=== PATIENT | female | born 1940 | race Caucasian/White ===

== ENCOUNTER 2020-04-24 10:22 | Emergency (ER) | payer MEDICARE, OTHER ==
[~2020-04-24] VITALS: Ht 152.4 cm; Wt 55.8 kg
[2020-04-24 10:32] VITALS: BP 196/80
--- NOTE | 2020-04-24 10:40 | ED Back Pain ---
General Chief Complaint: Back Problems Stated Complaint: RT HIP PAIN Source of Information: Patient Exam Limitations: No Limitations History of Present Illness Date Seen by Provider: Apr 24, 2020 Time Seen by Provider: 10:12 Initial Comments The patient presents ER by EMS from home with chief complaint 2 to 3 days of right hip pain. She says she remembers lifting something heavy and having some pain in her back at the time that it started. She has been using ibuprofen 400 mg every 4-6 hours dozits-fvo-hjmih with minimal relief. She has not been using heat or topical creams. She has no history of back surgeries or trauma. She denies any falls recently. She points to her right buttock and low back and says that is where her pain is and she has some tightness and muscle spasms on both her leg as well as her right lower back. She was seeing Dr. Vargas for this pain in the past and he had referred her to physical therapy but because of COVID-19 she had decided not to go. She is having no saddle anesthesia, weakness, falls, loss of control of bowel or bladder. 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 She did try some oxycodone she had left over from a dental surgery she says that helped for a few hours. Allergies and Home Medications Allergies Coded Allergies: shellfish derived (Verified Allergy, Unknown, 04/24/20) Home Medications Cyclobenzaprine HCl 10 Mg Tablet, 10 MG PO Q8H PRN for SPASMS Prescribed by: CAT BORGES on 04/24/20 1041 Patient Home Medication List Home Medication List Reviewed: Yes Review of Systems Constitutional: No chills, No diaphoresis EENTM: No ear discharge, No ear pain Respiratory: No cough, No short of breath Cardiovascular: No Hx of Intervention, No palpitations Gastrointestinal: No abdominal pain, No nausea, No vomiting Genitourinary: No discharge, No dysuria, No frequency Musculoskeletal: see HPI, back pain, joint pain Past Jsczikj-Mjljrr-Pyttha Hx Patient Social History Alcohol Use: Denies Use Recreational Drug Use: No Smoking Status: Never a Smoker Physical Exam Vital Signs Vital Signs - First Documented 04/24/20 10:32 Temp 36.7 Pulse 70 Resp 18 B/P (MAP) 196/80 (118) Pulse Ox 95 O2 Delivery Room Air Capillary Refill : Height, Weight, BMI Height: '" Weight: lbs. oz. kg; BMI Method: General Appearance: WD/WN, Mild Distress HEENT: PERRL/EOMI, Pharynx Normal, Moist Mucous Membranes Neck: Normal Inspection, Non Tender, Supple Cardiovascular: Regular Rate, Rhythm, No Gallop, Normal Peripheral Pulses Respiratory: Lungs Clear, Normal Breath Sounds, No Accessory Muscle Use, No Respiratory Distress Gastrointestinal: Non Tender, Soft Back: Normal Inspection, No CVA Tenderness, Muscle Spasm (Right paralumbar vertebral spasms. Point of maximal tenderness over the right L5-S1 facet joint.) Neurologic/Psychiatric: Alert, Oriented x3, No Motor/Sensory Deficits, Normal Mood/Affect, Abnormal Gait (Antalgic gait) Skin: Normal Color, Warm/Dry; No Rash Procedures/Interventions Progress L5-S1 facet joint injection. An admixture of 1.5 cc of half percent bupivacaine and 1.5 cc of 2% lidocaine with epinephrine was added to 1 mL of 40 mg/mL Depo- Medrol. Risks, benefits and alternatives were explained to the patient and she consented verbally. We cleaned the site with chlorhexidine and allowed it to dry and then after ascertaining the site of maximal pain injected some of the mixture into her L5-S1 facet joint and the rest into her point tenderness which is adjacent to the L5-S1 facet joint. A Band-Aid was placed over the injection site and the patient tolerated the procedure very well. Progress/Results/Core Measures Results/Orders My Orders Orders - CAT BORGES Lidocaine/Epi 2% 1:100,000 (Xylocaine/Ep (04/24/20 10:45) Bupivacaine 0.5% Injection (Sensorcaine (04/24/20 10:45) Methylprednisolone Acetate Inj (Depo-Med (04/24/20 10:45) Vital Signs/I&O 04/24/20 10:32 Temp 36.7 Pulse 70 Resp 18 B/P (MAP) 196/80 (118) Pulse Ox 95 O2 Delivery Room Air Progress Progress Note : Time: 10:37 Progress Note Her right hip pain does not seem to be associated with the hip joint but rather with lumbago and sciatica. We have suggested cyclobenzaprine as well as we will give her a shot of steroids and point tenderness injections at the L5-S1 facet joint with Marcaine and lidocaine. The patient is okay with this plan. She was also encouraged to set up physical therapy through her primary care office. We did offer to do a urinalysis which the patient declined. She does not have any red flags necessitating immediate imaging. Departure Impression Primary Impression: Lumbago with sciatica, right side Qualified Codes: M54.41 - Lumbago with sciatica, right side Disposition: 01 HOME, SELF-CARE Condition: Stable Departure-Patient Inst. Decision time for Depature: 10:38 Referrals: MARCELLO VARGAS MD Patient Instructions: Sciatica, Back Stretches on Floor, Back Muscle Strain (DC), Sciatica Exercises Add. Discharge Instructions: You have injured the joints and muscles of your back causing spasm of the muscles on the right side of your lumbar spine. This is causing inflammation to impact the sciatic nerve bundle which is causing the symptoms going down into your hip and leg. Continue taking the ibuprofen 400 mg every 4 hours as necessary. You may also add Tylenol 1000 mg every 8 hours. Topical creams such as icy hot, Biofreeze or capsaicin oil can be helpful. If you are having spasms of the muscles of your back and your legs then 1/2 to 1 tablet of cyclobenzaprine every 8 hours as necessary. Cyclobenzaprine will cause drowsiness. We have injected you with a medication that should cause some immediate relief of pain for about 6 to 8 hours and then the steroid should kick in over the next day. The steroid will hang out for about 5 to 7 days and decrease the swelling and inflammation associated with your back and sciatic nerve. All steroids may cause increased feeling of energy, feeling wired or difficulty getting to sleep. You may use melatonin or 25 mg of Benadryl 30 minutes prior to sleep if you are having insomnia. Please make an appointment to follow-up with Dr. VARGAS next week to discuss physical therapy and continued management of your chronic low back pain. All discharge instructions reviewed with patient and/or family. Voiced understanding. Scripts Cyclobenzaprine HCl (Cyclobenzaprine HCl) 10 Mg Tablet 10 MG PO Q8H PRN for SPASMS, #15 TAB 0 Refills Prov: CAT BORGES 04/24/20 Copy Copies To 1: MARCELLO VARGAS MD, TITUS J Apr 24, 2020 10:40
[2020-04-24] MEDS ORDERED: CYCL10TA9 PO (10:41)
[2020-04-24] MEDS ORDERED: BUPIVACAINE 0.5% 30 ML (SENSORCAINE) VIAL INJ ONE (10:45)
[2020-04-24] MEDS ORDERED: LIDOCAINE/EPI 2% 1:100,00 (XYLOCAINE) 20 ML VIAL INJ ONE (10:45)
[2020-04-24] MEDS ORDERED: methylPREDNISolone 40 MG/ML (DEPO MEDROL) VIAL IA ONE (10:45)
== END 2020-04-24 10:57 | disposition home or self-care (01) ==
LOC: ER FS 10:24
DX: M54.41 Lumbago with sciatica, right side (principal)
CPT/HCPCS: 99283

== ENCOUNTER 2020-05-08 11:09 | Inpatient (IN) | payer MEDICARE, OTHER ==
[~2020-05-08] VITALS: Ht 160 cm; Wt 54.4 kg
[~2020-05-08 11:09] MED LIST: CYCL10TA9 PO
[2020-05-08] MEDS ORDERED: NS IV 1000 ML 1,000 ML IV STA (11:23)
--- NOTE | 2020-05-08 11:23 | ED Neurological Problem ---
General Chief Complaint: Neuro-Stroke Like Symptoms Stated Complaint: Altered Mental Status Source: patient Exam Limitations: no limitations History of Present Illness Date Seen by Provider: May 08, 2020 Time Seen by Provider: 11:23 Initial Comments 79-year-old female brought in by EMS. History of present illness is very limited. Patient is brought in with what appears to be some altered mental status and confusion. She has some right-sided facial droop, unsure if this is new or old. Patient stares at you and a starter with any activity towards her. She acts as if she does not comprehend what is happening around her and is quite confused. Last known well time was when she went to bed last night. No other history of present illness available Allergies and Home Medications Allergies Coded Allergies: shellfish derived (Verified Allergy, Unknown, 04/24/20) Home Medications Cyclobenzaprine HCl 10 Mg Tablet, 10 MG PO Q8H PRN for SPASMS Prescribed by: CAT BORGES on 04/24/20 1041 Patient Home Medication List Home Medication List Reviewed: Yes Review of Systems Review of Systems Constitutional: see HPI Cardiovascular: no symptoms reported Gastrointestinal: no symptoms reported Genitourinary: no symptoms reported Psychiatric/Neurological: See HPI Review of systems limited based on patient's presentation and Inability to communicate Past Ucesbmr-Aypixd-Xkvrol Hx Past Med/Social Hx: Reviewed Nursing Past Med/Soc Hx Patient Social History Type Used: Cigarettes 2nd Hand Smoke Exposure: No Recent Hopitalizations: No Seasonal Allergies Seasonal Allergies: No Past Medical History Surgeries: Yes Oophorectomy Respiratory: No Atrial Fibrillation Neurological: No Genitourinary: No Gastrointestinal: No Musculoskeletal: No Endocrine: No HEENT: No Cancer: No Psychosocial: No Integumentary: No Blood Disorders: No Physical Exam Vital Signs Vital Signs - First Documented 05/08/20 12:13 Temp 35.0 Pulse 62 Resp 18 B/P (MAP) 168/71 (103) Pulse Ox 100 O2 Delivery Room Air Capillary Refill : Height, Weight, BMI Height: '" Weight: lbs. oz. kg; 24.00 BMI Method: General Appearance: other (is awake but obviously confused, does not follow commands, axis that she does not understand this where she is at her anything going on around her) HEENT: PERRL/EOMI Neck: full range of motion Respiratory: normal breath sounds, no respiratory distress Cardiovascular: normal peripheral pulses, regular rate, rhythm Gastrointestinal: non tender, soft Back: normal inspection Extremities: normal capillary refill Neurologic/Psychiatric: facial droop, disoriented x 3 Crainal Nerves: other (patient has slight right-sided facial weakness and droop, unsure if this is new or old. She seems to be moving all her extremities appropriately, limited testing based on patient does not follow commands.) Skin: normal color, warm/dry Focused Exam Lactate Level 05/08/20 11:35: Lactic Acid Level 1.54 Lactic Acid Level Laboratory Tests Test 05/08/20 11:35 Lactic Acid Level 1.54 MMOL/L (0.50-2.00) Progress/Results/Core Measures Results/Orders Lab Results Laboratory Tests Test 05/08/20 11:15 05/08/20 11:35 05/08/20 12:05 Range/Units White Blood Count 12.1 H 4.3-11.0 10^3/uL Red Blood Count 4.64 4.35-5.85 10^6/uL Hemoglobin 13.6 11.5-16.0 G/DL Hematocrit 40 35-52 % Mean Corpuscular Volume 87 80-99 FL Mean Corpuscular Hemoglobin 29 25-34 PG Mean Corpuscular Hemoglobin Concent 34 32-36 G/DL Red Cell Distribution Width 14.7 H 10.0-14.5 % Platelet Count 287 130-400 10^3/uL Mean Platelet Volume 9.9 7.4-10.4 FL Immature Granulocyte % (Auto) 0 % Neutrophils (%) (Auto) 55 42-75 % Lymphocytes (%) (Auto) 35 12-44 % Monocytes (%) (Auto) 7 0-12 % Eosinophils (%) (Auto) 1 0-10 % Basophils (%) (Auto) 1 0-10 % Neutrophils # (Auto) 6.7 1.8-7.8 X 10^3 Lymphocytes # (Auto) 4.3 H 1.0-4.0 X 10^3 Monocytes # (Auto) 0.9 0.0-1.0 X 10^3 Eosinophils # (Auto) 0.1 0.0-0.3 10^3/uL Basophils # (Auto) 0.1 0.0-0.1 10^3/uL Immature Granulocyte # (Auto) 0.0 0.0-0.1 10^3/uL Prothrombin Time 13.0 12.2-14.7 SEC INR Comment 1.0 0.8-1.4 Activated Partial Thromboplast Time 21 L 24-35 SEC D-Dimer 3.87 H 0.00-0.49 UG/ML Sodium Level 125 *L 135-145 MMOL/L Potassium Level 4.6 3.6-5.0 MMOL/L Chloride Level 89 L 98-107 MMOL/L Carbon Dioxide Level 27 21-32 MMOL/L Anion Gap 9 5-14 MMOL/L Blood Urea Nitrogen 12 7-18 MG/DL Creatinine 0.63 0.60-1.30 MG/DL Estimat Glomerular Filtration Rate > 60 BUN/Creatinine Ratio 19 Glucose Level 180 H 70-105 MG/DL Calcium Level 9.2 8.5-10.1 MG/DL Corrected Calcium 9.3 8.5-10.1 MG/DL Magnesium Level 1.8 1.6-2.4 MG/DL Total Bilirubin 0.5 0.1-1.0 MG/DL Aspartate Amino Transf (AST/SGOT) 16 5-34 U/L Alanine Aminotransferase (ALT/SGPT) 21 0-55 U/L Alkaline Phosphatase 59 40-136 U/L Troponin I < 0.30 <0.30 NG/ML C-Reactive Protein 0.05 <0.50 MG/DL Total Protein 6.1 L 6.4-8.2 GM/DL Albumin 3.9 3.2-4.5 GM/DL Serum Alcohol < 10 <10 MG/DL Lactic Acid Level 1.54 0.50-2.00 MMOL/L Urine Color YELLOW Urine Clarity CLEAR Urine pH 7.5 5-9 Urine Specific [place] 1.015 L 1.016-1.022 Urine Protein NEGATIVE NEGATIVE Urine Glucose (UA) NEGATIVE NEGATIVE Urine Ketones NEGATIVE NEGATIVE Urine Nitrite NEGATIVE NEGATIVE Urine Bilirubin NEGATIVE NEGATIVE Urine Urobilinogen 0.2 < = 1.0 MG/DL Urine Leukocyte Esterase NEGATIVE NEGATIVE Urine RBC (Auto) NEGATIVE NEGATIVE Urine RBC NONE /HPF Urine WBC NONE /HPF Urine Crystals PRESENT H /LPF Urine Amorphous Sediment MOD NAVEEN PHOSPHATE H /LPF Urine Bacteria NONE /HPF Urine Casts NONE /LPF Urine Mucus SMALL H /LPF Urine Culture Indicated NO Urine Opiates Screen NEGATIVE NEGATIVE Urine Oxycodone Screen NEGATIVE NEGATIVE Urine Methadone Screen NEGATIVE NEGATIVE Urine Propoxyphene Screen NEGATIVE NEGATIVE Urine Barbiturates Screen NEGATIVE NEGATIVE Ur Tricyclic Antidepressants Screen NEGATIVE NEGATIVE Urine Phencyclidine Screen NEGATIVE NEGATIVE Urine Amphetamines Screen NEGATIVE NEGATIVE Urine Methamphetamines Screen NEGATIVE NEGATIVE Urine Benzodiazepines Screen NEGATIVE NEGATIVE Urine Cocaine Screen NEGATIVE NEGATIVE Urine Cannabinoids Screen NEGATIVE NEGATIVE My Orders Orders - WHITTAKER,ROJAS L DO Cbc With Automated Diff (05/08/20 11:23) Protime With Inr (05/08/20 11:23) Partial Thromboplastin Time (05/08/20 11:23) Comprehensive Metabolic Panel (05/08/20 11:23) Fibrin Degradation Products (05/08/20 11:23) Troponin I Fs (05/08/20 11:23) Ua Culture If Indicated (05/08/20 11:23) Chest 1 View Ap/Pa Only (05/08/20 11:23) Catheter(Urinary) Insert & Ass 03,15 (05/08/20 11:23) Ekg Tracing (05/08/20 11:23) Accucheck Stat ONCE (05/08/20 11:23) Ed Iv/Invasive Line Start (05/08/20 11:23) Ed Iv/Invasive Line Start (05/08/20 11:23) Vital Signs Stroke Patient Q15M (05/08/20 11:23) Ct Head Wo-R/O Stroke (05/08/20 11:23) Intake & Output 06,14,22 (05/08/20 11:23) Monitor-Rhythm Ecg Trace Only (05/08/20 11:23) Dysphagia Screening Tool (05/08/20 11:23) Alcohol (05/08/20 11:23) Drug Screen Stat (Urine) (05/08/20 11:23) Magnesium (05/08/20 11:23) Procalcitonin (Pct) (05/08/20 11:23) Blood Culture (05/08/20 11:23) Crp Fs (05/08/20 11:23) Lactic Acid Analyzer (05/08/20 11:23) Ns Iv 1000 Ml (Sodium Chloride 0.9%) (05/08/20 11:23) Ed Iv/Invasive Line Start (05/08/20 11:52) Ns Iv 500 Ml (Sodium Chloride 0.9%) (05/08/20 12:00) Lipid Panel (05/08/20 12:41) Vital Signs/I&O 05/08/20 05/08/20 12:13 12:52 Temp 35.0 36.0 Pulse 62 81 Resp 18 18 B/P (MAP) 168/71 (103) 103/83 Pulse Ox 100 98 O2 Delivery Room Air Room Air Initial ECG Impression Date: May 08, 2020 Initial ECG Impression Time: 12:02 Initial ECG Rhythm: Normal Sinus Initial ECG Impression: Nonspecific Changes Comment HR 68, sinus Rhythm, no acute finding Departure Communication (Admissions) Time/Spoke to Admitting Phy: 12:40 aspirin daily, pt/ot to eval, lipid panel Impression Primary Impression: Hyponatremia Additional Impression: Altered mental status Qualified Codes: R41.0 - Disorientation, unspecified Disposition: 30 STILL A PATIENT Condition: Stable/Unchanged Admissions Decision to Admit Reason: Admit from ER (General) Decision to Admit/Date: May 08, 2020 Time/Decision to Admit Time: 12:40 Departure-Patient Inst. Referrals: SELF,MARCELLO LUNA (PCP/Family) Primary Care Physician ROJAS WHITTAKER DO May 08, 2020 11:23
[2020-05-08 11:35] LABS: BASOPHILS % (AUTO) 1 % (0-10); EOSINOPHILS % (AUTO) 1 % (0-10); HEMATOCRIT 40 % (35-52); HEMOGLOBIN 13.6 G/DL (11.5-16.0); LYMPHOCYTES % (AUTO) 35 % (12-44); MEAN CORPUSCULAR HEMOGLOBIN 29 PG (25-34); MEAN CORPUSCULAR HGB CONC 34 G/DL (32-36); MEAN CORPUSCULAR VOLUME 87 FL (80-99); MEAN PLATELET VOLUME 9.9 FL (7.4-10.4); MONOCYTES % (AUTO) 7 % (0-12); NEUTROPHILS # (AUTO) 6.7 X 10^3 (1.8-7.8); NEUTROPHILS % (AUTO) 55 % (42-75); PLATELET COUNT 287 10^3/uL (130-400); WHITE BLOOD COUNT 12.1 10^3/uL (4.3-11.0)
[2020-05-08 11:36] LABS: BASOPHILS # (AUTO) 0.1 10^3/uL (0.0-0.1); EOSINOPHILS # (AUTO) 0.1 10^3/uL (0.0-0.3); LYMPHOCYTES # (AUTO) 4.3 X 10^3 (1.0-4.0); MONOCYTES # (AUTO) 0.9 X 10^3 (0.0-1.0)
[2020-05-08 11:47] LABS: FIBRIN DEGRADATION PRODUCTS 3.87 UG/ML (0.00-0.49)
[2020-05-08 11:50] LABS: ALKALINE PHOSPHATASE 59 U/L (40-136); BILIRUBIN,TOTAL 0.5 MG/DL (0.1-1.0); BUN/CREATININE RATIO 19; CALCIUM 9.2 MG/DL (8.5-10.1); CARBON DIOXIDE 27 MMOL/L (21-32); CHLORIDE 89 MMOL/L (98-107); CREATININE SERUM 0.63 MG/DL (0.60-1.30); GFR ESTIMATED > 60; GLUCOSE 180 MG/DL (70-105); MAGNESIUM 1.8 MG/DL (1.6-2.4); POTASSIUM 4.6 MMOL/L (3.6-5.0); SODIUM 125 MMOL/L (135-145)
[2020-05-08 11:51] LABS: ALANINE AMINOTRANSFERASE 21 U/L (0-55); ALBUMIN 3.9 GM/DL (3.2-4.5); TOTAL PROTEIN 6.1 GM/DL (6.4-8.2)
[2020-05-08] MEDS ORDERED: NS IV 500 ML 500 ML IV ONE (12:00)
--- NOTE | 2020-05-08 12:15 | Diagnostic Imaging Report ---
Clinical indication: Patient altered mental status and right-sided facial droop. Exam: Axial CT scan of the brain without IV contrast with coronal and sagittal reformatted images. Auto Exposure Controls were utilized during the CT exam to meet ALARA standards for radiation dose reduction. Comparison: None. Findings: There is significant motion artifact with skull streak artifact which obscures portions of the brain parenchyma. There is no gross evidence of acute cerebral infarct, intracranial hemorrhage, or gross mass effect. There is diffuse brain parenchymal volume loss. 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 There is normal campos-white matter distinction. There is no significant midline shift or herniation. There is no evidence of hydrocephalus. The basal cisterns are unremarkable. There is no gross skull fracture. The skull, extracranial soft tissue, and orbits are unremarkable. There is minimal mucosal thickening involving ethmoid sinus. Temporal bones show no significant abnormality. Impression: 1: Motion artifact and skull streak artifact greatly limits evaluation of the brain parenchyma. 2: There is no gross CT evidence of interval acute cerebral infarction, intracranial hemorrhage, or mass seen. Given the diffuse low attenuation changes throughout the brain parenchyma which can obscure more subtle findings, if there is clinical concern for acute cerebral infarction, MRI of the brain would better evaluate. 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 Results of this report was discussed with Dr. Jc Siddiqui via the telephone on 05/08/2020 at 1210 hours Dictated by: Dictated on workstation # [id number]
[2020-05-08 12:25] LABS: AMPHETAMINE SCREEN, URINE NEGATIVE (NEGATIVE); BARBITURATE SCREEN URINE NEGATIVE (NEGATIVE); BENZODIAZEPINES SCREEN URINE NEGATIVE (NEGATIVE); BILIRUBIN,URINE NEGATIVE (NEGATIVE); CANNABINOID SCREEN, URINE NEGATIVE (NEGATIVE); CLARITY,URINE CLEAR; COCAINE SCREEN URINE NEGATIVE (NEGATIVE); COLOR,URINE YELLOW; GLUCOSE, URINE (UA) NEGATIVE (NEGATIVE); KETONES,URINE NEGATIVE (NEGATIVE); LEUKOCYTE ESTERASE ,URINE NEGATIVE (NEGATIVE); METHADONE STAT NEGATIVE (NEGATIVE); METHAMPHETAMINE SCREEN URINE S NEGATIVE (NEGATIVE); NITRITE,URINE NEGATIVE (NEGATIVE); OPIATE SCREEN URINE NEGATIVE (NEGATIVE); OXYCODONE STAT NEGATIVE (NEGATIVE); PH,URINE 7.5 (5-9); PROPOXYPHENE STAT NEGATIVE (NEGATIVE); PROTEIN,URINE NEGATIVE (NEGATIVE); TRICYCLIC ANTIDEPRESSANTS SCRE NEGATIVE (NEGATIVE)
[2020-05-08 12:26] LABS: AMORPHOUS SEDIMENT,UR MOD AMOR PHOSPHATE /LPF
--- NOTE | 2020-05-08 12:29 | Diagnostic Imaging Report ---
Chest 1 view at 1149h. INDICATION: CVA There are no prior studies available for comparison. This exam is less than optimal as the patient is rotated and the right lung apex is obscured by the patient's chin. The heart size is at the upper limits of normal. The lungs are generally clear. There is no evidence for failure, pneumonia or for a pleural effusion to suggest an acute abnormality. The mediastinum is not widened. The osseous structures are intact. IMPRESSION: There is no evidence for an acute cardiopulmonary abnormality on this suboptimal exam. Dictated by: Dictated on workstation # [id number]
[2020-05-08 14:43] LABS: CHOLESTEROL 193 MG/DL (< 200); HDL CHOLESTEROL 61 MG/DL (40-60); TRIGLYCERIDES 65 MG/DL (<150); VLDL CHOLESTEROL 13 MG/DL (5-40)
[2020-05-08] MEDS ORDERED: LISI10TA2 PO (14:54)
[2020-05-08] MEDS: NS IV 1000 ML 1,000 ML IV SCH (15:06)
[2020-05-08] MEDS ORDERED: hydrALAZINE (APESOLINE) 20 MG/ML VIAL IV PRN (15:30)
[2020-05-08] MEDS ORDERED: hydrALAZINE (APESOLINE) 20 MG/ML VIAL ONE (15:32)
[2020-05-08] MEDS: hydrALAZINE (APESOLINE) 20 MG/ML VIAL IV PRN (15:37)
[2020-05-08] MEDS: lisINopril 10 MG (PRINIVIL) TABLET PO SCH (15:37)
[2020-05-08 15:47] LABS: CHLORIDE 92 MMOL/L (98-107); POTASSIUM 4.1 MMOL/L (3.6-5.0); SODIUM 127 MMOL/L (135-145)
[2020-05-08 15:48] LABS: CALCIUM 8.7 MG/DL (8.5-10.1)
[2020-05-08 15:49] LABS: GLUCOSE 95 MG/DL (70-105)
[2020-05-08 15:50] LABS: CARBON DIOXIDE 22 MMOL/L (21-32)
[2020-05-08 15:53] LABS: CREATININE SERUM 0.59 MG/DL (0.60-1.30); GFR ESTIMATED > 60
[2020-05-08 15:54] LABS: BUN/CREATININE RATIO 17
--- NOTE | 2020-05-08 18:24 | NUR ---
[address] SPOKE WITH E-ICU DR REGARDING PT'S ELEVATED BLOOD PRESSURE, NEW ORDERS RECEIVED.
--- NOTE | 2020-05-08 18:25 | NUR ---
LEFT MESSAGE FOR E-ICU DR REGARDING PT'S ELEVATED BLOOD PRESSURE, PT C/O OF BACK PAIN, RATES PAIN AT 6 ON 0-10 SCALE, STATES " I TAKE TYLENOL AND IBUPROFEN AT HOME."
[2020-05-08] MEDS ORDERED: IBUPROFEN TABLET 200 MG TAB PO PRN (18:45)
[2020-05-08] MEDS ORDERED: ACETAMINOPHEN 500 MG TAB (TYLENOL) PO PRN (18:45)
[2020-05-08] MEDS ORDERED: diphenhydrAMINE 25 MG TAB (BENADRYL) PO PRN (19:15)
[2020-05-08] MEDS ORDERED: ONDANSETRON 4 MG/2 ML (SDV) Z0FRAN IVP PRN (19:15)
[2020-05-08] MEDS ORDERED: DOCUSATE SODIUM 100 MG (COLACE) CAP PO PRN (19:15)
[2020-05-08] MEDS ORDERED: LOPERAMIDE 2 MG (IMODIUM) TABLET PO PRN (19:15)
[2020-05-08] MEDS ORDERED: CALCIUM CARBONATE 500 MG (TUMS) TAB.CHEW PO PRN (19:15)
[2020-05-08] MEDS ORDERED: SALINE NASAL SPRAY (OCEAN) 45 ML BTL PRN (19:45)
[2020-05-08] MEDS: HYDROcodone/APAP 5 MG/325 MG (LORTAB) TAB PO PRN (20:00)
[2020-05-08 20:05] LABS: BUN/CREATININE RATIO 16; CALCIUM 8.3 MG/DL (8.5-10.1); CARBON DIOXIDE 23 MMOL/L (21-32); CHLORIDE 92 MMOL/L (98-107); CREATININE SERUM 0.51 MG/DL (0.60-1.30); GFR ESTIMATED > 60; GLUCOSE 93 MG/DL (70-105); POTASSIUM 3.9 MMOL/L (3.6-5.0)
[2020-05-08 20:07] LABS: SODIUM 125 MMOL/L (135-145)
[2020-05-08] MEDS ORDERED: ENOXAPARIN 40 MG/0.4 ML (LOVENOX) SYR SC SCH (21:00)
[2020-05-08] MEDS ORDERED: RALO60TA12 PO (22:52)
[2020-05-08] MEDS ORDERED: TIMO5DRO5 OU (22:52)
[2020-05-08] MEDS ORDERED: RIVA20TA PO ×2 (22:52)
[2020-05-08] MEDS ORDERED: C,E,1CAP PO (22:55)
[2020-05-08] MEDS ORDERED: OMEP40CA27 PO (22:56)
[2020-05-08] MEDS ORDERED: CALC-308 PO (22:59)
[2020-05-08] MEDS ORDERED: TRM50T PO (23:01)
--- NOTE | 2020-05-09 00:02 | NUR ---
E-ICU called regarding patient's wish to start home medication of Timolol eye drops tonight. ([id number] had been called about 2 hour ago and medications reviewed).
[2020-05-09] MEDS: NS IV 1000 ML 1,000 ML IV SCH (00:25)
[2020-05-09] MEDS: MELATONIN 3 MG TABLET PO PRN (00:28)
[2020-05-09] MEDS: HYDROcodone/APAP 5 MG/325 MG (LORTAB) TAB PO PRN (00:28)
[2020-05-09] MEDS: hydrALAZINE (APESOLINE) 20 MG/ML VIAL IV PRN ×2 (00:36→21:52)
[2020-05-09 00:42] LABS: CHLORIDE 93 MMOL/L (98-107); POTASSIUM 3.7 MMOL/L (3.6-5.0)
[2020-05-09 00:44] LABS: CALCIUM 8.1 MG/DL (8.5-10.1); GLUCOSE 78 MG/DL (70-105)
[2020-05-09 00:46] LABS: CARBON DIOXIDE 20 MMOL/L (21-32)
[2020-05-09 00:48] LABS: CREATININE SERUM 0.51 MG/DL (0.60-1.30); GFR ESTIMATED > 60
[2020-05-09 00:49] LABS: BUN/CREATININE RATIO 16
[2020-05-09 00:52] LABS: SODIUM 124 MMOL/L (135-145)
--- NOTE | 2020-05-09 00:58 | NUR ---
E-ICU notified about critical lab (Sodium 124). Orders to restrict free water and stop IV fluids.
[2020-05-09 03:57] LABS: BASOPHILS # (AUTO) 0.1 10^3/uL (0.0-0.1); BASOPHILS % (AUTO) 0 % (0-10); EOSINOPHILS # (AUTO) 0.1 10^3/uL (0.0-0.3); EOSINOPHILS % (AUTO) 1 % (0-10); HEMATOCRIT 39 % (35-52); HEMOGLOBIN 13.2 g/dL (11.5-16.0); LYMPHOCYTES # (AUTO) 4.1 10^3/uL (1.0-4.0); LYMPHOCYTES % (AUTO) 27 % (12-44); MEAN CORPUSCULAR HEMOGLOBIN 29 pg (25-34); MEAN CORPUSCULAR HGB CONC 34 g/dL (32-36); MEAN CORPUSCULAR VOLUME 85 fL (80-99); MEAN PLATELET VOLUME 9.4 fL (9.0-12.2); MONOCYTES # (AUTO) 1.4 10^3/uL (0.0-1.0); MONOCYTES % (AUTO) 9 % (0-12); NEUTROPHILS # (AUTO) 9.6 10^3/uL (1.8-7.8); NEUTROPHILS % (AUTO) 62 % (42-75); PLATELET COUNT 262 10^3/uL (130-400); WHITE BLOOD COUNT 15.4 10^3/uL (4.3-11.0)
[2020-05-09 04:12] LABS: CHLORIDE 93 MMOL/L (98-107); POTASSIUM 3.6 MMOL/L (3.6-5.0)
[2020-05-09 04:13] LABS: CALCIUM 8.4 MG/DL (8.5-10.1)
[2020-05-09 04:14] LABS: GLUCOSE 94 MG/DL (70-105)
[2020-05-09 04:15] LABS: CARBON DIOXIDE 21 MMOL/L (21-32)
[2020-05-09 04:16] LABS: SODIUM 123 MMOL/L (135-145)
[2020-05-09 04:17] LABS: CREATININE SERUM 0.54 MG/DL (0.60-1.30); GFR ESTIMATED > 60; PHOSPHORUS 3.2 MG/DL (2.3-4.7)
[2020-05-09 04:18] LABS: BUN/CREATININE RATIO 15
[2020-05-09 04:20] LABS: MAGNESIUM 1.8 MG/DL (1.6-2.4)
[2020-05-09 04:28] LABS: EOSINOPHILS % (MANUAL) 2 %; LYMPHOCYTES % (MANUAL) 26 %; MONOCYTES % (MANUAL) 10 %; NEUTROPHILS % (MANUAL) 62 %; RBC MORPH NORMAL
--- NOTE | 2020-05-09 04:30 | NUR ---
E-ICU called regarding critical result (Sodium 123). No orders received at this time; awaiting urine osmolality and urine sodium results. Called lab, no urine available, specimen obtained from jorgensen and sent to lab.
[2020-05-09] MEDS: SENNA W/DOCUSATE (SENOKOT S) TABLET PO SCH ×3 (06:04→21:45)
--- NOTE | 2020-05-09 07:25 | History & Physical-Hospitalist ---
History of Present Illness HPI/Chief Complaint CC: AMS HPI: This is a 79yoWF who presented to the [facility] ER with AMS. Patient was found at home lethargic and brought to the ER. Labs revealed hyponatremia at 123. Questionable CVA started the CVA work-up but considering she presented a full day after symptoms and last seen well time she was not a candidate for tPA. Patient currently feels ok and answers my questions mostly correctly. Fluid restriction maintained. Patient experienced AF w/RVR requiring Cardizem drip. Source: patient Exam Limitations: no limitations Date Seen 05/09/20 Time Seen by a Provider: 11:00 Attending Physician Caitlyn Subramanian DO PCP Self,Ponce LUNA Referring Physician Date of Admission May 08, 2020 at 12:42 Home Medications & Allergies Home Medications Reviewed patient Home Medication Reconciliation performed by pharmacy medication reconciliations computer hardware technician and/or nursing. Patients Allergies have been reviewed. Allergies Allergies Coded Allergies shellfish derived (Verified Allergy, Unknown, 04/24/20) Past Pixwlcm-Fmvtzc-Pcaapj Hx Past Med/Social Hx: Reviewed Nursing Past Med/Soc Hx, Reviewed and Corrections made Patient Social History Marrital Status: single Alcohol Use: Denies Use Recreational Drug Use: No Smoking Status: Current Everyday Smoker Type Used: Cigarettes 2nd Hand Smoke Exposure: No Recent Foreign Travel: No Contact w/other who traveled: No Recent Hopitalizations: No Recent Infectious Disease Expo: No Seasonal Allergies Seasonal Allergies: No Past Medical History Surgeries: Oophorectomy Cardiac: Atrial Fibrillation History of Blood Disorders: No Review of Systems Constitutional: see HPI Psychiatric/Neurological: Other (confusion) Physical Exam Physical Exam Vital Signs Vital Signs - First Documented 05/08/20 12:13 Temp 35.0 Pulse 62 Resp 18 B/P (MAP) 168/71 (103) Pulse Ox 100 O2 Delivery Room Air Capillary Refill : Less Than 3 Seconds Height, Weight, BMI Height: '" Weight: lbs. oz. kg; 29.00 BMI Method: General Appearance: No Apparent Distress, Chronically ill, Thin, Other (frail) Eyes: Right Eye Normal Inspection, Right Eye PERRL HEENT: PERRL/EOMI, Normal ENT Inspection, Pharynx Normal, Moist Mucous Membranes Neck: Full Range of Motion, Normal Inspection, Non Tender Respiratory: Chest Non Tender, Lungs Clear, Normal Breath Sounds, No Accessory Muscle Use, No Respiratory Distress Cardiovascular: No Edema, No Gallop, No JVD, No Murmur, Normal Peripheral Pulses, Irregularly Irregular, Tachycardia Gastrointestinal: Normal Bowel Sounds, No Organomegaly, No Pulsatile Mass, Non Tender, Soft Back: Normal Inspection, No CVA Tenderness, No Vertebral Tenderness Extremity: Normal Capillary Refill, Normal Inspection, Normal Range of Motion, Non Tender, No Calf Tenderness, No Pedal Edema Neurologic/Psychiatric: Alert, Oriented x3, No Motor/Sensory Deficits, Normal Mood/Affect, Disoriented Skin: Normal Color, Warm/Dry Lymphatic: No Adenopathy Results Results/Procedures Labs Laboratory Tests 05/08/20 11:15 05/08/20 15:33 05/08/20 19:45 05/09/20 00:26 05/09/20 03:51 05/09/20 08:04 05/09/20 12:30 05/09/20 17:30 Patient resulted labs reviewed. Assessment/Plan Admission Diagnosis Assessment: AMS Hyponatremia AF w/RVR Dementia with sundowning? OAC HTN Plan: Fluid restriction Cardizem drip Monitor closely Admission Status: Inpatient Order (span 2 midnights) Reason for Inpatient Admission: af w/RVR with hyponatremia Diagnosis/Problems Diagnosis/Problems (1) Altered mental status Status: Acute Qualifiers: Altered mental status type: delirium Qualified Codes: R41.0 - Disorientation, unspecified (2) Hyponatremia Status: Acute Clinical Quality Measures DVT/VTE Risk/Contraindication: Risk Factor Score Per Nursin RFS Level Per Nursing on Admit: 3=High CAITLYN SUBRAMANIAN DO May 09, 2020 07:25
--- NOTE | 2020-05-09 08:13 | Diagnostic Imaging Report ---
EXAM: CHEST 1 VIEW, AP/PA ONLY INDICATION: Dyspnea. COMPARISON: Chest radiograph 05/08/2020. FINDINGS: Calcified aorta. Normal heart size. Mild prominence of the interstitial. No focal pulmonary opacity. No pleural effusion or pneumothorax. No acute osseous findings. IMPRESSION: Mild increasing prominence of interstitium may represent a degree of vascular congestion. No focal pulmonary opacity. Dictated by: Dictated on workstation # [id number]
[2020-05-09 08:29] LABS: CHLORIDE 93 MMOL/L (98-107); POTASSIUM 4.1 MMOL/L (3.6-5.0)
[2020-05-09 08:30] LABS: CALCIUM 8.7 MG/DL (8.5-10.1); GLUCOSE 89 MG/DL (70-105)
[2020-05-09 08:32] LABS: CARBON DIOXIDE 20 MMOL/L (21-32)
[2020-05-09 08:34] LABS: CREATININE SERUM 0.54 MG/DL (0.60-1.30); GFR ESTIMATED > 60
[2020-05-09 08:35] LABS: BUN/CREATININE RATIO 13
--- NOTE | 2020-05-09 08:55 | Physical Therapy Evaluation ---
PT Evaluation-General Medical Diagnosis Admission Date May 08, 2020 at 12:42 Medical Diagnosis: Confusion/stroke like symptoms Onset Date: May 08, 2020 Therapy Diagnosis Therapy Diagnosis: unsteady gait Precautions Precautions/Isolations: Fall Prevention, Standard Precautions Weight Bear Status Full Weight Bearing Full Weight Bearing Referral Physician: Caitlyn Subramanian Reason for Referral: Evaluation/Treatment Medical History Pertinent Medical History: HTN, Smoking Current History Multiple falls within the last month Reviewed History: Yes Social History Home: [facility] Current Living Status: Other Family Currently has a daughter in law living with her and helping with ADLs and taking care of the home. Prior Prior Level of Function SCALE: Activities may be completed with or without assistive devices. 8-Yksicrajnx-fqgccmh completes the activity by him/herself with no assistance from a helper. 5-Set-up or Clean-up Assistance-helper sets up or cleans up; patient completes activity. [place] assists only prior to or following the activity. 4-Supervision or Touching Assistance-helper provides verbal cues and/or touching/steadying and/or contact guard assistance as patient completes activity. Assistance may be provided throughout the activity or intermittently. 3-Partial/Moderate Assistance-helper does LESS THAN HALF the effort. [place] lifts, holds or supports trunk or limbs, but provides less than half the effort. 2-Substantial/Maximal Assistance-helper does MORE THAN HALF the effort. [place] lifts or holds trunk or limbs and provides more than half the effort. 2-Zucexfgjn-bknfus does ALL the effort. Patient does none of the effort to complete the activity. Or, the assistance of 2 or more helpers is required for the patient to complete the activity. If activity was not attempted, code reason: 7-Patient Refused. 9-Not Applicable-not attempted and the patient did not perform the activity before the current illness, exacerbation or injury. 10-Not Attempted due to Environmental Limitations-(lack of equipment, weather restraints, etc.). 88-Not Attempted due to Medical Conditions or Safety Concerns. Bed Mobility: 6 Transfers (B,C,W/C): 6 Gait: 5 Indoor Mobility (Ambulation): Independent Stairs: Needed Some Help Prior Devices Use: Walker PT Evaluation-Current Subjective Patient reports that she has been becoming progressively more unsteady and is currently using a walker with wheels. She does not use her stairs. Pt was admitted on 05/08/20 with severe confusion. Pain Numeric Pain Scale: 2 Comment: c/o neck and low back pain from lying in bed for so long. Objective Patient Orientation: Person, Place, Situation ROM/Strength ROM Upper Extremities WFL ROM Lower Extremities WFL Strength Upper Extremities 4/5 Strength Lower Extremities 4/5 Sensory Vision: Functional Hearing: Functional Sensation Right Upper Extremit: Intact Sensation Right Lower Extremit: Intact Transfers Roll Left to Right (QC): 5 Sit to Lying (QC): 5 Lying to Sitting/Side of Bed(Q: 5 Sit to Stand (QC): 4 Chair/Zff-cc-Hwjdw Xfer(QC): 4 Toilet Transfer (QC): 4 Car Transfer (QC): 88 Pt requires minimal contact assist for steadying during sit to stand and transfers to commode. Gait Does the Patient Walk?: Yes Mode of Locomotion: Walk Walk 10 feet (QC): 4 Walk 50 ft with 2 Turns(QC): 4 Walk 150 ft (QC): 88 Distance: 25feet Gait Assistive Device: FWW Balance Sitting Static: Good Sitting Dynamic: Good Standing Static: Fair Standing Dynamic: Fair Assessment/Needs Rehab Potential: Good PT Short Term Goals Short Term Goals Time Frame: May 12, 2020 Roll Left & Right: 6 Sit to lyin Lying to sitting on side of be: 6 Sit to stand: 5 Chair/mtv-nz-fdjwp transfer: 5 Toilet transfer: 5 Walk 10 feet: 5 Walk 50 feet with two turns: 5 Walk 150 feet: 5 PT Computer Applications Instructor Goals Computer Applications Instructor Goals PT Shelter Goals Time Frame: May 15, 2020 Roll Left & Right (QC): 6 Sit to Lying (QC): 6 Lying-Sitting on Side/Bed(QC): 6 Sit to Stand (QC): 6 Chair/Idp-zu-Aveqi Xfer(QC): 5 Toilet Transfer (QC): 5 Car Transfer (QC): 5 Walk 10 feet (QC): 5 Walk 50ft with 2 Turns (QC): 5 Walk 150 ft (QC): 5 1 Step (curb) (QC): 5 PT Plan Problem List Problem List: Activity Tolerance, Functional Strength, Safety, Balance, Gait Treatment/Plan Treatment Plan: Continue Plan of Care Treatment Plan: Bed Mobility, Education, Gait, Safety Treatment Duration: May 15, 2020 Frequency: 6 times per week Estimated Hrs Per Day: .25 hour per day Safety Risks/Education Patient Education: Gait Training, Safety Issues Discharge Recommendations Barriers to Progress mental confusion Target Placement home with family Time/GCodes Time In: 0800 Time Out: 829 Total Billed Treatment Time: 30 Total Billed Treatment visit, Evaluation Moderate complexity 30 min MEREDITH CHICAS PT May 09, 2020 08:55
[2020-05-09] MEDS ORDERED: lisINopril 10 MG (PRINIVIL) TABLET PO SCH (09:00)
[2020-05-09 09:01] LABS: SODIUM 124 MMOL/L (135-145)
[2020-05-09] MEDS: TIMOLOL MALEATE 0.5% 5 ML (TIMOPTIC) BTL OU SCH ×2 (09:16→22:07)
[2020-05-09] MEDS: ASPIRIN E.C. 325 MG (ECOTRIN) TABLET PO SCH (09:22)
[2020-05-09] MEDS: lisINopril 10 MG (PRINIVIL) TABLET PO SCH (09:26)
[2020-05-09] MEDS ORDERED: dilTIAZem DRIP PRE-MIX 125 ML IV SCH (09:30)
--- NOTE | 2020-05-09 09:59 | Occupational Therapy Eval ---
OT Evaluation-General/PLF Medical Diagnosis Admission Date May 08, 2020 at 12:42 Medical Diagnosis: Confusion/stroke like symptoms Onset Date: May 08, 2020 Therapy Diagnosis Therapy Diagnosis: decreased ADL staus, Precautions Precautions/Isolations: Fall Prevention, Standard Precautions Referral Physician: Kandy Referral Reason: Evaluation/Treatment Medical History Pertinent Medical History: HTN, Smoking Additional Medical History afib Current History ER due to AMS/confusion Social History Home: [facility] Current Living Status: Other Family ADL-Prior Level of Function SCALE: Activities may be completed with or without assistive devices. 4-Nvdrtpooda-pevmzmj completes the activity by him/herself with no assistance from a helper. 5-Set-up or Clean-up Assistance-helper sets up or cleans up; patient completes activity. [place] assists only prior to or following the activity. 4-Supervision or Touching Assistance-helper provides verbal cues and/or touching/steadying and/or contact guard assistance as patient completes activity. Assistance may be provided throughout the activity or intermittently. 3-Partial/Moderate Assistance-helper does LESS THAN HALF the effort. [place] lifts, holds or supports trunk or limbs, but provides less than half the effort. 2-Substantial/Maximal Assistance-helper does MORE THAN HALF the effort. [place] lifts or holds trunk or limbs and provides more than half the effort. 0-Nwamrgxzl-kxakjt does ALL the effort. Patient does none of the effort to complete the activity. Or, the assistance of 2 or more helpers is required for the patient to complete the activity. If activity was not attempted, code reason: 7-Patient Refused. 9-Not Applicable-not attempted and the patient did not perform the activity before the current illness, exacerbation or injury. 10-Not Attempted due to Environmental Limitations-(lack of equipment, weather restraints, etc.). 88-Not Attempted due to Medical Conditions or Safety Concerns. ADL PLOF Comments Pt lives with her daughter who assists with cooking and cleaning. Pt indicates she is able to perform bathing and dressing independently and is independent with functional mobility using FWW. Self Care: Needed Some Help Functional Cognition: Independent DME/Equipment: Bath Chair, Tub/Shower OT Current Status Subjective Pt up with PT, agreeable to OT eval/tx. Mental Status/Objective Attachments: Rock Catheter Current Glasses/Contacts: Yes Upper Extremity ROM WFL Upper Extremity Coordination WFL ADL-Treatment Eating (QC): 6 (Pt reports independent with breakfast) On/Off Footwear (QC): 6 (Per PT report, pt able to don socks independently.) Toileting Hygiene (QC): 4 (SBA) Other Treatments Pt standing at walker with PT, ambulated from EOB to window then back to bed, FWW. Pt requests to use commode, transferring to commode with min contact assist. Pt able to perform hygiene in sitting, pt was not wearing a brief so did not manage clothing. Pt then transferred back to bed, then supine SBA. Post OT t x, pt laying in bed, call light in reach and all needs met. Education OT Patient Education: Correct positioning, Modified ADL techniques, Progress toward Goal/Update tx plan, Purpose of tx/functional activities, Rehab process Teaching Recipient: Patient Teaching Methods: Discussion Response to Teaching: Verbalize Understanding OT Shelter Goals Shelter Goals Time Frame: May 15, 2020 Eating (QC): 6 Oral Hygiene (QC): 6 Toileting Hygiene (QC): 6 Shower/Bathe Self (QC): 6 Upper Body Dressing (QC): 6 Lower Body Dressing (QC): 6 On/Off Footwear (QC): 6 1=Demonstrate adherence to instructed precautions during ADL tasks. 2=Patient will verbalize/demonstrate understanding of assistive devices/modifications for ADL. 3=Patient will improve strength/tolerance for activity to enable patient to perform ADL's. OT Education/Plan Problem List/Assessment Assessment: Decreased Activ Tolerance, Decreased UE Strength, Impaired Funct Balance, Impaired I ADL's Pt would benefit from short term skilled OT in order to increase BUE strength and functional endurance, and to increase independence and safety with ADLs and functional mobility in order to maximize LOF for safe return home. Discharge Recommendations Plan/Recommendations: Continue POC Therapy Discharge Recommendati: Home & Family Treatment Plan/Plan of Care Patient would benefit from OT for education, treatment and training to promote independence in ADL's, mobility, safety and/or upper extremity function for ADL's. Plan of Care: ADL Retraining, Functional Mobility, UE Funct Exercise/Act Treatment Duration: May 15, 2020 Frequency: 5 times per week Estimated Hrs Per Day: .25 hour per day Rehab Potential: Good Time/GCodes Start Time: 08:35 Stop Time: 08:58 Total Time Billed (hr/min): 23 Billed Treatment Time 1, EVM (10'), ADL (13') PAUL PRINGLE OT May 09, 2020 09:59
--- NOTE | 2020-05-09 12:46 | Consultation-Cardiology ---
HPI-Cardiology Cardiology Consultation: Date of Consultation 05/09/20 Time Seen by a Provider: 12:20 Date of Admission Attending Physician Caitlyn Subramanian DO Admitting Physician Ponce Vargas MD Consulting Physician GONZALES ARMENTA MD, MA, FACP, FACC, FSCAI, CCDS Physician requesting consult: Dr Subramanian HPI: Chief Complaint: Reason for card consult: PAF with RVR HPI 79 yo woman admitted through ER to Dr Subramanian's service for confusion and mental status changes. She says she was very weak and tired at admission. Denies cp or palp or syncope or shortness of breath. Weakness present better, but improved. Generally feels better compared to time of admission, she says. Denies fever or chills Review of Systems-Cardiology Review of Systems Constitutional: As described under HPI Eyes: No vision change Ears/Nose/Throat: No ear discharge, No nasal drainage, No recent hearing loss Respiratory: As described under HPI Cardiovascular: As described under HPI Gastrointestinal: No diarrhea, No nausea, No vomiting Genitourinary: No dysuria, No hematuria, No urine frequency changes Musculoskeletal: back pain (mild, chronic) Skin: No rash, No ulcerations Psychiatric/Neurological: As described under HPI; No focal weakness, No syncope Hematologic: No bleeding abnormalities AOO-Ztleyj-Xtwtwy Hx Patient Social History Alcohol Use: Denies Use Recreational Drug Use: No Smoking Status: Current Everyday Smoker Type Used: Cigarettes 2nd Hand Smoke Exposure: No Recent Foreign Travel: No Recent Infectious Disease Expo: No Hospitalization with Isolation: Denies Past Medical History PMH As described under Assessment. Family Medical History Family Medical History: She does not report fam h/o early CAD. Notes A fib in an uncle when he was in his 80s Allergies and Home Medications Allergies Coded Allergies: shellfish derived (Verified Allergy, Unknown, 04/24/20) Home Medications C,E,Zinc,Copper 11/Wjurv8d/Lut 1 Each Capsule, 1 EACH PO DAILY Prescribed by: LESLIE GARCIA on 05/08/202254 Calcium Carbonate 500 Mg Tab.chew, 500 MG PO DAILY Prescribed by: LESLIE GARCIA on 05/08/202258 Cyclobenzaprine HCl 10 Mg Tablet, 10 MG PO Q8H PRN for SPASMS Prescribed by: CAT BORGES on 04/24/20 1041 Lisinopril 10 Mg Tablet, 10 MG PO DAILY, (Reported) Omeprazole 40 Mg Capsule.dr, 40 MG PO DAILY Prescribed by: LESLIE GARCIA on 05/08/202255 Raloxifene HCl 60 Mg Tablet, 60 MG PO DAILY, (Reported) Rivaroxaban 20 Mg Tablet, 20 MG PO DAILY, (Reported) Timolol Maleate 5 Ml Drops, 1 DROP IO BID, (Reported) Tramadol HCl 50 Mg Tablet, 50 MG PO Q4H PRN for PAIN-MILD (1-4) Prescribed by: LESLIE GARCIA on 05/08/201 Patient Home Medication List Home Medication List Reviewed: Yes Physical Exam-Cardiology Physical Exam Vital Signs/I&O 05/09/20 05/09/20 05/09/20 05/09/20 01:00 01:11 02:00 03:00 Pulse 105 102 106 90 Resp 16 18 15 B/P (MAP) 151/82 (105) 142/106 (118) 110/58 (75) Pulse Ox 93 95 94 O2 Delivery Room Air Room Air Room Air 05/09/20 05/09/20 05/09/20 05/09/20 04:00 05:00 06:00 06:05 Temp 36.6 Pulse 89 89 91 Resp 15 15 B/P (MAP) 141/71 (94) 141/71 (94) 127/70 (89) Pulse Ox 94 94 94 O2 Delivery Room Air Room Air Room Air Room Air 05/09/20 05/09/20 05/09/20 05/09/20 07:00 07:00 07:19 08:00 Temp 36.1 Pulse 87 92 B/P (MAP) 163/82 (109) Pulse Ox 95 O2 Delivery Room Air Room Air 05/09/20 05/09/20 05/09/20 05/09/20 08:00 08:15 08:30 08:45 Pulse 95 103 99 80 Resp 22 15 17 26 B/P (MAP) 159/93 (115) 110/59 (76) 159/93 (140) 107/58 (74) Pulse Ox 97 97 98 94 O2 Delivery Room Air 05/09/20 05/09/20 05/09/20 05/09/20 09:00 09:30 09:46 10:00 Pulse 80 129 80 130 Resp 28 18 12 B/P (MAP) 128/83 (95) 123/70 (85) 128/83 101/79 (90) Pulse Ox 95 100 100 O2 Delivery Room Air Room Air 05/09/20 11:15 Temp 36.3 05/08/20 23:59 Intake Total 500 ml Output Total 1125 ml Balance -625 ml Capillary Refill : Less Than 3 Seconds Constitutional: AAO x 3, well-developed, well-nourished HEENT: hearing is well preserved; No xanthelasmas are seen Neck: carotid pulses are 2 + bilaterally, with good upstrokes Respiratory: No accessory muscle use; other (fair to good bilat air enty, diminished at the bases) Cardiovascular: regular rate-rhythm, S1 and S2, systolic murmur (soft JOSIE at card bsase) Gastrointestinal: No tender; soft; No guarding, No rebound; audible bowel sounds Extremities: No clubbing, No cyanosis, No significant edema Neurologic/Psychiatric: other (moves all limbs equally) Data Review Labs Laboratory Tests 05/08/20 15:33: Sodium Level 127L, Potassium Level 4.1, Chloride Level 92L, Carbon Dioxide Level 22, Anion Gap 13, Blood Urea Nitrogen 10, Creatinine 0.59L, Estimat Glomerular Filtration Rate > 60, BUN/Creatinine Ratio 17, Glucose Level 95, Calcium Level 8.7, Thyroid Stimulating Hormone (TSH) 0.93 05/08/20 18:10: 05/08/20 19:45: Sodium Level 125*L, Potassium Level 3.9, Chloride Level 92L, Carbon Dioxide Level 23, Anion Gap 10, Blood Urea Nitrogen 8, Creatinine 0.51L, Estimat Glomerular Filtration Rate > 60, BUN/Creatinine Ratio 16, Glucose Level 93, Calcium Level 8.3L 05/09/20 00:26: Sodium Level 124*L, Potassium Level 3.7, Chloride Level 93L, Carbon Dioxide Level 20L, Anion Gap 11, Blood Urea Nitrogen 8, Creatinine 0.51L, Estimat Glomerular Filtration Rate > 60, BUN/Creatinine Ratio 16, Glucose Level 78, Calcium Level 8.1L 05/09/20 03:51: White Blood Count 15.4H, Red Blood Count 4.59, Hemoglobin 13.2, Hematocrit 39, Mean Corpuscular Volume 85, Mean Corpuscular Hemoglobin 29, Mean Corpuscular Hemoglobin Concent 34, Red Cell Distribution Width 14.4, Platelet Count 262, Mean Platelet Volume 9.4, Immature Granulocyte % (Auto) 1, Neutrophils (%) (Auto) 62, Lymphocytes (%) (Auto) 27, Monocytes (%) (Auto) 9, Eosinophils (%) (Auto) 1, Basophils (%) (Auto) 0, Neutrophils # (Auto) 9.6H, Lymphocytes # (Auto) 4.1H, Monocytes # (Auto) 1.4H, Eosinophils # (Auto) 0.1, Basophils # (Auto) 0.1, Immature Granulocyte # (Auto) 0.1, Neutrophils % (Manual) 62, Lymphocytes % (Manual) 26, Monocytes % (Manual) 10, Eosinophils % (Manual) 2, Blood Morphology Comment NORMAL, Sodium Level 123*L, Potassium Level 3.6, Chloride Level 93L, Carbon Dioxide Level 21, Anion Gap 9, Blood Urea Nitrogen 8, Creatinine 0.54L, Estimat Glomerular Filtration Rate > 60, BUN/Creatinine Ratio 15, Glucose Level 94, Calcium Level 8.4L, Phosphorus Level 3.2, Magnesium Level 1.8 05/09/20 04:35: 05/09/20 08:04: Sodium Level 124*L, Potassium Level 4.1, Chloride Level 93L, Carbon Dioxide Level 20L, Anion Gap 11, Blood Urea Nitrogen 7, Creatinine 0.54L, Estimat Glomerular Filtration Rate > 60, BUN/Creatinine Ratio 13, Glucose Level 89, Calcium Level 8.7 05/09/20 12:30: Laboratory Tests 05/08/20 11:15 05/08/20 15:33 05/08/20 19:45 05/09/20 00:26 05/09/20 03:51 05/09/20 08:04 A/P-Cardiology Assessment/Admission Diagnosis PAF with RVR, currently NSR Acute mental status change, etiology undetermined, managed by Dr Subramanian Hyponatremia and leucocytosis of undetermined etiology, managed by Dr Subramanian Discussion and Recomendations * Continue oral anticoag with Xarelto if OK with Dr Subramanian. Pt states she has been on it a long time * Diltiazem for vent rate control * Monitor lab closely Clinical Quality Measures DVT/VTE Risk/Contraindication: Risk Factor Score Per Nursin RFS Level Per Nursing on Admit: 3=High [facility]ALES [facility]MENTA [facility] May 09, 2020 12:46
[2020-05-09 12:58] LABS: CHLORIDE 92 MMOL/L (98-107); POTASSIUM 3.6 MMOL/L (3.6-5.0)
[2020-05-09 12:59] LABS: CALCIUM 8.6 MG/DL (8.5-10.1); GLUCOSE 142 MG/DL (70-105)
[2020-05-09 13:01] LABS: CARBON DIOXIDE 21 MMOL/L (21-32)
[2020-05-09 13:03] LABS: CREATININE SERUM 0.55 MG/DL (0.60-1.30); GFR ESTIMATED > 60
[2020-05-09 13:04] LABS: BUN/CREATININE RATIO 16
[2020-05-09 13:39] LABS: SODIUM 125 MMOL/L (135-145)
--- NOTE | 2020-05-09 14:45 | NUR ---
RECEIVED REPORT FROM SAMEERA MEDINA.
[2020-05-09] MEDS ORDERED: HALOPERIDOL 5 MG/ML (HALDOL) VIAL ONE (15:51)
[2020-05-09] MEDS ORDERED: HALOPERIDOL 5 MG/ML (HALDOL) VIAL IM ONE (16:00)
[2020-05-09] MEDS ORDERED: ZIPRASIDONE INJECTION 20 MG in WATER (STERILE) FOR INJECTION 1.2 ML IM PRN (16:00)
[2020-05-09] MEDS ORDERED: WATER (STERILE) FOR INJECTION 10 ML ONE (16:03)
[2020-05-09] MEDS ORDERED: ZIPRASIDONE 20 MG INJ (GEODON) VIAL IM ONE (16:03)
[2020-05-09] MEDS: LORazepam INJ 2 MG/ML (ATIVAN) VIAL IVP PRN (16:31)
[2020-05-09] MEDS: RIVAROXABAN 20 MG TABLET (XARELTO) PO SCH (17:03)
[2020-05-09 18:10] LABS: CHLORIDE 91 MMOL/L (98-107); POTASSIUM 4.4 MMOL/L (3.6-5.0)
[2020-05-09 18:11] LABS: CALCIUM 8.7 MG/DL (8.5-10.1); GLUCOSE 80 MG/DL (70-105)
[2020-05-09 18:13] LABS: CARBON DIOXIDE 19 MMOL/L (21-32)
[2020-05-09 18:15] LABS: CREATININE SERUM 0.58 MG/DL (0.60-1.30); GFR ESTIMATED > 60
[2020-05-09 18:16] LABS: BUN/CREATININE RATIO 24
[2020-05-09 18:23] LABS: SODIUM 124 MMOL/L (135-145)
[2020-05-10] MEDS ORDERED: WATER (STERILE) FOR INJECTION 10 ML ONE (00:06)
[2020-05-10] MEDS ORDERED: ZIPRASIDONE 20 MG INJ (GEODON) VIAL IM ONE (00:06)
[2020-05-10] MEDS ORDERED: ZIPRASIDONE 20 MG INJ (GEODON) VIAL IM PRN (00:15)
[2020-05-10] MEDS: LORazepam INJ 2 MG/ML (ATIVAN) VIAL IVP PRN ×2 (00:21→09:27)
[2020-05-10] MEDS: hydrALAZINE (APESOLINE) 20 MG/ML VIAL IV PRN (03:17)
[2020-05-10 03:42] LABS: BASOPHILS % (AUTO) 0 % (0-10); EOSINOPHILS % (AUTO) 0 % (0-10); HEMATOCRIT 42 % (35-52); HEMOGLOBIN 14.2 g/dL (11.5-16.0); LYMPHOCYTES % (AUTO) 20 % (12-44); MEAN CORPUSCULAR HEMOGLOBIN 29 pg (25-34); MEAN CORPUSCULAR HGB CONC 34 g/dL (32-36); MEAN CORPUSCULAR VOLUME 86 fL (80-99); MEAN PLATELET VOLUME 9.4 fL (9.0-12.2); MONOCYTES # (AUTO) 1.4 10^3/uL (0.0-1.0); MONOCYTES % (AUTO) 9 % (0-12); NEUTROPHILS # (AUTO) 10.5 10^3/uL (1.8-7.8); NEUTROPHILS % (AUTO) 70 % (42-75); PLATELET COUNT 207 10^3/uL (130-400)
[2020-05-10 03:47] LABS: CHLORIDE 91 MMOL/L (98-107); POTASSIUM 4.1 MMOL/L (3.6-5.0)
[2020-05-10 03:48] LABS: CALCIUM 8.4 MG/DL (8.5-10.1)
[2020-05-10 03:51] LABS: BILIRUBIN,TOTAL 0.8 MG/DL (0.1-1.0)
[2020-05-10 03:56] LABS: ALBUMIN 3.6 GM/DL (3.2-4.5)
[2020-05-10 03:59] LABS: GLUCOSE 102 MG/DL (70-105); TOTAL PROTEIN 6.3 GM/DL (6.4-8.2)
[2020-05-10 04:00] LABS: CARBON DIOXIDE 16 MMOL/L (21-32)
[2020-05-10 04:02] LABS: ALKALINE PHOSPHATASE 51 U/L (40-136); CREATININE SERUM 0.56 MG/DL (0.60-1.30); GFR ESTIMATED > 60
[2020-05-10 04:03] LABS: BUN/CREATININE RATIO 20
[2020-05-10 04:05] LABS: ALANINE AMINOTRANSFERASE 21 U/L (0-55)
[2020-05-10 04:48] LABS: SODIUM 121 MMOL/L (135-145)
--- NOTE | 2020-05-10 06:27 | Progress Note - Hospitalist ---
Subjective HPI/CC On Admission Date Seen by Provider: May 10, 2020 Time Seen by Provider: 11:00 CC: AMS HPI: This is a 79yoWF who presented to the [facility] ER with AMS. Patient was found at home lethargic and brought to the ER. Labs revealed hyponatremia at 123. Questionable CVA started the CVA work-up but considering she presented a full day after symptoms and last seen well time she was not a candidate for tPA. Patient currently feels ok and answers my questions mostly correctly. Fluid restriction maintained. Patient experienced AF w/RVR requiring Cardizem drip. Subjective/Events-last exam Patient became agitated and required Ativan Sodium level 121 now so started hypertonic saline BMP recheck 1500 Family was contacted and sister in law revealed she went to [facility] in [place] 2 weeks ago for AF and then stopped taking her OAC Daughter in law reported she has had significant memory issues since Thanksgiving OCD type of behavior also ER 2 weeks ago for weak legs Patient is very labile in lucidness and agitation Dr Thomson reviewed sodium level the past 2 months and 129 and 130 recently Focused Exam Lactate Level 05/08/20 11:35: Lactic Acid Level 1.54 Objective Exam Vital Signs Vital Signs Date Time Temp Pulse Resp B/P (MAP) Pulse Ox O2 Delivery O2 Flow Rate FiO2 05/10/20 19:01 35.8 74 20 133/79 (97) 100 Room Air Capillary Refill : Less Than 3 Seconds General Appearance: No Apparent Distress, WD/WN, Chronically ill, Other (sleeping) Respiratory: Lungs Clear Cardiovascular: Regular Rate, Rhythm Results/Procedures Lab Laboratory Tests 05/10/20 03:15 05/10/20 15:15 Patient resulted labs reviewed. Assessment/Plan Assessment and Plan Assess & Plan/Chief Complaint Assessment: AMS Hyponatremia AF w/RVR Dementia with sundowning? OAC HTN Plan: Fluid restriction Hypertonic saline BMP 1500 Cardizem pill Monitor closely Diagnosis/Problems Diagnosis/Problems (1) Altered mental status Status: Acute Qualifiers: Altered mental status type: delirium Qualified Codes: R41.0 - Disorientation, unspecified (2) Hyponatremia Status: Acute Clinical Quality Measures DVT/VTE Risk/Contraindication: Risk Factor Score Per Nursin RFS Level Per Nursing on Admit: 3=High ALLIE PEREA DO May 10, 2020 06:27
[2020-05-10] MEDS: ASPIRIN E.C. 325 MG (ECOTRIN) TABLET PO SCH (09:27)
[2020-05-10] MEDS: SENNA W/DOCUSATE (SENOKOT S) TABLET PO SCH ×2 (09:27→20:47)
[2020-05-10] MEDS: TIMOLOL MALEATE 0.5% 5 ML (TIMOPTIC) BTL OU SCH ×2 (09:28→20:48)
[2020-05-10] MEDS: SODIUM CHLORIDE 3% 500 ML IV SCH (09:28)
[2020-05-10] MEDS: lisINopril 10 MG (PRINIVIL) TABLET PO SCH (09:28)
--- NOTE | 2020-05-10 14:18 | Progress Note - Cardiology ---
Cardiology SOAP Progress Note Subjective: Was agitated overnight Currently sedated and not able provide any meaningful history Objective: I&O/Vital Signs 05/10/20 05/10/20 05/10/20 05/10/20 03:19 07:00 08:00 08:00 Temp 35.4 36.1 Pulse 96 94 95 Resp 15 22 B/P (MAP) 184/94 (124) 166/83 (110) Pulse Ox 96 96 97 O2 Delivery Room Air Room Air Room Air 05/10/20 05/10/20 12:00 12:45 Temp 36.3 Pulse 87 93 Resp 20 B/P (MAP) 136/74 (94) Pulse Ox 95 O2 Delivery Room Air 05/10/20 00:00 Intake Total 315 ml Output Total 575 ml Balance -260 ml Constitutional: well-developed, well-nourished Respiratory: No accessory muscle use; other (fair to good bilat air enty, diminished at the bases) Cardiovascular: regular rate-rhythm, S1 and S2, systolic murmur (soft JOSIE at card bsase) Gastrointestional: No tender; soft; No guarding, No rebound; audible bowel sounds Extremities: No clubbing, No cyanosis, No significant edema Neurologic/Psychiatric: other (moves all limbs equally) Results/Procedures: Labs Laboratory Tests 05/09/20 17:30: Sodium Level 124*L, Potassium Level 4.4, Chloride Level 91L, Carbon Dioxide Level 19L, Anion Gap 14, Blood Urea Nitrogen 14, Creatinine 0.58L, Estimat Glomerular Filtration Rate > 60, BUN/Creatinine Ratio 24, Glucose Level 80, Calcium Level 8.7 05/10/20 03:15: Sodium Level 121*L, Potassium Level 4.1, Chloride Level 91L, Carbon Dioxide Level 16L, Anion Gap 14, Blood Urea Nitrogen 11, Creatinine 0.56L, Estimat Glomerular Filtration Rate > 60, BUN/Creatinine Ratio 20, Glucose Level 102, Calcium Level 8.4L, White Blood Count 15.0H, Red Blood Count 4.87, Hemoglobin 14.2, Hematocrit 42, Mean Corpuscular Volume 86, Mean Corpuscular Hemoglobin 29, Mean Corpuscular Hemoglobin Concent 34, Red Cell Distribution Width 14.8H, Platelet Count 207, Mean Platelet Volume 9.4, Immature Granulocyte % (Auto) 1, Neutrophils (%) (Auto) 70, Lymphocytes (%) (Auto) 20, Monocytes (%) (Auto) 9, Eosinophils (%) (Auto) 0, Basophils (%) (Auto) 0, Neutrophils # (Auto) 10.5H, Lymphocytes # (Auto) 3.0, Monocytes # (Auto) 1.4H, Eosinophils # (Auto) 0.0, Basophils # (Auto) 0.0, Immature Granulocyte # (Auto) 0.1, Corrected Calcium 8.7, Total Bilirubin 0.8, Aspartate Amino Transf (AST/SGOT) 27, Alanine Aminotransferase (ALT/SGPT) 21, Alkaline Phosphatase 51, Total Protein 6.3L, Albumin 3.6 Microbiology 05/08/20 MRSA Screen - Final, Complete MRSA not isolated 05/08/20 Blood Culture - Preliminary, Resulted No growth A/P: Assessment: PAF with RVR, currently NSR Acute mental status change, etiology undetermined, managed by Dr Subramanian Hyponatremia and leucocytosis of undetermined etiology, managed by Dr Subramanian Plan: * Continue oral anticoag with Xarelto if OK with Dr Subramanian * Diltiazem for vent rate control * Monitor lab closely GONZALES ARMENTA MD FACP [facility] CCDS May 10, 2020 14:18
[2020-05-10 15:44] LABS: CHLORIDE 95 MMOL/L (98-107); POTASSIUM 3.3 MMOL/L (3.6-5.0); SODIUM 127 MMOL/L (135-145)
[2020-05-10 15:45] LABS: CALCIUM 8.3 MG/DL (8.5-10.1)
[2020-05-10 15:46] LABS: GLUCOSE 98 MG/DL (70-105)
[2020-05-10 15:47] LABS: CARBON DIOXIDE 21 MMOL/L (21-32)
[2020-05-10 15:50] LABS: CREATININE SERUM 0.52 MG/DL (0.60-1.30); GFR ESTIMATED > 60
[2020-05-10 15:51] LABS: BUN/CREATININE RATIO 25
[2020-05-10] MEDS ORDERED: KCL 20 MEQ TAB (K-DUR) PO ONE (16:00)
[2020-05-10] MEDS ORDERED: KCL 20 MEQ TAB (K-DUR) PO NR (16:15)
[2020-05-10] MEDS: RIVAROXABAN 20 MG TABLET (XARELTO) PO SCH (16:17)
[2020-05-10] MEDS: MELATONIN 3 MG TABLET PO PRN (20:48)
[2020-05-11 04:17] LABS: BASOPHILS % (AUTO) 0 % (0-10); EOSINOPHILS # (AUTO) 0.1 10^3/uL (0.0-0.3); EOSINOPHILS % (AUTO) 1 % (0-10); HEMATOCRIT 42 % (35-52); HEMOGLOBIN 13.9 g/dL (11.5-16.0); LYMPHOCYTES # (AUTO) 2.1 10^3/uL (1.0-4.0); LYMPHOCYTES % (AUTO) 17 % (12-44); MEAN CORPUSCULAR HEMOGLOBIN 29 pg (25-34); MEAN CORPUSCULAR HGB CONC 33 g/dL (32-36); MEAN CORPUSCULAR VOLUME 89 fL (80-99); MEAN PLATELET VOLUME 9.9 fL (9.0-12.2); MONOCYTES # (AUTO) 1.5 10^3/uL (0.0-1.0); MONOCYTES % (AUTO) 12 % (0-12); NEUTROPHILS # (AUTO) 8.8 10^3/uL (1.8-7.8); NEUTROPHILS % (AUTO) 70 % (42-75); PLATELET COUNT 224 10^3/uL (130-400); WHITE BLOOD COUNT 12.6 10^3/uL (4.3-11.0)
[2020-05-11 04:37] LABS: ALANINE AMINOTRANSFERASE 18 U/L (0-55); ALBUMIN 3.6 GM/DL (3.2-4.5); ALKALINE PHOSPHATASE 53 U/L (40-136); BILIRUBIN,TOTAL 0.9 MG/DL (0.1-1.0); BUN/CREATININE RATIO 37; CALCIUM 8.8 MG/DL (8.5-10.1); CARBON DIOXIDE 22 MMOL/L (21-32); CHLORIDE 98 MMOL/L (98-107); CREATININE SERUM 0.51 MG/DL (0.60-1.30); GFR ESTIMATED > 60; GLUCOSE 102 MG/DL (70-105); POTASSIUM 3.5 MMOL/L (3.6-5.0); SODIUM 128 MMOL/L (135-145)
--- NOTE | 2020-05-11 06:11 | Progress Note - Hospitalist ---
Subjective HPI/CC On Admission Date Seen by Provider: May 11, 2020 Time Seen by Provider: 09:30 CC: AMS HPI: This is a 79yoWF who presented to the [facility] ER with AMS. Patient was found at home lethargic and brought to the ER. Labs revealed hyponatremia at 123. Questionable CVA started the CVA work-up but considering she presented a full day after symptoms and last seen well time she was not a candidate for tPA. Patient currently feels ok and answers my questions mostly correctly. Fluid restriction maintained. Patient experienced AF w/RVR requiring Cardizem drip. Subjective/Events-last exam Pt doing a little better today More lucid Sodium level 128 on hypertonic saline at 10cc an hour Heart rate elevated at 110 PT and OT will be ordered MRI of the brain was ordered Will DC Rock catheter Review of Systems General: Fatigue Neurological: Confusion Focused Exam Lactate Level Objective Exam Vital Signs Vital Signs Date Time Temp Pulse Resp B/P (MAP) Pulse Ox O2 Delivery O2 Flow Rate FiO2 05/11/20 20:00 36.0 57 21 119/54 (75) 95 Room Air Capillary Refill : Less Than 3 Seconds General Appearance: No Apparent Distress, WD/WN, Chronically ill Respiratory: Lungs Clear Cardiovascular: Regular Rate, Rhythm Neurologic/Psychiatric: Alert, Depressed Affect, Disoriented Results/Procedures Lab Laboratory Tests 05/11/20 03:50 Patient resulted labs reviewed. Assessment/Plan Assessment and Plan Assess & Plan/Chief Complaint Assessment: AMS Hyponatremia AF w/RVR Dementia with sundowning? OAC HTN Plan: Fluid restriction Hypertonic saline BMP 1500 Cardizem pill Monitor closely 05/11/20: Monitor sodium level Monitor tachycardia Monitor AF OAC Antipsychotics Diagnosis/Problems Diagnosis/Problems (1) Altered mental status Status: Acute Qualifiers: Altered mental status type: delirium Qualified Codes: R41.0 - Disorientation, unspecified (2) Hyponatremia Status: Acute Clinical Quality Measures DVT/VTE Risk/Contraindication: Risk Factor Score Per Nursin RFS Level Per Nursing on Admit: 3=High ALLIE PEREA DO May 11, 2020 06:11
[2020-05-11] MEDS: SODIUM CHLORIDE 3% 500 ML IV SCH (06:30)
--- NOTE | 2020-05-11 08:47 | Progress Note - Cardiology ---
Cardiology SOAP Progress Note Subjective: Lying in bed C/O back pain No c/o dyspnea, CP, palpitations Objective: I&O/Vital Signs 05/11/20 05/11/20 05/11/20 05/12/20 20:00 20:00 23:39 01:00 Temp 36.0 36.4 Pulse 57 48 52 Resp 21 24 B/P (MAP) 119/54 (75) 123/62 (82) Pulse Ox 96 95 95 O2 Delivery Room Air Room Air Room Air 05/12/20 03:54 Temp 36.5 Pulse 48 Resp 22 B/P (MAP) 134/65 (88) Pulse Ox 92 O2 Delivery Room Air 05/12/20 00:00 Intake Total 1710 ml Output Total 325 ml Balance 1385 ml Constitutional: well-developed, well-nourished Respiratory: No accessory muscle use; other (fair to good bilat air enty, diminished at the bases) Cardiovascular: regular rate-rhythm, S1 and S2, systolic murmur (soft JOSIE at card bsase) Gastrointestional: No tender; soft; No guarding, No rebound; audible bowel sounds Extremities: No clubbing, No cyanosis, No significant edema Neurologic/Psychiatric: other (moves all limbs equally) Skin: No rash on exposed areas, No ulcerations on exposed areas Results/Procedures: Labs Laboratory Tests 05/12/20 04:32: White Blood Count 13.6H, Red Blood Count 3.89, Hemoglobin 11.5, Hematocrit 34L, Mean Corpuscular Volume 88, Mean Corpuscular Hemoglobin 30, Mean Corpuscular Hemoglobin Concent 34, Red Cell Distribution Width 15.2H, Platelet Count 203, Mean Platelet Volume 10.0, Immature Granulocyte % (Auto) 0, Neutrophils (%) (Auto) 64, Lymphocytes (%) (Auto) 23, Monocytes (%) (Auto) 12, Eosinophils (%) (Auto) 1, Basophils (%) (Auto) 0, Neutrophils # (Auto) 8.6H, Lymphocytes # (Au to) 3.1, Monocytes # (Auto) 1.7H, Eosinophils # (Auto) 0.1, Basophils # (Auto) 0.0, Immature Granulocyte # (Auto) 0.1, Sodium Level 131L, Potassium Level 3.7, Chloride Level 104, Carbon Dioxide Level 22, Anion Gap 5, Blood Urea Nitrogen 19H, Creatinine 0.53L, Estimat Glomerular Filtration Rate > 60, BUN/Creatinine Ratio 36, Glucose Level 116H, Calcium Level 8.0L, Corrected Calcium 8.8, Total Bilirubin 0.5, Aspartate Amino Transf (AST/SGOT) 16, Alanine Aminotransferase (ALT/SGPT) 18, Alkaline Phosphatase 46, Total Protein 5.1L, Albumin 3.0L Microbiology 05/08/20 MRSA Screen - Final, Complete MRSA not isolated 05/08/20 Blood Culture - Preliminary, Resulted No growth A/P: Assessment: PAF with RVR, currently NSR Acute mental status change, etiology undetermined, managed by Dr Subramanian Hyponatremia and leucocytosis of undetermined etiology, managed by Dr Subramanian OAC with Xarelto S/P fall - she reports non-syncopal Plan: * Continue oral anticoag with Xarelto if OK with Dr Subramanian * Continue Diltiazem for vent rate control * Monitor lab closely * Replace electrolytes * Hyponatremia of undetermined etiology - management per medical services * Advise cessation of full dose ASA d/t risk of bleed while taking Xarelto and ASA APOLONIA OLIVARES [facility] May 11, 2020 08:47
[2020-05-11] MEDS ORDERED: KCL 20 MEQ TAB (K-DUR) PO NR (08:51)
[2020-05-11] MEDS: lisINopril 10 MG (PRINIVIL) TABLET PO SCH (09:08)
[2020-05-11] MEDS: SENNA W/DOCUSATE (SENOKOT S) TABLET PO SCH ×3 (09:08→20:37)
[2020-05-11] MEDS: TIMOLOL MALEATE 0.5% 5 ML (TIMOPTIC) BTL OU SCH ×2 (09:10→20:25)
[2020-05-11] MEDS ORDERED: ASCO-262 PO (10:08)
[2020-05-11] MEDS ORDERED: VIT1TABL26 PO (10:08)
[2020-05-11] MEDS ORDERED: CALC-823 PO (10:08)
[2020-05-11] MEDS ORDERED: CHOL100045 PO (10:08)
[2020-05-11] MEDS ORDERED: MAGN400T39 PO (10:08)
[2020-05-11] MEDS ORDERED: SODI30SP2 (10:08)
--- NOTE | 2020-05-11 10:36 | NUR ---
SPOKE WITH THE PT AND WENT THRU THE EXT MED HISTORY TO COMPLETE THE MED REC PT WAS ABLE TO NAME ALL HER MEDICATIONS WELL WHEN/HOW SHE TAKES EACH OTC MEDS: MAGNESIUM VIT D VIT C OCUVITE CALCIUM SALINE NASAL SPRAY
[2020-05-11] MEDS ORDERED: dilTIAZem120 MG (CARDIZEM CD) CAP PO ONE ×2 (10:54→11:00)
--- NOTE | 2020-05-11 10:55 | NUR ---
PT HEART RATE INCREASED AND IRREGULAR, EKG DONE AND DR ARMENTA NOTIFIED. NEW ORDERS RECEIVED.
--- NOTE | 2020-05-11 11:57 | Physical Therapy Progress Note ---
Therapy Progress Note Patient on hold this a.m. per RN due to elevated HR sitting EOB eating. PT will attempt later today or a.m. NISHANT PEDROZA PT May 11, 2020 11:57
--- NOTE | 2020-05-11 13:12 | Diagnostic Imaging Report ---
PROCEDURE: MR imaging of the brain without contrast. TECHNIQUE: Multiplanar, multisequence MR imaging of the brain was performed without contrast. INDICATION: Hyponatremia and altered mental status and CVA. No prior MRI brain studies are available for comparison. Ventricles and sulci are prominent consistent with cerebral atrophy. There is fairly significant periventricular and subcortical white matter signal abnormality consistent with senescent change and chronic microvascular ischemia. The normal expected flow-voids within the carotid siphons are noted. No acute intra-axial or extra-axial hemorrhage is detected. No diffusion restriction is identified to suggest acute ischemia. Corpus callosum is unremarkable. The sella and parasellar structures are unremarkable. IMPRESSION: Chronic and senescent changes. No acute intracranial process is detected. Dictated by: Dictated on workstation # [id number]
--- NOTE | 2020-05-11 13:51 | Occ Therapy Progress Note ---
Therapy Progress Note Hold pt. at this time due to increased heart rate and ongoing tests per notes. Will attempt back in a.m. [id number] BANG NERI OT May 11, 2020 13:51
--- NOTE | 2020-05-11 13:54 | Physical Therapy Daily Note ---
PT Daily Note-Current Subjective Patient agrees to PT. Mental Status Patient Orientation: Confused Attachments: Rock Catheter Transfers SCALE: Activities may be completed with or without assistive devices. 7-Mpyosoaqwf-xomowpr completes the activity by him/herself with no assistance from a helper. 5-Set-up or Clean-up Assistance-helper sets up or cleans up; patient completes activity. [place] assists only prior to or following the activity. 4-Supervision or Touching Assistance-helper provides verbal cues and/or touching/steadying and/or contact guard assistance as patient completes activity. Assistance may be provided throughout the activity or intermittently. 3-Partial/Moderate Assistance-helper does LESS THAN HALF the effort. [place] lifts, holds or supports trunk or limbs, but provides less than half the effort. 2-Substantial/Maximal Assistance-helper does MORE THAN HALF the effort. [place] lifts or holds trunk or limbs and provides more than half the effort. 5-Vpfknifqk-yxzmjq does ALL the effort. Patient does none of the effort to complete the activity. Or, the assistance of 2 or more helpers is required for the patient to complete the activity. If activity was not attempted, code reason: 7-Patient Refused. 9-Not Applicable-not attempted and the patient did not perform the activity before the current illness, exacerbation or injury. 10-Not Attempted due to Environmental Limitations-(lack of equipment, weather restraints, etc.). 88-Not Attempted due to Medical Conditions or Safety Concerns. Lying to Sitting/Side of Bed(Q: 5 Sit to Stand (QC): 4 Weight Bearing Full Weight Bearing Full Weight Bearing Gait Training Does the Patient Walk?: Yes Distance: 80' Walk 10 feet (QC): 4 Walk 50 ft with 2 Turns(QC): 4 Gait Assistive Device: FWW right LE ER secondary to pelvic pain per patient report Exercises Seated Therapy Exercises: Ankle pumps, Long arc quads Seated Reps: 15 Assessment Patient tolerated treatment well and states she wants to go home. PT Short Term Goals Short Term Goals Time Frame: May 12, 2020 Roll Left & Right: 6 Sit to lyin Lying to sitting on side of be: 6 Sit to stand: 5 Chair/gkb-iw-zbtlj transfer: 5 Toilet transfer: 5 Walk 10 feet: 5 Walk 50 feet with two turns: 5 Walk 150 feet: 5 PT Knitted Cloth Examiner Goals Skilled Nursing Goals PT Knitted Cloth Examiner Goals Time Frame: May 15, 2020 Roll Left & Right (QC): 6 Sit to Lying (QC): 6 Lying-Sitting on Side/Bed(QC): 6 Sit to Stand (QC): 6 Chair/Rax-uv-Ehnig Xfer(QC): 5 Toilet Transfer (QC): 5 Car Transfer (QC): 5 Walk 10 feet (QC): 5 Walk 50ft with 2 Turns (QC): 5 Walk 150 ft (QC): 5 1 Step (curb) (QC): 5 PT Plan Treatment/Plan Treatment Plan: Continue Plan of Care Treatment Plan: Bed Mobility, Education, Gait, Safety Treatment Duration: May 15, 2020 Frequency: 6 times per week Estimated Hrs Per Day: .25 hour per day Time/GCodes Time In: 1320 Time Out: 1334 Total Billed Treatment Time: 14 Total Billed Treatment 1 visit FA 14 min NISHANT PEDROZA PT May 11, 2020 13:54
--- NOTE | 2020-05-11 14:43 | Progress Note - Cardiology ---
Cardiology SOAP Progress Note Subjective: No cp or palp or syncope Diminished stamina, gen weakness, and exertional shortness of breath No palp or syncope or swelling No n/v Objective: I&O/Vital Signs 05/11/20 05/11/20 05/11/20 05/11/20 04:00 08:00 08:55 12:00 Temp 36.2 36.4 36.8 Pulse 60 66 114 Resp 15 16 15 B/P (MAP) 135/74 (94) 146/68 (94) 103/62 (76) Pulse Ox 99 94 97 O2 Delivery Room Air Room Air Room Air Room Air 05/10/20 23:59 Intake Total 200 ml Output Total 650 ml Balance -450 ml Constitutional: well-developed, well-nourished Respiratory: No accessory muscle use; other (fair to good bilat air enty, diminished at the bases) Cardiovascular: regular rate-rhythm, S1 and S2, systolic murmur (soft JOSIE at card bsase) Gastrointestional: No tender; soft; No guarding, No rebound; audible bowel soun ds Extremities: No clubbing, No cyanosis, No significant edema Neurologic/Psychiatric: other (moves all limbs equally) Skin: No rash on exposed areas, No ulcerations on exposed areas Results/Procedures: Labs Laboratory Tests 05/10/20 15:15: Sodium Level 127L, Potassium Level 3.3L, Chloride Level 95L, Carbon Dioxide Level 21, Anion Gap 11, Blood Urea Nitrogen 13, Creatinine 0.52L, Estimat Glomerular Filtration Rate > 60, BUN/Creatinine Ratio 25, Glucose Level 98, Calcium Level 8.3L 05/11/20 03:50: Sodium Level 128L, Potassium Level 3.5L, Chloride Level 98, Carbon Dioxide Level 22, Anion Gap 8, Blood Urea Nitrogen 19H, Creatinine 0.51L, Estimat Glomerular Filtration Rate > 60, BUN/Creatinine Ratio 37, Glucose Level 102, Calcium Level 8.8, White Blood Count 12.6H, Red Blood Count 4.76, Hemoglobin 13.9, Hematocrit 42, Mean Corpuscular Volume 89, Mean Corpuscular Hemoglobin 29, Mean Corpuscular Hemoglobin Concent 33, Red Cell Distribution Width 15.1H, Platelet Count 224, Mean Platelet Volume 9.9, Immature Granulocyte % (Auto) 1, Neutrophils (%) (Auto) 70, Lymphocytes (%) (Auto) 17, Monocytes (%) (Auto) 12, Eosinophils (%) (Auto) 1, Basophils (%) (Auto) 0, Neutrophils # (Auto) 8.8H, Lymphocytes # (Auto) 2.1, Monocytes # (Auto) 1.5H, Eosinophils # (Auto) 0.1, Basophils # (Auto) 0.0, Immature Granulocyte # (Auto) 0.1, Corrected Calcium 9.1, Total Bilirubin 0.9, Aspartate Amino Transf (AST/SGOT) 18, Alanine Aminotransferase (ALT/SGPT) 18, Alkaline Phosphatase 53, Total Protein 6.0L, Albumin 3.6 Microbiology 05/08/20 MRSA Screen - Final, Complete MRSA not isolated 05/08/20 Blood Culture - Preliminary, Resulted No growth Laboratory Tests 05/09/20 17:30 05/10/20 03:15 05/10/20 15:15 05/11/20 03:50 A/P: Assessment: PAF with RVR, currently NSR Acute mental status change, etiology undetermined, managed by Dr Subramanian Hyponatremia and leucocytosis of undetermined etiology, managed by Dr Subramanian OAC with Xarelto S/P fall - she reports non-syncopal Plan: * Continue oral anticoag with Xarelto if OK with Dr Subramanian * Inrease diltiazem for vent rate control because she again went into A Fib with RVR this am * Monitor lab closely * Replace electrolytes * Hyponatremia of undetermined etiology - management per medical services GONZALES ARMENTA [facility] May 11, 2020 14:43
--- NOTE | 2020-05-11 16:52 | NUR ---
"RD ASSESSMENT PMHx: afib; PT INTERACTION: Pt was awake and pleasant during nutrition assessment. Note pt has AMS, per chart review. Pt states current appetite is so-so, and has been this way for about a week. Note avg PO intake 33% x2d, per chart review. Pt states following a regular diet at home, and has no issues with chewing/swallowing food. Pt states no recent issues with nausea, vomiting, constipation, or diarrhea, and that her last BM was 05/07. Note pt currently on bowel regimen of senna BID, per chart review. Pt states recent 10# wt loss, but was unsure of timeframe. Note unable to determine recent wt hx, per chart review. ABNORMAL NUTRITION-RELATED LAB VALUES LOW: Na 128; K 3.5; cr 0.51; Pro 6.1; HIGH: BUN 19; Est. kcal needs: 3170-1260 kcal | 25-30 kcal/kg Est. Pro needs: 53-64 g Pro | 1.0-1.2 g Pro/kg PES STATEMENT: Inadequate oral intake (NI-2.1) related to loss of appetite as evidenced by pt interview and avg PO intake 33% x2d. INTERVENTION: Continue with current diet order of Regular diet. Add Ensure Enlive (vary) to meals TID, for increased kcal intake. Provides 350 kcal and 20 g Pro per serving. Will continue to follow and reassess as pt needs, intake, and status change. Dyana CARBAJAL, MS RD LD [phone] cell"
[2020-05-11] MEDS: RIVAROXABAN 20 MG TABLET (XARELTO) PO SCH (17:46)
[2020-05-11] MEDS: NS IV 1000 ML 1,000 ML IV SCH (20:42)
[2020-05-12 04:43] LABS: BASOPHILS % (AUTO) 0 % (0-10); EOSINOPHILS # (AUTO) 0.1 10^3/uL (0.0-0.3); EOSINOPHILS % (AUTO) 1 % (0-10); HEMATOCRIT 34 % (35-52); HEMOGLOBIN 11.5 g/dL (11.5-16.0); LYMPHOCYTES # (AUTO) 3.1 10^3/uL (1.0-4.0); LYMPHOCYTES % (AUTO) 23 % (12-44); MEAN CORPUSCULAR HEMOGLOBIN 30 pg (25-34); MEAN CORPUSCULAR HGB CONC 34 g/dL (32-36); MEAN CORPUSCULAR VOLUME 88 fL (80-99); MONOCYTES # (AUTO) 1.7 10^3/uL (0.0-1.0); MONOCYTES % (AUTO) 12 % (0-12); NEUTROPHILS # (AUTO) 8.6 10^3/uL (1.8-7.8); NEUTROPHILS % (AUTO) 64 % (42-75); PLATELET COUNT 203 10^3/uL (130-400); WHITE BLOOD COUNT 13.6 10^3/uL (4.3-11.0)
[2020-05-12 05:11] LABS: ALANINE AMINOTRANSFERASE 18 U/L (0-55); ALKALINE PHOSPHATASE 46 U/L (40-136); BILIRUBIN,TOTAL 0.5 MG/DL (0.1-1.0); BUN/CREATININE RATIO 36; CARBON DIOXIDE 22 MMOL/L (21-32); CHLORIDE 104 MMOL/L (98-107); CREATININE SERUM 0.53 MG/DL (0.60-1.30); GFR ESTIMATED > 60; GLUCOSE 116 MG/DL (70-105); POTASSIUM 3.7 MMOL/L (3.6-5.0); SODIUM 131 MMOL/L (135-145); TOTAL PROTEIN 5.1 GM/DL (6.4-8.2)
--- NOTE | 2020-05-12 05:47 | Progress Note - Hospitalist ---
Subjective HPI/CC On Admission Date Seen by Provider: May 12, 2020 Time Seen by Provider: 09:00 CC: AMS HPI: This is a 79yoWF who presented to the [facility] ER with AMS. Patient was found at home lethargic and brought to the ER. Labs revealed hyponatremia at 123. Questionable CVA started the CVA work-up but considering she presented a full day after symptoms and last seen well time she was not a candidate for tPA. Patient currently feels ok and answers my questions mostly correctly. Fluid restriction maintained. Patient experienced AF w/RVR requiring Cardizem drip. Subjective/Events-last exam Heart rate is 58 Will DC catheter at her request Sodium level 131 WBC 13.6 Transferring to 4th floor PT and OT Inpatient rehab evaluation since she lives alone Review of Systems General: Fatigue, Malaise Neurological: Confusion Objective Exam Vital Signs Vital Signs Date Time Temp Pulse Resp B/P (MAP) Pulse Ox O2 Delivery O2 Flow Rate FiO2 05/12/20 20:20 Room Air 05/12/20 19:49 36.2 79 18 136/64 (88) 94 Capillary Refill : Less Than 3 Seconds General Appearance: No Apparent Distress, WD/WN, Chronically ill Respiratory: Chest Non Tender, Lungs Clear, Normal Breath Sounds, No Accessory Muscle Use, No Respiratory Distress Cardiovascular: Regular Rate, Rhythm, No Edema, No Gallop, No JVD, No Murmur, Normal Peripheral Pulses Neurologic/Psychiatric: Alert, Oriented x3, No Motor/Sensory Deficits, Normal Mood/Affect, Disoriented Results/Procedures Lab Laboratory Tests 05/12/20 04:32 Patient resulted labs reviewed. Assessment/Plan Assessment and Plan Assess & Plan/Chief Complaint Assessment: AMS Hyponatremia AF w/RVR Dementia with sundowning? OAC HTN Plan: Fluid restriction Hypertonic saline BMP 1500 Cardizem pill Monitor closely 05/11/20: Monitor sodium level Monitor tachycardia Monitor AF OAC Antipsychotics 05/12/20: Move to 4th floor DC tomorrow? Diagnosis/Problems Diagnosis/Problems (1) Altered mental status Status: Acute Qualifiers: Altered mental status type: delirium Qualified Codes: R41.0 - Disorientation, unspecified (2) Hyponatremia Status: Acute Clinical Quality Measures DVT/VTE Risk/Contraindication: Risk Factor Score Per Nursin RFS Level Per Nursing on Admit: 3=High ALLIE PEREA DO May 12, 2020 05:46
[2020-05-12] MEDS: SENNA W/DOCUSATE (SENOKOT S) TABLET PO SCH ×3 (08:14→20:07)
[2020-05-12] MEDS: TIMOLOL MALEATE 0.5% 5 ML (TIMOPTIC) BTL OU SCH ×2 (08:14→20:09)
[2020-05-12] MEDS: NS IV 1000 ML 1,000 ML IV SCH (08:14)
[2020-05-12] MEDS: lisINopril 10 MG (PRINIVIL) TABLET PO SCH (08:14)
--- NOTE | 2020-05-12 10:03 | Progress Note - Cardiology ---
Cardiology SOAP Progress Note Subjective: Sitting up on the side of the bed eating breakfast States "I feel great" No c/o CP, palpitations, syncope or near syncope Objective: I&O/Vital Signs 05/12/20 05/13/20 23:43 04:31 Temp 36.3 36.1 Pulse 78 70 Resp 18 19 B/P (MAP) 170/73 (105) 139/68 (91) Pulse Ox 94 96 O2 Delivery Room Air Room Air 05/12/20 23:59 Intake Total 440 ml Balance 440 ml Constitutional: well-developed, well-nourished Respiratory: No accessory muscle use; other (fair to good bilat air enty, diminished at the bases) Cardiovascular: regular rate-rhythm, S1 and S2, systolic murmur (soft JOSIE at card bsase) Gastrointestional: No tender; soft; No guarding, No rebound; audible bowel sounds Extremities: No clubbing, No cyanosis, No significant edema Neurologic/Psychiatric: other (moves all limbs equally) Skin: No rash on exposed areas, No ulcerations on exposed areas Results/Procedures: Labs Laboratory Tests 05/13/20 05:04: White Blood Count 13.2H, Red Blood Count 4.07, Hemoglobin 11.8, Hematocrit 35, Mean Corpuscular Volume 87, Mean Corpuscular Hemoglobin 29, Mean Corpuscular Hemoglobin Concent 33, Red Cell Distribution Width 15.2H, Platelet Count 218, Mean Platelet Volume 10.3, Immature Granulocyte % (Auto) 0, Neutrophils (%) (Auto) 65, Lymphocytes (%) (Auto) 24, Monocytes (%) (Auto) 10, Eosinophils (%) (Auto) 1, Basophils (%) (Auto) 0, Neutrophils # (Auto) 8.6H, Lymphocytes # (Auto) 3.1, Monocytes # (Auto) 1.4H, Eosinophils # (Auto) 0.1, Basophils # (Auto) 0.0, Immature Granulocyte # (Auto) 0.0, Sodium Level 130L, Potassium Level 3.7, Chloride Level 101, Carbon Dioxide Level 21, Anion Gap 8, Blood Urea Nitrogen 14, Creatinine 0.49L, Estimat Glomerular Filtration Rate > 60, BUN/Creatinine Ratio 29, Glucose Level 105, Calcium Level 8.2L, Corrected Calcium 8.9, Total Bilirubin 0.6, Aspartate Amino Transf (AST/SGOT) 30, Alanine Aminotransferase (ALT/SGPT) 52, Alkaline Phosphatase 53, Total Protein 5.3L, Albumin 3.1L Microbiology 05/08/20 MRSA Screen - Final, Complete MRSA not isolated 05/08/20 Blood Culture - Preliminary, Resulted No growth A/P: Assessment: PAF with RVR, currently NSR Acute mental status change, etiology undetermined, managed by Dr Subramanian Hyponatremia and leucocytosis of undetermined etiology, managed by Dr Subramanian OAC with Xarelto S/P fall - she reports non-syncopal Plan: * Continue oral anticoag with Xarelto * Currently SR with controlled rate - improved with increased Cardizem dose * Monitor lab closely * Replace electrolytes * Hyponatremia of undetermined etiology - management per medical services APOLONIA OLIVARESP May 12, 2020 10:03
--- NOTE | 2020-05-12 10:16 | Physical Therapy Daily Note ---
PT Daily Note-Current Subjective Patient is very agreeable to participate with therapy. No c/o. Mental Status Patient Orientation: Normal For Age Attachments: Rock Catheter, IV Transfers SCALE: Activities may be completed with or without assistive devices. 3-Xefjtlscnn-qbsfmrc completes the activity by him/herself with no assistance from a helper. 5-Set-up or Clean-up Assistance-helper sets up or cleans up; patient completes activity. [place] assists only prior to or following the activity. 4-Supervision or Touching Assistance-helper provides verbal cues and/or touching/steadying and/or contact guard assistance as patient completes activity. Assistance may be provided throughout the activity or intermittently. 3-Partial/Moderate Assistance-helper does LESS THAN HALF the effort. [place] lifts, holds or supports trunk or limbs, but provides less than half the effort. 2-Substantial/Maximal Assistance-helper does MORE THAN HALF the effort. [place] lifts or holds trunk or limbs and provides more than half the effort. 7-Nweuqhadj-frrfqj does ALL the effort. Patient does none of the effort to complete the activity. Or, the assistance of 2 or more helpers is required for the patient to complete the activity. If activity was not attempted, code reason: 7-Patient Refused. 9-Not Applicable-not attempted and the patient did not perform the activity before the current illness, exacerbation or injury. 10-Not Attempted due to Environmental Limitations-(lack of equipment, weather restraints, etc.). 88-Not Attempted due to Medical Conditions or Safety Concerns. Lying to Sitting/Side of Bed(Q: 5 Sit to Stand (QC): 4 Chair/Zqd-wr-Fsbsm Xfer(QC): 4 Weight Bearing Full Weight Bearing Full Weight Bearing Gait Training Does the Patient Walk?: Yes Distance: 475' Walk 10 feet (QC): 4 Walk 50 ft with 2 Turns(QC): 4 Walk 150 ft (QC): 4 Gait Assistive Device: FWW continued ER right LE/SBA ambulation with FWW Exercises Seated Therapy Exercises: Ankle pumps, Long arc quads Seated Reps: 15 Assessment Patient tolerated treatment well and is up in recliner with needs met. Increase activity as tolerated by patient. PT Short Term Goals Short Term Goals Time Frame: May 12, 2020 Roll Left & Right: 6 Sit to lyin Lying to sitting on side of be: 6 Sit to stand: 5 Chair/vpj-hq-cvpgm transfer: 5 Toilet transfer: 5 Walk 10 feet: 5 Walk 50 feet with two turns: 5 Walk 150 feet: 5 PT Snf Goals [place] Warden Goals PT Snf Goals Time Frame: May 15, 2020 Roll Left & Right (QC): 6 Sit to Lying (QC): 6 Lying-Sitting on Side/Bed(QC): 6 Sit to Stand (QC): 6 Chair/Mad-yi-Duqwd Xfer(QC): 5 Toilet Transfer (QC): 5 Car Transfer (QC): 5 Walk 10 feet (QC): 5 Walk 50ft with 2 Turns (QC): 5 Walk 150 ft (QC): 5 1 Step (curb) (QC): 5 PT Plan Treatment/Plan Treatment Plan: Continue Plan of Care Treatment Plan: Bed Mobility, Education, Gait, Safety Treatment Duration: May 15, 2020 Frequency: 6 times per week Estimated Hrs Per Day: .25 hour per day Time/GCodes Time In: 837 Time Out: 856 Total Billed Treatment Time: 19 Total Billed Treatment 1 visit FA 19 min NISHANT PEDROZA PT May 12, 2020 10:16
--- NOTE | 2020-05-12 11:54 | NUR ---
Report given to Richie BRASHER, patient to room 414 with all belongings. Family updated at this time.
--- NOTE | 2020-05-12 11:58 | NUR ---
PT ARRIVED TO FLOOR VIA CHAIR. CALL LIGHT IN REACH, CHAIR ALARM IN PLACE. PT DENIES NEEDS AT THIS TIME, WILL CONTINUE TO MONITOR
--- NOTE | 2020-05-12 14:15 | NUR ---
IRF Evaluation Determination: Denied Chart review complete and it appears patient is ambulating (475ft, FWW), transferring, and completing whf-yw-qegxj with supervision, as well as lying to sitting EOB with setup. With these functional findings it has been determined the patient does not meet criteria, as she does not require active and ongoing intervention of multiple therapy disciplines, at least one of which being PT or OT. Thank you for this referral.
--- NOTE | 2020-05-12 15:09 | Occupational Ther Daily Note ---
OT Current Status-Daily Note Subjective Pt alert, lying in bed. Pt requires encouragement to participate in OT. Pt educated on OT services. Pt states that she just got back into bed and that she is going home tomorrow. When she gets home she will be able to do everything. Mental Status/Objective Patient Orientation: Person, Place, Time, Situation ADL-Treatment Therapy Code Descriptions/Definitions Functional [place] Measure: 0=Not Assessed/NA 4=Minimal Assistance 1=Total Assistance 5=Supervision or Setup 2=Maximal Assistance 6=Modified [place] 3=Moderate Assistance 7=Complete IndependenceSCALE: Activities may be completed with or without assistive devices. 5-Nqwhdlviai-jhzucqm completes the activity by him/herself with no assistance from a helper. 5-Set-up or Clean-up Assistance-helper sets up or cleans up; patient completes activity. [place] assists only prior to or following the activity. 4-Supervision or Touching Assistance-helper provides verbal cues and/or touching/steadying and/or contact guard assistance as patient completes activity. Assistance may be provided throughout the activity or intermittently. 3-Partial/Moderate Assistance-helper does LESS THAN HALF the effort. [place] lifts, holds or supports trunk or limbs, but provides less than half the effort. 2-Substantial/Maximal Assistance-helper does MORE THAN HALF the effort. [place] lifts or holds trunk or limbs and provides more than half the effort. 1-Ksaemaveo-mwjagy does ALL the effort. Patient does none of the effort to complete the activity. Or, the assistance of 2 or more helpers is required for the patient to complete the activity. If activity was not attempted, code reason: 7-Patient Refused. 9-Not Applicable-not attempted and the patient did not perform the activity before the current illness, exacerbation or injury. 10-Not Attempted due to Environmental Limitations-(lack of equipment, weather restraints, etc.). 88-Not Attempted due to Medical Conditions or Safety Concerns. Other Treatment Pt stated that she wanted to go to the bathroom later and would not go right now. FWW and gait belt placed in room for transfers and ambulation. Attempted to have pt don/doff socks, pt pulled foot out of bed and lifted up for FINNEY to see she already had socks on and stated that she didn't need to change socks. Pt educated again on the benefits to complete ADL tasks with OT for safety and if any modifications necessary before going home. Pt continued to refuse therapy. Pt left in bed with call light/phone in reach. All needs met in room. OT Carpet Tile Layer Goals Carpet Tile Layer Goals Time Frame: May 15, 2020 Eating (QC): 6 Oral Hygiene (QC): 6 Toileting Hygiene (QC): 6 Shower/Bathe Self (QC): 6 Upper Body Dressing (QC): 6 Lower Body Dressing (QC): 6 On/Off Footwear (QC): 6 1=Demonstrate adherence to instructed precautions during ADL tasks. 2=Patient will verbalize/demonstrate understanding of assistive devices/modifications for ADL. 3=Patient will improve strength/tolerance for activity to enable patient to perform ADL's. OT Education/Plan Problem List/Assessment Assessment: Decreased Activ Tolerance, Decreased Safety Aware Pt would benefit from short term skilled OT in order to increase BUE strength and functional endurance, and to increase independence and safety with ADLs and functional mobility in order to maximize LOF for safe return home. Discharge Recommendations Plan/Recommendations: Continue POC Treatment Plan/Plan of Care Patient would benefit from OT for education, treatment and training to promote independence in ADL's, mobility, safety and/or upper extremity function for ADL's. Plan of Care: ADL Retraining, Functional Mobility, UE Funct Exercise/Act Treatment Duration: May 15, 2020 Frequency: 5 times per week Estimated Hrs Per Day: .25 hour per day Rehab Potential: Good Time/GCodes Start Time: 14:20 Stop Time: 14:30 Total Time Billed (hr/min): 10 Billed Treatment Time 1 visit-FA 1 (10 min) MANJINDER MARRERO May 12, 2020 15:09
--- NOTE | 2020-05-12 16:59 | Physician Query Clarification ---
"Physician Query-General Query to Physician: The medical record reflects the following clinical scenario: History/Risk factors: Recent memory issues, patients recent amount of oral intake is unknown Clinical Findings: Lethargy, NA 123 ->121 with GCS 8 on day of admission; then NA 131 and GCS 14 - 4 days later, Agitation Treatment: Fluid restriction, Hypertonic saline, NS IV, Ativan Question: What condition best reflects the above clinical scenario? Please document response in the Progress notes or Discharge Summary. 1. Metabolic encephalopathy 2. Altered Mental Status (as currently documented) 3. Other , with explanation of the clinical findings 4. Clinically undetermined, no explanation for the clinical findings Please remember a lack of response to the above will prompt a phone page by CDI/coding staff In responding to this query, please exercise your independent professional judgment. The purpose of this communication is to more accurately reflect the complexity of your patients condition. The fact that a question is asked does not imply that any particular answer is desired or expected. Thank you for timely response to this clarification. Lynne Stubbs, MSN, RN RN Specialist-Clinical Doc Improvement CD -Health Info Mgmt Operations [address] [facility] (Former[facility]3] t: [phone] | f: [phone] If you are unable to reach me at my extension, I may be working from home. Please contact me at [phone] PHYSICIAN RESPONSE: Based on the clinical findings in the record, please respond to the query above on this document as an addendum. Physician Response: Physician Response 1 If you have questions please contact: Overhauler: Ext: Thank you for your time and cooperation. Clinical Organ Assembler/Overhauler This is a permanent part of the medical record LYNNE STUBBS May 12, 2020 16:59 ALLIE PEREA DO May 12, 2020 19:29"
[2020-05-12] MEDS: RIVAROXABAN 20 MG TABLET (XARELTO) PO SCH (17:21)
--- NOTE | 2020-05-12 17:34 | Progress Note - Cardiology ---
Cardiology SOAP Progress Note Subjective: Gen malaise and weakness Poor stamina, improving No cp or palp or syncope No shortness of breath at rest No n/v Objective: I&O/Vital Signs 05/12/20 05/12/20 05/12/20 05/12/20 06:48 08:04 08:20 12:00 Temp 36.5 35.6 Pulse 45 61 50 Resp 20 18 B/P (MAP) 137/67 (90) 132/55 (80) Pulse Ox 92 92 94 O2 Delivery Room Air Room Air Room Air 05/12/20 05/12/20 14:18 16:00 Temp 36.5 Pulse 70 Resp 18 B/P (MAP) 179/78 (111) Pulse Ox 94 O2 Delivery Room Air Room Air 05/12/20 00:00 Intake Total 1710 ml Output Total 325 ml Balance 1385 ml Constitutional: well-developed, well-nourished Respiratory: No accessory muscle use; other (fair to good bilat air enty, diminished at the bases) Cardiovascular: regular rate-rhythm, S1 and S2, systolic murmur (soft JOSIE at card bsase) Gastrointestional: No tender; soft; No guarding, No rebound; audible bowel sounds Extremities: No clubbing, No cyanosis, No significant edema Neurologic/Psychiatric: other (moves all limbs equally) Skin: No rash on exposed areas, No ulcerations on exposed areas Results/Procedures: Labs Laboratory Tests 05/12/20 04:32: White Blood Count 13.6H, Red Blood Count 3.89, Hemoglobin 11.5, Hematocrit 34L, Mean Corpuscular Volume 88, Mean Corpuscular Hemoglobin 30, Mean Corpuscular Hemoglobin Concent 34, Red Cell Distribution Width 15.2H, Platelet Count 203, Mean Platelet Volume 10.0, Immature Granulocyte % (Auto) 0, Neutrophils (%) (Auto) 64, Lymphocytes (%) (Auto) 23, Monocytes (%) (Auto) 12, Eosinophils (%) (Auto) 1, Basophils (%) (Auto) 0, Neutrophils # (Auto) 8.6H, Lymphocytes # (Auto) 3.1, Monocytes # (Auto) 1.7H, Eosinophils # (Auto) 0.1, Basophils # (Auto) 0.0, Immature Granulocyte # (Auto) 0.1, Sodium Level 131L, Potassium Level 3.7, Chloride Level 104, Carbon Dioxide Level 22, Anion Gap 5, Blood Urea Nitrogen 19H, Creatinine 0.53L, Estimat Glomerular Filtration Rate > 60, BUN/Creatinine Ratio 36, Glucose Level 116H, Calcium Level 8.0L, Corrected Calci um 8.8, Total Bilirubin 0.5, Aspartate Amino Transf (AST/SGOT) 16, Alanine Aminotransferase (ALT/SGPT) 18, Alkaline Phosphatase 46, Total Protein 5.1L, Albumin 3.0L Microbiology 05/08/20 MRSA Screen - Final, Complete MRSA not isolated 05/08/20 Blood Culture - Preliminary, Resulted No growth Laboratory Tests 05/11/20 03:50 05/12/20 04:32 A/P: Assessment: PAF with RVR, currently NSR Acute mental status change, etiology undetermined, managed by Dr Subarmanian Hyponatremia and leucocytosis of undetermined etiology, managed by Dr Subramanian OAC with Xarelto S/P fall - she reports non-syncopal Plan: * Continue oral anticoag with Xarelto * Currently SR with controlled rate - improved with increased Cardizem dose * Monitor lab closely * Replace electrolytes * Hyponatremia of undetermined etiology - management per Medical services GONZALES ARMENTA MD FACP FAC CCDS May 12, 2020 17:34
[2020-05-12] MEDS: hydrALAZINE (APESOLINE) 20 MG/ML VIAL IV PRN (23:48)
[2020-05-13 05:28] LABS: BASOPHILS % (AUTO) 0 % (0-10); EOSINOPHILS # (AUTO) 0.1 10^3/uL (0.0-0.3); EOSINOPHILS % (AUTO) 1 % (0-10); HEMATOCRIT 35 % (35-52); HEMOGLOBIN 11.8 g/dL (11.5-16.0); LYMPHOCYTES # (AUTO) 3.1 10^3/uL (1.0-4.0); LYMPHOCYTES % (AUTO) 24 % (12-44); MEAN CORPUSCULAR HEMOGLOBIN 29 pg (25-34); MEAN CORPUSCULAR HGB CONC 33 g/dL (32-36); MEAN CORPUSCULAR VOLUME 87 fL (80-99); MEAN PLATELET VOLUME 10.3 fL (9.0-12.2); MONOCYTES # (AUTO) 1.4 10^3/uL (0.0-1.0); MONOCYTES % (AUTO) 10 % (0-12); NEUTROPHILS # (AUTO) 8.6 10^3/uL (1.8-7.8); NEUTROPHILS % (AUTO) 65 % (42-75); PLATELET COUNT 218 10^3/uL (130-400); WHITE BLOOD COUNT 13.2 10^3/uL (4.3-11.0)
[2020-05-13 05:42] LABS: ALBUMIN 3.1 GM/DL (3.2-4.5); CHLORIDE 101 MMOL/L (98-107); POTASSIUM 3.7 MMOL/L (3.6-5.0); SODIUM 130 MMOL/L (135-145)
[2020-05-13 05:43] LABS: CALCIUM 8.2 MG/DL (8.5-10.1)
[2020-05-13 05:44] LABS: GLUCOSE 105 MG/DL (70-105); TOTAL PROTEIN 5.3 GM/DL (6.4-8.2)
[2020-05-13 05:46] LABS: BILIRUBIN,TOTAL 0.6 MG/DL (0.1-1.0); CARBON DIOXIDE 21 MMOL/L (21-32)
[2020-05-13 05:48] LABS: ALKALINE PHOSPHATASE 53 U/L (40-136); CREATININE SERUM 0.49 MG/DL (0.60-1.30); GFR ESTIMATED > 60
[2020-05-13 05:49] LABS: BUN/CREATININE RATIO 29
[2020-05-13 05:51] LABS: ALANINE AMINOTRANSFERASE 52 U/L (0-55)
[2020-05-13] MEDS: lisINopril 10 MG (PRINIVIL) TABLET PO SCH (09:09)
[2020-05-13] MEDS: SENNA W/DOCUSATE (SENOKOT S) TABLET PO SCH (09:10)
[2020-05-13] MEDS: TIMOLOL MALEATE 0.5% 5 ML (TIMOPTIC) BTL OU SCH (09:11)
--- NOTE | 2020-05-13 09:29 | Physical Therapy Daily Note ---
PT Daily Note-Current Subjective Patient in recliner pre tx, agrees to PT, no complaints of pain, patient states she might be leaving today. Appearance Patient in recliner post tx with nurse call, phone, tray, chair alarm on. Mental Status Patient Orientation: Person, Place, Situation Transfers SCALE: Activities may be completed with or without assistive devices. 5-Rnnzvfcwac-vowewxh completes the activity by him/herself with no assistance from a helper. 5-Set-up or Clean-up Assistance-helper sets up or cleans up; patient completes activity. [place] assists only prior to or following the activity. 4-Supervision or Touching Assistance-helper provides verbal cues and/or touching/steadying and/or contact guard assistance as patient completes activity. Assistance may be provided throughout the activity or intermittently. 3-Partial/Moderate Assistance-helper does LESS THAN HALF the effort. [place] lifts, holds or supports trunk or limbs, but provides less than half the effort. 2-Substantial/Maximal Assistance-helper does MORE THAN HALF the effort. [place] lifts or holds trunk or limbs and provides more than half the effort. 6-Kjlphfljk-omndzh does ALL the effort. Patient does none of the effort to complete the activity. Or, the assistance of 2 or more helpers is required for the patient to complete the activity. If activity was not attempted, code reason: 7-Patient Refused. 9-Not Applicable-not attempted and the patient did not perform the activity before the current illness, exacerbation or injury. 10-Not Attempted due to Environmental Limitations-(lack of equipment, weather restraints, etc.). 88-Not Attempted due to Medical Conditions or Safety Concerns. Sit to Stand (QC): 4 Chair/Zpq-br-Wvbbu Xfer(QC): 4 SBA Weight Bearing Full Weight Bearing Full Weight Bearing Gait Training Distance: 300' Walk 10 feet (QC): 4 Walk 50 ft with 2 Turns(QC): 4 Walk 150 ft (QC): 4 Gait Assistive Device: FWW SBA, slow ambulation but no LOB Treatments transfers, ambulation Assessment Current Status: Fair Progress improved balance PT Short Term Goals Short Term Goals Time Frame: May 12, 2020 Roll Left & Right: 6 Sit to lyin Lying to sitting on side of be: 6 Sit to stand: 5 Chair/hvg-ih-hgrpw transfer: 5 Toilet transfer: 5 Walk 10 feet: 5 Walk 50 feet with two turns: 5 Walk 150 feet: 5 PT Usp Goals Show Host/Hostess Goals PT Show Host/Hostess Goals Time Frame: May 15, 2020 Roll Left & Right (QC): 6 Sit to Lying (QC): 6 Lying-Sitting on Side/Bed(QC): 6 Sit to Stand (QC): 6 Chair/Jhd-jy-Whxjx Xfer(QC): 5 Toilet Transfer (QC): 5 Car Transfer (QC): 5 Walk 10 feet (QC): 5 Walk 50ft with 2 Turns (QC): 5 Walk 150 ft (QC): 5 1 Step (curb) (QC): 5 PT Plan Problem List Problem List: Activity Tolerance, Functional Strength, Safety, Balance, Gait, Transfer, Bed Mobility, ROM Treatment/Plan Treatment Plan: Continue Plan of Care Treatment Plan: Bed Mobility, Education, Gait, Safety Treatment Duration: May 15, 2020 Frequency: 6 times per week Estimated Hrs Per Day: .25 hour per day Safety Risks/Education Patient Education: Gait Training, Transfer Techniques, Correct Positioning, Safety Issues Teaching Recipient: Patient Teaching Methods: Demonstration, Discussion Response to Teaching: Reinforcement Needed Time/GCodes Time In: 0840 Time Out: 0849 Total Billed Treatment Time: 9 Total Billed Treatment 1 visit GT 9HIREN CONROY PT May 13, 2020 09:29
--- NOTE | 2020-05-13 09:34 | Progress Note - Cardiology ---
Cardiology SOAP Progress Note Subjective: Sitting up in recliner at the bedside States she feels good this morning No c/o CP, SOB or palpitations Objective: I&O/Vital Signs 05/12/20 05/13/20 23:43 04:31 Temp 36.3 36.1 Pulse 78 70 Resp 18 19 B/P (MAP) 170/73 (105) 139/68 (91) Pulse Ox 94 96 O2 Delivery Room Air Room Air 05/12/20 23:59 Intake Total 440 ml Balance 440 ml Constitutional: well-developed, well-nourished Respiratory: No accessory muscle use; other (fair to good bilat air enty, diminished at the bases) Cardiovascular: regular rate-rhythm, S1 and S2, systolic murmur (soft JOSIE at card bsase) Gastrointestional: No tender; soft; No guarding, No rebound; audible bowel sounds Extremities: No clubbing, No cyanosis, No significant edema Neurologic/Psychiatric: other (moves all limbs equally) Skin: No rash on exposed areas, No ulcerations on exposed areas Results/Procedures: Labs Laboratory Tests 05/13/20 05:04: White Blood Count 13.2H, Red Blood Count 4.07, Hemoglobin 11.8, Hematocrit 35, Mean Corpuscular Volume 87, Mean Corpuscular Hemoglobin 29, Mean Corpuscular Hemoglobin Concent 33, Red Cell Distribution Width 15.2H, Platelet Count 218, Mean Platelet Volume 10.3, Immature Granulocyte % (Auto) 0, Neutrophils (%) (Auto) 65, Lymphocytes (%) (Auto) 24, Monocytes (%) (Auto) 10, Eosinophils (%) (Auto) 1, Basophils (%) (Auto) 0, Neutrophils # (Auto) 8.6H, Lymphocytes # (Auto) 3.1, Monocytes # (Auto) 1.4H, Eosinophils # (Auto) 0.1, Basophils # (Auto) 0.0, Immature Granulocyte # (Auto) 0.0, Sodium Level 130L, Potassium Level 3.7, Chloride Level 101, Carbon Dioxide Level 21, Anion Gap 8, Blood Urea Nitrogen 14, Creatinine 0.49L, Estimat Glomerular Filtration Rate > 60, BUN/Creatinine Ratio 29, Glucose Level 105, Calcium Level 8.2L, Corrected Calcium 8.9, Total Bilirubin 0.6, Aspartate Amino Transf (AST/SGOT) 30, Alanine Aminotransferase (ALT/SGPT) 52, Alkaline Phosphatase 53, Total Protein 5.3L, Albumin 3.1L Microbiology 05/08/20 MRSA Screen - Final, Complete MRSA not isolated 05/08/20 Blood Culture - Preliminary, Resulted No growth A/P: Assessment: PAF with RVR, currently NSR Acute mental status change, etiology undetermined, managed by Dr Subramanian Hyponatremia and leucocytosis of undetermined etiology, managed by Dr Subramanian OAC with Xarelto S/P fall - she reports non-syncopal Plan: * Continue oral anticoag with Xarelto * Currently SR with controlled rate * Continue current cardiac regimen * Monitor lab closely * Replace electrolytes * Hyponatremia of undetermined etiology - management per Medical services APOLONIA OLIVARES May 13, 2020 09:34
--- NOTE | 2020-05-13 10:59 | NUR ---
CM/SS visited with patient for discharge planning. Plan: Patient will return home at time of discharge with a FWW. She will be transported home by her pxqhhnha-vm-zgk [facility] ([phone]) and rnzbuc-nb-iud. DME: The patient was provided a choice list and chose [facility] in [place]. CM/SS will fax script, face sheet, and h&p. The patient would like it delivered to her home. Home: The patient reports at base line that she was independent but she was falling due to medications. She does report having some baseline confusion. The patient lives at home alone but her jqfmueem-wc-uus has come to stay with her for a while. Home Health: The patient does not have home health and declined getting it at this time. She thinks she has an appointment with outpatient physical therapy in [place] and would like to follow with that. No further needs.
[2020-05-13] MEDS ORDERED: DILT180C85 PO (11:26)
--- NOTE | 2020-05-13 11:27 | Discharge Summary ---
Discharge Summary Hospital Course Problems/Dx: (1) Altered mental status Status: Acute Qualifiers: Qualified Codes: R41.0 - Disorientation, unspecified (2) Hyponatremia Status: Acute Hospital Course Date of Admission: May 08, 2020 at 12:42 Admission Diagnosis : Family Physician/Provider: Ponce Vargas MD Date of Discharge: 05/13/20 Discharge Diagnosis: [ ] Hospital Course: [ ] Labs and Pending Lab Test: Laboratory Tests 05/13/20 05:04: White Blood Count 13.2H, Red Blood Count 4.07, Hemoglobin 11.8, Hematocrit 35, Mean Corpuscular Volume 87, Mean Corpuscular Hemoglobin 29, Mean Corpuscular Hemoglobin Concent 33, Red Cell Distribution Width 15.2H, Platelet Count 218, Mean Platelet Volume 10.3, Immature Granulocyte % (Auto) 0, Neutrophils (%) (Auto) 65, Lymphocytes (%) (Auto) 24, Monocytes (%) (Auto) 10, Eosinophils (%) (Auto) 1, Basophils (%) (Auto) 0, Neutrophils # (Auto) 8.6H, Lymphocytes # (Auto) 3.1, Monocytes # (Auto) 1.4H, Eosinophils # (Auto) 0.1, Basophils # (Auto) 0.0, Immature Granulocyte # (Auto) 0.0, Sodium Level 130L, Potassium Level 3.7, Chloride Level 101, Carbon Dioxide Level 21, Anion Gap 8, Blood Urea Nitrogen 14, Creatinine 0.49L, Estimat Glomerular Filtration Rate > 60, BUN/Creatinine Ratio 29, Glucose Level 105, Calcium Level 8.2L, Corrected Calcium 8.9, Total Bilirubin 0.6, Aspartate Amino Transf (AST/SGOT) 30, Alanine Aminotransferase (ALT/SGPT) 52, Alkaline Phosphatase 53, Total Protein 5.3L, Albumin 3.1L Microbiology 05/08/20 MRSA Screen - Final, Complete MRSA not isolated 05/08/20 Blood Culture - Preliminary, Resulted No growth Home Meds Active Diltiazem 24Hr ER (Diltiazem HCl) 180 Mg Cap.er.24h 360 Mg PO DAILY Reported Saline Nasal [place] (Sodium Chloride) 30 Ml [place] 1 [place] NA PRN PRN Calcium (Calcium Carbonate) 500 Mg Tablet 500 Mg PO DAILY Ocuvite with Lutein Tablet (Vit A,C & E/Lutein/Minerals) 1 Each Tablet 1 Each PO DAILY Vitamin C (Ascorbate Calcium) 500 Mg Tablet 500 Mg PO DAILY Vitamin D3 (Cholecalciferol (Vitamin D3)) 25 Mcg Tablet 25 Mcg PO DAILY Magnesium (Magnesium Oxide) 400 Mg Tablet 400 Mg PO DAILY Xarelto (Rivaroxaban) 20 Mg Tablet 20 Mg PO 1700 AFTER DINNER Timolol Maleate 0.5% (Timolol Maleate) 5 Ml Drops 1 Drop OU BID Raloxifene HCl 60 Mg Tablet 60 Mg PO 1700 AFTER DINNER Lisinopril 10 Mg Tablet 10 Mg PO DAILY Discharge Physical Examination Vital Signs Vital Signs Date Time Temp Pulse Resp B/P (MAP) Pulse Ox O2 Delivery O2 Flow Rate FiO2 05/13/20 04:31 36.1 70 19 139/68 (91) 96 Room Air Allergies: Coded Allergies: shellfish derived (Verified Allergy, Unknown, 04/24/20) Discharge Summary Date of Admission May 08, 2020 at 12:42 Date of Discharge Discharge Date: May 13, 2020 Admission Diagnosis Assessment: AMS Hyponatremia AF w/RVR Dementia with sundowning? OAC HTN Plan: Fluid restriction Cardizem drip Monitor closely Discharge Diagnosis Assessment: AMS Hyponatremia AF w/RVR Dementia with sundowning? OAC HTN Plan: Fluid restriction Hypertonic saline BMP 1500 Cardizem pill Monitor closely 05/11/20: Monitor sodium level Monitor tachycardia Monitor AF OAC Antipsychotics 05/12/20: Move to 4th floor DC tomorrow? (1) Altered mental status Status: Acute Qualifiers: Qualified Codes: R41.0 - Disorientation, unspecified (2) Hyponatremia Status: Acute Clinical Quality Measures DVT/VTE Risk/Contraindication: Risk Factor Score Per Nursin RFS Level Per Nursing on Admit: 3=High ALLIE PEREA DO May 13, 2020 11:27
[2020-05-13 13:28] VITALS: BP 139/68
== END 2020-05-13 13:20 | disposition home or self-care (01) | DRG 640 ==
LOC: EDUNIT# 11:09 → ER FS 11:09 → ICU 12:42 → ER FS 12:58 → CSD 05-09 14:46 → 4TH 05-12 11:46
PROVIDERS: ADMIT Internal Medicine; ATTEND Internal Medicine
DX: E87.1 Hypo-osmolality and hyponatremia (principal); G93.41 Metabolic encephalopathy; I48.0 Paroxysmal atrial fibrillation; R29.810 Facial weakness; Z79.01 Long term (current) use of anticoagulants; Z79.899 Other long term (current) drug therapy; Z91.013 Allergy to seafood; Z90.722 Acquired absence of ovaries, bilateral
CPT/HCPCS: 36415; 51702; 70450; 70551; 71045; 80048; 80053; 80061; 80306; 80320; 81000; 83605; 83735; 83930; 83935; 84100; 84145; 84300; 84443; 84484; 85007; 85025; 85027; 85379; 85610; 85730; 86141; 87040; 87081; 93005; 93041

== ENCOUNTER → 2020-06-03 | Outpatient (CLI) | payer MEDICARE, OTHER ==
[~2020-06-03] MED LIST changes: +ASCO-262 PO; +C,E,1CAP PO; +CALC-308 PO; +CALC-823 PO; +CHOL100045 PO; +DILT180C85 PO; +LISI10TA2 PO; +MAGN400T39 PO; +OMEP40CA27 PO; +RALO60TA12 PO; +REGADENOSON 0.4 MG/5 ML SYR (LEXISCAN) IV ONE; +RIVA20TA PO; +SODI30SP2; +TIMO5DRO5 OU; +TRM50T PO; +VIT1TABL26 PO
[2020-06-03 09:12] VITALS: BP 131/71
--- NOTE | 2020-06-03 12:06 | Cardiology Stress Test Report ---
Stress Test Report Date of Procedure/Referring: Date of Procedure: Jun 03, 2020 Juliette Bonds Admitting Physician Self,Ponce LUNA Baseline Heart Rate: 72 Baseline Blood Pressure: Blood Pressure Systolic: 131 Blood Pressure Diastolic: 71 Baseline Vitals Vital Signs Date Time Temp Pulse Resp B/P (MAP) Pulse Ox O2 Delivery O2 Flow Rate FiO2 06/03/20 09:12 77 131/71 (91) Baseline EKG: Baseline EKG: normal sinus rhythm Summary After explaining the procedure to the patient, she signed a consent and then brought to the stress nuclear laboratory. Patient received 0.4 mg Lexiscan for stress test, ECG, heart rate and blood pressure were monitored continuously. Resting and stress dose of radio tracer were injected, imaging was acquired and reviewed in short axis, horizontal long axis and vertical long axis views. TID: 1.16 SSS: 2 SDS: 2 EF: 73 1. Patient tolerated Lexiscan well 2. Breast attenuation with typical female pattern, no significant ischemia or infarction on SPECT images 3. Normal left ventricular size, EF 73 percent JOVITA CHARLES MD Jun 03, 2020 12:06
== END ==
LOC: CARD 07:08
PROVIDERS: ATTEND Physician Assistant
DX: R07.9 Chest pain, unspecified (principal)
CPT/HCPCS: 33285; 78452; 93017; 93306; A9502; C1764

== ENCOUNTER → 2020-06-03 | Day surgery (SDC) | payer MEDICARE, OTHER ==
[~2020-06-03] VITALS: Ht 152 cm; Wt 57.0 kg
[~2020-06-03] MED LIST changes: +CATHETER FLUSH 10 ML SYR IV PRN; +LIDOCAINE 1% INJ 20 ML 20 ML VIAL ONE
[2020-06-03 10:59] VITALS: BP 121/60
--- NOTE | 2020-06-03 11:40 | Implantation of Loop Monitor ---
Implant of Loop Monitior IMPLANTATION OF LOOP MONITOR REPORT DATE OF PROCEDURE: 06/03/20 PREOP DIAGNOSIS: Paroxysmal atrial fibrillation PROCEDURE DETAILS: The patient is a 79 female with history of paroxysmal atrial fibrillation requiring long-term surveillance. Therefore implantable loop recorder was discussed and agreed with the patient. Informed consent was taken. All risks and complications were discussed at length. The patient was draped and prepped in the usual sterile fashion. Local anesthesia was lidocaine, which was given in the substernal area close to the 4th intercostal space. Loop monitor [employer] with serial number [id number] was implanted according to the protocol. Steri- Strips were placed at the end of the procedure. There were no complications and the patient tolerated the procedure well. The device was interrogated with a v oltage of. ANESTHESIA: Local anesthesia with lidocaine. COMPLICATIONS: None CONTRAST/FLUOROSCOPY: None CONCLUSION: Successful implantation of Loop monitor with no complication FINAL DIAGNOSIS: Paroxysmal atrial fibrillation Palpitation Hypertension JOVITA CHARLES MD Jun 03, 2020 11:40 am
== END ==
LOC: CATH 13:30
PROVIDERS: ATTEND Internal Medicine Cardiovascular Disease
DX: I48.0 Paroxysmal atrial fibrillation (principal); I10 Essential (primary) hypertension; E78.2 Mixed hyperlipidemia; F17.210 Nicotine dependence, cigarettes, uncomplicated; Z79.899 Other long term (current) drug therapy; Z91.041 Radiographic dye allergy status; Z91.013 Allergy to seafood

== ENCOUNTER 2020-10-16 08:41 | Inpatient (IN) | payer MEDICARE, OTHER ==
[~2020-10-16] VITALS: Ht 150 cm; Wt 59.1 kg
[~2020-10-16 08:41] MED LIST changes: -CATHETER FLUSH 10 ML SYR IV PRN; +CEFU500T63 PO; +CETI10CA PO; +DILT-27 PO; +ESOM20CA PO; +FLAX1CAP4 PO; +FLEC50TA PO; +IBUP-2185 PO; -LIDOCAINE 1% INJ 20 ML 20 ML VIAL ONE; -LISI10TA2 PO; +LISI10TA25 PO; +OMEG-160 PO; -REGADENOSON 0.4 MG/5 ML SYR (LEXISCAN) IV ONE; +SIME125C95 PO
[2020-10-16 09:03] LABS: HEMATOCRIT 30 % (35-52); HEMOGLOBIN 9.3 G/DL (11.5-16.0); MEAN CORPUSCULAR HEMOGLOBIN 25 PG (25-34); MEAN CORPUSCULAR HGB CONC 31 G/DL (32-36); MEAN CORPUSCULAR VOLUME 82 FL (80-99); WHITE BLOOD COUNT 12.2 10^3/uL (4.3-11.0)
[2020-10-16 09:04] LABS: BASOPHILS # (AUTO) 0.1 10^3/uL (0.0-0.1); BASOPHILS % (AUTO) 0 % (0-10); EOSINOPHILS # (AUTO) 0.2 10^3/uL (0.0-0.3); EOSINOPHILS % (AUTO) 1 % (0-10); LYMPHOCYTES # (AUTO) 1.8 X 10^3 (1.0-4.0); LYMPHOCYTES % (AUTO) 15 % (12-44); MEAN PLATELET VOLUME 10.4 FL (7.4-10.4); MONOCYTES # (AUTO) 1.2 X 10^3 (0.0-1.0); MONOCYTES % (AUTO) 10 % (0-12); NEUTROPHILS % (AUTO) 74 % (42-75); PLATELET COUNT 252 10^3/uL (130-400)
[2020-10-16 09:11] LABS: ABG PCO2 43 MMHG (35-45); ABG PH 7.43 (7.37-7.43); ABG PO2 73 MMHG (79-93)
[2020-10-16 09:12] LABS: ABG BASE EXCESS 3.7 MMOL/L (-2.5-2.5); ABG OXYGEN SATURATION 95 % (94-100); ABG TCO2 29.8 MMOL/L (21.0-31.0); ALLENS TEST YES-POS; INSPIRED O2 4L NC; PATIENT TEMP 36.5; VENTILATOR NO
--- NOTE | 2020-10-16 09:15 | ED Respiratory ---
General Chief Complaint: Respiratory Problems Stated Complaint: SOB Source: patient History of Present Illness Date Seen by Provider: Oct 16, 2020 Time Seen by Provider: 08:45 Initial Comments Patient is a 80-year-old smoker with history of hypertension, atrial fibrillation currently on Xarelto who presents with dyspnea, dyspnea with exertion and orthopnea. Symptoms been ongoing for the past 2 days. Patient was called by EMS due to concerns for urinary incontinence and inability get to the bathroom. Upon he EMS arrival, the patient's O2 saturation was on 80% on room air. Patient was also noted to be hypertensive, 200s over 110s. Patient does not normally require oxygen at home. She denies fever, increasing productive sputum, chest pain chest tightness, nausea vomiting or abdominal pain. She reports increased leg swelling. No urinary frequency urgency or burning. No other acute symptoms or complaints. Patient placed on 4 L by nasal cannula and given breathing treatment on route to the emergency department. Timing/Duration: just prior to arrival, yesterday Severity: moderate Prior Episodes/Possible Cause: other Modifying Factors: Improves With Other Associated Symptoms: other Allergies and Home Medications Allergies Coded Allergies: iodine (Verified Allergy, Unknown, 10/16/20) shellfish derived (Verified Allergy, Unknown, 04/24/20) Home Medications Ascorbate Calcium 500 Mg Tablet, 500 MG PO DAILY, (Reported) Calcium Carbonate 500 Mg Tablet, 500 MG PO DAILY, (Reported) Cefuroxime Axetil 500 Mg Tablet, 500 MG PO BID Prescribed by: APOLONIA OLIVARES on 06/25/20915 Cetirizine HCl 10 Mg Capsule, 10 MG PO DAILY, (Reported) Diltiazem HCl 120 Mg Cap.er.24h, 120 MG PO DAILY, (Reported) Esomeprazole Magnesium 20 Mg Capsule.dr, 20 MG PO DAILY, (Reported) Flaxseed/Omega3,6,9/Fatty Acid 1 Each Capsule, 1 EACH PO UD, (Reported) Lisinopril 10 Mg Tablet, 10 MG PO DAILY@0900 Prescribed by: APOLONIA OLIVARES on 06/25/20915 Raloxifene HCl 60 Mg Tablet, 60 MG PO DAILY, (Reported) Rivaroxaban 20 Mg Tablet, 20 MG PO 1700 AFTER DINNER, (Reported) Simethicone 125 Mg Capsule, 125 MG PO QID PRN for GAS, (Reported) Sodium Chloride 30 Ml [place], 1 SPRAY NA PRN PRN for CONGESTION, (Reported) Timolol Maleate 5 Ml Drops, 1 DROP OU BID, (Reported) Vit A,C & E/Lutein/Minerals 1 Each Tablet, 1 EACH PO DAILY, (Reported) Patient Home Medication List Home Medication List Reviewed: Yes Review of Systems Review of Systems Constitutional: see HPI EENTM: see HPI Respiratory: see HPI Cardiovascular: see HPI Gastrointestinal: see HPI Genitourinary: see HPI Musculoskeletal: see HPI Skin: see HPI Psychiatric/Neurological: See HPI Hematologic/Lymphatic: See HPI Immunological/Allergic: see HPI All Other Systems Reviewed Negative Unless Noted: Yes Past Fygmovz-Ayczgg-Xihgih Hx Past Med/Social Hx: Reviewed Nursing Past Med/Soc Hx Patient Social History Type Used: Cigarettes 2nd Hand Smoke Exposure: No Recent Hopitalizations: No Immunizations Up To Date Tetanus Booster (TDap): Unknown PED Vaccines UTD: Yes Date of Influenza Vaccine: Mar 21, 2020 Seasonal Allergies Seasonal Allergies: No Past Medical History Surgeries: Yes Oophorectomy Respiratory: No Atrial Fibrillation Neurological: No Genitourinary: No Gastrointestinal: No Musculoskeletal: No Endocrine: No HEENT: No Cancer: No Psychosocial: No Integumentary: No Blood Disorders: No Physical Exam Vital Signs - First Documented 10/16/20 08:45 Temp 36.4 Pulse 85 Resp 17 B/P (MAP) 154/99 (117) Pulse Ox 97 Capillary Refill : Height: '" Weight: lbs. oz. kg; 24.62 BMI Method: General Appearance: mild distress, other Eyes: Bilateral Eye Normal Inspection, Bilateral Eye PERRL, Bilateral Eye EOMI HEENT: PERRL/EOMI, normal ENT inspection, pharynx normal Neck: non-tender, full range of motion, supple Respiratory: chest non-tender, decreased breath sounds, rhonchi, other Cardiovascular: tachycardia Gastrointestinal: normal bowel sounds, non tender, soft Extremities: non-tender, no calf tenderness, pedal edema Neurologic/Psychiatric: bag valver II-XII nml as tested, no motor/sensory deficits, alert, normal mood/affect, oriented x 3 Skin: normal color Focused Exam Sepsis Stage: Ruled Out Lactate Level 10/16/20 08:55: Lactic Acid Level 0.95 Lactic Acid Level Laboratory Tests Test 10/16/20 08:55 Lactic Acid Level 0.95 MMOL/L (0.50-2.00) Progress/Results/Core Measures Suspected Sepsis SIRS Temperature: Pulse: Respiratory Rate: Laboratory Tests 10/16/20 08:55: White Blood Count 12.2H Blood Pressure / Mean: 10/16/20 08:55: Lactic Acid Level 0.95 Laboratory Tests 10/16/20 08:55: Creatinine 0.47L, Platelet Count 252, Total Bilirubin 0.3 Results/Orders Lab Results Laboratory Tests Test 10/16/20 08:55 10/16/20 09:08 10/16/20 09:10 Range/Units White Blood Count 12.2 H 4.3-11.0 10^3/uL Red Blood Count 3.73 L 4.35-5.85 10^6/uL Hemoglobin 9.3 L 11.5-16.0 G/DL Hematocrit 30 L 35-52 % Mean Corpuscular Volume 82 80-99 FL Mean Corpuscular Hemoglobin 25 25-34 PG Mean Corpuscular Hemoglobin Concent 31 L 32-36 G/DL Red Cell Distribution Width 16.5 H 10.0-14.5 % Platelet Count 252 130-400 10^3/uL Mean Platelet Volume 10.4 7.4-10.4 FL Immature Granulocyte % (Auto) 0 % Neutrophils (%) (Auto) 74 42-75 % Lymphocytes (%) (Auto) 15 12-44 % Monocytes (%) (Auto) 10 0-12 % Eosinophils (%) (Auto) 1 0-10 % Basophils (%) (Auto) 0 0-10 % Neutrophils # (Auto) 9.0 H 1.8-7.8 X 10^3 Lymphocytes # (Auto) 1.8 1.0-4.0 X 10^3 Monocytes # (Auto) 1.2 H 0.0-1.0 X 10^3 Eosinophils # (Auto) 0.2 0.0-0.3 10^3/uL Basophils # (Auto) 0.1 0.0-0.1 10^3/uL Immature Granulocyte # (Auto) 0.1 0.0-0.1 10^3/uL Sodium Level 133 L 135-145 MMOL/L Potassium Level 4.3 3.6-5.0 MMOL/L Chloride Level 97 L 98-107 MMOL/L Carbon Dioxide Level 26 21-32 MMOL/L Anion Gap 10 5-14 MMOL/L Blood Urea Nitrogen 10 7-18 MG/DL Creatinine 0.47 L 0.60-1.30 MG/DL Estimat Glomerular Filtration Rate > 60 BUN/Creatinine Ratio 21 Glucose Level 113 H 70-105 MG/DL Lactic Acid Level 0.95 0.50-2.00 MMOL/L Calcium Level 8.6 8.5-10.1 MG/DL Corrected Calcium 8.9 8.5-10.1 MG/DL Total Bilirubin 0.3 0.1-1.0 MG/DL Aspartate Amino Transf (AST/SGOT) 29 5-34 U/L Alanine Aminotransferase (ALT/SGPT) 30 0-55 U/L Alkaline Phosphatase 76 40-136 U/L Troponin I < 0.30 <0.30 NG/ML Pro-B-Type Natriuretic Peptide 700.3 H <75.0 PG/ML Total Protein 6.2 L 6.4-8.2 GM/DL Albumin 3.6 3.2-4.5 GM/DL Blood Gas Puncture Site LT RADIAL Blood Gas Patient Temperature 36.5 Arterial Blood pH 7.43 7.37-7.43 Arterial Blood Partial Pressure CO2 43 35-45 MMHG Arterial Blood Partial Pressure O2 73 L 79-93 MMHG Arterial Blood HCO3 29 H 23-27 MMOL/L Arterial Blood Total CO2 29.8 21.0-31.0 MMOL/L Arterial Blood Oxygen Saturation 95 94-100 % Arterial Blood Base Excess 3.7 H -2.5-2.5 MMOL/L Brennen Test YES-POS Blood Gas Ventilator Setting NO Blood Gas Inspired Oxygen 4L NC Urine Color YELLOW Urine Clarity CLEAR Urine pH 8.0 5-9 Urine Specific [place] 1.020 1.016-1.022 Urine Protein NEGATIVE NEGATIVE Urine Glucose (UA) NEGATIVE NEGATIVE Urine Ketones NEGATIVE NEGATIVE Urine Nitrite NEGATIVE NEGATIVE Urine Bilirubin NEGATIVE NEGATIVE Urine Urobilinogen NORMAL < = 1.0 MG/DL Urine Leukocyte Esterase NEGATIVE NEGATIVE Urine RBC (Auto) NEGATIVE NEGATIVE Urine RBC NONE /HPF Urine WBC NONE /HPF Urine Squamous Epithelial Cells 2-5 /HPF Urine Crystals NONE /LPF Urine Bacteria NEGATIVE /HPF Urine Casts NONE /LPF Urine Mucus NEGATIVE /LPF Urine Culture Indicated NO My Orders Orders - KASEY GARCIA DO Ekg-Prn For Chest Pain Or Rhyt (10/16/20 08:43) Cbc With Automated Diff (10/16/20 08:43) Comprehensive Metabolic Panel (10/16/20 08:43) Blood Culture (10/16/20 08:43) Urinalysis (10/16/20 08:43) Urine Culture (10/16/20 08:43) Chest 1 View Ap/Pa Only (10/16/20 08:43) Ed Iv/Invasive Line Start (10/16/20 08:43) Ed Iv/Invasive Line Start (10/16/20 08:43) Vital Signs Adult Sepsis Patie Q15M (10/16/20 08:43) O2 (10/16/20 08:43) Remove Rings In Anticipation O (10/16/20 08:43) Lactic Acid Analyzer (10/16/20 08:43) Arterial Blood Gas (10/16/20 08:43) Troponin I Fs (10/16/20 08:43) Probnp Fs (10/16/20 08:43) Furosemide Injection (Lasix Injection) (10/16/20 09:30) Ceftriaxone For Iv Use (Rocephin For I (10/16/20 09:45) Azithromycin Tablet (Zithromax Tablet) (10/16/20 09:45) Methylprednisolone Sod Succ (Solu-Medrol (10/16/20 09:45) Albuterol/Ipra Inhalation Soln (Duoneb I (10/16/20 09:45) Svn Small Volume Nebulizer (10/16/20 09:43) Vital Signs/I&O 10/16/20 08:45 Temp 36.4 Pulse 85 Resp 17 B/P (MAP) 154/99 (117) Pulse Ox 97 Capillary Refill : Departure Communication (Admissions) Chest x-ray: Pulmonary vascular congestion with trace pleural effusion per radiology report EKG, 10/16/2020, 855: Sinus rhythm, rate 84, ME 194, QTc 444, QRS 102, minimal ST elevation in inferior and lateral leads. Q waves in anterior leads. Does not meet STEMI criteria. Patient with acute respiratory failure likely multifactorial with components of COPD and congestive heart failure. DuoNeb, Solu-Medrol, Lasix and antibiotics given in the emergency department. Patient breathing more comfortably with a resting respiratory rate of 16 but still requiring [address] Subramanian accepts at [facility]. Impression Primary Impression: Acute respiratory failure with hypoxia Additional Impressions: COPD (chronic obstructive pulmonary disease) CHF (congestive heart failure) Accelerated hypertension Disposition: ADMITTED INPATIENT Condition: Stable Admissions Decision to Admit Reason: Admit from ER (General) Decision to Admit/Date: Oct 16, 2020 Time/Decision to Admit Time: 09:30 Transfer Method of Transfer: EMS Departure-Patient Inst. Referrals: MARCELLO REYES MD (PCP/Family) Primary Care Physician KASEY GARCIA DO Oct 16, 2020 09:15
--- NOTE | 2020-10-16 09:18 | Diagnostic Imaging Report ---
Indication: Shortness of breath and sepsis. Time of exam: 8:46 AM Correlation is made with prior chest 06/25/2020. Heart size is stable. Cardiac pacemaker remains in place. There are some mild interstitial changes in the lung bases. There is some blunting of left costophrenic angle consistent with minimal fluid or pleural thickening. No pneumothorax identified. Impression: Trace left pleural fluid or pleural thickening. Mild basilar interstitial changes are noted. Dictated by: Dictated on workstation # [id number]
[2020-10-16 09:24] LABS: ALANINE AMINOTRANSFERASE 30 U/L (0-55); ALBUMIN 3.6 GM/DL (3.2-4.5); ALKALINE PHOSPHATASE 76 U/L (40-136); BILIRUBIN,TOTAL 0.3 MG/DL (0.1-1.0); BUN/CREATININE RATIO 21; CALCIUM 8.6 MG/DL (8.5-10.1); CARBON DIOXIDE 26 MMOL/L (21-32); CHLORIDE 97 MMOL/L (98-107); CREATININE SERUM 0.47 MG/DL (0.60-1.30); GFR ESTIMATED > 60; GLUCOSE 113 MG/DL (70-105); POTASSIUM 4.3 MMOL/L (3.6-5.0); SODIUM 133 MMOL/L (135-145); TOTAL PROTEIN 6.2 GM/DL (6.4-8.2)
[2020-10-16] MEDS ORDERED: FUROSEMIDE 40 MG/4 ML INJ (LASIX) IVP ONE (09:30)
[2020-10-16 09:37] LABS: CLARITY,URINE CLEAR; COLOR,URINE YELLOW
[2020-10-16 09:38] LABS: BACTERIA,URINE NEGATIVE /HPF; BILIRUBIN,URINE NEGATIVE (NEGATIVE); GLUCOSE, URINE (UA) NEGATIVE (NEGATIVE); KETONES,URINE NEGATIVE (NEGATIVE); LEUKOCYTE ESTERASE ,URINE NEGATIVE (NEGATIVE); NITRITE,URINE NEGATIVE (NEGATIVE); PROTEIN,URINE NEGATIVE (NEGATIVE)
[2020-10-16] MEDS ORDERED: AZITHROMYCIN 250 MG TAB (ZITHROMAX) PO ONE (09:45)
[2020-10-16] MEDS ORDERED: RT-ALBUTEROL/IPRATROPIUM 3 ML (DUONEB) VIAL INH ONE (09:45)
[2020-10-16] MEDS ORDERED: cefTRIAXone FOR IV USE 1,000 MG in WATER (STERILE) FOR INJECTION 10 ML IV ONE (09:45)
[2020-10-16] MEDS ORDERED: methylPREDNISolone 125 MG (Solu-MEDROL) VIAL IVP ONE (09:45)
[2020-10-16] MEDS ORDERED: RT-ALBUTEROL/IPRATROPIUM 3 ML (DUONEB) VIAL ONE (10:20)
--- NOTE | 2020-10-16 12:14 | History & Physical-Hospitalist ---
History of Present Illness HPI/Chief Complaint Chief complaint: Dyspnea History of present illness: This is a 80-year-old white female clinic patient of Dr. Vargas and Dr. Tellez who presented to the [place] [facility] with shortness of breath. Patient was found to have volume overload and exacerbation of COPD. She continues to smoke. I have reviewed her home medications and restarted. Anxiolytics required. Does not require oxygen at home. Source: patient Exam Limitations: clinical condition Date Seen 10/16/20 Time Seen by a Provider: 13:00 Attending Physician Caitlyn Subramanian Maxwell MD Referring Physician Date of Admission Oct 16, 2020 at 12:05 Home Medications & Allergies Home Medications Reviewed patient Home Medication Reconciliation performed by pharmacy medication reconciliations locate technician and/or nursing. Patients Allergies have been reviewed. Allergies Allergies Coded Allergies iodine (Verified Allergy, Unknown, 10/16/20) shellfish derived (Verified Allergy, Unknown, 04/24/20) Past Rngaike-Ckvwwh-Vciezx Hx Patient Social History Marrital Status: Employed/Student: retired Smoking Status: Current Everyday Smoker Immunizations Up To Date Date of Influenza Vaccine: Mar 21, 2020 PED Vaccines UTD: Yes Seasonal Allergies Seasonal Allergies: No Current Status Primary Language: Taiwanese Past Medical History Surgeries: Oophorectomy, Pacemaker Atrial Fibrillation, Hypertension Blood Disorders: No Review of Systems Constitutional: see HPI Respiratory: dyspnea on exertion, short of breath, wheezing Physical Exam Physical Exam Vital Signs Vital Signs - First Documented 10/16/20 10/16/20 08:45 11:21 Temp 36.4 Pulse 85 Resp 17 B/P (MAP) 154/99 (117) Pulse Ox 97 O2 Delivery Nasal Cannula O2 Flow Rate 3.00 Capillary Refill : Less Than 3 Seconds Height, Weight, BMI Height: '" Weight: lbs. oz. kg; 24.62 BMI Method: General Appearance: Anxious, Chronically ill, Mild Distress Eyes: Right Eye Normal Inspection, Right Eye PERRL HEENT: PERRL/EOMI, Normal ENT Inspection, Pharynx Normal, Moist Mucous Membranes Neck: Full Range of Motion, Normal Inspection, Non Tender Respiratory: Chest Non Tender, No Respiratory Distress, Accessory Muscle Use, Crackles, Decreased Breath Sounds, Wheezing Cardiovascular: No Edema, No Gallop, No JVD, No Murmur, Normal Peripheral Pulses, Irregularly Irregular Gastrointestinal: Normal Bowel Sounds, No Organomegaly, No Pulsatile Mass, Non Tender, Soft Back: Normal Inspection, No CVA Tenderness, No Vertebral Tenderness Extremity: Normal Capillary Refill, Normal Inspection, Normal Range of Motion, Non Tender, No Calf Tenderness, No Pedal Edema Neurologic/Psychiatric: Alert, Oriented x3, No Motor/Sensory Deficits, Normal Mood/Affect Skin: Normal Color, Warm/Dry Lymphatic: No Adenopathy Results Results/Procedures Labs Laboratory Tests 10/16/20 08:55 10/16/20 14:15 10/17/20 04:00 Patient resulted labs reviewed. Assessment/Plan Admission Diagnosis Assessment: Respiratory insufficiency Exacerbation of COPD Current smoker Volume overload Atrial fibrillation Oral anticoagulants maintained Plan: ICU stay Oxygen Nebs Cardiology consult Monitor closely Admission Status: Inpatient Order (span 2 midnights) Reason for Inpatient Admission: Respiratory insufficiency CAITLYN SUBRAMANIAN DO Oct 16, 2020 12:14
[2020-10-16] MEDS ORDERED: ACETAMINOPHEN 500 MG TAB (TYLENOL) PO PRN (13:00)
[2020-10-16] MEDS ORDERED: ACETAMINOPHEN 325 MG TABLET PO PRN (13:00)
[2020-10-16] MEDS ORDERED: morphine INJ 4 MG/ML 1 ML (VIAL/SYRINGE) IV PRN (13:00)
[2020-10-16] MEDS ORDERED: MELATONIN 3 MG TABLET PO PRN (13:00)
[2020-10-16] MEDS ORDERED: ONDANSETRON 4 MG/2 ML (SDV) Z0FRAN IVP PRN (13:00)
[2020-10-16] MEDS ORDERED: morphine INJ 10 MG/ML 1ML (SYR OR VIAL) IVP PRN (13:00)
[2020-10-16] MEDS ORDERED: ALPRAZolam 0.25 MG (XANAX) TAB PO PRN (13:00)
[2020-10-16] MEDS ORDERED: CALCIUM CARBONATE 500 MG (TUMS) TAB.CHEW PO PRN (13:00)
[2020-10-16] MEDS ORDERED: diphenhydrAMINE 25 MG TAB (BENADRYL) PO PRN (13:00)
--- NOTE | 2020-10-16 13:44 | Consultation-Cardiology ---
HPI-Cardiology Cardiology Consultation: Date of Consultation 10/16/20 Date of Admission Attending Physician Caitlyn Subramanian DO Admitting Physician Ponce Vargas MD Consulting Physician APOLONIA GILLESPIE Primary Captain/Airline Pilot: Dr. Tellez HPI: Chief Complaint: Acute CHF Hypoxia Ms. Chirinos is a 80 yr old female admitted to ICU 11 from [facility] with increasing SOB and hypoxia. She states for the last several days she has had increasing dyspnea at home. She reports the SOB was worse this morning and she called EMS. Upon arrival she was noted to be hypoxic with an O2 sat of approx 80%. She reports she has had a cough of clear phlegm. She reports chills the last few days. She denies any fever. She reports occ episodes of chest discomfort which will improve after belching. No c/o LE swelling. No c/o n/v/d. She smokes cigs approx 1 PPD. No syncope or near syncope she reports since implantation of PPM. Review of Systems-Cardiology Review of Systems Constitutional: As described under HPI Eyes: No vision change Ears/Nose/Throat: No epistaxis, No recent hearing loss Respiratory: As described under HPI Cardiovascular: As described under HPI Gastrointestinal: As described under HPI Genitourinary: No hematuria Musculoskeletal: joint pain Skin: No rash on exposed areas, No ulcerations on exposed areas Psychiatric/Neurological: No anxiety, No depression, No seizure, No focal weakness, No syncope Hematologic: No bleeding abnormalities All Other Systems Reviewed Negative Unless Noted: Yes UWV-Rrtadp-Cjoyfe Hx Patient Social History Smoking Status: Current Everyday Smoker 2nd Hand Smoke Exposure: Yes Have you traveled recently?: No Alcohol Use?: No Pt feels they are or have been: No Tobacco type used: Cigarettes Immunizations Up To Date Tetanus Booster (TDap): Unknown Date of Influenza Vaccine: Mar 13, 2020 Past Medical History PMH As described under Assessment. Family Medical History Family Medical History: She does not report fam h/o early CAD. Notes A fib in an uncle when he was in his 80s Allergies and Home Medications Allergies Coded Allergies: iodine (Verified Allergy, Unknown, 10/16/20) shellfish derived (Verified Allergy, Unknown, 04/24/20) Home Medications Ascorbate Calcium 500 Mg Tablet, 500 MG PO DAILY, (Reported) Calcium Carbonate 500 Mg Tablet, 500 MG PO DAILY, (Reported) Cefuroxime Axetil 500 Mg Tablet, 500 MG PO BID Prescribed by: APOLONIA OLIVARES on 06/25/20915 Cetirizine HCl 10 Mg Capsule, 10 MG PO DAILY, (Reported) Diltiazem HCl 120 Mg Cap.er.24h, 120 MG PO DAILY, (Reported) Esomeprazole Magnesium 20 Mg Capsule.dr, 20 MG PO DAILY, (Reported) Flaxseed/Omega3,6,9/Fatty Acid 1 Each Capsule, 1 EACH PO UD, (Reported) Lisinopril 10 Mg Tablet, 10 MG PO DAILY@0900 Prescribed by: APOLONIA OLIVARES on 06/25/20915 Raloxifene HCl 60 Mg Tablet, 60 MG PO DAILY, (Reported) Rivaroxaban 20 Mg Tablet, 20 MG PO 1700 AFTER DINNER, (Reported) Simethicone 125 Mg Capsule, 125 MG PO QID PRN for GAS, (Reported) Sodium Chloride 30 Ml [place], 1 SPRAY NA PRN PRN for CONGESTION, (Reported) Timolol Maleate 5 Ml Drops, 1 DROP OU BID, (Reported) Vit A,C & E/Lutein/Minerals 1 Each Tablet, 1 EACH PO DAILY, (Reported) Physical Exam-Cardiology Physical Exam Vital Signs/I&O 10/16/20 10/16/20 10/16/20 10/16/20 08:45 11:21 12:30 12:59 Temp 36.4 36.4 Pulse 85 81 83 88 Resp 17 21 23 B/P (MAP) 154/99 (117) 151/67 (117) 158/90 (112) Pulse Ox 97 96 96 O2 Delivery Nasal Cannula Nasal Cannula O2 Flow Rate 3.00 3.00 10/16/20 13:00 Pulse 89 Resp 21 B/P (MAP) 157/85 (109) Pulse Ox 91 O2 Delivery Nasal Cannula O2 Flow Rate 3.00 Capillary Refill : Less Than 3 Seconds Constitutional: AAO x 3, well-developed, well-nourished HEENT: PERRL, hearing is well preserved, oral hygience is good Neck: No carotid bruit; carotid pulses are 2 + bilaterally Respiratory: No accessory muscle use, No respiratory distress; chest expansion is symmetric, chest is bilaterally symmetric, rhonchi (scattered), other (diminished breath sounds) Cardiovascular: regular rate-rhythm, S1 and S2, systolic murmur Gastrointestinal: No tender; soft, round, audible bowel sounds Extremities: no lower extremity edema bilateral Neurologic/Psychiatric: grossly intact (moves all extremities) Data Review Labs Laboratory Tests 10/16/20 08:55: White Blood Count 12.2H, Red Blood Count 3.73L, Hemoglobin 9.3L, Hematocrit 30L, Mean Corpuscular Volume 82, Mean Corpuscular Hemoglobin 25, Mean Corpuscular Hemoglobin Concent 31L, Red Cell Distribution Width 16.5H, Platelet Count 252, Mean Platelet Volume 10.4, Immature Granulocyte % (Auto) 0, Neutrophils (%) (Auto) 74, Lymphocytes (%) (Auto) 15, Monocytes (%) (Auto) 10, Eosinophils (%) (Auto) 1, Basophils (%) (Auto) 0, Neutrophils # (Auto) 9.0H, Lymphocytes # (Auto) 1.8, Monocytes # (Auto) 1.2H, Eosinophils # (Auto) 0.2, Basophils # (Auto) 0.1, Immature Granulocyte # (Auto) 0.1, Sodium Level 133L, Potassium Level 4.3, Chloride Level 97L, Carbon Dioxide Level 26, Anion Gap 10, Blood Urea Nitrogen 10, Creatinine 0.47L, Estimat Glomerular Filtration Rate > 60, BUN/Creatinine Ratio 21, Glucose Level 113H, Lactic Acid Level 0.95, Calcium Level 8.6, Corrected Calcium 8.9, Total Bilirubin 0.3, Aspartate Amino Transf (AST/SGOT) 29, Alanine Aminotransferase (ALT/SGPT) 30, Alkaline Phosphatase 76, Troponin I < 0.30, Pro-B-Type Natriuretic Peptide 700.3H, Total Protein 6.2L, Albumin 3.6 10/16/20 09:08: Blood Gas Puncture Site LT RADIAL, Blood Gas Patient Temperature 36.5, Arterial Blood pH 7.43, Arterial Blood Partial Pressure CO2 43, Arterial Blood Partial Pressure O2 73L, Arterial Blood HCO3 29H, Arterial Blood Total CO2 29.8, Arterial Blood Oxygen Saturation 95, Arterial Blood Base Excess 3.7H, Brennen Test YES-POS, Blood Gas Ventilator Setting NO, Blood Gas Inspired Oxygen 4L NC 10/16/20 09:10: Urine Color YELLOW, Urine Clarity CLEAR, Urine pH 8.0, Urine Specific [place] 1.020, Urine Protein NEGATIVE, Urine Glucose (UA) NEGATIVE, Urine Ketones NEGATIVE, Urine Nitrite NEGATIVE, Urine Bilirubin NEGATIVE, Urine Urobilinogen NORMAL, Urine Leukocyte Esterase NEGATIVE, Urine RBC (Auto) NEGATIVE, Urine RBC NONE, Urine WBC NONE, Urine Squamous Epithelial Cells 2-5, Urine Crystals NONE, Urine Bacteria NEGATIVE, Urine Casts NONE, Urine Mucus NEGATIVE, Urine Culture Indicated NO Radiology NAME: FELA CHIRINOS [facility] REC#: [id number] PT STATUS: REG ER : 1940 PHYSICIAN: KASEY GARCIA DO ADMIT DATE: 10/16/20/ER FS Draft Date of Exam:10/16/20 CHEST 1 VIEW AP/PA ONLY Indication: Shortness of breath and sepsis. Time of exam: 8:46 AM Correlation is made with prior chest 06/25/2020. Heart size is stable. Cardiac pacemaker remains in place. There are some mild interstitial changes in the lung bases. There is some blunting of left costophrenic angle consistent with minimal fluid or pleural thickening. No pneumothorax identified. Impression: Trace left pleural fluid or pleural thickening. Mild basilar interstitial changes are noted. 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 - s/p PPM on 06/24/[address] Tellez Stress test done on June 03, [address] Tellez showing breast attenuation with typical female pattern with no significant ischemia or infarction, EF 73% Echocardiogram done on June 03, [address] Tellez showing normal left ventricular size, EF 55-65%, grade 1 diastolic dysfunction, PA pressure 30-35 mmHg, left atrium is in the upper normal limit Hypertension Hyperlipidemia Chronic mild hyponatremia Tobaccoism - cessation advised Anemia of undetermined etiology - managment per medical services Discussion and Recomendations Multi-factorial SOB d/t acute exacerbation of COPD and diastolic CHF Management of COPD per medical/ICU pulmonary services Treat CHF with diuretics Continue OAC with Xarelto for stroke prophylaxis Continue home medications Monitor lab Replace electrolytes as indicated Further recs will be based on her hospital course We would like to thank medical services for this consult APOLONIA OLIVARES Oct 16, 2020 13:44
--- NOTE | 2020-10-16 14:00 | Pulmonary Consultation ---
History of Present Illness History of Present Illness Date Seen by Provider: Oct 16, 2020 Time Seen by Provider: 13:59 Date of Admission Allergies and Home Medications Allergies Coded Allergies: iodine (Verified Allergy, Unknown, 10/16/20) shellfish derived (Verified Allergy, Unknown, 04/24/20) Home Medications Ascorbate Calcium 500 Mg Tablet, 500 MG PO DAILY, (Reported) Calcium Carbonate 500 Mg Tablet, 500 MG PO DAILY, (Reported) Cefuroxime Axetil 500 Mg Tablet, 500 MG PO BID Prescribed by: APOLONIA OLIVARES on 06/25/20 0916 Cetirizine HCl 10 Mg Capsule, 10 MG PO DAILY, (Reported) Diltiazem HCl 120 Mg Cap.er.24h, 120 MG PO DAILY, (Reported) Esomeprazole Magnesium 20 Mg Capsule.dr, 20 MG PO DAILY, (Reported) Flaxseed/Omega3,6,9/Fatty Acid 1 Each Capsule, 1 EACH PO UD, (Reported) Lisinopril 10 Mg Tablet, 10 MG PO DAILY@0900 Prescribed by: APOLONIA OLIVARES on 06/25/20915 Raloxifene HCl 60 Mg Tablet, 60 MG PO DAILY, (Reported) Rivaroxaban 20 Mg Tablet, 20 MG PO 1700 AFTER DINNER, (Reported) Simethicone 125 Mg Capsule, 125 MG PO QID PRN for GAS, (Reported) Sodium Chloride 30 Ml [place], 1 SPRAY NA PRN PRN for CONGESTION, (Reported) Timolol Maleate 5 Ml Drops, 1 DROP OU BID, (Reported) Vit A,C & E/Lutein/Minerals 1 Each Tablet, 1 EACH PO DAILY, (Reported) Past Medical/Social/Family Hx Patient Social History Tobacco Use?: Yes Tobacco type used: Cigarettes Smoking Status: Current Everyday Smoker Use of E-Cig and/or Vaping dev: No Substance use?: No Alcohol Use?: No Pt stated abuse/neglect: No Immunizations Up To Date Influenza Vaccine Up-to-Date: Yes; Up-to-Date Tetanus Booster (TDap): Unknown Hepatitis A: No Hepatitis B: No TB Skin Test: Negative Current Status status: No status: No Advance Directives: Yes Advance Directive Location: Unable to obtain copy Communicates: Verbally Primary Language: Danish Preferred Spoken Language: Danish Is interpretation needed?: No Additional sensory deficits: N/A Implanted or Applied Medical D: Pacemaker Review of Systems Constitutional: see HPI Sepsis Event Evaluation Height, Weight, BMI Height: '" Weight: lbs. oz. kg; 25.86 BMI Method: Exam Exam Vital Signs Date Time Temp Pulse Resp B/P (MAP) Pulse Ox O2 Delivery O2 Flow Rate FiO2 10/16/20 13:00 89 21 157/85 (109) 91 Nasal Cannula 3.00 10/16/20 12:59 88 10/16/20 12:30 83 23 158/90 (112) 96 Nasal Cannula 3.00 10/16/20 11:21 36.4 81 21 151/67 (117) 96 Nasal Cannula 3.00 10/16/20 08:45 36.4 85 17 154/99 (117) 97 Height & Weight Height: '" Weight: lbs. oz. kg; 25.86 BMI Method: General Appearance: No Apparent Distress Capillary Refill: Less Than 3 Seconds Gastrointestinal: normal bowel sounds, non tender, soft Results Lab Laboratory Tests 10/16/20 08:55 Assessment/Plan Assessment/Plan Available chart/ vitals / labs / Images reviewed Video assessment done using teleICU camera Discussed with RN Afebrile hemodynamically stable, no pressors, 3 l o2 Drips: Consultants: cardiology Hospital course: 10/16 - presented with dyspnea, hypoxia, weakness, urinary incompenece . HTN in ER A/P Acute resp failure , hypoxic /CHF / COPD CHF - cxr with vascular congestion -ECHO F 55-65 %, grade 1 diastolic dysfunction, PA 30-35 mmHg,neg stress test - received lasix in ER - UO >1 L , follow closely HTN ergency - controlled BP now ID ( leukocytosis probably reactive ) - UA clear 10/16 - off abx , check PCT COPD - reported , no PFT on file - given steroids IV in ER - continued by PCP - re-assess tomorrow Anemia - stable A fib , SSS - s/p pacemaker 06/2020 Coagulopathy - on Xarelto , INR 2.4 Mild hyponatremia - stable Lines : Nutrition: po DVT proph: xarelto Plans in collaboration with bedside consultants and IM MDs. Discussed with RN to reach out if any questions or concerns A total of 25 minutes of critical care time was devoted to this patient today, required to treat and/or prevent further deterioration of critical care condition ( as above ) . SAMAN MIRAMONTES MD Oct 16, 2020 14:00
[2020-10-16] MEDS ORDERED: VITA1CAP19 PO (14:24)
[2020-10-16] MEDS ORDERED: ESOM20CA37 PO (14:24)
[2020-10-16] MEDS ORDERED: FLEC50TA PO (14:24)
[2020-10-16] MEDS ORDERED: CALC1CAP21 PO (14:24)
[2020-10-16] MEDS ORDERED: IBUP-2473 PO (14:24)
[2020-10-16] MEDS ORDERED: LISI10TA25 PO (14:24)
[2020-10-16 14:26] LABS: BASOPHILS % (AUTO) 0 % (0-10); EOSINOPHILS % (AUTO) 0 % (0-10); HEMATOCRIT 32 % (35-52); LYMPHOCYTES # (AUTO) 0.5 10^3/uL (1.0-4.0); LYMPHOCYTES % (AUTO) 6 % (12-44); MEAN CORPUSCULAR HEMOGLOBIN 25 pg (25-34); MEAN CORPUSCULAR HGB CONC 31 g/dL (32-36); MEAN CORPUSCULAR VOLUME 80 fL (80-99); MEAN PLATELET VOLUME 10.2 fL (9.0-12.2); MONOCYTES # (AUTO) 0.1 10^3/uL (0.0-1.0); MONOCYTES % (AUTO) 1 % (0-12); NEUTROPHILS % (AUTO) 92 % (42-75); PLATELET COUNT 263 10^3/uL (130-400); WHITE BLOOD COUNT 8.7 10^3/uL (4.3-11.0)
[2020-10-16] MEDS ORDERED: amLODIPine 5 MG (NORVASC) TAB PO NR (14:45)
[2020-10-16] MEDS ORDERED: SIMETHICONE 125 MG PO PRN (14:45)
[2020-10-16] MEDS ORDERED: IBUPROFEN TABLET 200 MG TAB PO PRN (14:45)
[2020-10-16 14:47] LABS: ALANINE AMINOTRANSFERASE 36 U/L (0-55); ALKALINE PHOSPHATASE 78 U/L (40-136); BILIRUBIN,TOTAL 0.4 MG/DL (0.1-1.0); BUN/CREATININE RATIO 13; CALCIUM 8.9 MG/DL (8.5-10.1); CARBON DIOXIDE 25 MMOL/L (21-32); CHLORIDE 93 MMOL/L (98-107); CREATININE SERUM 0.77 MG/DL (0.60-1.30); GFR ESTIMATED > 60; GLUCOSE 222 MG/DL (70-105); POTASSIUM 4.2 MMOL/L (3.6-5.0); SODIUM 131 MMOL/L (135-145); TOTAL PROTEIN 6.8 GM/DL (6.4-8.2)
[2020-10-16 15:07] LABS: EOSINOPHILS % (MANUAL) 1 %; HELMET/BITE CELLS SLIGHT; HYPOCHROMASIA MODERATE; LYMPHOCYTES % (MANUAL) 10 %; MONOCYTES % (MANUAL) 3 %; NEUTROPHILS % (MANUAL) 86 %; POLYCHROMASIA SLIGHT
[2020-10-16] MEDS ORDERED: SIMETHICONE 80 MG (MYLICON) CHEW PO PRN (15:15)
--- NOTE | 2020-10-16 18:05 | Consultation-Cardiology ---
HPI-Cardiology Cardiology Consultation: Date of Consultation 10/16/20 Time Seen by a Provider: 16:20 Date of Admission Attending Physician Caitlyn Subramanian DO Admitting Physician Ponce Vargas MD Consulting Physician GONZALES ARMENTA MD, MA, FACP, FACC, FSCAI, CCDS Primary budget accountant: Dr Tellez Physician requesting consult: Dr Subramanian HPI: Chief Complaint: Reason for consultation: Shortness of breath HPI Ms. Chirinos is a 80 yr old female admitted to ICU 11 from [facility] with increasing SOB and hypoxia. She states for the last several days she has had increasing dyspnea at home. She reports the SOB was worse this morning and she called EMS. Upon arrival she was noted to be hypoxic with an O2 sat of approx 80%. She reports she has had a cough of clear phlegm. She reports chills the last few days. She denies any fever. She reports occ episodes of chest discomfort which will improve after belching. No c/o LE swelling. No c/o n/v/d. She smokes cigs approx 1 PPD. No syncope or near syncope she reports since implantation of PPM. Review of Systems-Cardiology Review of Systems Constitutional: As described under HPI Eyes: No vision change Ears/Nose/Throat: No epistaxis, No recent hearing loss Respiratory: As described under HPI Cardiovascular: As described under HPI Gastrointestinal: As described under HPI Genitourinary: No hematuria Musculoskeletal: joint pain Skin: No rash on exposed areas, No ulcerations on exposed areas Psychiatric/Neurological: No anxiety, No depression, No seizure, No focal weakness, No syncope Hematologic: No bleeding abnormalities All Other Systems Reviewed Negative Unless Noted: Yes [id number] Hx Patient Social History Smoking Status: Current Everyday Smoker 2nd Hand Smoke Exposure: Yes Have you traveled recently?: No Alcohol Use?: No Pt feels they are or have been: No Tobacco type used: Cigarettes Immunizations Up To Date Tetanus Booster (TDap): Unknown Date of Influenza Vaccine: Mar 13, 2020 Past Medical History PMH As described under Assessment. Family Medical History Family Medical History: She does not report fam h/o early CAD. Notes A fib in an uncle when he was in his 80s Allergies and Home Medications Allergies Coded Allergies: iodine (Verified Allergy, Unknown, 10/16/20) shellfish derived (Verified Allergy, Unknown, 04/24/20) Home Medications Ascorbate Calcium 500 Mg Tablet, 500 MG PO BID, (Reported) Last Action: Converted Calcium Carbonate/Vitamin D3 1 Each Capsule, 1 EACH PO BID, (Reported) Last Action: Converted Cetirizine HCl 10 Mg Capsule, 10 MG PO DAILY, (Reported) Last Action: Converted Diltiazem HCl 120 Mg Cap.er.24h, 120 MG PO DAILY, (Reported) Last Action: Continued Esomeprazole Magnesium 20 Mg Capsule.dr, 20 MG PO DAILY, (Reported) Last Action: Converted Flaxseed/Omega3,6,9/Fatty Acid 1 Each Capsule, 1 EACH PO HS, (Reported) Last Action: Converted Flecainide Acetate 50 Mg Tablet, 50 MG PO 0000,1200, (Reported) Last Action: Converted Ibuprofen 200 Mg Tablet, 200-400 MG PO Q8H PRN for PAIN-MILD (1-4), (Reported) Last Action: Continued Lisinopril 10 Mg Tablet, 10 MG PO DAILY, (Reported) Last Action: Continued Raloxifene HCl 60 Mg Tablet, 60 MG PO 1800, (Reported) Last Action: Continued Rivaroxaban 20 Mg Tablet, 20 MG PO DAILY, (Reported) Last Action: Continued Simethicone 125 Mg Capsule, 125 MG PO QID PRN for GAS, (Reported) Last Action: Converted Timolol Maleate 5 Ml Drops, 1 DROP OU BID, (Reported) Last Action: Continued Vit A,C & E/Lutein/Minerals 1 Each Tablet, 1 EACH PO HS, (Reported) Last Action: Converted Vitamin B Complex 1 Each Capsule, 1 EACH PO HS, (Reported) Last Action: Converted Patient Home Medication List Home Medication List Reviewed: Yes Physical Exam-Cardiology Physical Exam Vital Signs/I&O 10/16/20 10/16/20 10/16/20 10/16/20 08:45 11:21 12:12 12:30 Temp 36.4 36.4 Pulse 85 81 83 Resp 17 21 23 B/P (MAP) 154/99 (117) 151/67 (117) 158/90 (112) Pulse Ox 97 96 96 O2 Delivery Nasal Cannula Nasal Cannula Nasal Cannula O2 Flow Rate 3.00 2.00 3.00 10/16/20 10/16/20 10/16/20 10/16/20 12:59 13:00 14:00 15:00 Pulse 88 89 84 78 Resp 21 35 24 B/P (MAP) 157/85 (109) 173/95 (121) 144/110 (121) Pulse Ox 91 96 97 O2 Delivery Nasal Cannula Nasal Cannula Nasal Cannula O2 Flow Rate 3.00 3.00 3.00 10/16/20 10/16/20 10/16/20 16:00 16:00 17:00 Pulse 81 80 Resp 29 23 B/P (MAP) 155/91 (112) 160/89 (112) Pulse Ox 95 96 O2 Delivery Nasal Cannula Nasal Cannula Nasal Cannula O2 Flow Rate 3.00 2.00 3.00 Capillary Refill : Less Than 3 Seconds Constitutional: AAO x 3, well-developed, well-nourished HEENT: PERRL, hearing is well preserved, oral hygience is good Neck: No carotid bruit; carotid pulses are 2 + bilaterally Respiratory: No accessory muscle use, No respiratory distress; chest expansion is symmetric, chest is bilaterally symmetric, rhonchi (scattered), other (diminished breath sounds) Cardiovascular: regular rate-rhythm, S1 and S2, systolic murmur Gastrointestinal: No tender; soft, round, audible bowel sounds Extremities: no lower extremity edema bilateral Neurologic/Psychiatric: grossly intact (moves all extremities) Data Review Labs Laboratory Tests 10/16/20 08:55: White Blood Count 12.2H, Red Blood Count 3.73L, Hemoglobin 9.3L, Hematocrit 30L, Mean Corpuscular Volume 82, Mean Corpuscular Hemoglobin 25, Mean Corpuscular Hemoglobin Concent 31L, Red Cell Distribution Width 16.5H, Platelet Count 252, Mean Platelet Volume 10.4, Immature Granulocyte % (Auto) 0, Neutrophils (%) (Auto) 74, Lymphocytes (%) (Auto) 15, Monocytes (%) (Auto) 10, Eosinophils (%) (Auto) 1, Basophils (%) (Auto) 0, Neutrophils # (Auto) 9.0H, Lymphocytes # (Auto) 1.8, Monocytes # (Auto) 1.2H, Eosinophils # (Auto) 0.2, Basophils # (Auto) 0.1, Immature Granulocyte # (Auto) 0.1, Sodium Level 133L, Potassium Level 4.3, Chloride Level 97L, Carbon Dioxide Level 26, Anion Gap 10, Blood Urea Nitrogen 10, Creatinine 0.47L, Estimat Glomerular Filtration Rate > 60, BUN/Creatinine Ratio 21, Glucose Level 113H, Lactic Acid Level 0.95, Calcium Level 8.6, Corrected Calcium 8.9, Total Bilirubin 0.3, Aspartate Amino Transf (AST/SGOT) 29, Alanine Aminotransferase (ALT/SGPT) 30, Alkaline Phosphatase 76, Troponin I < 0.30, Pro-B-Type Natriuretic Peptide 700.3H, Total Protein 6.2L, Albumin 3.6 10/16/20 09:08: Blood Gas Puncture Site LT RADIAL, Blood Gas Patient Temperature 36.5, Arterial Blood pH 7.43, Arterial Blood Partial Pressure CO2 43, Arterial Blood Partial Pressure O2 73L, Arterial Blood HCO3 29H, Arterial Blood Total CO2 29.8, Arterial Blood Oxygen Saturation 95, Arterial Blood Base Excess 3.7H, Brennen Test YES-POS, Blood Gas Ventilator Setting NO, Blood Gas Inspired Oxygen 4L NC 10/16/20 09:10: Urine Color YELLOW, Urine Clarity CLEAR, Urine pH 8.0, Urine Specific [place] 1.020, Urine Protein NEGATIVE, Urine Glucose (UA) NEGATIVE, Urine Ketones NEGATIVE, Urine Nitrite NEGATIVE, Urine Bilirubin NEGATIVE, Urine Urobilinogen NORMAL, Urine Leukocyte Esterase NEGATIVE, Urine RBC (Auto) NEGATIVE, Urine RBC NONE, Urine WBC NONE, Urine Squamous Epithelial Cells 2-5, Urine Crystals NONE, Urine Bacteria NEGATIVE, Urine Casts NONE, Urine Mucus NEGATIVE, Urine Culture Indicated NO 10/16/20 14:15: White Blood Count 8.7, Red Blood Count 4.04, Hemoglobin 10.0L, Hematocrit 32L, Mean Corpuscular Volume 80, Mean Corpuscular Hemoglobin 25, Mean Corpuscular Hemoglobin Concent 31L, Red Cell Distribution Width 16.3H, Platelet Count 263, Mean Platelet Volume 10.2, Immature Granulocyte % (Auto) 0, Neutrophils (%) (Auto) 92H, Lymphocytes (%) (Auto) 6L, Monocytes (%) (Auto) 1, Eosinophils (%) (Auto) 0, Basophils (%) (Auto) 0, Neutrophils # (Auto) 8.0H, Lymphocytes # (Auto) 0.5L, Monocytes # (Auto) 0.1, Eosinophils # (Auto) 0.0, Basophils # (Auto) 0.0, Immature Granulocyte # (Auto) 0.0, Sodium Level 131L, Potassium Level 4.2, Chloride Level 93L, Carbon Dioxide Level 25, Anion Gap 13, Blood Urea Nitrogen 10, Creatinine 0.77, Estimat Glomerular Filtration Rate > 60, BUN/Creatinine Ratio 13, Glucose Level 222H, Calcium Level 8.9, Corrected Calcium 8.9, Total Bilirubin 0.4, Aspartate Amino Transf (AST/SGOT) 28, Alanine Aminotransferase (ALT/SGPT) 36, Alkaline Phosphatase 78, Troponin I < 0.028, Total Protein 6.8, Albumin 4.0, Neutrophils % (Manual) 86, Lymphocytes % (Manual) 10, Monocytes % (Manual) 3, Eosinophils % (Manual) 1, Polychromasia SLIGHT, Hypochromasia MODERATE, Helmet Cells SLIGHT, Procalcitonin 0.02 Laboratory Tests 10/16/20 08:55 10/16/20 14:15 A/P-Cardiology Assessment/Admission Diagnosis SOB, multi-factorial for reasons noted below Acute diastolic CHF Acute exacerbation of COPD Paroxysmal atrial fibrillation - maintained on diltiazem and Xarelto Sick sinus syndrome - Status post loop recorder implantation done on June 03, 2020, 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 - s/p PPM on 06/24/[address] Tellez Stress test done on June 03, [address] Tellez showing breast attenuation with typical female pattern with no significant ischemia or infarction, EF 73% Echocardiogram done on June 03, [address] Tellez showing normal left ventricular size, EF 55-65%, grade 1 diastolic dysfunction, PA pressure 30-35 mmHg, left atrium is in the upper normal limit Hypertension Hyperlipidemia Chronic mild hyponatremia Tobaccoism - cessation advised Anemia of undetermined etiology - management per medical services Discussion and Recomendations Multi-factorial SOB d/t acute exacerbation of COPD and diastolic CHF Management of COPD per medical/ICU pulmonary services Treat CHF with diuretics Continue OAC with Xarelto for stroke prophylaxis Continue home medications Monitor lab Replace electrolytes as indicated Further recs will be based on her hospital course We would like to thank Medical services for this consult GONZALES ARMENTA MD FACP FAC CCDS Oct 16, 2020 18:05
[2020-10-16] MEDS: HYDROcodone/APAP 5 MG/325 MG (LORTAB) TAB PO PRN ×2 (18:26→23:03)
[2020-10-16] MEDS: methylPREDNISolone 125 MG (Solu-MEDROL) VIAL IV SCH ×2 (18:33→23:03)
[2020-10-16] MEDS: ASCORBIC ACID (VIT C) 500 MG TABLET PO SCH (18:34)
[2020-10-16] MEDS: CALCIUM CARB + VIT D 600 MG (CALCARB + D) TAB PO SCH (18:35)
[2020-10-16] MEDS: raLOXifene 60 MG (EVISTA) TAB PO SCH (18:46)
[2020-10-16] MEDS: TIMOLOL MALEATE 0.5% 5 ML (TIMOPTIC) BTL OU SCH (20:24)
[2020-10-16] MEDS: OMEGA 3 (FISH OIL) 1000 MG CAP PO SCH (20:24)
[2020-10-16] MEDS: SENNA W/DOCUSATE (SENOKOT S) TABLET PO SCH (20:25)
[2020-10-16] MEDS ORDERED: FLAXSEED PO SCH (21:00)
[2020-10-16] MEDS ORDERED: FATTY ACID PO SCH (21:00)
[2020-10-16] MEDS ORDERED: VITAMIN B COMPLEX PO SCH (21:00)
[2020-10-16] MEDS ORDERED: NON-FORMULARY MEDICATION 1 EA EA (Calcium Carbonate/Vitamin D3 (Calcium 600 + Vit D 400 So PO SCH (21:00)
[2020-10-16] MEDS ORDERED: OMEGA3 PO SCH (21:00)
[2020-10-16] MEDS ORDERED: [UNRECOGNIZED DRUG - OTHER] PO SCH (21:00)
[2020-10-16] MEDS ORDERED: NON-FORMULARY MEDICATION 1 EA EA (Vit A,C & E/Lutein/Minerals (Ocuvite with Lutein Tablet) PO SCH (21:00)
[2020-10-16] MEDS ORDERED: NON-FORMULARY MEDICATION 1 EA EA (Ascorbate Calcium (Vitamin C) 500 MG) PO SCH (21:00)
[2020-10-16] MEDS ORDERED: FUROSEMIDE 40 MG/4 ML INJ (LASIX) IV SCH (22:30)
[2020-10-16] MEDS: FLECAINIDE 100 MG (TAMBOCOR) TAB PO SCH (23:03)
[2020-10-16] MEDS: RT-ALBUTEROL/IPRATROPIUM 3 ML (DUONEB) VIAL IH SCH ×2 (23:30→23:33)
[2020-10-17] MEDS ORDERED: NON-FORMULARY MEDICATION 1 EA EA (Flecainide Acetate 50 MG) PO SCH
[2020-10-17 04:36] LABS: BASOPHILS % (AUTO) 0 % (0-10); CHLORIDE 95 MMOL/L (98-107); EOSINOPHILS % (AUTO) 0 % (0-10); HEMATOCRIT 30 % (35-52); HEMOGLOBIN 9.6 g/dL (11.5-16.0); LYMPHOCYTES % (AUTO) 8 % (12-44); MEAN CORPUSCULAR HEMOGLOBIN 25 pg (25-34); MEAN CORPUSCULAR HGB CONC 32 g/dL (32-36); MEAN CORPUSCULAR VOLUME 78 fL (80-99); MEAN PLATELET VOLUME 11.4 fL (9.0-12.2); MONOCYTES # (AUTO) 0.2 10^3/uL (0.0-1.0); MONOCYTES % (AUTO) 2 % (0-12); NEUTROPHILS # (AUTO) 10.7 10^3/uL (1.8-7.8); NEUTROPHILS % (AUTO) 90 % (42-75); PLATELET COUNT 252 10^3/uL (130-400); WHITE BLOOD COUNT 11.9 10^3/uL (4.3-11.0)
[2020-10-17 04:37] LABS: POTASSIUM 4.1 MMOL/L (3.6-5.0); SODIUM 132 MMOL/L (135-145)
[2020-10-17 04:38] LABS: CALCIUM 9.2 MG/DL (8.5-10.1); GLUCOSE 151 MG/DL (70-105)
[2020-10-17 04:40] LABS: CARBON DIOXIDE 23 MMOL/L (21-32)
[2020-10-17 04:42] LABS: CREATININE SERUM 0.62 MG/DL (0.60-1.30); GFR ESTIMATED > 60; PHOSPHORUS 4.3 MG/DL (2.3-4.7)
[2020-10-17 04:43] LABS: BUN/CREATININE RATIO 24
[2020-10-17 04:44] LABS: MAGNESIUM 2.1 MG/DL (1.6-2.4)
[2020-10-17] MEDS: methylPREDNISolone 125 MG (Solu-MEDROL) VIAL IV SCH ×2 (05:46→12:49)
[2020-10-17] MEDS: MULTIVIT W/MINERALS TAB (THERAGRAN M) PO SCH (05:46)
[2020-10-17] MEDS: KCL 20 MEQ TAB (K-DUR) PO SCH (05:46)
[2020-10-17] MEDS ORDERED: POTASSIUM CL 10MEQ/50ML IVPB 50 ML IV SCH (06:00)
[2020-10-17] MEDS ORDERED: KCL 20 MEQ TAB (K-DUR) PO SCH (06:00)
[2020-10-17] MEDS ORDERED: MAGNESIUM 1 GM/100 ML IVPB 100 ML IV SCH (06:00)
[2020-10-17] MEDS: RT-ALBUTEROL/IPRATROPIUM 3 ML (DUONEB) VIAL IH SCH ×3 (06:48→20:53)
--- NOTE | 2020-10-17 07:43 | Progress Note - Hospitalist ---
Subjective HPI/CC On Admission Date Seen by Provider: Oct 17, 2020 Time Seen by Provider: 11:00 Chief complaint: Dyspnea History of present illness: This is a 80-year-old white female clinic patient of Dr. Vargas and Dr. Tellez who presented to the [place] ER with shortness of breath. Patient was found to have volume overload and exacerbation of COPD. She continues to smoke. I have reviewed her home medications and restarted. Anxiolytics required. Does not require oxygen at home. Subjective/Events-last exam Patient doing much better Less short of breath Maintain on oxygen Talked about low sodium level and fluid restriction and salt restriction and everything in between No pain is reported Overall much improved status I reviewed all orders on transfer Review of Systems General: Fatigue Pulmonary: Dyspnea Focused Exam Lactate Level 10/16/20 08:55: Lactic Acid Level 0.95 Objective Exam Vital Signs Vital Signs Date Time Temp Pulse Resp B/P (MAP) Pulse Ox O2 Delivery O2 Flow Rate FiO2 10/17/20 15:15 94 Nasal Cannula 2.00 10/17/20 14:00 36.3 78 20 121/54 (76) Capillary Refill : Less Than 3 Seconds General Appearance: No Apparent Distress, WD/WN Respiratory: Lungs Clear, Decreased Breath Sounds Cardiovascular: Regular Rate, Rhythm Neurologic/Psychiatric: Alert, Oriented x3, No Motor/Sensory Deficits, Normal Mood/Affect Results/Procedures Lab Laboratory Tests 10/17/20 04:00 Patient resulted labs reviewed. Assessment/Plan Assessment and Plan Assess & Plan/Chief Complaint Assessment: Respiratory insufficiency Exacerbation of COPD Current smoker Volume overload Atrial fibrillation Oral anticoagulants maintained Plan: ICU stay Oxygen Nebs Cardiology consult Monitor closely 10/17/2020: Transfer to the floor IV Lasix IV steroids Oxygen Nebs Supportive care ALLIE PEREA DO Oct 17, 2020 07:43
--- NOTE | 2020-10-17 08:17 | Diagnostic Imaging Report ---
Indication: Dyspnea with respiratory failure. Comparison: 10/16/2020. Discussion: Single portable upright view of the chest was obtained. Small left pleural effusion is stable. No focal consolidation. No pneumothorax or osseous abnormality. Stable normal heart size. Left-sided pacemaker stable. Impression: 1. Stable small left pleural effusion. Dictated by: Dictated on workstation # [id number]
[2020-10-17] MEDS: RIVAROXABAN 20 MG TABLET (XARELTO) PO SCH (08:30)
[2020-10-17] MEDS: CALCIUM CARB + VIT D 600 MG (CALCARB + D) TAB PO SCH ×2 (08:30→17:50)
[2020-10-17] MEDS: ASCORBIC ACID (VIT C) 500 MG TABLET PO SCH ×2 (08:30→17:50)
[2020-10-17] MEDS: dilTIAZem120 MG (CARDIZEM CD) CAP PO SCH (08:31)
[2020-10-17] MEDS: PANTOPRAZOLE 20 MG TABLET (PROTONIX) PO SCH (08:31)
[2020-10-17] MEDS: lisINopril 10 MG (PRINIVIL) TABLET PO SCH (08:31)
[2020-10-17] MEDS: SENNA W/DOCUSATE (SENOKOT S) TABLET PO SCH ×2 (08:31→21:44)
[2020-10-17] MEDS: LORATADINE (CLARITIN) 10 MG TAB PO SCH (08:31)
[2020-10-17] MEDS: FUROSEMIDE 40 MG/4 ML INJ (LASIX) IVP SCH (08:32)
[2020-10-17] MEDS: TIMOLOL MALEATE 0.5% 5 ML (TIMOPTIC) BTL OU SCH ×2 (08:33→21:56)
[2020-10-17] MEDS ORDERED: NON-FORMULARY MEDICATION 1 EA EA (Esomeprazole Magnesium 20 MG) PO SCH (09:00)
[2020-10-17] MEDS ORDERED: NON-FORMULARY MEDICATION 1 EA EA (Cetirizine HCl (Zyrtec) 10 MG) PO SCH (09:00)
[2020-10-17] MEDS: FLECAINIDE 100 MG (TAMBOCOR) TAB PO SCH (12:48)
[2020-10-17] MEDS: cefTRIAXone FOR IV USE 1,000 MG in WATER (STERILE) FOR INJECTION 10 ML IV SCH (12:48)
--- NOTE | 2020-10-17 14:02 | Progress Note - Cardiology ---
Cardiology SOAP Progress Note Subjective: Feels somewhat better today Denies cp or palp or syncope Chronic shortness of breath now essentially back to its usual baseline No n/v/d Gen malaise and weakness Objective: I&O/Vital Signs 10/17/20 10/17/20 10/17/20 10/17/20 02:00 03:00 03:50 03:55 Temp 37.4 Pulse 80 82 B/P (MAP) 133/73 (93) 150/73 (98) Pulse Ox 95 96 94 O2 Delivery Nasal Cannula Nasal Cannula Nasal Cannula Nasal Cannula O2 Flow Rate 2.00 2.00 2.00 2.00 10/17/20 10/17/20 10/17/20 10/17/20 04:00 05:00 06:00 06:51 Pulse 83 79 84 Resp 19 17 18 B/P (MAP) 141/77 (98) 141/74 (96) 146/75 (98) Pulse Ox 94 92 94 94 O2 Delivery Nasal Cannula Nasal Cannula Nasal Cannula Nasal Cannula O2 Flow Rate 2.00 2.00 2.00 2.00 10/17/20 10/17/20 10/17/20 10/17/20 07:00 07:00 07:33 08:00 Temp 36.8 Pulse 92 88 Resp 34 B/P (MAP) Pulse Ox 90 95 O2 Delivery Nasal Cannula Nasal Cannula O2 Flow Rate 2.00 2.00 10/17/20 10/17/20 10/17/20 10/17/20 08:00 09:00 10:00 11:00 Pulse 82 96 93 90 Resp 25 23 23 22 B/P (MAP) 143/77 (99) 149/116 (127) 123/76 (92) 123/63 (83) Pulse Ox 93 93 92 95 O2 Delivery Nasal Cannula Nasal Cannula Nasal Cannula Nasal Cannula O2 Flow Rate 2.00 2.00 2.00 2.00 10/17/20 10/17/20 10/17/20 10/17/20 12:00 12:00 12:00 12:38 Temp 36.8 Pulse 89 85 B/P (MAP) 126/62 (83) Pulse Ox 96 95 O2 Delivery Nasal Cannula Nasal Cannula O2 Flow Rate 2.00 2.00 10/17/20 13:00 Pulse 87 B/P (MAP) 132/97 (109) Pulse Ox 97 O2 Delivery Nasal Cannula O2 Flow Rate 2.00 10/17/20 00:00 Intake Total 700 ml Output Total 1325 ml Balance -625 ml Constitutional: AAO x 3, well-developed, well-nourished Respiratory: No accessory muscle use, No respiratory distress; chest expansion is symmetric, chest is bilaterally symmetric, rhonchi (scattered), other (diminished breath sounds) Cardiovascular: regular rate-rhythm, S1 and S2, systolic murmur Gastrointestional: No tender; soft, round, audible bowel sounds Extremities: no lower extremity edema bilateral Neurologic/Psychiatric: oriented x 3, other (moves all her limbs equally) Results/Procedures: Labs Laboratory Tests 10/16/20 14:15: White Blood Count 8.7, Red Blood Count 4.04, Hemoglobin 10.0L, Hematocrit 32L, Mean Corpuscular Volume 80, Mean Corpuscular Hemoglobin 25, Mean Corpuscular Hemoglobin Concent 31L, Red Cell Distribution Width 16.3H, Platelet Count 263, Mean Platelet Volume 10.2, Immature Granulocyte % (Auto) 0, Neutrophils (%) (Auto) 92H, Lymphocytes (%) (Auto) 6L, Monocytes (%) (Auto) 1, Eosinophils (%) (Auto) 0, Basophils (%) (Auto) 0, Neutrophils # (Auto) 8.0H, Lymphocytes # (Auto) 0.5L, Monocytes # (Auto) 0.1, Eosinophils # (Auto) 0.0, Basophils # (Auto) 0.0, Immature Granulocyte # (Auto) 0.0, Neutrophils % (Manual) 86, Lymphocytes % (Manual) 10, Monocytes % (Manual) 3, Eosinophils % (Manual) 1, Polychromasia SLIGHT, Hypochromasia MODERATE, Helmet Cells SLIGHT, Sodium Level 131L, Potassium Level 4.2, Chloride Level 93L, Carbon Dioxide Level 25, Anion Gap 13, Blood Urea Nitrogen 10, Creatinine 0.77, Estimat Glomerular Filtration Rate > 60, BUN/Creatinine Ratio 13, Glucose Level 222H, Calcium Level 8.9, Corrected Calcium 8.9, Total Bilirubin 0.4, Aspartate Amino Transf (AST/SGOT) 28, Alanine Aminotransferase (ALT/SGPT) 36, Alkaline Phosphatase 78, Troponin I < 0.028, Total Protein 6.8, Albumin 4.0, Procalcitonin 0.02 10/16/20 19:50: Troponin I < 0.028 10/17/20 04:00: White Blood Count 11.9H, Red Blood Count 3.88, Hemoglobin 9.6L, Hematocrit 30L, Mean Corpuscular Volume 78L, Mean Corpuscular Hemoglobin 25, Mean Corpuscular Hemoglobin Concent 32, Red Cell Distribution Width 16.5H, Platelet Count 252, Mean Platelet Volume 11.4, Immature Granulocyte % (Auto) 1, Neutrophils (%) (Auto) 90H, Lymphocytes (%) (Auto) 8L, Monocytes (%) (Auto) 2, Eosinophils (%) (Auto) 0, Basophils (%) (Auto) 0, Neutrophils # (Auto) 10.7H, Lymphocytes # (Auto) 1.0, Monocytes # (Auto) 0.2, Eosinophils # (Auto) 0.0, Basophils # (Auto) 0.0, Immature Granulocyte # (Auto) 0.1, Sodium Level 132L, Potassium Level 4.1, Chloride Level 95L, Carbon Dioxide Level 23, Anion Gap 14, Blood Urea Nitrogen 15, Creatinine 0.62, Estimat Glomerular Filtration Rate > 60, BUN/Creatinine Ratio 24, Glucose Level 151H, Calcium Level 9.2, Phosphorus Level 4.3, Magnesium Level 2.1 Microbiology 10/16/20 MRSA Screen - Final, Complete MRSA not isolated A/P: Assessment: SOB, multi-factorial for reasons noted below Acute diastolic CHF Acute exacerbation of COPD Paroxysmal atrial fibrillation - maintained on diltiazem and Xarelto Sick sinus syndrome - Status post loop recorder implantation done on June 03, 2020, was having t achy-padmini syndrom with PAF and symptomatic bradycardia. - s/p PPM on 06/24/[address] Tellez Stress test done on June 03, [address] Tellez showing breast attenuation with typical female pattern with no significant ischemia or infarction, EF 73% Echocardiogram done on June 03, [address] Tellez showing normal left ventricular size, EF 55-65%, grade 1 diastolic dysfunction, PA pressure 30-35 mmHg, left atrium is in the upper normal limit Hypertension Hyperlipidemia Chronic mild hyponatremia Tobaccoism - cessation advised Anemia of undetermined etiology - management per Medical services Plan: She had multiple questions about her cardiac and pulm issues that I answered in detail Management of COPD per medical/ICU pulmonary services Treat CHF with diuretics Continue OAC with Xarelto for stroke prophylaxis Continue home medications Monitor lab Replace electrolytes as indicated Repeat echo GONZALES ARMENTA MD FACP FAC CCDS Oct 17, 2020 14:02
[2020-10-17 16:06] VITALS: BP 104/58
[2020-10-17] MEDS: raLOXifene 60 MG (EVISTA) TAB PO SCH (17:51)
[2020-10-17 19:36] VITALS: BP 132/66
[2020-10-17] MEDS: OMEGA 3 (FISH OIL) 1000 MG CAP PO SCH (21:44)
[2020-10-17] MEDS: methylPREDNISolone 40 MG/ML (Solu-MEDROL) VIAL IV SCH (21:44)
[2020-10-17] MEDS: HYDROcodone/APAP 5 MG/325 MG (LORTAB) TAB PO PRN (21:44)
[2020-10-18] MEDS: FLECAINIDE 100 MG (TAMBOCOR) TAB PO SCH ×3 (00:09→23:42)
[2020-10-18 00:11] VITALS: BP_SYST 147; BP_SYST 175; BP_DIAS 82
[2020-10-18 04:00] VITALS: BP 151/76
[2020-10-18] MEDS: KCL 20 MEQ TAB (K-DUR) PO SCH (06:06)
[2020-10-18] MEDS: MULTIVIT W/MINERALS TAB (THERAGRAN M) PO SCH (06:06)
[2020-10-18] MEDS: RT-ALBUTEROL/IPRATROPIUM 3 ML (DUONEB) VIAL IH SCH ×3 (07:15→21:17)
[2020-10-18 07:22] VITALS: BP 144/77
--- NOTE | 2020-10-18 08:16 | Progress Note - Hospitalist ---
Subjective HPI/CC On Admission Date Seen by Provider: Oct 18, 2020 Time Seen by Provider: 11:30 Chief complaint: Dyspnea History of present illness: This is a 80-year-old white female clinic patient of Dr. Vargas and Dr. Tellez who presented to the [place] ER with shortness of breath. Patient was found to have volume overload and exacerbation of COPD. She continues to smoke. I have reviewed her home medications and restarted. Anxiolytics required. Does not require oxygen at home. Subjective/Events-last exam Patient doing much better 2 L of oxygen maintained PT and OT were consulted No pain is reported Denies any significant issues otherwise Hopefully discharge soon Review of Systems General: Fatigue Pulmonary: Dyspnea Focused Exam Lactate Level 10/16/20 08:55: Lactic Acid Level 0.95 Objective Exam Vital Signs Vital Signs Date Time Temp Pulse Resp B/P (MAP) Pulse Ox O2 Delivery O2 Flow Rate FiO2 10/18/20 16:03 36.4 83 18 104/58 (73) 93 Room Air 10/18/20 14:27 1.00 Capillary Refill : Less Than 3 Seconds General Appearance: No Apparent Distress, WD/WN, Chronically ill Respiratory: Lungs Clear Cardiovascular: Regular Rate, Rhythm Neurologic/Psychiatric: Alert, Oriented x3 Results/Procedures Lab Laboratory Tests 10/18/20 08:53 Patient resulted labs reviewed. Assessment/Plan Assessment and Plan Assess & Plan/Chief Complaint Assessment: Respiratory insufficiency Exacerbation of COPD Current smoker Volume overload Atrial fibrillation Oral anticoagulants maintained Plan: ICU stay Oxygen Nebs Cardiology consult Monitor closely 10/17/2020: Transfer to the floor IV Lasix IV steroids Oxygen Nebs Supportive care 10/18/2020: PT and OT Oxygen Smoking cessation ALLIE PEREA DO Oct 18, 2020 08:16
[2020-10-18] MEDS: CALCIUM CARB + VIT D 600 MG (CALCARB + D) TAB PO SCH ×2 (08:58→17:53)
[2020-10-18] MEDS: RIVAROXABAN 20 MG TABLET (XARELTO) PO SCH (08:58)
[2020-10-18] MEDS: methylPREDNISolone 40 MG/ML (Solu-MEDROL) VIAL IV SCH ×2 (08:58→20:32)
[2020-10-18] MEDS: ASCORBIC ACID (VIT C) 500 MG TABLET PO SCH ×2 (08:58→17:53)
[2020-10-18] MEDS: dilTIAZem120 MG (CARDIZEM CD) CAP PO SCH (08:59)
[2020-10-18] MEDS: LORATADINE (CLARITIN) 10 MG TAB PO SCH (08:59)
[2020-10-18] MEDS: FUROSEMIDE 40 MG/4 ML INJ (LASIX) IVP SCH (08:59)
[2020-10-18] MEDS: TIMOLOL MALEATE 0.5% 5 ML (TIMOPTIC) BTL OU SCH ×2 (08:59→20:32)
[2020-10-18] MEDS: SENNA W/DOCUSATE (SENOKOT S) TABLET PO SCH ×2 (09:00→20:32)
[2020-10-18] MEDS: lisINopril 10 MG (PRINIVIL) TABLET PO SCH (09:00)
[2020-10-18] MEDS: PANTOPRAZOLE 20 MG TABLET (PROTONIX) PO SCH (09:00)
[2020-10-18 09:06] LABS: BASOPHILS % (AUTO) 0 % (0-10); EOSINOPHILS % (AUTO) 0 % (0-10); HEMATOCRIT 31 % (35-52); HEMOGLOBIN 9.6 g/dL (11.5-16.0); LYMPHOCYTES # (AUTO) 1.3 10^3/uL (1.0-4.0); LYMPHOCYTES % (AUTO) 6 % (12-44); MEAN CORPUSCULAR HEMOGLOBIN 25 pg (25-34); MEAN CORPUSCULAR HGB CONC 31 g/dL (32-36); MEAN CORPUSCULAR VOLUME 79 fL (80-99); MEAN PLATELET VOLUME 10.6 fL (9.0-12.2); MONOCYTES # (AUTO) 1.2 10^3/uL (0.0-1.0); MONOCYTES % (AUTO) 5 % (0-12); NEUTROPHILS # (AUTO) 20.6 10^3/uL (1.8-7.8); NEUTROPHILS % (AUTO) 88 % (42-75); PLATELET COUNT 259 10^3/uL (130-400); WHITE BLOOD COUNT 23.3 10^3/uL (4.3-11.0)
[2020-10-18 09:22] LABS: ALBUMIN 3.7 GM/DL (3.2-4.5); CHLORIDE 97 MMOL/L (98-107); POTASSIUM 4.3 MMOL/L (3.6-5.0); SODIUM 135 MMOL/L (135-145)
[2020-10-18 09:24] LABS: CALCIUM 9.3 MG/DL (8.5-10.1)
[2020-10-18 09:25] LABS: GLUCOSE 131 MG/DL (70-105); TOTAL PROTEIN 6.6 GM/DL (6.4-8.2)
[2020-10-18 09:26] LABS: CARBON DIOXIDE 26 MMOL/L (21-32)
[2020-10-18 09:27] LABS: BILIRUBIN,TOTAL 0.3 MG/DL (0.1-1.0)
[2020-10-18 09:28] LABS: ALKALINE PHOSPHATASE 64 U/L (40-136); CREATININE SERUM 0.66 MG/DL (0.60-1.30); GFR ESTIMATED > 60
[2020-10-18 09:29] LABS: BUN/CREATININE RATIO 30
[2020-10-18 09:31] LABS: ALANINE AMINOTRANSFERASE 24 U/L (0-55)
[2020-10-18 11:33] VITALS: BP 107/59
[2020-10-18] MEDS: cefTRIAXone FOR IV USE 1,000 MG in WATER (STERILE) FOR INJECTION 10 ML IV SCH (11:49)
[2020-10-18 16:03] VITALS: BP 104/58
--- NOTE | 2020-10-18 17:52 | Progress Note - Cardiology ---
Cardiology SOAP Progress Note Subjective: No cp or palp or syncope Shortness of breath is improving No swelling Some gen weakness No n/v/d Objective: I&O/Vital Signs 10/18/20 10/18/20 10/18/20 10/18/20 07:15 07:22 08:00 11:33 Temp 36.4 36.3 Pulse 73 63 Resp 18 18 B/P (MAP) 144/77 (99) 107/59 (75) Pulse Ox 96 91 96 94 O2 Delivery Nasal Cannula High Flow N/C Nasal Cannula High Flow N/C O2 Flow Rate 2.00 1.00 2.00 1.00 10/18/20 10/18/20 14:27 16:03 Temp 36.4 Pulse 83 Resp 18 B/P (MAP) 104/58 (73) Pulse Ox 96 93 O2 Delivery Nasal Cannula Room Air O2 Flow Rate 1.00 10/18/20 00:00 Intake Total 852 ml Output Total 1400 ml Balance -548 ml Constitutional: AAO x 3, well-developed, well-nourished Respiratory: No accessory muscle use, No respiratory distress; chest expansion is symmetric, chest is bilaterally symmetric, rhonchi (scattered), other (diminished breath sounds) Cardiovascular: regular rate-rhythm, S1 and S2, systolic murmur Gastrointestional: No tender; soft, round, audible bowel sounds Extremities: no lower extremity edema bilateral Neurologic/Psychiatric: oriented x 3, other (moves all her limbs equally) Results/Procedures: Labs Laboratory Tests 10/18/20 08:53: White Blood Count 23.3H, Red Blood Count 3.88, Hemoglobin 9.6L, Hematocrit 31L, Mean Corpuscular Volume 79L, Mean Corpuscular Hemoglobin 25, Mean Corpuscular Hemoglobin Concent 31L, Red Cell Distribution Width 16.6H, Platelet Count 259, Mean Platelet Volume 10.6, Immature Granulocyte % (Auto) 1, Neutrophils (%) (Auto) 88H, Lymphocytes (%) (Auto) 6L, Monocytes (%) (Auto) 5, Eosinophils (%) (Auto) 0, Basophils (%) (Auto) 0, Neutrophils # (Auto) 20.6H, Lymphocytes # (Auto) 1.3, Monocytes # (Auto) 1.2H, Eosinophils # (Auto) 0.0, Basophils # (Auto) 0.0, Immature Granulocyte # (Auto) 0.2H, Sodium Level 135, Potassium Level 4.3, Chloride Level 97L, Carbon Dioxide Level 26, Anion Gap 12, Blood Urea Nitrogen 20H, Creatinine 0.66, Estimat Glomerular Filtration Rate > 60, BUN/Creatinine Ratio 30, Glucose Level 131H, Calcium Level 9.3, Corrected Calcium 9.5, Total Bilirubin 0.3, Aspartate Amino Transf (AST/SGOT) 15, Alanine Aminotransferase (ALT/SGPT) 24, Alkaline Phosphatase 64, Total Protein 6.6, Albumin 3.7, Procalcitonin 0.02 Microbiology 10/16/20 MRSA Screen - Final, Complete MRSA not isolated 10/16/20 Blood Culture - Preliminary, Resulted No growth 10/16/20 Urine Culture - Final, Complete >=3 Gram Positive Isolates Laboratory Tests 10/17/20 04:00 10/18/20 08:53 A/P: Assessment: SOB, multi-factorial for reasons noted below Acute diastolic CHF - Echo Jun 03, [address] Tellez showing normal left ventricular size, EF 55- 65%, grade 1 diastolic dysfunction, PA pressure 30-35 mmHg, left atrium is in the upper normal limit - Echo 10/17/20: LVEF 60-65%, PASP 40-45 mmHg, interatrial septal thickening vs sessile myxoma w/o hemodynamic significance, mild Acute exacerbation of COPD Paroxysmal atrial fibrillation - maintained on diltiazem and Xarelto Sick sinus syndrome - Status post loop recorder implantation done on June 03, 2020, 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 - s/p PPM on 06/24/[address] Tellez Stress test done on June 03, [address] Tellez showing breast attenuation with typical female pattern with no significant ischemia or infarction, EF 73% Hypertension Hyperlipidemia Chronic mild hyponatremia Tobaccoism - cessation advised Anemia of undetermined etiology - management per Medical services Plan: We reviewed her echo results of 10/17/20 with her Management of COPD per medical/ICU pulmonary services Treat CHF with diuretics Continue OAC with Xarelto for stroke prophylaxis Continue home medications Monitor lab Replace electrolytes as indicated GONZALES ARMENTA MD FACP FAC CCDS Oct 18, 2020 17:52
[2020-10-18] MEDS: raLOXifene 60 MG (EVISTA) TAB PO SCH (17:53)
[2020-10-18] MEDS: OMEGA 3 (FISH OIL) 1000 MG CAP PO SCH (20:31)
[2020-10-18] MEDS: HYDROcodone/APAP 5 MG/325 MG (LORTAB) TAB PO PRN (23:47)
[2020-10-18 23:56] VITALS: BP 129/70
[2020-10-19 05:06] LABS: BASOPHILS % (AUTO) 0 % (0-10); EOSINOPHILS % (AUTO) 0 % (0-10); HEMATOCRIT 36 % (35-52); HEMOGLOBIN 10.8 g/dL (11.5-16.0); LYMPHOCYTES # (AUTO) 1.6 10^3/uL (1.0-4.0); LYMPHOCYTES % (AUTO) 7 % (12-44); MEAN CORPUSCULAR HEMOGLOBIN 24 pg (25-34); MEAN CORPUSCULAR HGB CONC 30 g/dL (32-36); MEAN CORPUSCULAR VOLUME 80 fL (80-99); MEAN PLATELET VOLUME 10.8 fL (9.0-12.2); MONOCYTES # (AUTO) 0.9 10^3/uL (0.0-1.0); MONOCYTES % (AUTO) 4 % (0-12); NEUTROPHILS # (AUTO) 19.8 10^3/uL (1.8-7.8); NEUTROPHILS % (AUTO) 88 % (42-75); PLATELET COUNT 259 10^3/uL (130-400); WHITE BLOOD COUNT 22.5 10^3/uL (4.3-11.0)
[2020-10-19 05:18] LABS: ALBUMIN 3.6 GM/DL (3.2-4.5); CHLORIDE 99 MMOL/L (98-107); POTASSIUM 4.5 MMOL/L (3.6-5.0); SODIUM 134 MMOL/L (135-145)
[2020-10-19 05:19] LABS: CALCIUM 9.2 MG/DL (8.5-10.1)
[2020-10-19 05:21] LABS: GLUCOSE 153 MG/DL (70-105); TOTAL PROTEIN 6.5 GM/DL (6.4-8.2)
[2020-10-19 05:22] LABS: BILIRUBIN,TOTAL 0.3 MG/DL (0.1-1.0); CARBON DIOXIDE 22 MMOL/L (21-32)
[2020-10-19 05:24] LABS: ALKALINE PHOSPHATASE 64 U/L (40-136); CREATININE SERUM 0.79 MG/DL (0.60-1.30); GFR ESTIMATED > 60
[2020-10-19 05:25] LABS: BUN/CREATININE RATIO 42
[2020-10-19 05:27] LABS: ALANINE AMINOTRANSFERASE 21 U/L (0-55)
[2020-10-19 05:28] LABS: ANISOCYTOSIS SLIGHT; BAND NEUTROPHILS 0 %; BASOPHILS % (MANUAL) 0 %; EOSINOPHILS % (MANUAL) 0 %; HYPOCHROMASIA MARKED; LYMPHOCYTES % (MANUAL) 11 %; MONOCYTES % (MANUAL) 5 %; NEUTROPHILS % (MANUAL) 84 %; POLYCHROMASIA SLIGHT; TARGET CELLS SLIGHT
[2020-10-19] MEDS: KCL 20 MEQ TAB (K-DUR) PO SCH (06:08)
[2020-10-19] MEDS: MULTIVIT W/MINERALS TAB (THERAGRAN M) PO SCH (06:08)
[2020-10-19] MEDS: RT-ALBUTEROL/IPRATROPIUM 3 ML (DUONEB) VIAL IH SCH (07:00)
[2020-10-19 08:00] VITALS: BP 126/82
--- NOTE | 2020-10-19 08:46 | Cardiology Progress Note ---
Subjective Date Seen by Provider: Oct 19, 2020 Time Seen by Provider: 08:42 Subjective/Events-last exam Patient is sitting up at bedside, reports dyspnea has improved, denies any chest pain Review of Systems General: No Chills, No Night Sweats, No Fatigue, No Malaise, No Appetite, No Other HEENT: No Head Aches, No Visual Changes, No Eye Pain, No Ear Pain, No Dysphasi a, No Sinus Congestion, No Post Nasal Drip, No Sore Throat, No Other Pulmonary: No Dyspnea, No Cough, No Pleuritic Chest Pain, No Other Cardiovascular: No: Chest Pain, Palpitations, Orthopnea, Paroxysmal Noc. Dyspnea, Edema, Lt Headedness, Other Focused Exam Lactate Level Objective-Cardiology Exam Last Set of Vital Signs Vital Signs 10/18/20 10/19/20 20:56 08:00 Temp 36.2 Pulse 131 Resp 20 B/P (MAP) 126/82 (97) Pulse Ox 92 O2 Delivery Room Air O2 Flow Rate 2.00 Capillary Refill : Less Than 3 Seconds I&O Intake and Output 10/19/20 00:00 Intake Total 1790 ml Output Total 1325 ml Balance 465 ml Intake Oral 1790 ml Output Urine Total 1325 ml # Bowel Movements 1 General: Alert, Oriented X3, Cooperative HEENT: Atraumatic, PERRLA Lungs: Other (decreased breath sounds LLL) Heart: Normal S1, Normal S2, Other (tachycardic) Abdomen: Soft, No Tenderness Extremities: No Clubbing, No Edema Skin: No Rashes, No Significant Lesion Neuro: Normal Gait, Cranial Nerves 3-12 NL Psych/Mental Status: Mental Status NL, Mood NL Results Lab Laboratory Tests 10/19/20 04:41 A/P-Cardiology Admission Diagnosis AE diastolic CHF AE COPD PAF HTN Assessment/Plan SOB, multi-factorial for reasons noted below Acute diastolic CHF-Echo Jun 03, 2020 showing normal left ventricular size, EF 55-65%, grade 1 diastolic dysfunction, PA pressure 30-35 mmHg, left atrium is in the upper normal limit. Repeat Echo 10/17/20: LVEF 60-65%, PASP 40-45 mmHg, interatrial septal thickening vs sessile myxoma w/o hemodynamic significance, mild . Stress test done on June 03, [address] Tellez showing breast attenuation with typical female pattern with no significant ischemia or infarction, EF 73% Acute exacerbation of COPD, improved. Paroxysmal atrial fibrillation, maintained on diltiazem and Xarelto. Slightly tachycardic this morning. Sick sinus syndrome, status post loop recorder implantation done on June 03, 2020, 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 s/p PPM on 06/24/2020. Hypertension, controlled, continue to monitor Hyperlipidemia, monitored as outpatient. Chronic mild hyponatremia Tobaccoism - cessation advised Anemia of undetermined etiology - management per Medical services Patient was seen and evaluated with Juliette, examination performed, management plan was discussed, agree with the current scribed note, I made few changes to the note using Italic font Patient is feeling better, complaining of diarrhea Still have significant leukocytosis probably secondary to steroids Blood pressure is better controlled Educated on smoking cessation Monitor blood pressure and lipids Supervisory-Addendum Brief Supervisory Addendum Participated in pt care: history, MDM, physical Personally performed: exam, history, MDM Care discussed with: JULIETTE SUTTON Oct 19, 2020 8:46 am JOVITA TELLEZ MD Oct 19, 2020 11:50 am
[2020-10-19] MEDS: ASCORBIC ACID (VIT C) 500 MG TABLET PO SCH (08:51)
[2020-10-19] MEDS: CALCIUM CARB + VIT D 600 MG (CALCARB + D) TAB PO SCH (08:51)
[2020-10-19] MEDS: RIVAROXABAN 20 MG TABLET (XARELTO) PO SCH (08:51)
[2020-10-19] MEDS: TIMOLOL MALEATE 0.5% 5 ML (TIMOPTIC) BTL OU SCH (09:00)
[2020-10-19] MEDS: LORATADINE (CLARITIN) 10 MG TAB PO SCH (10:01)
[2020-10-19] MEDS: lisINopril 10 MG (PRINIVIL) TABLET PO SCH (10:01)
[2020-10-19] MEDS: FUROSEMIDE 40 MG/4 ML INJ (LASIX) IVP SCH (10:02)
[2020-10-19] MEDS: SENNA W/DOCUSATE (SENOKOT S) TABLET PO SCH ×2 (10:02→10:08)
[2020-10-19] MEDS: dilTIAZem120 MG (CARDIZEM CD) CAP PO SCH (10:02)
[2020-10-19] MEDS: methylPREDNISolone 40 MG/ML (Solu-MEDROL) VIAL IV SCH (10:02)
[2020-10-19] MEDS: PANTOPRAZOLE 20 MG TABLET (PROTONIX) PO SCH (10:05)
--- NOTE | 2020-10-19 11:51 | Discharge Summary ---
Diagnosis/Chief Complaint Date of Admission Oct 16, 2020 at 12:05 Date of Discharge 10/19/20 Admission Diagnosis Admission Diagnosis Acute Respiratory Failure Acute Diastolic CHF Acute COPD Exacerbation Paroxysmal Atrial fibrillation HTN HLD Normocytic Anemia Tobacco Abuse Discharge Diagnosis See Above Discharge Summary-Simple/Stand Consultations Discharge Physical Examination Allergies: Coded Allergies: iodine (Verified Allergy, Unknown, 10/16/20) shellfish derived (Verified Allergy, Unknown, 04/24/20) Vitals & I&Os Vital Sign - Last 12Hours Date Time Temp Pulse Resp B/P (MAP) Pulse Ox O2 Delivery O2 Flow Rate FiO2 10/19/20 08:00 36.2 131 20 126/82 (97) 92 Room Air 10/18/20 20:56 2.00 Intake and Output 10/18/20 23:59 Intake Total 1790 ml Output Total 1325 ml Balance 465 ml Hospital Course See final discharge diagnosis. Radiology Reviewed NAME: FELA OTERO REC#: [id number] PT STATUS: REG ER : 1940 PHYSICIAN: KASEY GARCIA DO ADMIT DATE: 10/16/20/ER FS Draft Date of Exam:10/16/20 CHEST 1 VIEW AP/PA ONLY Indication: Shortness of breath and sepsis. Time of exam: 8:46 AM Correlation is made with prior chest 06/25/2020. Heart size is stable. Cardiac pacemaker remains in place. There are some mild interstitial changes in the lung bases. There is some blunting of left costophrenic angle consistent with minimal fluid or pleural thickening. No pneumothorax identified. Impression: Trace left pleural fluid or pleural thickening. Mild basilar interstitial changes are noted. Dictated on workstation # [id number] Dict: 10/16/20 0911 Trans: 10/16/20 0916 [facility] [id number] Interpreted by: LINA PECK MD Electronically signed by: Discharge Instructions to patient/family Please see electronic discharge instructions given to patient. Discharge Medications Reviewed and agree with Discharge Medication list on patient's Discharge Instruction sheet LEIDA JOHNSON MD Oct 19, 2020 11:51
[2020-10-19] MEDS ORDERED: PRD20T PO (11:54)
--- NOTE | 2020-10-19 11:55 | Discharge Summary ---
Discharge [facility] Reconcile Patient Problems Problems Reviewed?: Yes Discharge Medications New, Converted or Re-Newed RX: Transmitted to Pharmacy New Medications: Prednisone (Prednisone) 20 Mg Tab 20 MG PO DAILY, #20 TAB Take 3 tabs x 3 days then Take 2 tabs x 3 days then take 1 tab x 3 days then 1/2 tab x 4 days then STOP Continued Medications: Ascorbate Calcium (Vitamin C) 500 Mg Tablet 500 MG PO BID, TAB Calcium Carbonate/Vitamin D3 (Calcium 600 + Vit D 400 Softgl) 1 Each Capsule 1 EACH PO BID, CAP Cetirizine HCl (Zyrtec) 10 Mg Capsule 10 MG PO DAILY, CAP Diltiazem HCl (Diltiazem 24Hr ER) 120 Mg Cap.er.24h 120 MG PO DAILY Esomeprazole Magnesium (Esomeprazole Magnesium) 20 Mg Capsule.dr 20 MG PO DAILY, CAP Flaxseed/Omega3,6,9/Fatty Acid (Flax Seed Oil 1,300 mg Softgel) 1 Each Capsule 1 EACH PO HS, CAP Flecainide Acetate (Flecainide Acetate) 50 Mg Tablet 50 MG PO 0000,1200, TAB Ibuprofen (Ibuprofen) 200 Mg Tablet 200-400 MG PO Q8H PRN for PAIN-MILD (1-4), TAB Lisinopril (Lisinopril) 10 Mg Tablet 10 MG PO DAILY, TAB Raloxifene HCl (Raloxifene HCl) 60 Mg Tablet 60 MG PO 1800, TAB Rivaroxaban (Xarelto) 20 Mg Tablet 20 MG PO DAILY, TAB Simethicone (Gas Relief) 125 Mg Capsule 125 MG PO QID PRN for GAS, CAP Timolol Maleate (Timolol Maleate 0.5%) 5 Ml Drops 1 DROP OU BID, DROPS Vit A,C & E/Lutein/Minerals (Ocuvite with Lutein Tablet) 1 Each Tablet 1 EACH PO HS, TAB Vitamin B Complex (Super B-50 Complex) 1 Each Capsule 1 EACH PO HS, CAP Patient Instructions Goal/Follow Up Appt: F/u with Dr Vargas in 1 week for hospital f.u appt [facility]: - Increasing shortness of breath - Chest pain Activity & Diet Discharge Diet: Cardiac Diet Activity as Tolerated: Yes Copy Copies To 1: MARCELLO VARGAS MD, HOLLY R MD Oct 19, 2020 11:55
[2020-10-19] MEDS: cefTRIAXone FOR IV USE 1,000 MG in WATER (STERILE) FOR INJECTION 10 ML IV SCH (12:21)
[2020-10-19] MEDS: FLECAINIDE 100 MG (TAMBOCOR) TAB PO SCH (12:21)
[2020-10-19 15:00] VITALS: BP 126/82
[2020-10-19 15:20] VITALS: BP 126/82
== END 2020-10-19 15:25 | disposition home or self-care (01) | DRG 291 ==
LOC: EDUNIT# 08:41 → ER FS 08:42 → ICU 12:05 → 4TH 10-17 14:28
PROVIDERS: ADMIT Internal Medicine; ATTEND Internal Medicine
DX: I11.0 Hypertensive heart disease with heart failure (principal); J96.01 Acute respiratory failure with hypoxia; I50.31 Acute diastolic (congestive) heart failure; J44.1 Chronic obstructive pulmonary disease with (acute) exacerbation; D68.9 Coagulation defect, unspecified; E87.1 Hypo-osmolality and hyponatremia; E87.70 Fluid overload, unspecified; F17.210 Nicotine dependence, cigarettes, uncomplicated; R32 Unspecified urinary incontinence; I16.0 Hypertensive urgency; D72.829 Elevated white blood cell count, unspecified; D64.9 Anemia, unspecified; I48.0 Paroxysmal atrial fibrillation; E78.5 Hyperlipidemia, unspecified; T38.0X5A Adverse effect of glucocorticoids and synthetic analogues, initial encounter; Z79.01 Long term (current) use of anticoagulants; Z79.899 Other long term (current) drug therapy; Z95.0 Presence of cardiac pacemaker; Z91.041 Radiographic dye allergy status; Z91.013 Allergy to seafood
CPT/HCPCS: 36415; 71045; 80048; 80053; 81000; 82805; 83605; 83735; 83880; 84100; 84145; 84484; 85007; 85025; 85027; 87040; 87081; 87088; 93005; 93306; 94640; 94760; 99291

== ENCOUNTER → 2021-06-07 | Outpatient (CLI) | payer MEDICARE, OTHER ==
[~2021-06-07] VITALS: Ht 152 cm; Wt 57.0 kg
[~2021-06-07] MED LIST changes: +CALC1CAP21 PO; +CHOL10004 PO; -CHOL100045 PO; +CYCL10TA25 PO; -CYCL10TA9 PO; +ESOM20CA37 PO; +IBUP-2473 PO; -OMEP40CA27 PO; +OMEP40CA6 PO; +PRD20T PO; +REGADENOSON 0.4 MG/5 ML SYR (LEXISCAN) IV ONE; +VITA1CAP19 PO
[2021-06-07] MEDS: CATHETER FLUSH 10 ML SYR IV PRN ×2 (07:16→09:04)
[2021-06-07 09:03] VITALS: BP 146/83
--- NOTE | 2021-06-07 11:31 | Cardiology Stress Test Report ---
Stress Test Report Date of Procedure/Referring: Date of Procedure: Jun 07, 2021 PCP Jovita Tellez MD Admitting Physician Ponce Vargas MD Indications: CP Baseline Heart Rate: 84 Baseline Blood Pressure: Blood Pressure Systolic: 146 Blood Pressure Diastolic: 83 Baseline Vitals Vital Signs Date Time Temp Pulse Resp B/P (MAP) Pulse Ox O2 Delivery O2 Flow Rate FiO2 06/07/21 09:03 99 16 146/83 (104) 98 Room Air Baseline EKG: Baseline EKG: NSR Summary After explaining the procedure to the patient, she signed a consent and then brought to the stress nuclear laboratory. Patient received 0.4 mg Lexiscan for stress test, ECG, heart rate and blood pressure were monitored continuously. Resting and stress dose of radio tracer were injected, imaging was acquired and reviewed in short axis, horizontal long axis and vertical long axis views. TID: 1.01 SSS: 5 SDS: 3 EF: 69 1. Patient tolerated Lexiscan well 2. Extracardiac attenuation with no significant ischemia or infarction on SPECT images 3. Normal left ventricular size, EF 69% JOVITA TELLEZ MD Jun 07, 2021 11:31
== END ==
LOC: CARD 07:30
PROVIDERS: ATTEND Internal Medicine Cardiovascular Disease
DX: I25.10 Atherosclerotic heart disease of native coronary artery without angina pectoris (principal); I10 Essential (primary) hypertension
CPT/HCPCS: 78452; 93017; A9502

== ENCOUNTER 2022-01-03 05:51 | Inpatient (IN) | payer MEDICARE, OTHER ==
[2022-01-03] VITALS (14 sets, daily range): BP systolic 120–177; BP diastolic 61–106
[~2022-01-03] VITALS: Ht 157.5 cm; Wt 57.9 kg
[~2022-01-03 05:51] MED LIST changes: -REGADENOSON 0.4 MG/5 ML SYR (LEXISCAN) IV ONE
[2022-01-03] MEDS ORDERED: RT-ALBUTEROL/IPRATROPIUM 3 ML (DUONEB) VIAL INH STA (06:10)
--- NOTE | 2022-01-03 06:22 | ED General ---
General Stated Complaint: ABD PAIN Source of Information: Patient, EMS, Old Records Exam Limitations: Other (shortness of breath and abdominal pain making it difficult for her to speak more than 2-3 word sentences) (CHIP PEREA MD) History of Present Illness Date Seen by Provider: Jan 03, 2022 Time Seen by Provider: 05:51 Initial Comments 81-year-old female presenting by EMS from home with complaints of abdominal pain since yesterday. She has also been incontinent of urine overnight. She states that she feels like she has some much gas and pressure in her belly that is making it hard for her to breathe. She has feeling a little better with oxygen on. She does not wear oxygen at home and states that she does not use breathing treatments at home. She feels like some of the gas and abdominal issues might be related to having increased fiber and vegetables in her diet. She tries to keep her stools soft and regular because she has bleeding hemorrhoids. She denies nausea, vomiting, chest pain. She has been sweaty with chills overnight. Timing/Duration: 12-24 Hours Severity: Severe Modifying Factors: worse with Movement Associated Systoms: No Chest Pain, No Cough; Diaphoresis, Fever/Chills (subjective), Malaise; No Nausea/Vomiting, No Seizure; Shortness of Air; No Syncope; Weakness (general) (CHIP PEREA MD) Allergies and Home Medications Allergies Coded Allergies: iodine (Verified Allergy, Unknown, 10/16/20) shellfish derived (Verified Allergy, Unknown, 04/24/20) Patient Home Medication List Home Medication List Reviewed: Yes (CHIP PEREA MD) Acetaminophen (Tylenol Extra Strength) 500 Mg Tablet, 500-1,000 MG PO Q8H PRN for PAIN-MILD (1-4), (Reported) Entered as Reported by: PASCALE WILBURN on 01/03/221451 Last Action: Reviewed Ascorbic Acid (Vitamin C) 1,000 Mg Tablet, 500 MG PO BID, (Reported) Entered as Reported by: PASCALE WILBURN on 01/03/221451 Last Action: Reviewed Calcium Carbonate/Vitamin D3 (Calcium 600 + Vit D 400 Softgl) 1 Each Capsule, 1 EACH PO BID, (Reported) Entered as Reported by: PASCALE WILBURN on 10/16/20 5984 Last Action: Reviewed Cetirizine HCl (Zyrtec) 10 Mg Capsule, 10 MG PO DAILY, (Reported) Entered as Reported by: MERCEDES RIDER on 06/21/20911 Last Action: Reviewed Diltiazem HCl (Diltiazem 24Hr ER) 120 Mg Cap.er.24h, 120 MG PO DAILY, (Reported) Entered as Reported by: MERCEDES RIDER on 06/21/20911 Last Action: Reviewed Esomeprazole Magnesium (Esomeprazole Magnesium) 20 Mg Capsule.dr, 20 MG PO DAILY, (Reported) Entered as Reported by: PASCALE WILBURN on 10/16/201423 Last Action: Reviewed Flaxseed/Omega3,6,9/Fatty Acid (Flax Seed Oil 1,300 mg Softgel) 1 Each Capsule, 1 EACH PO HS, (Reported) Entered as Reported by: MERCEDES RIDER on 06/21/20911 Last Action: Reviewed Flecainide Acetate (Flecainide Acetate) 50 Mg Tablet, 50 MG PO Q12H, (Reported) Entered as Reported by: PASCALE WILBURN on 10/16/201423 Last Action: Reviewed Furosemide (Furosemide) 20 Mg Tablet, 20 MG PO DAILY PRN for FLUID RETENTION, (Reported) Entered as Reported by: PASCALE WILBURN on 01/03/221451 Last Action: Reviewed Ibuprofen (Ibuprofen) 200 Mg Tablet, 200-400 MG PO Q8H PRN for PAIN-MILD (1-4), (Reported) Entered as Reported by: PASCALE WILBURN on 10/16/201423 Last Action: Reviewed Lisinopril (Lisinopril) 10 Mg Tablet, 5 MG PO 1200, (Reported) Entered as Reported by: PASCALE WILBURN on 10/16/201423 Last Action: Reviewed Loperamide HCl (Anti-Diarrheal) 2 Mg Tablet, 2-4 MG PO UD PRN for DIARRHEA, (Reported) Entered as Reported by: PASCALE WILBURN on 01/03/221451 Last Action: Reviewed Potassium Chloride (K-Tab ER) 10 Meq Tablet.er, 10 MEQ PO 1200, (Reported) Entered as Reported by: PASCALE WILBURN on 01/03/221451 Last Action: Reviewed Raloxifene HCl (Raloxifene HCl) 60 Mg Tablet, 60 MG PO 1800, (Reported) Entered as Reported by: MERCEDES RIDER on 06/21/20911 Last Action: Reviewed Rivaroxaban (Xarelto) 20 Mg Tablet, 20 MG PO 1200, (Reported) Entered as Reported by: LESLIE GARCIA on 05/08/202251 Last Action: Reviewed Simethicone (Gas Relief) 125 Mg Capsule, 125 MG PO 1900 AFTER DINNER PRN for GAS, (Reported) Entered as Reported by: MERCEDES RIDER on 06/21/20911 Last Action: Reviewed Timolol Maleate (Timolol Maleate 0.5%) 0.5 % Drops, 1 DROP OU Q12H, (Reported) Entered as Reported by: LESLIE GARCIA on 05/08/202251 Last Action: Reviewed Vit A,C & E/Lutein/Minerals (Ocuvite with Lutein Tablet) 300MCG-200 Tablet, 1 EACH PO DAILY, (Reported) Entered as Reported by: PASCALE WILBURN on 05/11/20 100 Last Action: Reviewed Vitamin B Complex/Folic Acid (Super B Maxi Complex Caplet) 0.4 Mg Tablet, 0.4 MG PO Q48H @HS, (Reported) Entered as Reported by: PASCALE WILBURN on 01/03/22 1452 Last Action: Reviewed Discontinued Medications Ascorbate Calcium (Vitamin C) 500 Mg Tablet, 500 MG PO BID, (Reported) Discontinued Reason: Prescription changed Entered as Reported by: PASCALE WILBURN on 05/11/20 1008 Prednisone (Prednisone) 20 Mg Tab, 20 MG PO DAILY Discontinued Reason: No Longer Taking Prescribed by: LEIDA JOHNSON on 10/19/20 1154 Last Action: Discontinued Vitamin B Complex (Super B-50 Complex) 1 Each Capsule, 1 EACH PO HS, (Reported) Discontinued Reason: Duplicate Order Entered as Reported by: PASCALE WILBURN on 10/16/20 1424 Last Action: Discontinued Review of Systems Review of Systems Constitutional: see HPI EENTM: nose congestion Respiratory: short of breath Cardiovascular: No chest pain; edema Gastrointestinal: abdominal pain (diffuse); No constipation (states last BM was last night), No nausea, No vomiting Genitourinary: No dysuria; incontinence Musculoskeletal: no symptoms reported Skin: No rash Psychiatric/Neurological: Anxiety, Weakness (generalized) Hematologic/Lymphatic: Easy Bleeding (taking Xarelto for paroxysmal Atrial fibrillation), Easy Bruising (taking Xarelto for paroxysmal Atrial fibrillation) (CHIP PEREA MD) Past Vlutaxx-Fwejge-Oytwre Hx Immunizations Up To Date Tetanus Booster (TDap): Unknown PED Vaccines UTD: Yes (CHIP PEREA MD) Seasonal Allergies Seasonal Allergies: No (CHIP PEREA MD) Past Medical History Surgery/Hospitalization HX: Paroxysmal Atrial Fibrillation, COPD, Hypertension, IBS Surgeries: Yes Oophorectomy, Pacemaker Respiratory: No Cardiac: Yes Atrial Fibrillation, Hypertension Neurological: No Genitourinary: No Gastrointestinal: No Musculoskeletal: No Endocrine: No HEENT: No Cancer: No Psychosocial: No Integumentary: No Blood Disorders: No (CHIP PEREA MD) Physical Exam Vital Signs Vital Signs - First Documented 01/03/22 01/03/22 05:54 07:07 Temp 36.0 Pulse 98 Resp 32 B/P (MAP) 215/90 (131) Pulse Ox 77 O2 Delivery OxyMask O2 Flow Rate 11.00 FiO2 61 (LINA MELÉNDEZ MD) Vital Signs Capillary Refill : (CHIP PEREA MD) Height, Weight, BMI Height: '" Weight: lbs. oz. kg; 24.67 BMI Method: General Appearance: Anxious, Chronically ill, Moderate Distress (working hard to breath and speaking in 2-3 word sentences) HEENT: No Moist Mucous Membranes (dry mucous membranes); Other (widespread dental decay and poor dental hygiene) Neck: Full Range of Motion, Normal Inspection, Non Tender, Supple Respiratory: Chest Non Tender, Accessory Muscle Use, Decreased Breath Sounds, Respiratory Distress; No Stridor, No Wheezing Cardiovascular: Regular Rate, Rhythm, Normal Peripheral Pulses Gastrointestinal: No Pulsatile Mass, Soft, Abnormal Bowel Sounds (hypoactive), Distended; No Rebound; Tenderness (diffuse tenderness to palpation) Rectal: Deferred Extremity: Normal Capillary Refill, Pedal Edema Neurologic/Psychiatric: Alert, Other (anxious and working hard to breath) Skin: Diaphoresis, Pallor (CHIP PEREA MD) Focused Exam Lactate Level 01/03/22 06:15: Lactic Acid Level 1.28 (LINA MELÉNDEZ MD) Lactic Acid Level Laboratory Tests Test 01/03/22 06:15 Lactic Acid Level 1.28 MMOL/L (0.50-2.00) (LINA MELÉNDEZ MD) Progress/Results/Core Measures Suspected Sepsis SIRS Temperature: Pulse: Respiratory Rate: Laboratory Tests 01/03/22 06:15: White Blood Count 13.6H Blood Pressure / Mean: 01/03/22 06:15: Lactic Acid Level 1.28 Laboratory Tests 01/03/22 06:15: Creatinine 0.47L, INR Comment 1.0, Platelet Count 249, Total Bilirubin 0.3 (CHIP PEREA MD) Results/Orders Lab Results Laboratory Tests Test 01/03/22 06:15 01/03/22 06:18 01/03/22 06:27 01/03/22 06:46 Range/Units White Blood Count 13.6 H 4.3-11.0 10^3/uL Red Blood Count 4.28 3.80-5.11 10^6/uL Hemoglobin 11.2 L 11.5-16.0 g/dL Hematocrit 37 35-52 % Mean Corpuscular Volume 85 80-99 fL Mean Corpuscular Hemoglobin 26 25-34 pg Mean Corpuscular Hemoglobin Concent 31 L 32-36 g/dL Red Cell Distribution Width 16.8 H 10.0-14.5 % Platelet Count 249 130-400 10^3/uL Mean Platelet Volume 12.0 9.0-12.2 fL Immature Granulocyte % (Auto) 0 % Neutrophils (%) (Auto) 74 42-75 % Lymphocytes (%) (Auto) 18 12-44 % Monocytes (%) (Auto) 6 0-12 % Eosinophils (%) (Auto) 1 0-10 % Basophils (%) (Auto) 0 0-10 % Neutrophils # (Auto) 10.1 H 1.8-7.8 10^3/uL Lymphocytes # (Auto) 2.5 1.0-4.0 10^3/uL Monocytes # (Auto) 0.9 0.0-1.0 10^3/uL Eosinophils # (Auto) 0.1 0.0-0.3 10^3/uL Basophils # (Auto) 0.1 0.0-0.1 10^3/uL Immature Granulocyte # (Auto) 0.1 0.0-0.1 10^3/uL Prothrombin Time 14.0 12.2-14.7 SEC INR Comment 1.0 0.8-1.4 Activated Partial Thromboplast Time 31 24-35 SEC Sodium Level 136 135-145 MMOL/L Potassium Level 4.4 3.6-5.0 MMOL/L Chloride Level 100 98-107 MMOL/L Carbon Dioxide Level 25 21-32 MMOL/L Anion Gap 11 5-14 MMOL/L Blood Urea Nitrogen 15 7-18 MG/DL Creatinine 0.47 L 0.60-1.30 MG/DL Estimat Glomerular Filtration Rate 97 BUN/Creatinine Ratio 32 Glucose Level 144 H 70-105 MG/DL Lactic Acid Level 1.28 0.50-2.00 MMOL/L Calcium Level 9.1 8.5-10.1 MG/DL Corrected Calcium 9.2 8.5-10.1 MG/DL Total Bilirubin 0.3 0.1-1.0 MG/DL Aspartate Amino Transf (AST/SGOT) 70 H 5-34 U/L Alanine Aminotransferase (ALT/SGPT) 102 H 0-55 U/L Alkaline Phosphatase 91 40-136 U/L Troponin I < 0.30 <0.30 NG/ML C-Reactive Protein 1.28 H <0.50 MG/DL Pro-B-Type Natriuretic Peptide 740.9 H <450.0 PG/ML Total Protein 6.6 6.4-8.2 GM/DL Albumin 3.9 3.2-4.5 GM/DL Influenza Type A (RT-PCR) Not Detected Not Detecte Influenza Type B (RT-PCR) Not Detected Not Detecte SARS-CoV-2 RNA (RT-PCR) Not Detected Not Detecte Blood Gas Puncture Site RT. RADIAL Blood Gas Patient Temperature 36 Arterial Blood pH 7.28 *L 7.37-7.43 Arterial Blood Partial Pressure CO2 64 H 35-45 MMHG Arterial Blood Partial Pressure O2 62 L 79-93 MMHG Arterial Blood HCO3 30 H 23-27 MMOL/L Arterial Blood Total CO2 32.1 H 21.0-31.0 MMOL/L Arterial Blood Oxygen Saturation 88 L 94-100 % Arterial Blood Base Excess 1.9 -2.5-2.5 MMOL/L Brennen Test YES-POS Blood Gas Ventilator Setting NO Blood Gas Inspired Oxygen 13 L Urine Color YELLOW Urine Clarity CLEAR Urine pH 5.5 5-9 Urine Specific [place] >=1.030 1.016-1.022 Urine Protein NEGATIVE NEGATIVE Urine Glucose (UA) NEGATIVE NEGATIVE Urine Ketones NEGATIVE NEGATIVE Urine Nitrite NEGATIVE NEGATIVE Urine Bilirubin NEGATIVE NEGATIVE Urine Urobilinogen 0.2 < = 1.0 MG/DL Urine Leukocyte Esterase NEGATIVE NEGATIVE Urine RBC (Auto) NEGATIVE NEGATIVE Urine RBC RARE /HPF Urine WBC 0-2 /HPF Urine Squamous Epithelial Cells RARE /HPF Urine Crystals NONE /LPF Urine Bacteria NEGATIVE /HPF Urine Casts PRESENT /LPF Urine Hyaline Casts 5-10 H /LPF Urine Mucus LARGE H /LPF Urine Culture Indicated NO (LINA MELÉNDEZ MD) My Orders Orders - LINA MELÉNDEZ MD Methylprednisolone Sod Succ (Solu-Medrol (01/03/22 07:30) Ceftriaxone 1 Gm Pre-Mix (Rocephin 1 Gm (01/03/22 07:30) Doxycycline Hyclate Tablet (Vibramycin T (01/03/22 07:30) Furosemide Injection (Lasix Injection) (01/03/22 07:30) Ed Admission (Communication) (01/03/22 07:34) (LINA MELÉNDEZ MD) Medications Given in ED Current Medications Medications Dose Ordered Sig/Trang Route Start Time Stop Time Status Last Admin Dose Admin Ceftriaxone Sodium/Dextrose 50 ml @ 100 mls/hr ONCE ONCE IV 01/03/22 07:30 01/03/22 07:59 DC 01/03/22 07:27 100 MLS/HR Doxycycline Hyclate 100 mg ONCE ONCE PO 01/03/22 07:30 01/03/22 07:31 DC 01/03/22 07:27 100 MG Furosemide 40 mg ONCE ONCE IVP 01/03/22 07:30 01/03/22 07:31 DC 01/03/22 07:27 40 MG Methylprednisolone Sodium Succinate 60 mg ONCE ONCE IV 01/03/22 07:30 01/03/22 07:31 DC 01/03/22 07:27 60 MG (LINA MELÉNDEZ MD) Vital Signs/I&O 01/03/22 01/03/22 01/03/22 05:54 06:48 07:07 Temp 36.0 Pulse 98 Resp 32 B/P (MAP) 215/90 (131) Pulse Ox 77 93 99 O2 Delivery OxyMask OxyMask NIV CPAP O2 Flow Rate 11.00 11.00 FiO2 61 (LINA MELÉNDEZ MD) Vital Signs/I&O Capillary Refill : (CHIP PEREA MD) Progress Note #1: Progress Note Obtain electrocardiogram as well as chest x-ray, blood work, urinalysis, cardiac enzymes, COVID and influenza swab. Placed on a oxi mask for hypoxia. Obtain ABG to assess her oxygenation and acid base balance better. CT scan of abdomen/pelvis without contrast to evaluate for obstruction, free air, perforation, signs of ischemia, mass, diverticulitis, colitis, pyelonephritis. Progress Note #2: Time: 06:50 Progress Note ABG shows pH 7.28, pCO2 64, pO2 62 with O2 sat of 88% on 15 Lpm. Awaiting other labs and imaging results. Care passed to Dr. Meléndez at 0700. (CHIP PEREA MD) Progress Note : Progress Note Patient was handed off at 7 AM. At that time pending some of her lab results and the CT as well as x-ray of her chest results. Lactate is normal, creatinine normal, electrolytes unremarkable. BNP slightly elevated, troponin negative, urinalysis without concerns for infection. Chest x-ray with some opacities as well as possible pulmonary edema. CT abdomen and pelvis with no acute findings in the abdomen and pelvis, but the portions of the lung that were visualized to show a small effusion as well as groundglass opacities. The patient was given IV ceftriaxone, oral doxycycline, IV Solu-Medrol for possible infection in her lungs, and the steroids for her COPD. She was transitioned to BiPAP and tolerated this well. I contacted Dr. Subramanian who admit the patient to the intensive care unit for further evaluation and management. I then contacted the ICU physician to give handoff as well. (LINA MELÉNDEZ MD) ECG Initial ECG Impression Date: Jan 03, 2022 Initial ECG Impression Time: 06:11 Initial ECG Rate: 93 Initial ECG Rhythm: Normal Sinus Initial ECG Comparisson: Changed (slightly prolonged MN interval from prior) Comment Sinus rhythm with a first-degree AV block and a heart rate of 93 bpm. MN interval [address] elevation. There is artifact on the tracing. QT interval 342 ms with a QTc interval 393 ms. Overall appears similar to tracing from October 2020 other than increased MN interval today (CHIP PEREA MD) Diagnostic Imaging Diagonstic Imaging: Xray Plain Films/CT/US/NM/MRI: chest Reviewed: Reviewed by Me Diagonstic Imaging: CT Plain Films/CT/US/NM/MRI: abdomen, pelvis Reviewed: Reviewed by Me (CHIP PEREA MD) Comments [facility] [place], [place] NAME: FELA OTERO [facility] REC#: [id number] PT STATUS: REG ER : 1940 PHYSICIAN: CHIP PEREA MD ADMIT DATE: 01/03/22/ER FS Signed Date of Exam:01/03/22 CHEST 1 VIEW AP/PA ONLY INDICATION: Shortness of breath. EXAMINATION: Chest 01/03/2022 COMPARISON: 10/17/2020 FINDINGS: Left-sided pacemaker and a loop recorder device stable. Heart unremarkable. Pulmonary vasculature congested. There is bibasilar infiltrate with a small left effusion noted. There is no pneumothorax. Minimally coarsened interstitial markings suggest mild edema. IMPRESSION: 1. Findings suspicious for mild pulmonary edema. 2. Bibasilar infiltrates with small left effusion. Followup recommended to assure resolution. Dictated by: Dictated on workstation # [id number] Dict: 01/03/22639 Trans: 01/03/22714 CV [id number] Interpreted by: JAYESH JONES MD Electronically signed by: JAYESH JONES MD 01/03/22714 Comments [facility] [place] [place] NAME: FELA OTERO [facility] REC#: [id number] PT STATUS: REG ER : 1940 PHYSICIAN: CHIP PEREA MD ADMIT DATE: 01/03/22/ER FS Draft Date of Exam:01/03/22 CT ABDOMEN/PELVIS WO PROCEDURE: CT abdomen and pelvis without contrast. TECHNIQUE: Multiple contiguous axial images were obtained through the abdomen and pelvis without the use of intravenous contrast. Auto Exposure Controls were utilized during the CT exam to meet ALARA standards for radiation dose reduction. INDICATION: Diffuse abdominal pain. EXAMINATION: CT abdomen and pelvis without contrast 01/03/2022. FINDINGS: Scattered groundglass opacities noted within the visualized right lower lobe with additional changes of atelectasis or scarring bilaterally. Mild bibasilar bronchiectasis also noted. There are small bilateral pleural effusions right greater than left. The nonopacified abdominal viscera demonstrate no gross acute abnormality within the liver or spleen. There is a large rounded hyperdensity within the gallbladder fundus which could represent a large stone. This is at least 2.4 cm in greatest dimension. No surrounding inflammatory changes appreciated. The adrenal glands normal. Pancreas unremarkable for acute disease. A few scattered calcifications perhaps due to a prior history of pancreatitis. There is no acute process in either kidney. Visualized aspects of the ureters are unremarkable. There are findings of mild constipation. Nonobstructive bowel gas pattern is noted. Appendix not identified but no inflammatory changes seen in the right lower quadrant. There is no ascites. No free air. There are degenerative findings within the spine. There is no acute osseous abnormality. There is diffuse atherosclerotic disease. IMPRESSION: 1. Groundglass opacities in the visualized lung bases more so on the right possibly due to pneumonia. Correlate with symptoms. Small bilateral pleural effusions right greater than left. 2. Incidental findings throughout the abdomen and pelvis with no acute process appreciated. Cholelithiasis is noted. If there is right upper quadrant pain sonography could provide further characterization as clinically warranted. Dictated on workstation # [id number] Dict: 01/03/2247 Trans: 01/03/2218 [facility] [id number] Interpreted by: JAYESH JONES MD Electronically signed by: (LINA MELÉNDEZ MD) Transfer of Care Transfer of Care Time: 07:00 Care transferred to: Dr. Meléndez (CHIP PEREA MD) Departure Impression Primary Impression: Acute respiratory failure with hypoxia Additional Impressions: Diffuse abdominal pain Bilateral pneumonia Qualified Codes: J18.9 - Pneumonia, unspecified organism Disposition: 30 STILL A PATIENT Condition: Critical Admissions Decision to Admit Reason: Admit from ER (General) Decision to Admit/Date: Jan 03, 2022 Time/Decision to Admit Time: 07:28 (LINA MELÉNDEZ MD) Transfer Transfer Facility: [facility] Method of Transfer: EMS (LINA MELÉNDEZ MD) Departure-Patient Inst. Referrals: MARCELLO REYES MD (PCP/Family) Primary Care Physician CHIP PEREA MD Jan 03, 2022 06:22 LINA MELÉNDEZ MD Jan 03, 2022 07:27
[2022-01-03 06:40] LABS: ABG BASE EXCESS 1.9 MMOL/L (-2.5-2.5); ABG OXYGEN SATURATION 88 % (94-100); ABG PCO2 64 MMHG (35-45); ABG PH 7.28 (7.37-7.43); ABG PO2 62 MMHG (79-93); ABG TCO2 32.1 MMOL/L (21.0-31.0)
[2022-01-03 06:41] LABS: ALLENS TEST YES-POS; INSPIRED O2 13 L; PATIENT TEMP 36; VENTILATOR NO
[2022-01-03 06:44] LABS: BASOPHILS # (AUTO) 0.1 10^3/uL (0.0-0.1); BASOPHILS % (AUTO) 0 % (0-10); EOSINOPHILS # (AUTO) 0.1 10^3/uL (0.0-0.3); EOSINOPHILS % (AUTO) 1 % (0-10); HEMATOCRIT 37 % (35-52); HEMOGLOBIN 11.2 g/dL (11.5-16.0); LYMPHOCYTES # (AUTO) 2.5 10^3/uL (1.0-4.0); LYMPHOCYTES % (AUTO) 18 % (12-44); MEAN CORPUSCULAR HEMOGLOBIN 26 pg (25-34); MEAN CORPUSCULAR HGB CONC 31 g/dL (32-36); MEAN CORPUSCULAR VOLUME 85 fL (80-99); MONOCYTES # (AUTO) 0.9 10^3/uL (0.0-1.0); MONOCYTES % (AUTO) 6 % (0-12); NEUTROPHILS # (AUTO) 10.1 10^3/uL (1.8-7.8); NEUTROPHILS % (AUTO) 74 % (42-75); PLATELET COUNT 249 10^3/uL (130-400); WHITE BLOOD COUNT 13.6 10^3/uL (4.3-11.0)
[2022-01-03 06:58] LABS: BILIRUBIN,URINE NEGATIVE (NEGATIVE); CLARITY,URINE CLEAR; COLOR,URINE YELLOW; GLUCOSE, URINE (UA) NEGATIVE (NEGATIVE); KETONES,URINE NEGATIVE (NEGATIVE); LEUKOCYTE ESTERASE ,URINE NEGATIVE (NEGATIVE); NITRITE,URINE NEGATIVE (NEGATIVE); PH,URINE 5.5 (5-9); PROTEIN,URINE NEGATIVE (NEGATIVE)
[2022-01-03 07:05] LABS: BACTERIA,URINE NEGATIVE /HPF; RBC,URINE RARE /HPF; SQUAMOUS EPITHELIAL CELL,UR RARE /HPF; WBC,URINE 0-2 /HPF
[2022-01-03 07:09] LABS: CARBON DIOXIDE 25 MMOL/L (21-32); CHLORIDE 100 MMOL/L (98-107); POTASSIUM 4.4 MMOL/L (3.6-5.0); SODIUM 136 MMOL/L (135-145)
[2022-01-03 07:10] LABS: ALANINE AMINOTRANSFERASE 102 U/L (0-55); ALKALINE PHOSPHATASE 91 U/L (40-136); BILIRUBIN,TOTAL 0.3 MG/DL (0.1-1.0); BUN/CREATININE RATIO 32; CALCIUM 9.1 MG/DL (8.5-10.1); CREATININE SERUM 0.47 MG/DL (0.60-1.30); GFR ESTIMATED 97; GLUCOSE 144 MG/DL (70-105)
--- NOTE | 2022-01-03 07:10 | Diagnostic Imaging Report ---
INDICATION: Shortness of breath. EXAMINATION: Chest 01/03/2022 COMPARISON: 10/17/2020 FINDINGS: Left-sided pacemaker and a loop recorder device stable. Heart unremarkable. Pulmonary vasculature congested. There is bibasilar infiltrate with a small left effusion noted. There is no pneumothorax. Minimally coarsened interstitial markings suggest mild edema. IMPRESSION: 1. Findings suspicious for mild pulmonary edema. 2. Bibasilar infiltrates with small left effusion. Followup recommended to assure resolution. Dictated by: Dictated on workstation # [id number]
[2022-01-03 07:11] LABS: ALBUMIN 3.9 GM/DL (3.2-4.5); TOTAL PROTEIN 6.6 GM/DL (6.4-8.2)
--- NOTE | 2022-01-03 07:18 | Diagnostic Imaging Report ---
PROCEDURE: CT abdomen and pelvis without contrast. TECHNIQUE: Multiple contiguous axial images were obtained through the abdomen and pelvis without the use of intravenous contrast. Auto Exposure Controls were utilized during the CT exam to meet ALARA standards for radiation dose reduction. INDICATION: Diffuse abdominal pain. EXAMINATION: CT abdomen and pelvis without contrast 01/03/2022. FINDINGS: Scattered groundglass opacities noted within the visualized right lower lobe with additional changes of atelectasis or scarring bilaterally. Mild bibasilar bronchiectasis also noted. There are small bilateral pleural effusions right greater than left. The nonopacified abdominal viscera demonstrate no gross acute abnormality within the liver or spleen. There is a large rounded hyperdensity within the gallbladder fundus which could represent a large stone. This is at least 2.4 cm in greatest dimension. No surrounding inflammatory changes appreciated. The adrenal glands normal. Pancreas unremarkable for acute disease. A few scattered calcifications perhaps due to a prior history of pancreatitis. There is no acute process in either kidney. Visualized aspects of the ureters are unremarkable. There are findings of mild constipation. Nonobstructive bowel gas pattern is noted. Appendix not identified but no inflammatory changes seen in the right lower quadrant. There is no ascites. No free air. There are degenerative findings within the spine. There is no acute osseous abnormality. There is diffuse atherosclerotic disease. IMPRESSION: 1. Groundglass opacities in the visualized lung bases more so on the right possibly due to pneumonia. Correlate with symptoms. Small bilateral pleural effusions right greater than left. 2. Incidental findings throughout the abdomen and pelvis with no acute process appreciated. Cholelithiasis is noted. If there is right upper quadrant pain sonography could provide further characterization as clinically warranted. Dictated by: Dictated on workstation # [id number]
[2022-01-03] MEDS ORDERED: methylPREDNISolone 125 MG (Solu-MEDROL) VIAL IV ONE (07:30)
[2022-01-03] MEDS ORDERED: cefTRIAXone 1 GM PRE-MIX 50 ML IV ONE (07:30)
[2022-01-03] MEDS ORDERED: DOXYCYCLINE 100 MG (VIBRAMYCIN) TABLET PO ONE (07:30)
[2022-01-03] MEDS ORDERED: FUROSEMIDE 40 MG/4 ML INJ (LASIX) IVP ONE (07:30)
[2022-01-03] MEDS ORDERED: ACETAMINOPHEN 325 MG TABLET PO PRN (10:00)
[2022-01-03] MEDS ORDERED: LORazepam 0.5 MG (ATIVAN) TABLET PO PRN (10:00)
[2022-01-03] MEDS ORDERED: BISACODYL 10 MG SUPP (DULCOLAX) PR PRN (10:00)
[2022-01-03] MEDS ORDERED: diphenhydrAMINE 50 MG/ML INJ (BENADRYL) IVP PRN (10:00)
[2022-01-03] MEDS ORDERED: polyethylene glycoL POWDER 17 GM (MIRALAX) PACK PO PRN (10:00)
[2022-01-03] MEDS ORDERED: ONDANSETRON 4 MG (ZOFRAN) ORAL DISSOLVE TAB PO PRN (10:00)
[2022-01-03] MEDS ORDERED: diphenhydrAMINE 25 MG TAB (BENADRYL) PO PRN (10:00)
[2022-01-03] MEDS ORDERED: ANTACID SUSP 30 ML UDC (MYLANTA) PO PRN (10:00)
[2022-01-03] MEDS ORDERED: morphine INJ 4 MG/ML 1 ML (VIAL/SYRINGE) IV PRN (10:00)
[2022-01-03] MEDS ORDERED: NS IV 500 ML 500 ML IV PRN (10:00)
[2022-01-03] MEDS ORDERED: MELATONIN 3 MG TABLET PO PRN (10:00)
[2022-01-03] MEDS ORDERED: ONDANSETRON 4 MG/2 ML (SDV) Z0FRAN IV PRN (10:00)
[2022-01-03] MEDS: cefTRIAXone 1 GM PRE-MIX 50 ML IV SCH (10:30)
--- NOTE | 2022-01-03 10:41 | Tele-ICU Consult ---
History of Present Illness History of Present Illness Date Seen by Provider: Jan 03, 2022 Time Seen by Provider: 10:37 History of Present Illness 81 yo F came to ED with SOB, abd pain, SpO2 77% placed on BIPAP 12/5 FiO2 40% with good improvment in mentation and oxygenation. Now on high flow 10 lpm SpO2 96% possible infiltrate on CXR, started on po doxycycline, Rocephin, IV Medrol, CT abd shows opacities in RLL, possilbe stone in GB, In ED initial BP was 215/90, BP now 160/90LA was 1.28, WBC up at 13.6, co agulation normal, trop normal, BNP high at 741, initial ABG 7.28/64/64 PMH COPD, paroxysmal a fib-takes po cardizem at home and Xarelto, ?CHF , given IV Lasix in ED, BNP was high also Allergies and Home Medications Allergies Coded Allergies: iodine (Verified Allergy, Unknown, 10/16/20) shellfish derived (Verified Allergy, Unknown, 04/24/20) Home Medications Ascorbate Calcium 500 Mg Tablet, 500 MG PO BID, (Reported) Calcium Carbonate/Vitamin D3 1 Each Capsule, 1 EACH PO BID, (Reported) Cetirizine HCl 10 Mg Capsule, 10 MG PO DAILY, (Reported) Diltiazem HCl 120 Mg Cap.er.24h, 120 MG PO DAILY, (Reported) Esomeprazole Magnesium 20 Mg Capsule.dr, 20 MG PO DAILY, (Reported) Flaxseed/Omega3,6,9/Fatty Acid 1 Each Capsule, 1 EACH PO HS, (Reported) Flecainide Acetate 50 Mg Tablet, 50 MG PO 0000,1200, (Reported) Ibuprofen 200 Mg Tablet, 200-400 MG PO Q8H PRN for PAIN-MILD (1-4), (Reported) Lisinopril 10 Mg Tablet, 10 MG PO DAILY, (Reported) Prednisone 20 Mg Tab, 20 MG PO DAILY Take 3 tabs x 3 days then Take 2 tabs x 3 days then take 1 tab x 3 days then 1/2 tab x 4 days then STOP Prescribed by: LEIDA JOHNSON on 10/19/20 1154 Raloxifene HCl 60 Mg Tablet, 60 MG PO 1800, (Reported) Rivaroxaban 20 Mg Tablet, 20 MG PO DAILY, (Reported) Simethicone 125 Mg Capsule, 125 MG PO QID PRN for GAS, (Reported) Timolol Maleate 5 Ml Drops, 1 DROP OU BID, (Reported) Vit A,C & E/Lutein/Minerals 1 Each Tablet, 1 EACH PO HS, (Reported) Vitamin B Complex 1 Each Capsule, 1 EACH PO HS, (Reported) Past Medical/Social/Family Hx Patient Social History Smoking Status: Unknown if Ever Smoked Substance use?: No Alcohol Use?: No Pt stated abuse/neglect: Unable to obtain Immunizations Up To Date Tetanus Booster (TDap): Unknown Hepatitis A: No Hepatitis B: No TB Skin Test: Negative Current Status Advance Directives: Unable to obtain Communicates: Verbally Primary Language: Burmese Preferred Spoken Language: Burmese Is interpretation needed?: No Implanted or Applied Medical D: Pacemaker Review of Systems Constitutional: see HPI EENTM: see HPI Respiratory: see HPI Cardiovascular: see HPI Gastrointestinal: see HPI Genitourinary: see HPI Musculoskeletal: see HPI Skin: see HPI Psychiatric/Neurological: See HPI Focused Exam Lactate Level 01/03/22 06:15: Lactic Acid Level 1.28 Height, Weight, BMI Height: '" Weight: lbs. oz. kg; 24.67 BMI Method: Exam Exam Patient acknowledged, consented, and participated in this virtual visit which was conducted using real time audio/video Vital Signs Date Time Temp Pulse Resp B/P (MAP) Pulse Ox O2 Delivery O2 Flow Rate FiO2 01/03/22 10:15 84 24 160/90 (113) High Flow N/C 10.00 01/03/22 10:00 80 23 162/84 (110) High Flow N/C 10.00 01/03/22 09:48 84 01/03/22 09:45 155/83 (107) High Flow N/C 10.00 01/03/22 08:55 36.4 84 16 129/76 100 NIV CPAP 01/03/22 07:07 99 NIV CPAP 61 01/03/22 06:48 93 OxyMask 11.00 01/03/22 05:54 36.0 98 32 215/90 (131) 77 OxyMask 11.00 Height & Weight Height: '" Weight: lbs. oz. kg; 24.67 BMI Method: General Appearance: Anxious, Chronically ill, Moderate Distress (working hard to breath and speaking in 2-3 word sentences) HEENT: No Moist Mucous Membranes (dry mucous membranes); Other (widespread dental decay and poor dental hygiene) Neck: Full Range of Motion, Normal Inspection, Non Tender, Supple Respiratory: Chest Non Tender, Accessory Muscle Use, Crackles, Decreased Breath Sounds, Respiratory Distress; No Stridor, No Wheezing Cardiovascular: Regular Rate, Rhythm, No Edema, Normal Peripheral Pulses Capillary Refill: Less Than 3 Seconds Gastrointestinal: normal bowel sounds, non tender, soft Extremity: Normal Capillary Refill, Pedal Edema Neurologic/Psychiatric: Alert, Oriented x3, Other (anxious and working hard to breath) Skin: Diaphoresis, Pallor Results Lab Laboratory Tests 01/03/22 06:15 Assessment/Plan Assessment/Plan AECOPD, will continue on abx, IV Medrol, possible GB stone CHF continue IV Lasix p a fib, will continue Xarelto, now in sinus Critical Care: Critically Ill Patient Time spent with patient (mins): 30 RASHEED FOURNIER MD Jan 03, 2022 10:40
[2022-01-03] MEDS: inSUlin ASPART (NovoLOG) 1 UNIT/0.01 ML (CHARGE PER UNIT) SC SCH ×3 (11:00→20:12)
--- NOTE | 2022-01-03 11:59 | History & Physical-Hospitalist ---
MADISON PHAM 01/03/22 1159: History of Present Illness HPI/Chief Complaint 81F was brought to ED via EMS with complaints of abd pain and urinary retention was admitted to ICU for PNA w/ CO2 narcosis today. Pt claims of dry cough, SOB, and rt post rib pain 11/21. Jorgensen cath in place to relieve retention and broad spectrum Abx therapy was initiated. Pt denies any fever, N/V, CP or palpitations and claims abd pain has subsided. Chest x-ray, abd CT, and ABG were preformed today and pt was placed on bi-pap and high flow nasal O2. Pt was able to converse with no SOB. BP is elevated and Cardio has been consulted. Source: patient, old records Exam Limitations: no limitations Date Seen 01/03/22 Time Seen by a Provider: 11:00 Attending Physician Ponce Vargas MD PCP Admitting Physician: Caitlyn Perea DO Attending Physician: Caitlyn Perea DO Referring Physician Date of Admission Jan 03, 2022 at 09:35 Home Medications & Allergies Home Medications Reviewed patient Home Medication Reconciliation performed by pharmacy medication reconciliations auto body technician and/or nursing. Patients Allergies have been reviewed. Allergies Allergies Coded Allergies iodine (Verified Allergy, Unknown, 10/16/20) shellfish derived (Verified Allergy, Unknown, 04/24/20) Past Eqmkzlo-Lliipa-Mcxprv Hx Patient Social History Tobacco Use?: Yes Tobacco type used: Cigarettes Smoking Status: Current Everyday Smoker Smokeless Tobacco Frequency: Never a User Use of E-Cig and/or Vaping dev: No Substance use?: No Alcohol Use?: No Pt feels they are or have been: No Immunizations Up To Date Date of Influenza Vaccine: Mar 13, 2020 Tetanus Booster (TDap): Unknown Hepatitis A: No Hepatitis B: No PED Vaccines UTD: Yes Seasonal Allergies Seasonal Allergies: No Current Status Advance Directives: Yes Advance Directive Location: Unable to obtain copy Communicates: Verbally Primary Language: Guyanese Preferred Spoken Language: Guyanese Is interpretation needed?: No Implanted or Applied Medical D: Pacemaker, Stents Past Medical History Surgeries: Oophorectomy, Pacemaker Atrial Fibrillation, Hypertension Blood Disorders: No Review of Systems Constitutional: see HPI EENTM: No blurred vision, No double vision, No nose congestion, No throat pain Respiratory: cough, dyspnea on exertion; No hemoptysis; short of breath, other (crackles in Lower Lung vela BL) Cardiovascular: No chest pain, No edema Gastrointestinal: No abdominal pain, No diarrhea, No nausea, No vomiting Genitourinary: decreased output, incontinence Musculoskeletal: back pain (Rt post rib wall) Skin: no symptoms reported Psychiatric/Neurological: Anxiety Physical Exam Physical Exam Vital Signs Vital Signs - First Documented 01/03/22 01/03/22 05:54 07:07 Temp 36.0 Pulse 98 Resp 32 B/P (MAP) 215/90 (131) Pulse Ox 77 O2 Delivery OxyMask O2 Flow Rate 11.00 FiO2 61 Capillary Refill : Less Than 3 Seconds Height, Weight, BMI Height: '" Weight: lbs. oz. kg; 23.70 BMI Method: General Appearance: Anxious, Moderate Distress Eyes: Bilateral Eye EOMI HEENT: PERRL/EOMI Neck: Normal Inspection, Non Tender, Supple Respiratory: Chest Non Tender, Crackles, Respiratory Distress Cardiovascular: Regular Rate, Rhythm, No Edema, No Gallop, No Murmur, Normal Peripheral Pulses Gastrointestinal: Normal Bowel Sounds, No Organomegaly, No Pulsatile Mass, Non Tender, Soft Back: Muscle Spasm (inter-costal muscles) Extremity: Normal Capillary Refill, Non Tender, No Calf Tenderness, No Pedal Edema Neurologic/Psychiatric: Alert, Oriented x3 Skin: Cool, Pallor Results Results/Procedures Labs Laboratory Tests 01/03/22 06:15 Patient resulted labs reviewed. Assessment/Plan Admission Diagnosis PNA wuth CO2 narcosis Admission Status: Inpatient Order (span 2 midnights) Reason for Inpatient Admission: PNA Assessment and Plan 1)PNA * continue broad spectrum abx * supplemental O2 * IV fluids * continue duoneb therapy * sputum culture to ID pathogen * serial CBC and CMP * chest x-ray in 48 hrs 2)CO2 narcosis * supplemental O2 with bi-pap * monitor RR * repeat ABG 3) Urinary retention * leave jorgensen cath in place * monitor output * obtain Ucx for possible UTI 4) HTN * consult cardio * continue med regimen CAITLYN PEREA DO 01/04/22 0528: History of Present Illness HPI/Chief Complaint CC: Acute respiratory failure HPI: This is a [facility] pt. She presented to [place] ER with weakness and hypoxia of 60%. ABG was evaluated. Revealing CO2 at 65. She was placed on BiPAP. That improved immensely. She was found to have pneumonia. No evidence of any sepsis but she will be placed on Rocephin and Doxycycline. Pt will be placed in the ICU. Source: patient Exam Limitations: no limitations Past Hnesfup-Yxcmyu-Dowvjq Hx Patient Social History Marrital Status: single Employed/Student: retired Review of Systems Constitutional: see HPI Respiratory: cough, dyspnea on exertion Physical Exam Physical Exam General Appearance: No Apparent Distress, Anxious, Chronically ill, Mild Distress Respiratory: Accessory Muscle Use, Crackles, Respiratory Distress Cardiovascular: Regular Rate, Rhythm Assessment/Plan Admission Diagnosis Acute resp failure CO2 retention PNA AF CAD Plan: Cardiology EICU IV Abx Admission Status: Inpatient Order (span 2 midnights) Reason for Inpatient Admission: resp failure Supervisory-Addendum Brief Verification & Attestation Participated in pt care: history, MDM, physical Personally performed: exam, history, MDM, supervision of care Care discussed with: Medical Student Procedures: n/a Results interpretation: Verified all documentation Verification and Attestation of Medical Student E/M Service A medical student performed and documented this service in my presence. I reviewed and verified all information documented by the medical student and made modifications to such information, when appropriate. I personally performed the physical exam and medical decision making. Caitlyn Perea Jan 04, 2022,05:26 MADISON PHAM Jan 03, 2022 11:59 CAITLYN PEREA DO Jan 04, 2022 05:28
--- NOTE | 2022-01-03 12:20 | Consultation-Cardiology ---
HPI-Cardiology Cardiology Consultation Date of Consultation 01/03/22 Date of Admission Time Seen by Provider: 11:00 Indication: Acute respiratory failure HPI 81-year-old lady with history of hypertension, admitted with acute respiratory failure, has been having increasing abdominal pain. She has been having difficulty breathing, she was admitted with CO2 narcosis, on my evaluation she was feeling better. Still having abdominal discomfort, no nausea or vomiting, mild diarrhea. Admit having chest discomfort and increasing shortness of breath and difficulty taking a deep breath Home Medications & Allergies Allergies: Coded Allergies: iodine (Verified Allergy, Unknown, 10/16/20) shellfish derived (Verified Allergy, Unknown, 04/24/20) Home Medication List Reviewed: Yes VQT-Gziatv-Nwcsig Hx Patient Social History Marital Status: single Employed/Student: retired Smoking Status: Current Everyday Smoker Type Used: Cigarettes 2nd Hand Smoke Exposure: Yes Recent Hopitalizations: No Have you traveled recently?: No Alcohol Use?: No Immunizations Up To Date Tetanus Booster (TDap): Unknown Date of Influenza Vaccine: Mar 13, 2020 Past Medical History Discussed below Family Medical History Family Medical Hx Noncontributory Review of Systems-General Review of Systems Constitutional: see HPI, malaise, weakness EENTM: see HPI; No blurred vision, No double vision, No nose congestion, No throat pain Respiratory: see HPI, cough, dyspnea on exertion; No hemoptysis; short of breath, other (crackles in Lower Lung vela BL) Cardiovascular: see HPI, chest pain; No edema, No Hx of Intervention, No palpitations, No syncope, No vascular heart diseas, No other Gastrointestinal: see HPI; No abdominal pain, No diarrhea, No nausea, No vomiting Genitourinary: see HPI, decreased output, incontinence Musculoskeletal: see HPI, back pain (Rt post rib wall) Skin: no symptoms reported, see HPI Psychiatric/Neurological: Anxiety Reviewed Test Results Reviewed Test Results Lab Laboratory Tests Test 01/03/22 06:15 01/03/22 06:18 01/03/22 06:27 01/03/22 06:46 Range/Units White Blood Count 13.6 H 4.3-11.0 10^3/uL Red Blood Count 4.28 3.80-5.11 10^6/uL Hemoglobin 11.2 L 11.5-16.0 g/dL Hematocrit 37 35-52 % Mean Corpuscular Volume 85 80-99 fL Mean Corpuscular Hemoglobin 26 25-34 pg Mean Corpuscular Hemoglobin Concent 31 L 32-36 g/dL Red Cell Distribution Width 16.8 H 10.0-14.5 % Platelet Count 249 130-400 10^3/uL Mean Platelet Volume 12.0 9.0-12.2 fL Immature Granulocyte % (Auto) 0 % Neutrophils (%) (Auto) 74 42-75 % Lymphocytes (%) (Auto) 18 12-44 % Monocytes (%) (Auto) 6 0-12 % Eosinophils (%) (Auto) 1 0-10 % Basophils (%) (Auto) 0 0-10 % Neutrophils # (Auto) 10.1 H 1.8-7.8 10^3/uL Lymphocytes # (Auto) 2.5 1.0-4.0 10^3/uL Monocytes # (Auto) 0.9 0.0-1.0 10^3/uL Eosinophils # (Auto) 0.1 0.0-0.3 10^3/uL Basophils # (Auto) 0.1 0.0-0.1 10^3/uL Immature Granulocyte # (Auto) 0.1 0.0-0.1 10^3/uL Prothrombin Time 14.0 12.2-14.7 SEC INR Comment 1.0 0.8-1.4 Activated Partial Thromboplast Time 31 24-35 SEC Sodium Level 136 135-145 MMOL/L Potassium Level 4.4 3.6-5.0 MMOL/L Chloride Level 100 98-107 MMOL/L Carbon Dioxide Level 25 21-32 MMOL/L Anion Gap 11 5-14 MMOL/L Blood Urea Nitrogen 15 7-18 MG/DL Creatinine 0.47 L 0.60-1.30 MG/DL Estimat Glomerular Filtration Rate 97 BUN/Creatinine Ratio 32 Glucose Level 144 H 70-105 MG/DL Lactic Acid Level 1.28 0.50-2.00 MMOL/L Calcium Level 9.1 8.5-10.1 MG/DL Corrected Calcium 9.2 8.5-10.1 MG/DL Total Bilirubin 0.3 0.1-1.0 MG/DL Aspartate Amino Transf (AST/SGOT) 70 H 5-34 U/L Alanine Aminotransferase (ALT/SGPT) 102 H 0-55 U/L Alkaline Phosphatase 91 40-136 U/L Troponin I < 0.30 <0.30 NG/ML C-Reactive Protein 1.28 H <0.50 MG/DL Pro-B-Type Natriuretic Peptide 740.9 H <450.0 PG/ML Total Protein 6.6 6.4-8.2 GM/DL Albumin 3.9 3.2-4.5 GM/DL Influenza Type A (RT-PCR) Not Detected Not Detecte Influenza Type B (RT-PCR) Not Detected Not Detecte SARS-CoV-2 RNA (RT-PCR) Not Detected Not Detecte Blood Gas Puncture Site RT. RADIAL Blood Gas Patient Temperature 36 Arterial Blood pH 7.28 *L 7.37-7.43 Arterial Blood Partial Pressure CO2 64 H 35-45 MMHG Arterial Blood Partial Pressure O2 62 L 79-93 MMHG Arterial Blood HCO3 30 H 23-27 MMOL/L Arterial Blood Total CO2 32.1 H 21.0-31.0 MMOL/L Arterial Blood Oxygen Saturation 88 L 94-100 % Arterial Blood Base Excess 1.9 -2.5-2.5 MMOL/L Brennen Test YES-POS Blood Gas Ventilator Setting NO Blood Gas Inspired Oxygen 13 L Urine Color YELLOW Urine Clarity CLEAR Urine pH 5.5 5-9 Urine Specific [facility] >=1.030 1.016-1.022 Urine Protein NEGATIVE NEGATIVE Urine Glucose (UA) NEGATIVE NEGATIVE Urine Ketones NEGATIVE NEGATIVE Urine Nitrite NEGATIVE NEGATIVE Urine Bilirubin NEGATIVE NEGATIVE Urine Urobilinogen 0.2 < = 1.0 MG/DL Urine Leukocyte Esterase NEGATIVE NEGATIVE Urine RBC (Auto) NEGATIVE NEGATIVE Urine RBC RARE /HPF Urine WBC 0-2 /HPF Urine Squamous Epithelial Cells RARE /HPF Urine Crystals NONE /LPF Urine Bacteria NEGATIVE /HPF Urine Casts PRESENT /LPF Urine Hyaline Casts 5-10 H /LPF Urine Mucus LARGE H /LPF Urine Culture Indicated NO Test 01/03/22 11:10 01/03/22 11:40 Range/Units Glucometer 103 70-110 MG/DL Bedside Blood Gas pH (LAB) 7.411 H 7.310-7.410 Bedside Blood Gas pCO2 (LAB) 46.7 41.0-51.0 mmHg Bedside Blood Gas pO2 (LAB) 75 L 80-105 mmHg Bedside Blood Gas HCO3 (LAB) 29.7 H 23.0-28.0 mmol/L POC Blood Gas Total CO2 Calc 31 H 24-29 mmol/L Bedside Bl Gas O2 Saturation (Calc) 95 95-98 % Bedside Arterial Blood Base Excess 5 H -2-3 mmol/L Physical Exam Physical Exam Vital Signs Vital Signs - First Documented 01/03/22 01/03/22 05:54 07:07 Temp 36.0 Pulse 98 Resp 32 B/P (MAP) 215/90 (131) Pulse Ox 77 O2 Delivery OxyMask O2 Flow Rate 11.00 FiO2 61 Capillary Refill : Less Than 3 Seconds Height, Weight, BMI Height: '" Weight: lbs. oz. kg; 23.70 BMI Method: General Appearance: Anxious, Mild Distress Eyes: Bilateral Eye EOMI HEENT: PERRL/EOMI Neck: Normal Inspection, Non Tender, Supple Respiratory: Chest Non Tender, Crackles, Decreased Breath Sounds, Respiratory Distress Cardiovascular: Regular Rate, Rhythm, No Edema, No Gallop, No Murmur, Normal Peripheral Pulses Gastrointestinal: Normal Bowel Sounds, No Organomegaly, No Pulsatile Mass, Non Tender, Soft Rectal: Deferred Back: Muscle Spasm (inter-costal muscles) Extremity: Normal Capillary Refill, Non Tender, No Calf Tenderness, No Pedal Edema Neurologic/Psychiatric: Alert, Oriented x3 Skin: Cool, Pallor Lymphatic: No Adenopathy A/P-Cardiology Admission Diagnosis Acute respiratory failure Abdominal pain Paroxysmal atrial fibrillation Hypertension Hyperlipidemia. Assessment/Plan Acute respiratory failure, breathing better at this time Reporting improvement. Responding to antibiotics and diuretics. Continue to monitor Abdominal pain, mild diarrhea, dysuria. Receiving antibiotic and managed by primary care physician Paroxysmal atrial fibrillation, maintained on flecainide, diltiazem and Xarelto. Currently in sinus rhythm. Continue to monitor Sinus node dysfunction, history of [place] pacemaker implanted in June 2020. Continue to monitor Echocardiogram done in September 2020 showing normal LV size and function, ejection fraction 60 to 65%, mild aortic valve stenosis, PA pressure 40 to 45 mmHg. 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 Currently asymptomatic Hypertension, restart home medication monitor blood pressure Hyperlipidemia, monitor lipids Mild bilateral carotid stenosis, continue to monitor JOVITA CHARLES MD Jan 03, 2022 12:20
--- NOTE | 2022-01-03 12:36 | Diagnostic Imaging Report ---
CLINICAL INDICATION: Patient with shortness of air. EXAM: Portable chest x-ray, upright view. COMPARISON: Chest x-ray dated 01/03/2022. FINDINGS: There is interval development of a small right pleural effusion. There is progression of patchy airspace opacities involving both lung bases. There are subtle increased curvilinear opacities involving the right upper lobe region. Stable mild pulmonary vascular congestion. Cardiac silhouette is within normal limits. There is slight blunting of the left costophrenic angle region and a small left pleural effusion is suspected. There is no pneumothorax. Cardiac pacemaker wires are again seen. Loop recorder is again noted. The remainder of this exam shows no significant interval change compared to the prior study of comparison. IMPRESSION: 1: Interval progression of bibasilar atelectasis versus infiltrate. 2: Stable pulmonary vascular congestion. Cardiac silhouette is within normal limits. 3: There is interval development of a small right pleural effusion and stable left pleural effusion. 4: The remainder of this exam shows no significant interval change compared to the prior study of comparison. Dictated by: Dictated on workstation # [id number]
[2022-01-03] MEDS ORDERED: RT-ALBUTEROL SULF 2.5 MG/3 ML PRE-MIX VIAL INH PRN (13:45)
[2022-01-03] MEDS: RT-ALBUTEROL SULF 2.5 MG/3 ML PRE-MIX VIAL INH SCH ×3 (14:25→21:19)
[2022-01-03] MEDS ORDERED: meTOprolol 5 MG/5 ML (LOPRESSOR) VIAL IV NR (14:30)
[2022-01-03] MEDS ORDERED: ASCO100024 PO (14:52)
[2022-01-03] MEDS ORDERED: FURO20TA4 PO (14:52)
[2022-01-03] MEDS ORDERED: ACET-2267 PO (14:52)
[2022-01-03] MEDS ORDERED: POTA10TA PO (14:52)
[2022-01-03] MEDS ORDERED: LOPE2TAB32 PO (14:52)
[2022-01-03] MEDS ORDERED: VITA0.4T18 PO (14:52)
[2022-01-03] MEDS: NS IV 1000 ML 1,000 ML IV SCH (17:42)
[2022-01-03] MEDS: RIVAROXABAN 20 MG TABLET (XARELTO) PO SCH (17:43)
[2022-01-03] MEDS: FUROSEMIDE 40 MG/4 ML INJ (LASIX) IVP SCH (17:43)
[2022-01-03] MEDS: DOXYCYCLINE 100 MG (VIBRAMYCIN) TABLET PO SCH (17:43)
[2022-01-03] MEDS: DOCUSATE SODIUM 100 MG (COLACE) CAP PO SCH (20:12)
--- NOTE | 2022-01-03 22:55 | Pulmonary Progress Note ---
Subjective Date Seen by a Provider: Jan 03, 2022 Time Seen by a Provider: 22:55 Subjective/Events-last exam pt developed a fib with hr 80-120 Sepsis Event Evaluation Height, Weight, BMI Height: '" Weight: lbs. oz. kg; 23.70 BMI Method: Focused Exam Lactate Level 01/03/22 06:15: Lactic Acid Level 1.28 Exam Exam Patient acknowledged, consented, and participated in this virtual visit which was conducted using real time audio/video Vital Signs Date Time Temp Pulse Resp B/P (MAP) Pulse Ox O2 Delivery O2 Flow Rate FiO2 01/03/22 21:26 High Flow N/C 3.00 01/03/22 21:19 97 Nasal Cannula 4.00 01/03/22 20:00 94 High Flow N/C 4.00 01/03/22 19:47 36.3 High Flow N/C 4.00 01/03/22 19:00 84 01/03/22 18:50 94 Nasal Cannula 4.00 01/03/22 18:00 86 14 139/106 (117) High Flow N/C 4.00 01/03/22 17:00 87 21 152/83 (106) High Flow N/C 4.00 01/03/22 16:01 94 Nasal Cannula 4.00 01/03/22 16:00 94 High Flow N/C 4.00 01/03/22 16:00 85 16 150/81 (104) High Flow N/C 4.00 01/03/22 15:00 90 23 High Flow N/C 4.00 01/03/22 14:00 81 20 142/92 (109) High Flow N/C 4.00 01/03/22 13:32 36.2 85 94 01/03/22 13:00 86 01/03/22 13:00 86 20 High Flow N/C 4.00 01/03/22 12:00 85 10 High Flow N/C 4.00 01/03/22 12:00 98 High Flow N/C 10.00 01/03/22 11:00 81 22 177/90 (119) High Flow N/C 10.00 01/03/22 10:30 98 NIV Bilevel 01/03/22 10:15 84 24 160/90 (113) High Flow N/C 10.00 01/03/22 10:00 80 23 162/84 (110) High Flow N/C 10.00 01/03/22 09:48 84 01/03/22 09:45 155/83 (107) High Flow N/C 10.00 01/03/22 08:55 36.4 84 16 129/76 100 NIV CPAP 01/03/22 07:07 99 NIV CPAP 61 01/03/22 06:48 93 OxyMask 11.00 01/03/22 05:54 36.0 98 32 215/90 (131) 77 OxyMask 11.00 Height & Weight Height: '" Weight: lbs. oz. kg; 23.70 BMI Method: General Appearance: Anxious, Mild Distress HEENT: PERRL/EOMI Neck: Normal Inspection, Non Tender, Supple Respiratory: Chest Non Tender, Crackles, Decreased Breath Sounds, Respiratory Distress Cardiovascular: Regular Rate, Rhythm, No Edema, No Gallop, No Murmur, Normal Peripheral Pulses Capillary Refill: Less Than 3 Seconds Gastrointestinal: normal bowel sounds, non tender, soft Extremity: Normal Capillary Refill, Non Tender, No Calf Tenderness, No Pedal Edema Neurologic/Psychiatric: Alert, Oriented x3 Skin: Cool, Pallor Lymphatic: No Adenopathy Results Lab Laboratory Tests 01/03/22 06:15 Assessment/Plan Assessment/Plan A fib with controlled HR; we will resume po cardizem/ ekg ordered GUILLE SPRAGUE MD Jan 03, 2022 22:55
[2022-01-03] MEDS ORDERED: dilTIAZem120 MG (CARDIZEM CD) CAP PO ONE (23:35)
[2022-01-03] MEDS: dilTIAZem120 MG (CARDIZEM CD) CAP PO SCH (23:37)
[2022-01-04] VITALS (15 sets, daily range): BP systolic 87–125; BP diastolic 53–83
[2022-01-04] MEDS: RT-ALBUTEROL SULF 2.5 MG/3 ML PRE-MIX VIAL INH SCH ×5 (02:36→18:41)
[2022-01-04] MEDS ORDERED: MAGNESIUM 1 GM/100 ML IVPB 100 ML IV SCH (06:00)
[2022-01-04] MEDS ORDERED: POTASSIUM CL 10MEQ/50ML IVPB 50 ML IV SCH (06:00)
[2022-01-04] MEDS ORDERED: KCL 20 MEQ TAB (K-DUR) PO SCH (06:00)
[2022-01-04 06:05] LABS: BASOPHILS % (AUTO) 0 % (0-10); EOSINOPHILS # (AUTO) 0.1 10^3/uL (0.0-0.3); EOSINOPHILS % (AUTO) 0 % (0-10); HEMATOCRIT 33 % (35-52); HEMOGLOBIN 10.2 g/dL (11.5-16.0); LYMPHOCYTES % (AUTO) 22 % (12-44); MEAN CORPUSCULAR HEMOGLOBIN 26 pg (25-34); MEAN CORPUSCULAR HGB CONC 31 g/dL (32-36); MEAN CORPUSCULAR VOLUME 84 fL (80-99); MEAN PLATELET VOLUME 11.7 fL (9.0-12.2); MONOCYTES # (AUTO) 1.5 10^3/uL (0.0-1.0); MONOCYTES % (AUTO) 11 % (0-12); NEUTROPHILS # (AUTO) 8.8 10^3/uL (1.8-7.8); NEUTROPHILS % (AUTO) 66 % (42-75); PLATELET COUNT 213 10^3/uL (130-400); WHITE BLOOD COUNT 13.4 10^3/uL (4.3-11.0)
[2022-01-04] MEDS: DOXYCYCLINE 100 MG (VIBRAMYCIN) TABLET PO SCH ×2 (06:06→17:54)
[2022-01-04] MEDS: FUROSEMIDE 40 MG/4 ML INJ (LASIX) IVP SCH ×2 (06:06→17:54)
[2022-01-04] MEDS: NS IV 1000 ML 1,000 ML IV SCH (06:35)
[2022-01-04] MEDS: inSUlin ASPART (NovoLOG) 1 UNIT/0.01 ML (CHARGE PER UNIT) SC SCH (06:36)
[2022-01-04 07:00] LABS: ALBUMIN 3.3 GM/DL (3.2-4.5); BILIRUBIN,TOTAL 0.4 MG/DL (0.1-1.0); CALCIUM 8.3 MG/DL (8.5-10.1); CREATININE SERUM 0.63 MG/DL (0.60-1.30); MAGNESIUM 1.7 MG/DL (1.6-2.4); PHOSPHORUS 3.7 MG/DL (2.3-4.7); POTASSIUM 3.6 MMOL/L (3.6-5.0); TOTAL PROTEIN 5.6 GM/DL (6.4-8.2)
[2022-01-04] MEDS ORDERED: meTOprolol 5 MG/5 ML (LOPRESSOR) VIAL IV ONE (07:45)
[2022-01-04] MEDS ORDERED: KCL 20 MEQ TAB (K-DUR) PO ONE (08:00)
[2022-01-04] MEDS ORDERED: FUROSEMIDE 20 MG (LASIX) TAB PO PRN (08:00)
--- NOTE | 2022-01-04 08:04 | Cardiology Progress Note ---
Subjective Date Seen by Provider: Jan 04, 2022 Time Seen by Provider: 08:02 Subjective/Events-last exam Patient was seen at bedside, having generalized body ache and lower abdominal pain. No chest pain. Went to atrial fibrillation today. Review of Systems General: No Chills, No Night Sweats; Fatigue, Malaise; No Appetite, No Other HEENT: No Head Aches, No Visual Changes, No Eye Pain, No Ear Pain, No Dysphasia, No Sinus Congestion, No Post Nasal Drip, No Sore Throat, No Other Pulmonary: No Dyspnea, No Cough, No Pleuritic Chest Pain, No Other Cardiovascular: No: Chest Pain, Palpitations, Orthopnea, Paroxysmal Noc. Dys pnea, Edema, Lt Headedness, Other Focused Exam Lactate Level 01/03/22 06:15: Lactic Acid Level 1.28 Objective-Cardiology Exam Last Set of Vital Signs Vital Signs 01/03/22 01/03/22 01/04/22 01/04/22 01/04/22 07:07 23:45 06:00 07:00 07:08 Temp 36.0 Pulse 95 Resp 21 B/P (MAP) 121/69 (88) Pulse Ox 97 O2 Delivery Nasal Cannula O2 Flow Rate 3.00 FiO2 61 I&O Intake and Output 01/03/22 23:59 Intake Total 705 ml Output Total 2500 ml Balance -1795 ml Intake Oral 705 ml Output Urine Total 2500 ml Daily Weight Change No General: Alert, Oriented X3, Cooperative HEENT: Atraumatic, PERRLA Neck: Supple, No JVD, No Thyromegaly Lungs: Clear to Auscultation, Normal Air Movement Heart: Normal S1, Normal S2, No Murmurs, Other (Atrial fibrillation) Abdomen: Normal Bowel Sounds, Soft, No Hepatosplenomegaly, No Masses, Other (Lower abdominal tenderness) Extremities: No Clubbing, No Cyanosis, No Edema, Normal Pulses, No Tenderness/Swelling Skin: No Rashes, No Breakdown, No Significant Lesion Neuro: Normal Gait, Normal Speech, Strength at 5/5 X4 Ext, Normal Tone, Sensation Intact Psych/Mental Status: Mental Status NL, Mood NL Results Lab Laboratory Tests 01/04/22 04:38 A/P-Cardiology Admission Diagnosis Acute respiratory failure Abdominal pain Paroxysmal atrial fibrillation Hypertension Hyperlipidemia. Assessment/Plan Status post acute respiratory failure, breathing better at this time Reporting improvement. Responding to antibiotics and diuretics. Continue to monitor Abdominal pain, mild diarrhea, dysuria. Receiving antibiotic and managed by primary care physician Paroxysmal atrial fibrillation, maintained on flecainide, diltiazem and Xarelto. Restarted her medication with flecainide and Xarelto and diltiazem Currently in atrial fibrillation. Possible cardioversion in the morning 2D echo was done on January 03, 2022 showing normal left ventricular size and systolic function, diastolic dysfunction, biatrial enlargement, estimated pulmonary artery pressure of 40 mmHg Sinus node dysfunction, history of [employer] pacemaker implanted in June 2020. Continue to monitor Echocardiogram done in September 2020 showing normal LV size and function, ejection fraction 60 to 65%, mild aortic valve stenosis, PA pressure 40 to 45 mmHg. 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 Currently asymptomatic Hypertension, restart home medication monitor blood pressure Hyperlipidemia, monitor lipids Mild bilateral carotid stenosis, continue to monitor JOVITA CHARLES MD Jan 04, 2022 08:04
[2022-01-04] MEDS: FLECAINIDE 100 MG (TAMBOCOR) TAB PO SCH ×2 (08:23→20:26)
[2022-01-04] MEDS: DOCUSATE SODIUM 100 MG (COLACE) CAP PO SCH ×2 (08:23→20:26)
[2022-01-04] MEDS: dilTIAZem120 MG (CARDIZEM CD) CAP PO SCH ×2 (08:23→09:44)
[2022-01-04] MEDS: MAGNESIUM 1 GM/100 ML IVPB 100 ML IV SCH ×2 (08:24→09:48)
[2022-01-04] MEDS ORDERED: MAGNESIUM 1 GM/100 ML IVPB 100 ML IV ONE (09:46)
[2022-01-04] MEDS: cefTRIAXone 1 GM PRE-MIX 50 ML IV SCH (09:48)
--- NOTE | 2022-01-04 10:44 | Tele-ICU Progress Note ---
Subjective Time Seen by a Provider: 10:43 Subjective/Events-last exam (Tele-ICU Physician , Progress Note ) Available chart/ vitals / labs / Images reviewed Video assessment done using teleICU camera, rest of exam as per RN Discussed with RN Events overnight : Afebrile hemodynamically stable Respiratory - 2 l I/O = neg Drips: ns - to stop today Pressors- no Consultants: elicia Hospital course: A/P Acute resp failure = ? VO vs PNA - off BIPAP for 24 h ? - - 2 L NC - cont diuresis and abx possible PNA - CT with Groundglass opacities- on ceftriaxone Cholelithiasis, Abdominal pain, mild diarrhea, dysuria. 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 Discussed with RN to reach out if any questions or concerns A total of 31 minutes of critical care time was devoted to this patient today, required to treat and/or prevent further deterioration of critical care condition ( as above ) . Sepsis Event Evaluation Height, Weight, BMI Height: '" Weight: lbs. oz. kg; 23.70 BMI Method: Focused Exam Lactate Level 01/03/22 06:15: Lactic Acid Level 1.28 Exam Exam Patient acknowledged, consented, and participated in this virtual visit which was conducted using real time audio/video Vital Signs Date Time Temp Pulse Resp B/P (MAP) Pulse Ox O2 Delivery O2 Flow Rate FiO2 01/04/22 10:09 95 Nasal Cannula 1.00 01/04/22 09:10 95 High Flow N/C 2.00 01/04/22 09:00 95 40 98/73 (81) 92 High Flow N/C 1.00 01/04/22 08:51 High Flow N/C 1.00 01/04/22 08:00 113 21 118/70 (86) 93 High Flow N/C 3.00 01/04/22 07:08 97 Nasal Cannula 3.00 01/04/22 07:00 95 20 105/68 (80) 96 High Flow N/C 3.00 01/04/22 07:00 95 01/04/22 06:00 54 21 121/69 (88) 94 High Flow N/C 3.00 01/04/22 05:00 101 16 125/82 (103) 99 High Flow N/C 3.00 01/04/22 04:00 120 25 121/83 (96) 93 High Flow N/C 3.00 01/04/22 04:00 95 High Flow N/C 2.00 01/04/22 03:00 110 27 112/68 (89) 99 High Flow N/C 3.00 01/04/22 02:36 96 Nasal Cannula 3.00 01/04/22 02:12 94 01/04/22 02:00 93 20 110/68 (85) 99 High Flow N/C 3.00 01/04/22 01:00 107 21 106/59 (85) 99 High Flow N/C 3.00 01/04/22 01:00 107 01/04/22 00:00 95 22 121/72 (88) 96 High Flow N/C 3.00 01/03/22 23:45 36.0 01/03/22 23:43 95 High Flow N/C 2.00 01/03/22 23:00 90 120/69 (93) 97 High Flow N/C 3.00 01/03/22 22:51 89 01/03/22 22:32 105 01/03/22 22:00 112 126/71 (92) 94 High Flow N/C 3.00 01/03/22 21:26 High Flow N/C 3.00 01/03/22 21:19 97 Nasal Cannula 4.00 01/03/22 21:00 121 20 124/78 (96) 96 High Flow N/C 4.00 01/03/22 20:23 126 01/03/22 20:00 94 High Flow N/C 4.00 01/03/22 20:00 84 23 129/61 (95) 98 High Flow N/C 4.00 01/03/22 19:47 36.3 High Flow N/C 4.00 01/03/22 19:00 84 39 131/69 (92) 97 High Flow N/C 4.00 01/03/22 19:00 84 01/03/22 18:50 94 Nasal Cannula 4.00 01/03/22 18:00 86 14 139/106 (117) High Flow N/C 4.00 01/03/22 17:00 87 21 152/83 (106) High Flow N/C 4.00 01/03/22 16:01 94 Nasal Cannula 4.00 01/03/22 16:00 94 High Flow N/C 4.00 01/03/22 16:00 85 16 150/81 (104) High Flow N/C 4.00 01/03/22 15:00 90 23 High Flow N/C 4.00 01/03/22 14:00 81 20 142/92 (109) High Flow N/C 4.00 01/03/22 13:32 36.2 85 94 01/03/22 13:00 86 01/03/22 13:00 86 20 High Flow N/C 4.00 01/03/22 12:00 85 10 High Flow N/C 4.00 01/03/22 12:00 98 High Flow N/C 10.00 01/03/22 11:00 81 22 177/90 (119) High Flow N/C 10.00 I & O 01/04/22 07:00 Intake Total 855 ml Output Total 2925 ml Balance -2070 ml Height & Weight Height: '" Weight: lbs. oz. kg; 23.70 BMI Method: General Appearance: Anxious, Chronically ill, Moderate Distress (working hard to breath and speaking in 2-3 word sentences) HEENT: No Moist Mucous Membranes (dry mucous membranes); Other (widespread dental decay and poor dental hygiene) Neck: Full Range of Motion, Normal Inspection, Non Tender, Supple Respiratory: Chest Non Tender, Accessory Muscle Use, Decreased Breath Sounds, Respiratory Distress; No Stridor, No Wheezing Cardiovascular: Regular Rate, Rhythm, Normal Peripheral Pulses Capillary Refill: Less Than 3 Seconds Gastrointestinal: normal bowel sounds, non tender, soft Extremity: Normal Capillary Refill, Pedal Edema Neurologic/Psychiatric: Alert, Other (anxious and working hard to breath) Skin: Diaphoresis, Pallor Lymphatic: No Adenopathy Results Lab Laboratory Tests 01/03/22 06:15 01/04/22 04:38 Assessment/Plan Assessment/Plan 1 SAMAN MIRAMONTES MD Jan 04, 2022 10:44
--- NOTE | 2022-01-04 11:30 | Progress Note - Hospitalist ---
MADISON PHAM 01/04/22 1130: Subjective HPI/CC On Admission Date Seen by Provider: Jan 04, 2022 Time Seen by Provider: 09:00 CC: Acute respiratory failure HPI: This is a [facility] pt. She presented to [place] ER with weakness and hypoxia of 60%. ABG was evaluated. Revealing CO2 at 65. She was placed on BiPAP. That improved immensely. She was found to have pneumonia. No evidence of any sepsis but she will be placed on Rocephin and Doxycycline. Pt will be placed in the ICU. Subjective/Events-last exam 81 F day 2 of admission to ICU for acute resp. failure with associated PNA. Pt is recovering well today sitting up in chair. Her only complaints were dry cough and flatus.CXR showed BL pleural effusion. MRSA was negative. Pt went into A. fibb last night and was seen by this morning and continued telemetry. Was sinus this morning during encounter, but pt claims she "goes in and out of a fibb". Exclaimes hesitancy on cardioversion. Pt denies having a BM since arrival. She states she is in no pain. Plans to tx to 4th floor today and dc jorgensen cath and IVF. IV abx continued. Review of Systems General: No Chills HEENT: No Head Aches, No Sinus Congestion Pulmonary: No Dyspnea; Cough Cardiovascular: No: Chest Pain, Palpitations, Edema Gastrointestinal: Constipation; No: Nausea, Vomiting, Abdominal Pain Neurological: No: Weakness, Numbness, Change in speech Focused Exam Lactate Level 01/03/22 06:15: Lactic Acid Level 1.28 Objective Exam Vital Signs Vital Signs Date Time Temp Pulse Resp B/P (MAP) Pulse Ox O2 Delivery O2 Flow Rate FiO2 01/04/22 10:09 95 Nasal Cannula 1.00 01/04/22 09:00 95 40 98/73 (81) 01/03/22 23:45 36.0 01/03/22 07:07 61 Capillary Refill : Less Than 3 Seconds General Appearance: Anxious, Mild Distress HEENT: PERRL/EOMI Neck: Normal Inspection, Non Tender, Supple Respiratory: Chest Non Tender, No Accessory Muscle Use, Crackles (lower lung vela) Cardiovascular: No Edema, No Murmur, Normal Peripheral Pulses, Irregularly Irregular Gastrointestinal: Normal Bowel Sounds, No Organomegaly, No Pulsatile Mass, Non Tender, Soft Extremity: Normal Capillary Refill, Non Tender, No Calf Tenderness, No Pedal Edema Neurologic/Psychiatric: Alert, Oriented x3, Normal Mood/Affect Skin: Normal Color, Warm/Dry Results/Procedures Lab Laboratory Tests 01/04/22 04:38 Patient resulted labs reviewed. Assessment/Plan Assessment and Plan Assess & Plan/Chief Complaint 1)PNA * continue IV abx * supplemental O2 * IV fluids * continue albuterol therapy 2)CO2 narcosis * supplemental O2 with bi-pap * monitor RR 3) A Fibb. * continue on flecanide, diltiazem, and xarelto and d/c metoprolol per cardio * f/u with Dr. Tellez on cardioversion plans * continue telemetry monitoring Add mirilax if no BM monitor I&O for retention CAITLYN PEREA DO 01/04/222108: Subjective Subjective/Events-last exam Pt is about the same Refusing to go to long term Wants to stay in the hospital for a couple more weeks Pt's lungs are much improved Discontinue Solumedrol and start on Prednisone of 40 Review of Systems General: Fatigue, Malaise Objective Exam General Appearance: WD/WN, Anxious, Chronically ill, Mild Distress Respiratory: Crackles (lower lung vela) Cardiovascular: No Edema Assessment/Plan Assessment and Plan Assess & Plan/Chief Complaint Transfer to 4th Supervisory-Addendum Brief Verification & Attestation Participated in pt care: history, MDM, physical Personally performed: exam, history, MDM, supervision of care Care discussed with: Medical Student Procedures: n/a Results interpretation: Verified all documentation Verification and Attestation of Medical Student E/M Service A medical student performed and documented this service in my presence. I reviewed and verified all information documented by the medical student and made modifications to such information, when appropriate. I personally performed the physical exam and medical decision making. Caitlyn Perea, Jan 04, 2022,21:08 MADISON PHAM Jan 04, 2022 11:30 CAITLYN PEREA DO Jan 04, 2022 21:09
--- NOTE | 2022-01-04 11:51 | Physical Therapy Evaluation ---
PT Evaluation-General Medical Diagnosis Admission Date Jan 03, 2022 at 09:35 Medical Diagnosis: respiratory failure with hypoxia Onset Date: Jan 03, 2022 Therapy Diagnosis Therapy Diagnosis: debility/weakness Precautions Precautions/Isolations: Fall Prevention, Standard Precautions Referral Physician: Marilynn Reason for Referral: Evaluation/Treatment Medical History Pertinent Medical History: Atrial Fib (pacemaker), COPD, HTN, Smoking Current History EMs from home secondary to abdominal pain Reviewed History: Yes Social History Home: Single Level Current Living Status: Other Family Prior Prior Level of Function SCALE: Activities may be completed with or without assistive devices. 7-Onbszfnotx-sinphbx completes the activity by him/herself with no assistance from a helper. 5-Set-up or Clean-up Assistance-helper sets up or cleans up; patient completes activity. [place] assists only prior to or following the activity. 4-Supervision or Touching Assistance-helper provides verbal cues and/or touching/steadying and/or contact guard assistance as patient completes activity. Assistance may be provided throughout the activity or intermittently. 3-Partial/Moderate Assistance-helper does LESS THAN HALF the effort. [place] lifts, holds or supports trunk or limbs, but provides less than half the effort. 2-Substantial/Maximal Assistance-helper does MORE THAN HALF the effort. [place] lifts or holds trunk or limbs and provides more than half the effort. 1-Tvvqzwcoj-fgiwhe does ALL the effort. Patient does none of the effort to complete the activity. Or, the assistance of 2 or more helpers is required for the patient to complete the activity. If activity was not attempted, code reason: 7-Patient Refused. 9-Not Applicable-not attempted and the patient did not perform the activity before the current illness, exacerbation or injury. 10-Not Attempted due to Environmental Limitations-(lack of equipment, weather restraints, etc.). 88-Not Attempted due to Medical Conditions or Safety Concerns. Bed Mobility: 6 Transfers (B,C,W/C): 6 Gait: 6 Stairs: 6 Indoor Mobility (Ambulation): Independent Stairs: Independent Prior Devices Use: Walker, Other-see list below Prior Device Use: FWW or cane PT Evaluation-Current Subjective Patient agrees to PT. Objective Patient Orientation: Normal For Age Attachments: Oxygen, Rock Catheter, IV ROM/Strength ROM Lower Extremities bilateral LE WFL Strength Lower Extremities 4/5 grossly bilateral LE all planes Integumentary/Posture Bowel Incontinence: No Bladder Incontinence: Rock Cath Posture WFL Neuromuscular (Tone, Coordination, Reflexes) grossly intact Sensory Vision: Wears Glasses Hearing: Functional Transfers Sit to Stand (QC): 4 Gait Mode of Locomotion: Walk Anticipated Mode of Locomotion: Walk Walk 10 feet (QC): 4 Walk 50 ft with 2 Turns(QC): 4 Walk 150 ft (QC): 4 Distance: 300' Gait Assistive Device: FWW Comments/Gait Description SBA for safety with FWW use Balance Sitting Static: Normal Sitting Dynamic: Normal Standing Static: Normal Standing Dynamic: Normal Assessment/Needs 81 y.o. female, will be seen short term by skilled PT to address functional mobility to ensure safe return to home at maximum LOF. Patient reports her daughter in law is staying with her in her home currently. Rehab Potential: Fair PT Carpentry Teacher Goals Carpentry Teacher Goals PT Carpentry Teacher Goals Time Frame: Jan 15, 2022 Roll Left & Right (QC): 6 Sit to Lying (QC): 6 Lying-Sitting on Side/Bed(QC): 6 Sit to Stand (QC): 6 Chair/Ypy-xn-Magjf Xfer(QC): 6 Toilet Transfer (QC): 6 Walk 10 feet (QC): 6 Walk 50ft with 2 Turns (QC): 6 Walk 150 ft (QC): 6 PT Plan Problem List Problem List: Activity Tolerance, Safety, Balance, Gait, Transfer Treatment/Plan Treatment Plan: Continue Plan of Care Treatment Plan: Education, Functional Strength, Gait, Safety, Therapeutic Exercise, Transfers Treatment Duration: Jan 15, 2022 Frequency: 6 times per week Estimated Hrs Per Day: .25 hour per day Time/GCodes Time In: 1020 Time Out: 1033 Total Billed Treatment Time: 13 Total Billed Treatment 1 visit EVMod 13 min NISHANT PEDROZA PT Jan 04, 2022 11:51
[2022-01-04] MEDS ORDERED: RIVAROXABAN 20 MG TABLET (XARELTO) PO SCH (12:00)
[2022-01-04] MEDS: lisINopril 10 MG (PRINIVIL) TABLET PO SCH (12:51)
[2022-01-04] MEDS: KCL 10 MEQ TAB (MICRO K) PO SCH (12:55)
--- NOTE | 2022-01-04 13:35 | Occupational Therapy Eval ---
OT Evaluation-General/PLF Medical Diagnosis Admission Date Jan 03, 2022 at 09:35 Medical Diagnosis: respiratory failure with hypoxia Onset Date: Jan 03, 2022 Therapy Diagnosis Therapy Diagnosis: n/a Precautions Precautions/Isolations: Fall Prevention, Standard Precautions Referral Physician: Marilynn [place] Reason: Evaluation/Treatment Medical History Pertinent Medical History: Atrial Fib (pacemaker), COPD, HTN, Smoking Current History Pt presented to ER with weakness, hypoxia of 60%. Found to have pneumonia. Per patient, she lives with her daughter in law in a multilevel home. Bathroom on 2nd floor. She was indep with adls and her DIL manages the cooking and shopping. She has a seismograph chief for cleaning. She uses both a walker and a cane at baseline. Reviewed History: Yes Social History Home: Multilevel Current Living Status: Other Family ADL-Prior Level of Function SCALE: Activities may be completed with or without assistive devices. 6-Zfrwuuvsel-fteofsi completes the activity by him/herself with no assistance f rom a helper. 5-Set-up or Clean-up Assistance-helper sets up or cleans up; patient completes activity. [place] assists only prior to or following the activity. 4-Supervision or Touching Assistance-helper provides verbal cues and/or touching/steadying and/or contact guard assistance as patient completes activity. Assistance may be provided throughout the activity or intermittently. 3-Partial/Moderate Assistance-helper does LESS THAN HALF the effort. [place] lifts, holds or supports trunk or limbs, but provides less than half the effort. 2-Substantial/Maximal Assistance-helper does MORE THAN HALF the effort. [place] lifts or holds trunk or limbs and provides more than half the effort. 5-Batqyggtw-cejwuk does ALL the effort. Patient does none of the effort to complete the activity. Or, the assistance of 2 or more helpers is required for the patient to complete the activity. If activity was not attempted, code reason: 7-Patient Refused. 9-Not Applicable-not attempted and the patient did not perform the activity before the current illness, exacerbation or injury. 10-Not Attempted due to Environmental Limitations-(lack of equipment, weather restraints, etc.). 88-Not Attempted due to Medical Conditions or Safety Concerns. Self Care: Independent Functional Cognition: Independent DME/Equipment: Bath Chair, Grab Bars, Tub/Shower Drive Self: No OT Current Status Subjective Pt denies pain, getting ready to transport to medical floor from ICU. Appearance Pt returned to sitting in recliner, all needs within reach at OT departure. Mental Status/Objective Patient Orientation: Person, Place, Situation Attachments: IV, Oxygen, Telemetry Current Glasses/Contacts: Yes Hand Dominance: Right ADL-Treatment Eating (QC): 6 Oral Hygiene (QC): 5 Lower Body Dressing (QC): 4 On/Off Footwear (QC): 6 Pt sitting in recliner at OT arrival. She reports she is getting ready to transfer from ICU to medical floor. She stood independently and ambulated ~6 feet (with walker) to transport chair. Supervision for safety, no unsteadiness observed. Once in new room, pt transferred into recliner with same assist mention previously. She was able to demonstrate ability to don/doff bilateral socks/shoes without difficulty. Anticipate no difficulty to don LB clothing or perform clothing management pre/post toileting. Pt denies any self care concerns at this time. 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 Education OT Patient Education: Correct positioning, Energy conservation, Purpose of tx/functional activities, Use of adapted equipment Teaching Recipient: Patient Teaching Methods: Discussion Response to Teaching: Verbalize Understanding, Return Demonstration OT Sewer Tapper Goals Sewer Tapper Goals 1=Demonstrate adherence to instructed precautions during ADL tasks. 2=Patient will verbalize/demonstrate understanding of assistive devices/modifications for ADL. 3=Patient will improve strength/tolerance for activity to enable patient to perform ADL's. OT Education/Plan Problem List/Assessment Assessment: No Skilled OT Needs ID'd Discharge Recommendations Plan/Recommendations: Discontinue OT Therapy Discharge Recommendati: Home & Family Treatment Plan/Plan of Care Treatment,Training & Education: No Patient would benefit from OT for education, treatment and training to promote independence in ADL's, mobility, safety and/or upper extremity function for ADL's. Plan of Care: ADL Retraining, Functional Mobility Treatment Duration: Jan 04, 2022 Frequency: 1 time per week Estimated Hrs Per Day: .25 hour per day Agreement: Yes Time/GCodes Start Time: 13:06 Stop Time: 13:22 Total Time Billed (hr/min): 16 Billed Treatment Time 1 visit Eula Renner OT Jan 04, 2022 13:35
[2022-01-04] MEDS: RIVAROXABAN 20 MG TABLET (XARELTO) PO SCH (17:54)
[2022-01-05 03:06] VITALS: BP 117/64
[2022-01-05 06:00] LABS: BASOPHILS % (AUTO) 0 % (0-10); EOSINOPHILS # (AUTO) 0.2 10^3/uL (0.0-0.3); EOSINOPHILS % (AUTO) 1 % (0-10); HEMATOCRIT 31 % (35-52); HEMOGLOBIN 9.7 g/dL (11.5-16.0); LYMPHOCYTES # (AUTO) 3.3 10^3/uL (1.0-4.0); LYMPHOCYTES % (AUTO) 27 % (12-44); MEAN CORPUSCULAR HEMOGLOBIN 26 pg (25-34); MEAN CORPUSCULAR HGB CONC 31 g/dL (32-36); MEAN CORPUSCULAR VOLUME 84 fL (80-99); MEAN PLATELET VOLUME 11.2 fL (9.0-12.2); MONOCYTES # (AUTO) 1.6 10^3/uL (0.0-1.0); MONOCYTES % (AUTO) 13 % (0-12); NEUTROPHILS # (AUTO) 7.3 10^3/uL (1.8-7.8); NEUTROPHILS % (AUTO) 59 % (42-75); PLATELET COUNT 198 10^3/uL (130-400); WHITE BLOOD COUNT 12.4 10^3/uL (4.3-11.0)
[2022-01-05 06:34] LABS: ALBUMIN 3.3 GM/DL (3.2-4.5); BILIRUBIN,TOTAL 0.4 MG/DL (0.1-1.0); CALCIUM 8.5 MG/DL (8.5-10.1); CREATININE SERUM 0.62 MG/DL (0.60-1.30); MAGNESIUM 2.1 MG/DL (1.6-2.4); POTASSIUM 4.4 MMOL/L (3.6-5.0); TOTAL PROTEIN 5.5 GM/DL (6.4-8.2)
[2022-01-05] MEDS: RT-ALBUTEROL SULF 2.5 MG/3 ML PRE-MIX VIAL INH SCH ×4 (06:44→18:23)
[2022-01-05] MEDS: DOXYCYCLINE 100 MG (VIBRAMYCIN) TABLET PO SCH ×2 (06:55→16:05)
[2022-01-05] MEDS: FUROSEMIDE 40 MG/4 ML INJ (LASIX) IVP SCH ×2 (06:55→16:05)
[2022-01-05 07:40] VITALS: BP 111/62
[2022-01-05] MEDS: dilTIAZem120 MG (CARDIZEM CD) CAP PO SCH ×2 (08:23→08:24)
[2022-01-05] MEDS: FLECAINIDE 100 MG (TAMBOCOR) TAB PO SCH ×2 (08:24→20:08)
[2022-01-05] MEDS: DOCUSATE SODIUM 100 MG (COLACE) CAP PO SCH ×2 (08:24→20:08)
[2022-01-05] MEDS: cefTRIAXone 1 GM PRE-MIX 50 ML IV SCH (08:24)
--- NOTE | 2022-01-05 09:34 | Physical Therapy Daily Note ---
PT Daily Note-Current Subjective Pt agreeable. Hopes to go home soon. Mental Status Patient Orientation: Normal For Age Transfers SCALE: Activities may be completed with or without assistive devices. 3-Adcduxpgxo-muhhhhj completes the activity by him/herself with no assistance fr om a helper. 5-Set-up or Clean-up Assistance-helper sets up or cleans up; patient completes activity. [place] assists only prior to or following the activity. 4-Supervision or Touching Assistance-helper provides verbal cues and/or touching/steadying and/or contact guard assistance as patient completes activity. Assistance may be provided throughout the activity or intermittently. 3-Partial/Moderate Assistance-helper does LESS THAN HALF the effort. [place] lifts, holds or supports trunk or limbs, but provides less than half the effort. 2-Substantial/Maximal Assistance-helper does MORE THAN HALF the effort. [place] lifts or holds trunk or limbs and provides more than half the effort. 1-Qpckorgtc-pbjjis does ALL the effort. Patient does none of the effort to complete the activity. Or, the assistance of 2 or more helpers is required for the patient to complete the activity. If activity was not attempted, code reason: 7-Patient Refused. 9-Not Applicable-not attempted and the patient did not perform the activity before the current illness, exacerbation or injury. 10-Not Attempted due to Environmental Limitations-(lack of equipment, weather restraints, etc.). 88-Not Attempted due to Medical Conditions or Safety Concerns. Pt able to transfer without supervision. Gait Training Gait Assistive Device: FWW Ambulate 600ft with FWW, SBA. Assessment Pt's heart rate was 160BPM post ambulation but no sign of distress. Nursing came to check on patient due to elevated HR. Pt has sufficient mobility, is steady on her feet and is no longer in need of skilled PT services. PT Penitentiary Goals Penitentiary Goals PT Tooling Inspector Goals Time Frame: Jan 15, 2022 Roll Left & Right (QC): 6 Sit to Lying (QC): 6 Lying-Sitting on Side/Bed(QC): 6 Sit to Stand (QC): 6 Chair/Sdz-zh-Bmgwf Xfer(QC): 6 Toilet Transfer (QC): 6 Walk 10 feet (QC): 6 Walk 50ft with 2 Turns (QC): 6 Walk 150 ft (QC): 6 PT Plan Treatment/Plan Treatment Plan: Discontinue PT Treatment Plan: Education, Functional Strength, Gait, Safety, Therapeutic Exercise, Transfers Treatment Duration: Jan 15, 2022 Frequency: 6 times per week Estimated Hrs Per Day: .25 hour per day Discharge Recommendations Therapy Discharge Recommendati: Home & Family [employer] Placement return home Time/GCodes Time In: 0745 Time Out: 0810 Total Billed Treatment Time: 25 Total Billed Treatment visit, gaitx2 MEREDITH CHICAS PT Jan 05, 2022 09:34
--- NOTE | 2022-01-05 09:35 | Cardiology Progress Note ---
Subjective Date Seen by Provider: Jan 05, 2022 Time Seen by Provider: 09:00 Subjective/Events-last exam Patient sitting up at bedside. Denies any chest pain, reports intermittent palpitations. Review of Systems General: No Chills, No Night Sweats, No Fatigue, No Malaise, No Appetite, No Ot her HEENT: No Head Aches, No Visual Changes, No Eye Pain, No Ear Pain, No Dysp hasia, No Sinus Congestion, No Post Nasal Drip, No Sore Throat, No Other Pulmonary: Dyspnea, Cough; No Pleuritic Chest Pain, No Other Cardiovascular: No: Chest Pain, Palpitations, Orthopnea, Paroxysmal Noc. Dyspnea, Edema, Lt Headedness, Other Focused Exam Lactate Level 01/03/22 06:15: Lactic Acid Level 1.28 Objective-Cardiology Exam Last Set of Vital Signs Vital Signs 01/03/22 01/05/22 01/05/22 01/05/22 07:07 07:40 07:49 10:55 Temp 36.3 Pulse 120 Resp 18 B/P (MAP) 111/62 (78) Pulse Ox 95 O2 Delivery High Flow N/C O2 Flow Rate 1.00 FiO2 61 I&O Intake and Output 01/04/22 23:59 Intake Total 2275 ml Output Total 2025 ml Balance 250 ml Intake Oral 1125 ml IV Total 1150 ml Output Urine Total 2025 ml # Bowel Movements 1 General: Alert, Oriented X3, Cooperative HEENT: Atraumatic, PERRLA Neck: Supple, No JVD, No Thyromegaly Lungs: Clear to Auscultation, Normal Air Movement Heart: Normal S1, Normal S2, No Murmurs, Other (Tachycardia) Abdomen: Normal Bowel Sounds, Soft, No Hepatosplenomegaly, No Masses, Other (Lower abdominal tenderness) Extremities: No Clubbing, No Cyanosis, No Edema, Normal Pulses, No Tenderness/Swelling Skin: No Rashes, No Breakdown, No Significant Lesion Neuro: Normal Gait, Normal Speech, Strength at 5/5 X4 Ext, Normal Tone, Sensation Intact Psych/Mental Status: Mental Status NL, Mood NL Results Lab Laboratory Tests 01/05/22 05:19 A/P-Cardiology Admission Diagnosis Acute respiratory failure Abdominal pain Paroxysmal atrial fibrillation Hypertension Hyperlipidemia. Assessment/Plan Status post acute respiratory failure, breathing better at this time Reporting improvement. Responding to antibiotics and diuretics. Continue to monitor Abdominal pain, mild diarrhea, dysuria. Receiving antibiotic and managed by primary care physician Paroxysmal atrial fibrillation, maintained on flecainide, diltiazem and Xarelto. Has been in and out of atrial flutter. This morning went back to sinus rhythm and during my examination patient was in atrial flutter with a heart rate 100. I will continue current medication and increase flecainide to 100 mg twice daily. 2D echo was done on January 03, 2022 showing normal left ventricular size and systolic function, diastolic dysfunction, biatrial enlargement, estimated pulmonary artery pressure of 40 mmHg Sinus node dysfunction, history of [employer] pacemaker implanted in June 2020. Continue to monitor Echocardiogram done in September 2020 showing normal LV size and function, ejection fraction 60 to 65%, mild aortic valve stenosis, PA pressure 40 to 45 mmHg. 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 Currently asymptomatic Hypertension, restart home medication monitor blood pressure Hyperlipidemia, monitor lipids Mild bilateral carotid stenosis, continue to monitor Supervisory-Addendum Brief Supervisory Addendum Participated in pt care: history, MDM, physical Personally performed: exam, history, MDM Care discussed with: KENIA Results interpretation: Verified all documentation Notes: Patient was seen and evaluated with Juliette, examination performed, management plan was discussed, agree with the current scribed note, I made few changes to the note using Italic font Patient was seen at bedside, she was sitting comfortably, feeling better Still having episodes of tachycardia with atrial flutter in and out alternating with sinus rhythm I am planning to proceed with increasing flecainide and monitor her tolerance and response JULIETTE PACHECO Jan 05, 2022 09:35 JOVITA CHARLES MD Jan 05, 2022 11:06
--- NOTE | 2022-01-05 11:07 | Progress Note ---
Subjective Subjective/Events-last exam &9 F day 3 of admission for acute resp failure with suspected PNA. Pt had a hypotensive episode and a fibb yesterday, today BP has stabilized and sinus rhythm returned. Claims she has some palpitations that occur at random. Dry cough still present. Pt reports no SOB, Chest pain, fever, N/V. Remains on 1L O2. Solumedrol was stopped and pt was started on prednisone today. Reports normal BMs and voids. Review of Systems General: No Chills, No Night Sweats HEENT: No Head Aches, No Visual Changes Pulmonary: No Dyspnea; Cough Cardiovascular: Palpitations; No: Chest Pain, Lt Headedness Gastrointestinal: No: Nausea, Vomiting, Abdominal Pain, Constipation Genitourinary: No Dysuria, No Incontinence Neurological: No: Weakness, Numbness Focused Exam Lactate Level 01/03/22 06:15: Lactic Acid Level 1.28 Objective Exam Last Set of Vital Signs Vital Signs Date Time Temp Pulse Resp B/P (MAP) Pulse Ox O2 Delivery O2 Flow Rate FiO2 01/05/22 10:55 95 High Flow N/C 1.00 01/05/22 07:49 120 01/05/22 07:40 36.3 18 111/62 (78) 01/03/22 07:07 61 Capillary Refill : Less Than 3 Seconds I&O Intake and Output 01/05/22 00:00 Intake Total 2275 ml Output Total 2025 ml Balance 250 ml Intake Oral 1125 ml IV Total 1150 ml Output Urine Total 2025 ml # Bowel Movements 1 General: Alert, Oriented X3, Cooperative HEENT: Atraumatic, PERRLA, EOMI Neck: Supple Lungs: Clear to Auscultation, Normal Air Movement Heart: Regular Rate, Normal S1, Normal S2, No Murmurs Abdomen: Normal Bowel Sounds, Soft, No Tenderness Extremities: No Edema, Normal Pulses, No Tenderness/Swelling Skin: No Significant Lesion Neuro: Normal Speech, Normal Tone, Sensation Intact Psych/Mental Status: Mental Status NL, Mood NL Results/Procedures Lab Laboratory Tests 01/05/22 05:19: White Blood Count 12.4H, Red Blood Count 3.71L, Hemoglobin 9.7L, Hematocrit 31L, Mean Corpuscular Volume 84, Mean Corpuscular Hemoglobin 26, Mean Corpuscular Hemoglobin Concent 31L, Red Cell Distribution Width 16.3H, Platelet Count 198, Mean Platelet Volume 11.2, Immature Granulocyte % (Auto) 1, Neutrophils (%) (Auto) 59, Lymphocytes (%) (Auto) 27, Monocytes (%) (Auto) 13H, Eosinophils (%) (Auto) 1, Basophils (%) (Auto) 0, Neutrophils # (Auto) 7.3, Lymphocytes # (Auto) 3.3, Monocytes # (Auto) 1.6H, Eosinophils # (Auto) 0.2, Basophils # (Auto) 0.0, Immature Granulocyte # (Auto) 0.1, Sodium Level 135, Potassium Level 4.4, Chloride Level 98, Carbon Dioxide Level 28, Anion Gap 9, Blood Urea Nitrogen 21H , Creatinine 0.62, Estimat Glomerular Filtration Rate 91, BUN/Creatinine Ratio 34, Glucose Level 93, Calcium Level 8.5, Corrected Calcium 9.1, Magnesium Level 2.1, Total Bilirubin 0.4, Aspartate Amino Transf (AST/SGOT) 25, Alanine Aminotransferase (ALT/SGPT) 65H, Alkaline Phosphatase 62, Total Protein 5.5L, Albumin 3.3 Microbiology 01/03/22 MRSA Screen - Final, Complete MRSA not isolated 01/03/22 Blood Culture - Preliminary, Resulted No growth Assessment/Plan Assessment/Plan Admission Dx Acute rep failure w/ PNA Reason for Inpatient Admission: acute resp failure Assessment & Plan Continue IV abx treatment supplemental O2 monitor BP oral steroid therapy consult cardio on plans for recurrent a fibb repeat chest x-ray in 48 hrs MADISON PHAM Jan 05, 2022 11:07
[2022-01-05 11:11] VITALS: BP 95/51
[2022-01-05] MEDS: lisINopril 10 MG (PRINIVIL) TABLET PO SCH (11:12)
--- NOTE | 2022-01-05 11:15 | Progress Note - Hospitalist ---
MADISON PHAM 01/05/22 1115: Subjective HPI/CC On Admission Date Seen by Provider: Jan 05, 2022 Time Seen by Provider: 09:45 CC: Acute respiratory failure HPI: This is a [facility] pt. She presented to [place] ER with weakness and hypoxia of 60%. ABG was evaluated. Revealing CO2 at 65. She was placed on BiPAP. That improved immensely. She was found to have pneumonia. No evidence of any sepsis but she will be placed on Rocephin and Doxycycline. Pt will be placed in the ICU. Subjective/Events-last exam 81 F day 3 of admission for acute resp failure with suspected PNA. Pt had a hypotensive episode and a fibb yesterday, today BP has stabilized and sinus rhythm returned. Claims she has some palpitations that occur at random. Dry cough still present. Pt reports no SOB, Chest pain, fever, N/V. Remains on 1L O2. Solumedrol was stopped and pt was started on prednisone today. Reports normal BMs and voids. Review of Systems General: No Chills, No Night Sweats HEENT: No Head Aches Pulmonary: No Dyspnea; Cough Cardiovascular: Palpitations; No: Chest Pain, Lt Headedness Gastrointestinal: No: Nausea, Vomiting, Abdominal Pain Genitourinary: No Dysuria, No Incontinence Neurological: No: Weakness, Numbness Focused Exam Lactate Level 01/03/22 06:15: Lactic Acid Level 1.28 Objective Exam Vital Signs Vital Signs Date Time Temp Pulse Resp B/P (MAP) Pulse Ox O2 Delivery O2 Flow Rate FiO2 01/05/22 11:04 Room Air 0.00 01/05/22 10:55 95 01/05/22 07:49 120 01/05/22 07:40 36.3 18 111/62 (78) 01/03/22 07:07 61 Capillary Refill : Less Than 3 Seconds General Appearance: No Apparent Distress, WD/WN HEENT: PERRL/EOMI Neck: Normal Inspection, Non Tender, Supple Respiratory: Chest Non Tender, Lungs Clear, Normal Breath Sounds, No Accessory Muscle Use, No Respiratory Distress Cardiovascular: No Edema, No Gallop, No JVD, No Murmur, Irregularly Irregular Gastrointestinal: Normal Bowel Sounds, No Organomegaly, No Pulsatile Mass, Non Tender, Soft Extremity: Normal Capillary Refill, Normal Inspection, Non Tender, No Calf Tenderness, No Pedal Edema Neurologic/Psychiatric: Alert, Oriented x3 Skin: Normal Color, Warm/Dry Results/Procedures Lab Laboratory Tests 01/05/22 05:19 Patient resulted labs reviewed. Assessment/Plan Assessment and Plan Assess & Plan/Chief Complaint continue abx therapy supplemental O2 oral steroid therapy continue to monitor BP consult cardio on plans for recurrent a. fibb CAITLYN SUBRAMANIAN DO 01/05/22 2013: Subjective Subjective/Events-last exam Pt is doing alot better White count is 12.4 Discharge planned for tomorrow Hemoglobin is stable at 9.7 Assessment/Plan Assessment and Plan Assess & Plan/Chief Complaint Supportive care Appreciate cardiology Antibiotics O2 Supervisory-Addendum Brief Verification & Attestation Participated in pt care: history, MDM, physical Personally performed: exam, history, MDM, supervision of care Care discussed with: Medical Student Procedures: n/a Results interpretation: Verified all documentation Verification and Attestation of Medical Student E/M Service A medical student performed and documented this service in my presence. I reviewed and verified all information documented by the medical student and made modifications to such information, when appropriate. I personally performed the physical exam and medical decision making. Caitlyn Subramanian, Jan 05, 2022,20:12 MADISON PHAM Jan 05, 2022 11:15 CAITLYN SUBRAMANIAN DO Jan 05, 2022 20:13
[2022-01-05] MEDS: KCL 10 MEQ TAB (MICRO K) PO SCH (13:51)
--- NOTE | 2022-01-05 15:05 | Physician Query Clarification ---
Physician Query-General Query to Physician: The medical record reflects the following clinical evidence: Clinical Indicators: Admission VS/Labs: : HR 98, RR 32, BP 215/90, SpO2 77% on 11 L of O2 63% on room air, T 36.0,WBC 13.6, proBNP 740, ABG 7.27/64/7.2 /62 on 13 L, lactic acid 1.28, Blood Culture Staph coag Neg, Risk Factor(s): "Bilateral Pneumonia", Chronic steroids, Smoker Treatment:, ceftriaxone IV, Vibramycin IV, Lasix IV, Started on BiPAP (no Fluids given due to CHF) 1. Severe sepsis without septic shock, present on admission 2. Other explanation of clinical findings 3. Unable to determine (no explanation for clinical findings) Please clarify and document your clinical opinion in the progress notes and discharge summary including the definitive and/or presumptive diagnosis, (suspected or probable), related to the above clinical findings. Please include clinical findings supporting your diagnosis. Lynne Stubbs RN, MSN Clinical Complex Care Nurse [phone] [email or web address] PHYSICIAN RESPONSE: Based on the clinical findings in the record, please respond to the query above on this document as an addendum. Physician Response: Physician Response sepsis only If you have questions please contact: Cryptologic Support Specialist: Ext: Thank you for your time and cooperation. Clinical Complex Care Nurse/Cryptologic Support Specialist This is a permanent part of the medical record LYNNE STUBBS Jan 05, 2022 15:05 ALLIE PEREA DO Jan 05, 2022 15:59
[2022-01-05 16:00] VITALS: BP 110/62
[2022-01-05] MEDS: RIVAROXABAN 15 MG TABLET (XARELTO) PO SCH (16:05)
[2022-01-05 20:00] VITALS: BP 100/63
[2022-01-06] VITALS (11 sets, daily range): BP systolic 102–156; BP diastolic 55–93
[2022-01-06 06:10] LABS: BASOPHILS # (AUTO) 0.1 10^3/uL (0.0-0.1); BASOPHILS % (AUTO) 0 % (0-10); EOSINOPHILS # (AUTO) 0.1 10^3/uL (0.0-0.3); EOSINOPHILS % (AUTO) 1 % (0-10); HEMATOCRIT 36 % (35-52); HEMOGLOBIN 11.4 g/dL (11.5-16.0); LYMPHOCYTES % (AUTO) 24 % (12-44); MEAN CORPUSCULAR HEMOGLOBIN 26 pg (25-34); MEAN CORPUSCULAR HGB CONC 32 g/dL (32-36); MEAN CORPUSCULAR VOLUME 83 fL (80-99); MEAN PLATELET VOLUME 11.3 fL (9.0-12.2); MONOCYTES # (AUTO) 1.6 10^3/uL (0.0-1.0); MONOCYTES % (AUTO) 13 % (0-12); NEUTROPHILS # (AUTO) 7.6 10^3/uL (1.8-7.8); NEUTROPHILS % (AUTO) 61 % (42-75); PLATELET COUNT 237 10^3/uL (130-400); WHITE BLOOD COUNT 12.4 10^3/uL (4.3-11.0)
[2022-01-06 06:30] LABS: ALBUMIN 3.7 GM/DL (3.2-4.5); BILIRUBIN,TOTAL 0.5 MG/DL (0.1-1.0); CALCIUM 9.3 MG/DL (8.5-10.1); CREATININE SERUM 0.68 MG/DL (0.60-1.30); POTASSIUM 4.6 MMOL/L (3.6-5.0); TOTAL PROTEIN 6.3 GM/DL (6.4-8.2)
[2022-01-06] MEDS: FUROSEMIDE 40 MG/4 ML INJ (LASIX) IVP SCH ×2 (06:31→17:06)
[2022-01-06] MEDS: DOXYCYCLINE 100 MG (VIBRAMYCIN) TABLET PO SCH ×2 (06:31→17:06)
[2022-01-06] MEDS: RT-ALBUTEROL SULF 2.5 MG/3 ML PRE-MIX VIAL INH SCH ×3 (06:51→14:37)
--- NOTE | 2022-01-06 08:19 | Cardiology Progress Note ---
Subjective Date Seen by Provider: Jan 06, 2022 Time Seen by Provider: 08:17 Subjective/Events-last exam Patient was seen and evaluated, sitting comfortably, complaining of fatigue and loss of energy Review of Systems General: No Chills, No Night Sweats; Fatigue; No Malaise, No Appetite, No Other HEENT: No Head Aches, No Visual Changes, No Eye Pain, No Ear Pain, No D ysphasia, No Sinus Congestion, No Post Nasal Drip, No Sore Throat, No Other Pulmonary: Dyspnea; No Cough, No Pleuritic Chest Pain, No Other Cardiovascular: No: Chest Pain, Palpitations, Orthopnea, Paroxysmal Noc. Dyspnea, Edema, Lt Headedness, Other Objective-Cardiology Exam Last Set of Vital Signs Vital Signs 01/03/22 01/05/22 01/06/22 07:07 19:42 07:42 Temp 36.2 Pulse 82 Resp 18 B/P (MAP) 102/58 (73) Pulse Ox 94 O2 Delivery Room Air O2 Flow Rate 1.00 FiO2 61 I&O Intake and Output 01/06/22 00:00 Intake Total 1550 ml Output Total 1420 ml Balance 130 ml Intake Oral 1550 ml Output Urine Total 1420 ml # Voids 3 General: Alert, Oriented X3, Cooperative HEENT: Atraumatic, PERRLA, EOMI Neck: Supple Lungs: Clear to Auscultation, Normal Air Movement Heart: Normal S1, Normal S2, No Murmurs, Other (Atrial fibrillation) Abdomen: Normal Bowel Sounds, Soft, No Tenderness Extremities: No Clubbing, No Cyanosis, No Edema, Normal Pulses, No Tenderness/Swelling Skin: No Rashes, No Significant Lesion Neuro: Normal Speech, Normal Tone, Sensation Intact Psych/Mental Status: Mental Status NL, Mood NL Results Lab Laboratory Tests 01/06/22 05:00 A/P-Cardiology Admission Diagnosis Acute respiratory failure Abdominal pain Paroxysmal atrial fibrillation Hypertension Hyperlipidemia. Assessment/Plan Status post acute respiratory failure, breathing better at this time Reporting improvement. Responding to antibiotics and diuretics. Continue to monitor Abdominal pain, mild diarrhea, dysuria. Receiving antibiotic and managed by primary care physician Paroxysmal atrial fibrillation, maintained on flecainide, diltiazem and Xarelto. Patient is currently in atrial fibrillation with borderline tachycardia. It appear that she is going in and out with atrial flutter then fibrillation. I discussed with her the management plan, I increased her flecainide to 100 mg twice daily and planning to do cardioversion today. 2D echo was done on January 03, 2022 showing normal left ventricular size and systolic function, diastolic dysfunction, biatrial enlargement, estimated pulmonary artery pressure of 40 mmHg Sinus node dysfunction, history of [employer] pacemaker implanted in June 2020. Continue to monitor Echocardiogram done in September 2020 showing normal LV size and function, ejection fraction 60 to 65%, mild aortic valve stenosis, PA pressure 40 to 45 mmHg. 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 Currently asymptomatic Hypertension, restart home medication monitor blood pressure Hyperlipidemia, monitor lipids Mild bilateral carotid stenosis, continue to monitor JOVITA CHARLES MD Jan 06, 2022 08:19
[2022-01-06] MEDS: dilTIAZem120 MG (CARDIZEM CD) CAP PO SCH ×2 (08:42)
[2022-01-06] MEDS: FLECAINIDE 100 MG (TAMBOCOR) TAB PO SCH (08:43)
[2022-01-06] MEDS: DOCUSATE SODIUM 100 MG (COLACE) CAP PO SCH (08:43)
[2022-01-06] MEDS: cefTRIAXone 1 GM PRE-MIX 50 ML IV SCH (08:44)
[2022-01-06] MEDS ORDERED: proPOfol 200 MG/20 ML (DIPRIVAN) VIAL IV ONE (10:26)
[2022-01-06] MEDS ORDERED: NS IV 1000 ML 1,000 ML ONE (11:30)
--- NOTE | 2022-01-06 12:15 | Cardiac Procedure Note-[facility] ---
Cardiology Procedures Date of Procedure 01/06/22 DIRECT-CURRENT CARDIOVERSION INDICATION: Paroxysmal atrial fibrillation. PROCEDURE: After informed consent and in the fasting state, deep sedation was provided by the anesthesia department. I subsequently performed direct-current cardioversion with 1 synchronized biphasic shock at 50 J with successful conversion of atrial fibrillation to sinus rhythm. IMPRESSION: 1. Status post successful direct-current cardioversion with 1 synchronized biphasic shock at 50 J with conversion of atrial fibrillation to sinus rhythm. Certain portions of this document may have been dictated utilizing voice recognition technology. Inherent to this technology, typographical and grammatical errors may exist. As much as I am diligent to identify and correct these mistakes, some errors may remain in the document. MAKI JOHNSON JR, MD Jan 06, 2022 12:15
[2022-01-06] MEDS ORDERED: FURO20TA4 PO (12:46)
[2022-01-06] MEDS ORDERED: RIVA15TA2 PO (12:46)
[2022-01-06] MEDS ORDERED: FLEC100T PO (12:46)
[2022-01-06] MEDS ORDERED: DOXY100T2 PO (12:46)
--- NOTE | 2022-01-06 12:47 | Discharge Summary ---
Discharge Summary Hospital Course Was the Problem List Reviewed?: Yes Problems/Dx: (1) Acute respiratory failure with hypoxia Status: Acute (2) Bilateral pneumonia Status: Acute Qualifiers: Qualified Codes: J18.9 - Pneumonia, unspecified organism (3) CHF (congestive heart failure) Status: Acute (4) Accelerated hypertension Status: Acute (5) COPD (chronic obstructive pulmonary disease) Status: Acute (6) Pacemaker Hospital Course Date of Admission: Jan 03, 2022 at 09:35 Admission Diagnosis : Family Physician/Provider: Ponce Vargas MD Date of Discharge: 01/06/22 Discharge Diagnosis: Acute hypoxic respiratory failure Hospital Course: 81 F with hx of A. fibb, COPD, and HTN was admitted to ICU on 01/02/2022 due to acute respiratory failure w/ suspected PNA. Pt was started on [employer] Abx, supplemental O2, IV fluids, home HTN meds with protocol labs. PO2 increased rapidly and pt became stable. Night 1 pt went into A. fibb and cardio was consulted. Pt was kept of flecanide, xarelto, and diltiazem for rate control and telemetry monitoring. Day 2, pt was recovering well and transfered to 4th floor for continue abx therapy and mgmt. Pt continued to have bouts of a. fibb. Day 3, pt was stopped on O2 and placed on NPO having cardioversion done by Dr. Tellez and plans to DC later today 01/06/2022 pending cardio approval with continued outpt abx therapy. Labs and Pending Lab Test: Laboratory Tests 01/06/22 05:00: White Blood Count 12.4H, Red Blood Count 4.35, Hemoglobin 11.4L, Hematocrit 36, Mean Corpuscular Volume 83, Mean Corpuscular Hemoglobin 26, Mean Corpuscular Hemoglobin Concent 32, Red Cell Distribution Width 16.2H, Platelet Count 237, Mean Platelet Volume 11.3, Immature Granulocyte % (Auto) 1, Neutrophils (%) (Auto) 61, Lymphocytes (%) (Auto) 24, Monocytes (%) (Auto) 13H, Eosinophils (%) (Auto) 1, Basophils (%) (Auto) 0, Neutrophils # (Auto) 7.6, Lymphocytes # (Auto) 3.0, Monocytes # (Auto) 1.6H, Eosinophils # (Auto) 0.1, Basophils # (Auto) 0.1, Immature Granulocyte # (Auto) 0.1, Sodium Level 134L, Potassium Level 4.6, Chloride Level 95L, Carbon Dioxide Level 26, Anion Gap 13, Blood Urea Nitrogen 19H, Creatinine 0.68, Estimat Glomerular Filtration Rate 89, BUN/Creatinine Ratio 28, Glucose Level 112H, Calcium Level 9.3, Corrected Calcium 9.5, Magnesium Level 2.0, Total Bilirubin 0.5, Aspartate Amino Transf (AST/SGOT) 19, Alanine Aminotransferase (ALT/SGPT) 54, Alkaline Phosphatase 72, Total Protein 6.3L, Albumin 3.7 Microbiology 01/03/22 MRSA Screen - Final, Complete MRSA not isolated 01/03/22 Blood Culture - Preliminary, Resulted No growth Home Meds Active Furosemide 20 Mg Tablet 20 Mg PO DAILY Flecainide Acetate 100 Mg Tablet 100 Mg PO BID Xarelto Tablet (Rivaroxaban) 15 Mg Tablet 15 Mg PO DAILY@1700 Doxycycline Hyclate 100 Mg Tablet 100 Mg PO BID@07,17 Reported Anti-Diarrheal (Loperamide HCl) 2 Mg Tablet 2-4 Mg PO UD PRN Tylenol Extra Strength (Acetaminophen) 500 Mg Tablet 500-1,000 Mg PO Q8H PRN Super B Maxi Complex Caplet (Vitamin B Complex/Folic Acid) 0.4 Mg Tablet 0.4 Mg PO Q48H @HS Furosemide 20 Mg Tablet 20 Mg PO DAILY PRN K-Tab ER (Potassium Chloride) 10 Meq Tablet.er 10 Meq PO 1200 Vitamin C (Ascorbic Acid) 1,000 Mg Tablet 500 Mg PO BID TAKES OF A 1000MG TAB Ibuprofen 200 Mg Tablet 200-400 Mg PO Q8H PRN Lisinopril 10 Mg Tablet 5 Mg PO 1200 TAKES OF A 5MG Flecainide Acetate 50 Mg Tablet 50 Mg PO Q12H Esomeprazole Magnesium 20 Mg Capsule.dr 20 Mg PO DAILY Calcium 600 + Vit D 400 Softgl (Calcium Carbonate/Vitamin D3) 1 Each Capsule 1 Each PO BID Zyrtec (Cetirizine HCl) 10 Mg Capsule 10 Mg PO DAILY Gas Relief (Simethicone) 125 Mg Capsule 125 Mg PO 1900 AFTER DINNER PRN Flax Seed Oil 1,300 mg Softgel (Flaxseed/Omega3,6,9/Fatty Acid) 1 Each Capsule 1 Each PO HS Raloxifene HCl 60 Mg Tablet 60 Mg PO 1800 Diltiazem 24Hr ER (Diltiazem HCl) 120 Mg Cap.er.24h 120 Mg PO DAILY Ocuvite with Lutein Tablet (Vit A,C & E/Lutein/Minerals) 300MCG-200 Tablet 1 Each PO DAILY Xarelto (Rivaroxaban) 20 Mg Tablet 20 Mg PO 1200 Timolol Maleate 0.5% (Timolol Maleate) 0.5 % Drops 1 Drop OU Q12H Assessment/Pt Instructions PCP and cardiology as scheduled Discharge Planning: <30 minutes discharge planning Discharge Physical Examination Vital Signs Vital Signs Date Time Temp Pulse Resp B/P (MAP) Pulse Ox O2 Delivery O2 Flow Rate FiO2 01/06/22 12:35 71 111/68 (82) Room Air 01/06/22 12:10 16 100 10.00 01/06/22 11:27 36.1 01/03/22 07:07 61 General Appearance: No Apparent Distress, WD/WN, Chronically ill Respiratory: Lungs Clear Cardiovascular: Regular Rate, Rhythm Allergies: Coded Allergies: iodine (Verified Allergy, Unknown, 10/16/20) shellfish derived (Verified Allergy, Unknown, 04/24/20) Discharge Summary Date of Admission Jan 03, 2022 at 09:35 Date of Discharge Discharge Date: Jan 06, 2022 Admission Diagnosis Acute resp failure CO2 retention PNA AF CAD Plan: Cardiology EICU IV Abx Discharge Diagnosis Supportive care Appreciate cardiology Antibiotics O2 ALLIE PEREA DO Jan 06, 2022 12:46
[2022-01-06] MEDS: lisINopril 10 MG (PRINIVIL) TABLET PO SCH (13:19)
[2022-01-06] MEDS: KCL 10 MEQ TAB (MICRO K) PO SCH (13:19)
--- NOTE | 2022-01-06 14:42 | Progress Note - Hospitalist ---
MADISON PHAM 01/06/22 1442: Subjective HPI/CC On Admission Date Seen by Provider: Jan 06, 2022 Time Seen by Provider: 09:10 CC: Acute respiratory failure HPI: This is a [facility] pt. She presented to [place] [facility] with weakness and hypoxia of 60%. ABG was evaluated. Revealing CO2 at 65. She was placed on BiPAP. That improved immensely. She was found to have pneumonia. No evidence of any sepsis but she will be placed on Rocephin and Doxycycline. Pt will be placed in the ICU. Subjective/Events-last exam 81 F with hx of A. fibb, COPD, and HTN was admitted to ICU on 01/02/2022 due to acute respiratory failure w/ suspected PNA. Pt was started on Broad spectrum Abx, supplemental O2, IV fluids, home HTN meds with protocol labs. PO2 increased rapidly and pt became stable. Night 1 pt went into A. fibb and cardio was consulted. Pt was kept of flecanide, xarelto, and diltiazem for rate control and telemetry monitoring. Day 2, pt was recovering well and transfered to 4th floor for continue abx therapy and mgmt. Pt continued to have bouts of a. fibb. Day 3, pt was stopped on O2 and placed on NPO having cardioversion done by Dr. Tellez and plans to DC later today 01/06/2022 pending cardio approval with continued outpt abx therapy. Review of Systems General: No Chills; Fatigue HEENT: No Head Aches, No Dysphasia Pulmonary: No Dyspnea; Cough Cardiovascular: No: Chest Pain, Palpitations Gastrointestinal: Nausea; No: Vomiting, Abdominal Pain, Diarrhea, Constipation Genitourinary: No Dysuria, No Incontinence Neurological: No: Numbness, Change in speech Objective Exam Vital Signs Vital Signs Date Time Temp Pulse Resp B/P (MAP) Pulse Ox O2 Delivery O2 Flow Rate FiO2 01/06/22 12:35 71 111/68 (82) Room Air 01/06/22 12:10 16 100 10.00 01/06/22 11:27 36.1 01/03/22 07:07 61 Capillary Refill : Less Than 3 Seconds General Appearance: Anxious HEENT: PERRL/EOMI Neck: Normal Inspection, Non Tender, Supple Respiratory: Chest Non Tender, Lungs Clear, Normal Breath Sounds, No Accessory Muscle Use, No Respiratory Distress Cardiovascular: No Edema, Irregularly Irregular Gastrointestinal: Normal Bowel Sounds, No Organomegaly, No Pulsatile Mass, Non Tender, Soft Back: Normal Inspection Extremity: Normal Capillary Refill, Normal Range of Motion, Non Tender, No Calf Tenderness, No Pedal Edema Neurologic/Psychiatric: Alert, Oriented x3, No Motor/Sensory Deficits Skin: Normal Color, Warm/Dry Results/Procedures Lab Laboratory Tests 01/06/22 05:00 Patient resulted labs reviewed. Assessment/Plan Assessment and Plan Assess & Plan/Chief Complaint continue abx therapy supplemental O2 oral steroid therapy continue to monitor BP consult cardio on plans for recurrent a. fibb CAITLYN SUBRAMANIAN DO 01/07/22 0543: Supervisory-Addendum Brief Verification & Attestation Participated in pt care: history, MDM, physical Personally performed: exam, history, MDM, supervision of care Care discussed with: Medical Student Procedures: n/a Results interpretation: Verified all documentation Verification and Attestation of Medical Student E/M Service A medical student performed and documented this service in my presence. I reviewed and verified all information documented by the medical student and made modifications to such information, when appropriate. I personally performed the physical exam and medical decision making. Caitlyn Subramanian, Jan 07, 2022,05:43 MADISON PHAM Jan 06, 2022 14:42 CAITLYN SUBRAMANIAN DO Jan 07, 2022 05:43
[2022-01-06] MEDS: RIVAROXABAN 15 MG TABLET (XARELTO) PO SCH (17:06)
== END 2022-01-06 18:48 | disposition home or self-care (01) | DRG 871 ==
LOC: EDUNIT# 05:51 → ER FS 05:53 → ICU 09:35 → 4TH 01-04 13:49
PROVIDERS: ADMIT Internal Medicine; ATTEND Internal Medicine
PROC: 5A09357 Assistance with Respiratory Ventilation, Less than 24 Consecutive Hours, Continuous Positive Airway Pressure (ICD-10-PCS; principal; 2022-01-03)
PROC: 5A0935A Assistance with Respiratory Ventilation, Less than 24 Consecutive Hours, High Flow/Velocity Cannula (ICD-10-PCS; 2022-01-03)
PROC: 5A2204Z Restoration of Cardiac Rhythm, Single (ICD-10-PCS; 2022-01-06)
DX: A41.1 Sepsis due to other specified staphylococcus (principal); J18.9 Pneumonia, unspecified organism; J96.01 Acute respiratory failure with hypoxia; J44.0 Chronic obstructive pulmonary disease with (acute) lower respiratory infection; J44.1 Chronic obstructive pulmonary disease with (acute) exacerbation; I48.0 Paroxysmal atrial fibrillation; R33.9 Retention of urine, unspecified; K64.9 Unspecified hemorrhoids; Z20.822 Contact with and (suspected) exposure to COVID-19; F17.210 Nicotine dependence, cigarettes, uncomplicated; F41.9 Anxiety disorder, unspecified; I11.0 Hypertensive heart disease with heart failure; I50.9 Heart failure, unspecified; I65.23 Occlusion and stenosis of bilateral carotid arteries; K58.9 Irritable bowel syndrome, unspecified; I49.5 Sick sinus syndrome; E78.5 Hyperlipidemia, unspecified; Z95.0 Presence of cardiac pacemaker; Z79.01 Long term (current) use of anticoagulants; Z79.52 Long term (current) use of systemic steroids; Z88.8 Allergy status to other drugs, medicaments and biological substances
CPT/HCPCS: 36415; 51701; 51702; 71045; 74176; 80053; 81000; 82805; 82947; 83605; 83735; 83880; 84100; 84484; 85025; 85610; 85730; 86141; 87040; 87081; 87636; 92960; 93005; 93041; 93306; 94640; 94664; 94760; 94761; 96365; 96375; 99291

== ENCOUNTER 2022-02-13 11:45 | Inpatient (IN) | payer MEDICARE, OTHER ==
[~2022-02-13] VITALS: Ht 152 cm; Wt 62.1 kg
[~2022-02-13 11:45] MED LIST changes: +ACET-2267 PO; +ASCO100024 PO; +DOXY100T2 PO; +FLEC100T PO; +FURO20TA4 PO; +LOPE2TAB32 PO; +POTA10TA PO; +RIVA15TA2 PO; +VITA0.4T18 PO
[2022-02-13] MEDS ORDERED: NS IV 1000 ML 1,000 ML IV SCH (12:00)
[2022-02-13 12:02] LABS: BASOPHILS % (AUTO) 0 % (0-10); EOSINOPHILS # (AUTO) 0.1 10^3/uL (0.0-0.3); EOSINOPHILS % (AUTO) 1 % (0-10); HEMATOCRIT 37 % (35-52); HEMOGLOBIN 11.3 g/dL (11.5-16.0); LYMPHOCYTES # (AUTO) 1.5 10^3/uL (1.0-4.0); LYMPHOCYTES % (AUTO) 14 % (12-44); MEAN CORPUSCULAR HEMOGLOBIN 26 pg (25-34); MEAN CORPUSCULAR HGB CONC 31 g/dL (32-36); MEAN CORPUSCULAR VOLUME 85 fL (80-99); MEAN PLATELET VOLUME 10.8 fL (9.0-12.2); MONOCYTES # (AUTO) 0.7 10^3/uL (0.0-1.0); MONOCYTES % (AUTO) 7 % (0-12); NEUTROPHILS # (AUTO) 8.3 10^3/uL (1.8-7.8); NEUTROPHILS % (AUTO) 78 % (42-75); PLATELET COUNT 236 10^3/uL (130-400); WHITE BLOOD COUNT 10.6 10^3/uL (4.3-11.0)
[2022-02-13 12:23] LABS: SODIUM 136 MMOL/L (135-145)
[2022-02-13 12:24] LABS: ALANINE AMINOTRANSFERASE 65 U/L (0-55); ALBUMIN 4.2 GM/DL (3.2-4.5); ALKALINE PHOSPHATASE 99 U/L (40-136); BILIRUBIN,TOTAL 0.5 MG/DL (0.1-1.0); BUN/CREATININE RATIO 24; CALCIUM 9.2 MG/DL (8.5-10.1); CARBON DIOXIDE 26 MMOL/L (21-32); CHLORIDE 97 MMOL/L (98-107); CREATININE SERUM 0.49 MG/DL (0.60-1.30); GFR ESTIMATED 96; GLUCOSE 132 MG/DL (70-105)
--- NOTE | 2022-02-13 12:24 | Diagnostic Imaging Report ---
INDICATION: Shortness of breath. COMPARISON: 01/03/2022. FINDINGS: There is enlargement of the cardiac silhouette. A pacemaker device is present as well as a subcutaneous loop recorder. There are bilateral pleural effusions and prominence of the basilar interstitial markings suggesting edema. There is no dense alveolar consolidation or pneumothorax. IMPRESSION: Enlarged cardiac silhouette with pulmonary interstitial prominence and small effusions suggesting edema. Dictated by: Dictated on workstation # [id number]
[2022-02-13] MEDS ORDERED: KETOROLAC 30 MG/ML VIAL IVP ONE (12:30)
[2022-02-13] MEDS ORDERED: FUROSEMIDE 40 MG/4 ML INJ (LASIX) IVP ONE (12:45)
--- NOTE | 2022-02-13 13:06 | ED Cardiac General ---
History of Present Illness General Chief Complaint: Cardiac/General Problems Stated Complaint: A-FIB Nursing Triage Note: Patient reports she was recently hospitalized at [facility] in [place] for atrial fibrillation. She states she became short of breath, started coughing, developed a sore throat, and began having chest pain last night around 10 pm. Source: patient Exam Limitations: no limitations History of Present Illness Date Seen by Provider: Feb 13, 2022 Time Seen by Provider: 12:00 Initial Comments Patient is a 81-year-old female who presents with shortness of breath, palpitations and coughing. Patient reports sore throat with cough with chest wall pain and shortness of breath last evening. Symptoms continued today when EMS was contacted. Patient recently placed on oxygen. She is currently requiring 4 L. Patient is on flecainide for control of A. fib and Xarelto. She is compliant with her medications. On EMS arrival, the patient's heart rate was in the 100s to 130s with a systolic blood pressure in the 90s. Patient took her Cardizem this morning prior to contacting EMS. She denies fever chills, nausea vomiting or sweats. Denies exertional chest pain. No abdominal pain. No vomiting. No urinary frequency urgency or dysuria. No headache dizziness, focal extremity weakness or loss of sensation. No other acute symptoms or complaints. Timing/Duration: 1-3 hours Severity: moderate Location: other Activities at Onset: other Prior CP/Workup: other Associated Systoms: Other Allergies and Home Medications Allergies Coded Allergies: iodine (Verified Allergy, Unknown, 10/16/20) shellfish derived (Verified Allergy, Unknown, 04/24/20) Patient Home Medication List Home Medication List Reviewed: Yes Acetaminophen (Tylenol Extra Strength) 500 Mg Tablet, 500-1,000 MG PO Q8H PRN for PAIN-MILD (1-4), (Reported) Entered as Reported by: PASCALE WILBURN on 01/03/22 1452 Ascorbic Acid (Vitamin C) 1,000 Mg Tablet, 500 MG PO BID, (Reported) Entered as Reported by: PASCALE WILBURN on 01/03/22 1452 Calcium Carbonate/Vitamin D3 (Calcium 600 + Vit D 400 Softgl) 1 Each Capsule, 1 EACH PO BID, (Reported) Entered as Reported by: PASCALE WILBURN on 10/16/20 1424 Cetirizine HCl (Zyrtec) 10 Mg Capsule, 10 MG PO DAILY, (Reported) Entered as Reported by: MERCEDES RIDER on 06/21/20911 Diltiazem HCl (Diltiazem 24Hr ER) 120 Mg Cap.er.24h, 120 MG PO DAILY, (Reported) Entered as Reported by: MERCEDES RIDER on 06/21/20911 Doxycycline Hyclate (Doxycycline Hyclate) 100 Mg Tablet, 100 MG PO BID@07,17 Prescribed by: ALLIE PEREA on 01/06/22 124 Esomeprazole Magnesium (Esomeprazole Magnesium) 20 Mg Capsule.dr, 20 MG PO DAILY, (Reported) Entered as Reported by: PASCALE WILBURN on 10/16/20 142 Flaxseed/Omega3,6,9/Fatty Acid (Flax Seed Oil 1,300 mg Softgel) 1 Each Capsule, 1 EACH PO HS, (Reported) Entered as Reported by: MERCEDES RIDER on 06/21/20911 Flecainide Acetate (Flecainide Acetate) 100 Mg Tablet, 100 MG PO BID Prescribed by: ALLIE PEREA on 01/06/22 1246 Furosemide (Furosemide) 20 Mg Tablet, 20 MG PO DAILY Prescribed by: ALLIE PEREA on 01/06/22 1246 Lisinopril (Lisinopril) 10 Mg Tablet, 5 MG PO 1200, (Reported) Entered as Reported by: PASCALE WILBURN on 10/16/20 1424 Loperamide HCl (Anti-Diarrheal) 2 Mg Tablet, 2-4 MG PO UD PRN for DIARRHEA, (Reported) Entered as Reported by: PASCALE WILBURN on 01/03/22 1452 Potassium Chloride (K-Tab ER) 10 Meq Tablet.er, 10 MEQ PO 1200, (Reported) Entered as Reported by: PASCALE WILBURN on 01/03/22 1452 Raloxifene HCl (Raloxifene HCl) 60 Mg Tablet, 60 MG PO 1800, (Reported) Entered as Reported by: MERCEDES RIDER on 06/21/20911 Rivaroxaban (Xarelto Tablet) 15 Mg Tablet, 15 MG PO DAILY@1700 Prescribed by: ALLIE PEREA on 01/06/22 1246 Simethicone (Gas Relief) 125 Mg Capsule, 125 MG PO 1900 AFTER DINNER PRN for GAS, (Reported) Entered as Reported by: MERCEDES RIDER on 06/21/20 0912 Timolol Maleate (Timolol Maleate 0.5%) 0.5 % Drops, 1 DROP OU Q12H, (Reported) Entered as Reported by: LESLIE GARCIA on 05/08/20 2252 Vit A,C & E/Lutein/Minerals (Ocuvite with Lutein Tablet) 300MCG-200 Tablet, 1 EACH PO DAILY, (Reported) Entered as Reported by: PASCALE WILBURN on 05/11/20 1008 Vitamin B Complex/Folic Acid (Super B Maxi Complex Caplet) 0.4 Mg Tablet, 0.4 MG PO Q48H @HS, (Reported) Entered as Reported by: PASCALE WILBURN on 01/03/22 1452 Review of Systems Review of Systems Constitutional: see HPI EENTM: See HPI Respiratory: See HPI Cardiovascular: See HPI Gastrointestinal: See HPI Genitourinary: See HPI Musculoskeletal: see HPI Skin: see HPI Psychiatric/Neurological: See HPI Endocrine: See HPI Hematologic/Lymphatic: See HPI All Other Systems Reviewed Negative Unless Noted: No Past [id number]-[id number] Hx Patient Social History Tobacco Use?: No Immunizations Up To Date Tetanus Booster (TDap): Unknown PED Vaccines UTD: Yes Seasonal Allergies Seasonal Allergies: No Past Medical History Surgery/Hospitalization HX: Paroxysmal Atrial Fibrillation, COPD, Hypertension, IBS Surgeries: Yes Oophorectomy, Pacemaker Respiratory: No Cardiac: Yes Atrial Fibrillation, Hypertension Neurological: No Genitourinary: No Gastrointestinal: No Musculoskeletal: No Endocrine: No HEENT: No Cancer: No Psychosocial: No Integumentary: No Blood Disorders: No Physical Exam Vital Signs Vital Signs - First Documented 02/13/22 11:46 Temp 36.9 Pulse 107 Resp 23 B/P (MAP) 86/42 (57) Pulse Ox 97 O2 Delivery Nasal Cannula O2 Flow Rate 4.00 Capillary Refill : Less Than 3 Seconds Height, Weight, BMI Height: '" Weight: lbs. oz. kg; 25.00 BMI Method: General Appearance: No Apparent Distress, WD/WN, Anxious HEENT: PERRL/EOMI, Normal ENT Inspection, Pharynx Normal Neck: Full Range of Motion, Non Tender, Supple Respiratory: Chest Non Tender, Decreased Breath Sounds, Rales Cardiovascular: No Edema, Irregularly Irregular Gastrointestinal: Non Tender, Soft Neurologic/Psychiatric: Alert, Oriented x3, apple turner II-XII Norm as Tested Focused Exam Sepsis Stage: Ruled Out Progress/Results/Core Measures Results/Orders Lab Results Laboratory Tests Test 02/13/22 11:50 02/13/22 11:55 Range/Units White Blood Count 10.6 4.3-11.0 10^3/uL Red Blood Count 4.31 3.80-5.11 10^6/uL Hemoglobin 11.3 L 11.5-16.0 g/dL Hematocrit 37 35-52 % Mean Corpuscular Volume 85 80-99 fL Mean Corpuscular Hemoglobin 26 25-34 pg Mean Corpuscular Hemoglobin Concent 31 L 32-36 g/dL Red Cell Distribution Width 17.4 H 10.0-14.5 % Platelet Count 236 130-400 10^3/uL Mean Platelet Volume 10.8 9.0-12.2 fL Immature Granulocyte % (Auto) 0 % Neutrophils (%) (Auto) 78 H 42-75 % Lymphocytes (%) (Auto) 14 12-44 % Monocytes (%) (Auto) 7 0-12 % Eosinophils (%) (Auto) 1 0-10 % Basophils (%) (Auto) 0 0-10 % Neutrophils # (Auto) 8.3 H 1.8-7.8 10^3/uL Lymphocytes # (Auto) 1.5 1.0-4.0 10^3/uL Monocytes # (Auto) 0.7 0.0-1.0 10^3/uL Eosinophils # (Auto) 0.1 0.0-0.3 10^3/uL Basophils # (Auto) 0.0 0.0-0.1 10^3/uL Immature Granulocyte # (Auto) 0.0 0.0-0.1 10^3/uL Sodium Level 136 135-145 MMOL/L Potassium Level 4.0 3.6-5.0 MMOL/L Chloride Level 97 L 98-107 MMOL/L Carbon Dioxide Level 26 21-32 MMOL/L Anion Gap 13 5-14 MMOL/L Blood Urea Nitrogen 12 7-18 MG/DL Creatinine 0.49 L 0.60-1.30 MG/DL Estimat Glomerular Filtration Rate 96 BUN/Creatinine Ratio 24 Glucose Level 132 H 70-105 MG/DL Calcium Level 9.2 8.5-10.1 MG/DL Corrected Calcium 9.0 8.5-10.1 MG/DL Total Bilirubin 0.5 0.1-1.0 MG/DL Aspartate Amino Transf (AST/SGOT) 30 5-34 U/L Alanine Aminotransferase (ALT/SGPT) 65 H 0-55 U/L Alkaline Phosphatase 99 40-136 U/L Troponin I < 0.30 <0.30 NG/ML Pro-B-Type Natriuretic Peptide 2001.0 H <450.0 PG/ML Total Protein 7.0 6.4-8.2 GM/DL Albumin 4.2 3.2-4.5 GM/DL Influenza Type A (RT-PCR) Not Detected Not Detecte Influenza Type B (RT-PCR) Not Detected Not Detecte SARS-CoV-2 RNA (RT-PCR) Not Detected Not Detecte Group A Streptococcus Screen NEGATIVE NEGATIVE My Orders Orders - KASEY GARCIA DO Cbc With Automated Diff (02/13/22 11:51) Comprehensive Metabolic Panel (02/13/22 11:51) Troponin I Fs (02/13/22 11:51) Chest 1 View Ap/Pa Only (02/13/22 11:51) Probnp Fs (02/13/22 11:51) Ekg Tracing (02/13/22 11:51) Ns Iv 1000 Ml (Sodium Chloride 0.9%) (02/13/22 12:00) Covid 19 Inhouse Test (02/13/22 11:54) Rapid Strep A Screen (02/13/22 11:54) Influenza A And B By Pcr (02/13/22 11:54) Isolation Central Supply Req (02/13/22 11:54) Ketorolac Injection (Toradol Injection) (02/13/22 12:30) Furosemide Injection (Lasix Injection) (02/13/22 12:45) Medications Given in ED Current Medications Medications Dose Ordered Sig/Trang Route Start Time Stop Time Status Last Admin Dose Admin Furosemide 40 mg ONCE ONCE IVP 02/13/22 12:45 02/13/22 12:46 DC 02/13/22 12:48 40 MG Ketorolac Tromethamine 15 mg ONCE ONCE IVP 02/13/22 12:30 02/13/22 12:31 DC 02/13/22 12:49 15 MG Vital Signs/I&O 02/13/22 11:46 Temp 36.9 Pulse 107 Resp 23 B/P (MAP) 86/42 (57) Pulse Ox 97 O2 Delivery Nasal Cannula O2 Flow Rate 4.00 Blood Pressure Mean: 57 Departure Communication (Admissions) Family Conversation CXR: CM and pulmonary edema EKG: afib, rate controlled A. fib with variable ventricular response and acute congestive heart failure requiring increased oxygen utilization.. IV fluids given for hypotension and Lasix given for pulmonary congestion. No fever chills, nausea vomiting or signs. No other acute symptoms or complaints. Impression Primary Impression: Atrial fibrillation Additional Impression: Acute congestive heart failure Disposition: HOME, SELF-CARE Condition: Critical Admissions Decision to Admit Reason: Admit from ER (General) Decision to Admit/Date: Feb 13, 2022 Time/Decision to Admit Time: 13:10 (Dr. Perea. ) Departure-Patient Inst. Referrals: SELFMARCELLO MD (PCP) Primary Care Physician KASEY GARCIA DO Feb 13, 2022 13:06
[2022-02-13] MEDS ORDERED: ANTACID SUSP 30 ML UDC (MYLANTA) PO PRN (14:30)
[2022-02-13] MEDS ORDERED: ACETAMINOPHEN 325 MG TABLET PO PRN (14:30)
[2022-02-13] MEDS ORDERED: ONDANSETRON 4 MG/2 ML (SDV) Z0FRAN IV PRN (14:30)
[2022-02-13] MEDS ORDERED: diphenhydrAMINE 25 MG TAB (BENADRYL) PO PRN (14:30)
[2022-02-13] MEDS ORDERED: diphenhydrAMINE 50 MG/ML INJ (BENADRYL) IVP PRN (14:30)
[2022-02-13] MEDS ORDERED: BISACODYL 10 MG SUPP (DULCOLAX) PR PRN (14:30)
[2022-02-13] MEDS ORDERED: MELATONIN 3 MG TABLET PO PRN (14:30)
[2022-02-13] MEDS ORDERED: ONDANSETRON 4 MG (ZOFRAN) ORAL DISSOLVE TAB PO PRN (14:30)
[2022-02-13] MEDS ORDERED: polyethylene glycoL POWDER 17 GM (MIRALAX) PACK PO PRN (14:30)
[2022-02-13] MEDS ORDERED: LORazepam 0.5 MG (ATIVAN) TABLET PO PRN (15:00)
[2022-02-13] MEDS ORDERED: LIDOCAINE UROJET 2% GEL 10 ML PKG TOP ONE (15:00)
[2022-02-13] MEDS ORDERED: morphine INJ 4 MG/ML 1 ML (VIAL/SYRINGE) IV PRN (15:00)
[2022-02-13 15:51] VITALS: BP 86/42
[2022-02-13 16:00] VITALS: BP 125/78
[2022-02-13] MEDS ORDERED: RT-ALBUTEROL/IPRATROPIUM 3 ML (DUONEB) VIAL INH PRN (16:00)
[2022-02-13] MEDS ORDERED: RIVAROXABAN 15 MG TABLET (XARELTO) PO SCH (17:00)
[2022-02-13] MEDS ORDERED: RT-ALBUTEROL/IPRATROPIUM 3 ML (DUONEB) VIAL INH SCH (18:00)
[2022-02-13 20:00] VITALS: BP 95/66
[2022-02-13] MEDS: DOCUSATE SODIUM 100 MG (COLACE) CAP PO SCH (20:02)
[2022-02-13 23:18] VITALS: BP 110/60
[2022-02-14 03:38] VITALS: BP 132/78
[2022-02-14 05:33] LABS: HEMATOCRIT 31 % (35-52); HEMOGLOBIN 9.6 g/dL (11.5-16.0); MEAN CORPUSCULAR HEMOGLOBIN 26 pg (25-34); MEAN CORPUSCULAR HGB CONC 31 g/dL (32-36); MEAN CORPUSCULAR VOLUME 85 fL (80-99); MEAN PLATELET VOLUME 10.2 fL (9.0-12.2); PLATELET COUNT 189 10^3/uL (130-400); WHITE BLOOD COUNT 10.4 10^3/uL (4.3-11.0)
[2022-02-14 05:49] LABS: ALBUMIN 3.3 GM/DL (3.2-4.5); POTASSIUM 3.6 MMOL/L (3.6-5.0)
[2022-02-14 05:50] LABS: CALCIUM 8.4 MG/DL (8.5-10.1)
[2022-02-14 05:52] LABS: TOTAL PROTEIN 5.7 GM/DL (6.4-8.2)
[2022-02-14 05:53] LABS: BILIRUBIN,TOTAL 0.6 MG/DL (0.1-1.0)
[2022-02-14 05:55] LABS: CREATININE SERUM 0.61 MG/DL (0.60-1.30)
[2022-02-14] MEDS ORDERED: RT-ALBUTEROL/IPRATROPIUM 3 ML (DUONEB) VIAL INH SCH (06:00)
[2022-02-14] MEDS: RT-ALBUTEROL/IPRATROPIUM 3 ML (DUONEB) VIAL INH SCH ×4 (06:56→18:56)
[2022-02-14] MEDS ORDERED: FUROSEMIDE 40 MG/4 ML INJ (LASIX) IVP NR (07:30)
[2022-02-14 08:00] VITALS: BP 109/98
[2022-02-14] MEDS: DOCUSATE SODIUM 100 MG (COLACE) CAP PO SCH ×2 (08:42→20:21)
--- NOTE | 2022-02-14 09:17 | Consultation-Cardiology ---
HPI-Cardiology Cardiology Consultation Date of Consultation 02/14/22 Date of Admission Time Seen by Provider: 09:11 Indication: Atrial fibrillation HPI 81-year-old lady with history of paroxysmal atrial fibrillation. Patient came into the emergency room with shortness of breath, palpitation and coughing. Had a sore throat. She was noted to be in atrial fibrillation. Reported that she felt her heart racing. On my evaluation she was feeling better, working with the physical therapist and able to walk the hallway. Denied any chest pain. No syncope or near syncopal episodes. No claudications. Home Medications & Allergies Allergies: Coded Allergies: iodine (Verified Allergy, Unknown, 10/16/20) shellfish derived (Verified Allergy, Unknown, 04/24/20) Home Medication List Reviewed: Yes [id number] Hx Patient Social History Employed/Student: retired Smoking Status: Former Smoker Type Used: Cigarettes 2nd Hand Smoke Exposure: Yes Recent Hopitalizations: No Have you traveled recently?: No Alcohol Use?: No Immunizations Up To Date Tetanus Booster (TDap): Unknown Date of Influenza Vaccine: Feb 10, 2021 Past Medical History Discussed below Family Medical History Family Medical Hx Noncontributory Review of Systems-General Review of Systems Constitutional: see HPI, malaise EENTM: see HPI, no symptoms reported Respiratory: see HPI, cough, dyspnea on exertion; No hemoptysis, No orthopnea, No phlegm; short of breath; No stridor, No wheezing, No other Cardiovascular: see HPI; No chest pain, No edema, No Hx of Intervention; palpitations; No syncope, No vascular heart diseas, No other Gastrointestinal: no symptoms reported, see HPI Genitourinary: no symptoms reported, see HPI Musculoskeletal: see HPI Skin: see HPI Psychiatric/Neurological: See HPI All Other Systems Reviewed Negative Unless Noted: No Reviewed Test Results Reviewed Test Results Lab Laboratory Tests Test 02/13/22 11:50 02/13/22 11:55 02/14/22 05:24 Range/Units White Blood Count 10.6 10.4 4.3-11.0 10^3/uL Red Blood Count 4.31 3.66 L 3.80-5.11 10^6/uL Hemoglobin 11.3 L 9.6 L 11.5-16.0 g/dL Hematocrit 37 31 L 35-52 % Mean Corpuscular Volume 85 85 80-99 fL Mean Corpuscular Hemoglobin 26 26 25-34 pg Mean Corpuscular Hemoglobin Concent 31 L 31 L 32-36 g/dL Red Cell Distribution Width 17.4 H 17.1 H 10.0-14.5 % Platelet Count 236 189 130-400 10^3/uL Mean Platelet Volume 10.8 10.2 9.0-12.2 fL Immature Granulocyte % (Auto) 0 % Neutrophils (%) (Auto) 78 H 42-75 % Lymphocytes (%) (Auto) 14 12-44 % Monocytes (%) (Auto) 7 0-12 % Eosinophils (%) (Auto) 1 0-10 % Basophils (%) (Auto) 0 0-10 % Neutrophils # (Auto) 8.3 H 1.8-7.8 10^3/uL Lymphocytes # (Auto) 1.5 1.0-4.0 10^3/uL Monocytes # (Auto) 0.7 0.0-1.0 10^3/uL Eosinophils # (Auto) 0.1 0.0-0.3 10^3/uL Basophils # (Auto) 0.0 0.0-0.1 10^3/uL Immature Granulocyte # (Auto) 0.0 0.0-0.1 10^3/uL Sodium Level 136 135 135-145 MMOL/L Potassium Level 4.0 3.6 3.6-5.0 MMOL/L Chloride Level 97 L 101 98-107 MMOL/L Carbon Dioxide Level 26 25 21-32 MMOL/L Anion Gap 13 9 5-14 MMOL/L Blood Urea Nitrogen 12 17 7-18 MG/DL Creatinine 0.49 L 0.61 0.60-1.30 MG/DL Estimat Glomerular Filtration Rate 96 91 BUN/Creatinine Ratio 24 28 Glucose Level 132 H 86 70-105 MG/DL Calcium Level 9.2 8.4 L 8.5-10.1 MG/DL Corrected Calcium 9.0 9.0 8.5-10.1 MG/DL Total Bilirubin 0.5 0.6 0.1-1.0 MG/DL Aspartate Amino Transf (AST/SGOT) 30 21 5-34 U/L Alanine Aminotransferase (ALT/SGPT) 65 H 48 0-55 U/L Alkaline Phosphatase 99 70 40-136 U/L Troponin I < 0.30 <0.30 NG/ML Pro-B-Type Natriuretic Peptide 2001.0 H <450.0 PG/ML Total Protein 7.0 5.7 L 6.4-8.2 GM/DL Albumin 4.2 3.3 3.2-4.5 GM/DL Influenza Type A (RT-PCR) Not Detected Not Detecte Influenza Type B (RT-PCR) Not Detected Not Detecte SARS-CoV-2 RNA (RT-PCR) Not Detected Not Detecte Group A Streptococcus Screen NEGATIVE NEGATIVE Physical Exam Physical Exam Vital Signs Vital Signs - First Documented 02/13/22 02/13/22 11:46 15:51 Temp 36.9 Pulse 107 Resp 23 B/P (MAP) 86/42 (57) Pulse Ox 97 O2 Delivery Nasal Cannula O2 Flow Rate 4.00 FiO2 36 Capillary Refill : Less Than 3 Seconds Height, Weight, BMI Height: '" Weight: lbs. oz. kg; 27.05 BMI Method: General Appearance: No Apparent Distress, WD/WN, Anxious Eyes: Bilateral Eye Normal Inspection, Bilateral Eye PERRL, Bilateral Eye EOMI HEENT: PERRL/EOMI, Normal ENT Inspection, Pharynx Normal Neck: Full Range of Motion, Non Tender, Supple Respiratory: Chest Non Tender, Decreased Breath Sounds, Rales Cardiovascular: No Edema, Systolic Murmur, Irregularly Irregular Gastrointestinal: Non Tender, Soft Back: Normal Inspection, No CVA Tenderness, No Vertebral Tenderness Extremity: Normal Capillary Refill, Normal Inspection, Normal Range of Motion, Non Tender, No Calf Tenderness, No Pedal Edema Neurologic/Psychiatric: Alert, Oriented x3, decontamination worker II-XII Norm as Tested Skin: Normal Color, Warm/Dry Lymphatic: No Adenopathy A/P-Cardiology Admission Diagnosis Paroxysmal atrial fibrillation Congestive heart failure Sinus node dysfunction Palpitation Assessment/Plan Paroxysmal atrial fibrillation, maintained on flecainide, diltiazem and Xarelto. On returning to the hospital patient was back in atrial fibrillation. I will restart flecainide and diltiazem Monitor heart rate and blood pressure Congestive heart failure, shortness of breath with elevated BNP. Acute on chronic left ventricular diastolic dysfunction secondary to atrial fibrillation. Responded well to Lasix. Continue to monitor Palpitation, shortness of breath, probably secondary to paroxysmal atrial fibrillation. 2D echo was done on January 03, 2022 showing normal left ventricular size and systolic function, diastolic dysfunction, biatrial enlargement, estimated pulmonary artery pressure of 40 mmHg Echocardiogram done in September 2020 showing normal LV size and function, ejection fraction 60 to 65%, mild aortic valve stenosis, PA pressure 40 to 45 mmHg. 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 Currently asymptomatic Stress test was done in May 2021 showing extracardiac attenuation with no significant ischemia or infarction, stress score 5, SDS 3. Ejection fraction 6 9% Sinus node dysfunction, history of [employer] pacemaker implanted in June 2020. Continue to monitor Hypertension, restart home medication monitor blood pressure Hyperlipidemia, monitor lipids Mild bilateral carotid stenosis, continue to monitor Clinical Quality Measures AMI/AHF: ASA po Prior to arrival: JOVITA Irwin MD Feb 14, 2022 09:16
[2022-02-14] MEDS: dilTIAZem120 MG (CARDIZEM CD) CAP PO SCH (09:22)
[2022-02-14] MEDS: FLECAINIDE 100 MG (TAMBOCOR) TAB PO SCH ×2 (09:22→20:21)
--- NOTE | 2022-02-14 09:49 | Occupational Therapy Eval ---
OT Evaluation-General/PLF Medical Diagnosis Admission Date Feb 13, 2022 at 14:35 Medical Diagnosis: A-fib and CHF Onset Date: Feb 13, 2022 Therapy Diagnosis Therapy Diagnosis: N/a Precautions Precautions/Isolations: Fall Prevention, Standard Precautions Referral Physician: Dr. Subramanian Referral Reason: Evaluation/Treatment Medical History Pertinent Medical History: Atrial Fib, COPD, HTN, Smoking Current History Pt arrived by EMS due to coughing and SOB and found to be in A-fib. Per patient, she lives with her daughter in law in a multilevel home. Bathroom on 1st and 2nd floor. She stated that the tub/shower is on the 2nd floor but she only goes up there to shower once a week. She was indep with adls and her DIL manages the cooking and shopping. She has a commercial housekeeper for cleaning. She uses both a walker and a cane at baseline. Reviewed History: Yes Social History Home: Multilevel Current Living Status: Children (daughter in-law and son) ADL-Prior Level of Function SCALE: Activities may be completed with or without assistive devices. 5-Khpvjksibf-dqrngiy completes the activity by him/herself with no assistance from a helper. 5-Set-up or Clean-up Assistance-helper sets up or cleans up; patient completes activity. [place] assists only prior to or following the activity. 4-Supervision or Touching Assistance-helper provides verbal cues and/or touching/steadying and/or contact guard assistance as patient completes activity. Assistance may be provided throughout the activity or intermittently. 3-Partial/Moderate Assistance-helper does LESS THAN HALF the effort. [place] lifts, holds or supports trunk or limbs, but provides less than half the effort. 2-Substantial/Maximal Assistance-helper does MORE THAN HALF the effort. [place] lifts or holds trunk or limbs and provides more than half the effort. 5-Nbsmdziqt-qjmqzh does ALL the effort. Patient does none of the effort to complete the activity. Or, the assistance of 2 or more helpers is required for the patient to complete the activity. If activity was not attempted, code reason: 7-Patient Refused. 9-Not Applicable-not attempted and the patient did not perform the activity before the current illness, exacerbation or injury. 10-Not Attempted due to Environmental Limitations-(lack of equipment, weather restraints, etc.). 88-Not Attempted due to Medical Conditions or Safety Concerns. Self Care: Independent Functional Cognition: Independent DME/Equipment: Bath Chair, Grab Bars, Tub/Shower Drive Self: No OT Current Status Subjective Pt sitting in recliner upon arrival. She agrees to therapy eval. Appearance Pt left sitting in recliner with all needs within reach. Mental Status/Objective Patient Orientation: Person, Place, Time, Situation Attachments: IV, Telemetry Current Glasses/Contacts: Yes Upper Extremity ROM WFL Upper Extremity Strength WFL-shoulder flexion ADL-Treatment Eating (QC): 6 Oral Hygiene (QC): 6 Lower Body Dressing (QC): 6 (clinical judgment) On/Off Footwear (QC): 6 Pt independent with standing, no loss of balance. Denies any concerns regarding self-care at this time. Education OT Patient Education: Correct positioning, Progress toward Goal/Update tx plan, Purpose of tx/functional activities, Rehab process, Safety issues Teaching Recipient: Patient Teaching Methods: Discussion Response to Teaching: Verbalize Understanding, Return Demonstration OT Nursing Home Goals Volcanologist Goals 1=Demonstrate adherence to instructed precautions during ADL tasks. 2=Patient will verbalize/demonstrate understanding of assistive devices/modifications for ADL. 3=Patient will improve strength/tolerance for activity to enable patient to perform ADL's. OT Education/Plan Problem List/Assessment Assessment: No Skilled OT Needs ID'd Discharge Recommendations Plan/Recommendations: Discontinue OT Therapy Discharge Recommendati: Homemaker Support, Home & Family Treatment Plan/Plan of Care Treatment,Training & Education: Yes Patient would benefit from OT for education, treatment and training to promote independence in ADL's, mobility, safety and/or upper extremity function for ADL's. Plan of Care: ADL Retraining, Functional Mobility Treatment Duration: Feb 14, 2022 Frequency: 1 time per week Estimated Hrs Per Day: .25 hour per day Agreement: Yes Rehab Potential: Fair Time/GCodes Start Time: 09:37 Stop Time: 09:45 Total Time Billed (hr/min): 8 Billed Treatment Time 1 visit Eula Renner OT Feb 14, 2022 09:49
[2022-02-14] MEDS ORDERED: FURO20TA4 PO (10:13)
[2022-02-14] MEDS ORDERED: RIVA20TA PO (10:13)
[2022-02-14] MEDS ORDERED: FLEC100T PO (10:13)
[2022-02-14] MEDS ORDERED: KCL 20 MEQ TAB (K-DUR) PO NR (10:30)
--- NOTE | 2022-02-14 10:38 | Physical Therapy Evaluation ---
PT Evaluation-General Medical Diagnosis Admission Date Feb 13, 2022 at 14:35 Medical Diagnosis: A-fib and CHF Onset Date: Feb 13, 2022 Therapy Diagnosis Therapy Diagnosis: debility Precautions Precautions/Isolations: Fall Prevention, Standard Precautions Referral Physician: Dr. Subramanian Reason for Referral: Evaluation/Treatment Medical History Pertinent Medical History: Atrial Fib, COPD, HTN, Smoking History of Falls (past yr): No Prior Surgery (last 100 days): No Current History EMS secondary to SOA and cough Reviewed History: Yes Social History Home: Multilevel Current Living Status: Children (daughter in-law and son) Entry Into Home: Stairs With Railing PT Steps Into Home: 3 Prior Prior Level of Function SCALE: Activities may be completed with or without assistive devices. 5-Qcgdqhllpd-rddhptg completes the activity by him/herself with no assistance from a helper. 5-Set-up or Clean-up Assistance-helper sets up or cleans up; patient completes activity. [place] assists only prior to or following the activity. 4-Supervision or Touching Assistance-helper provides verbal cues and/or touching/steadying and/or contact guard assistance as patient completes activity. Assistance may be provided throughout the activity or intermittently. 3-Partial/Moderate Assistance-helper does LESS THAN HALF the effort. [place] lifts, holds or supports trunk or limbs, but provides less than half the effort. 2-Substantial/Maximal Assistance-helper does MORE THAN HALF the effort. [place] lifts or holds trunk or limbs and provides more than half the effort. 0-Vcqqwzdti-lwucmo does ALL the effort. Patient does none of the effort to complete the activity. Or, the assistance of 2 or more helpers is required for the patient to complete the activity. If activity was not attempted, code reason: 7-Patient Refused. 9-Not Applicable-not attempted and the patient did not perform the activity before the current illness, exacerbation or injury. 10-Not Attempted due to Environmental Limitations-(lack of equipment, weather restraints, etc.). 88-Not Attempted due to Medical Conditions or Safety Concerns. Bed Mobility: 6 Transfers (B,C,W/C): 6 Gait: 6 Stairs: 6 Indoor Mobility (Ambulation): Independent Stairs: Independent Prior Devices Use: Walker PT Evaluation-Current Subjective Patient agrees to PT. Objective Patient Orientation: Normal For Age Attachments: Oxygen ROM/Strength ROM Lower Extremities bilateral LE WFL Strength Lower Extremities 3+/5 grossly bilateral LE all planes Integumentary/Posture Bowel Incontinence: No Bladder Incontinence: Yes Posture slightly kyphotic Neuromuscular (Tone, Coordination, Reflexes) grossly intact Sensory Vision: Wears Glasses Hearing: Functional Transfers Lying to Sitting/Side of Bed(Q: 6 Sit to Stand (QC): 6 Chair/Czd-zd-Wpwqw Xfer(QC): 6 Gait Mode of Locomotion: Walk Anticipated Mode of Locomotion: Walk Walk 10 feet (QC): 6 Walk 50 ft with 2 Turns(QC): 6 Walk 150 ft (QC): 6 Distance: 350' Gait Assistive Device: FWW Comments/Gait Description safe and functional with no deviation Balance Sitting Static: Normal Sitting Dynamic: Normal Standing Static: Normal Standing Dynamic: Normal Assessment/Needs Patient is currently at independent [facility] with all gross motor skills safely and does not require skilled PT intervention at this time. Rehab Potential: Fair PT Plan Treatment/Plan Treatment Plan: Discontinue PT Treatment Duration: Feb 14, 2022 Frequency: 1 time per week Estimated Hrs Per Day: .25 hour per day Patient and/or Family Agrees t: Yes Time/GCodes Time In: 833 Time Out: 845 Total Billed Treatment Time: 12 Total Billed Treatment 1 visit EVModC 12 min NISHANT PEDROZA PT Feb 14, 2022 10:38
[2022-02-14 11:00] VITALS: BP 104/60
--- NOTE | 2022-02-14 11:18 | History & Physical-Hospitalist ---
LINDSEYLIZETTEJULIO C 02/14/22 1117: History of Present Illness HPI/Chief Complaint CC: shortness of breath 81 YO Meredith Chirinos presented to [facility] ED on 02/12/22 with shortness of breath, palpitations, cough, and sore throat. In the ED her HR was fluctuating from 100s to 130s. She has a history of paroxysmal Afib controlled with flecainide, Xarelto, and diltiazem. She denied fever, chills, n/v/d, sweats, exertional chest pain, abdominal pain, urinary sx, headache, dizziness, or focal extremity weakness. During her ED stay she was given furosemide, tolerated well. She was admitted to medicine on 02/13/22 for Afib and acute CHF exacerbation. Pt was recently started on 4LO2 at home which she did not use for the last x 2 weeks. On evaluation today she was feeling better, denied SOB, chest pain, or any other sx. Notes some mild back pain from laying in bed. PMH: Paroxysmal AFib, COPD, HTN, HLD, Mild bilateral carotid stenosis, IBS PSH: oophorectomy and pacemaker ALL: iodine, shellfish Home Meds: Acetaminophen (500 MG Q8H), Ascorbic acid (500 MG BID), Calcium carbonate/VitD3 (1 capsule PO BID), Ditltiazem (120 MG PO Daily), Esomeprazole magnesium (20 MG PO Daily), Flax seed/Omega3 (1 capsule each PO BID), Flecainide (100 MG PO BID), Furosemide (20 MG PO daily), Lisinopril (10 MG tablet), Loperamide (2 MG prn), Potassium chloride (10 MEQ PO 1200), Raloxifene (60 MG PO 1800), Rivaroxaban (15 MG PO DAILY), Simethecone (125 MG Prn) SH: former smoker, no ETOH or drug use FH: noncontributory Source: patient, other (ED report) Date Seen 02/14/22 Time Seen by a Provider: 10:00 Attending Physician Ponce Vargas MD PCP Admitting Physician: Caitlyn Perea DO Attending Physician: Caitlyn Perea DO Referring Physician Date of Admission Feb 14, 2022 at 10:55 Home Medications & Allergies Home Medications Reviewed patient Home Medication Reconciliation performed by pharmacy medication reconciliations machine operator slitter technician and/or nursing. Patients Allergies have been reviewed. Allergies Allergies Coded Allergies iodine (Verified Allergy, Unknown, 10/16/20) shellfish derived (Verified Allergy, Unknown, 04/24/20) Past Kocpfsb-Ldmkra-Xzaajw Hx Patient Social History Employed/Student: retired Tobacco Use?: No (former) Smoking Status: Former Smoker Substance use?: No Alcohol Use?: No Pt feels they are or have been: No Immunizations Up To Date Date of Influenza Vaccine: Feb 10, 2021 Tetanus Booster (TDap): Unknown Hepatitis A: No Hepatitis B: No PED Vaccines UTD: Yes Seasonal Allergies Seasonal Allergies: No Current Status status: No Advance Directives: Yes Communicates: Verbally Primary Language: Vincentian Preferred Spoken Language: Vincentian Is interpretation needed?: No Sensory deficits: Vision impairment Implanted or Applied Medical D: Pacemaker Past Medical History Surgeries: Oophorectomy, Pacemaker COPD Currently Using CPAP: No Currently Using BIPAP: No Atrial Fibrillation, Hypertension Blood Disorders: No Review of Systems Constitutional: No chills, No diaphoresis EENTM: No blurred vision Respiratory: cough; No short of breath Cardiovascular: No chest pain, No palpitations Gastrointestinal: No abdominal pain, No diarrhea, No nausea, No vomiting Musculoskeletal: back pain (mild, chronic) Skin: No rash Physical Exam Physical Exam Vital Signs Vital Signs - First Documented 02/13/22 02/13/22 11:46 15:51 Temp 36.9 Pulse 107 Resp 23 B/P (MAP) 86/42 (57) Pulse Ox 97 O2 Delivery Nasal Cannula O2 Flow Rate 4.00 FiO2 36 Capillary Refill : Less Than 3 Seconds Height, Weight, BMI Height: '" Weight: lbs. oz. kg; 27.05 BMI Method: General Appearance: No Apparent Distress, WD/WN Eyes: Bilateral Eye Normal Inspection, Bilateral Eye PERRL, Bilateral Eye EOMI HEENT: PERRL/EOMI, Moist Mucous Membranes Neck: Non Tender, Supple Respiratory: Lungs Clear, Normal Breath Sounds, No Accessory Muscle Use, No Respiratory Distress Cardiovascular: No JVD, No Murmur, Irregularly Irregular Gastrointestinal: Normal Bowel Sounds, Non Tender Back: No Decreased Range of Motion Extremity: Non Tender, No Calf Tenderness, No Pedal Edema Neurologic/Psychiatric: Alert, Oriented x3, Normal Mood/Affect Reflexes: 2+ Ankle (R), 2+ Ankle (L) Skin: Normal Color, Warm/Dry Lymphatic: No Adenopathy (supraclavicular and axillary ) Results Results/Procedures Labs Laboratory Tests 02/13/22 11:50 02/14/22 05:24 Patient resulted labs reviewed. Assessment/Plan Admission Diagnosis Afib, Acute CHF Admission Status: Observation Assessment and Plan Paroxysmal Afib - controlled with flecainide, diltiazem, xarelto. Monitory HR and BP - cardiology consulted CHF - acute on chronic left ventricular diastolic dysfunction secondary to Afib. Last echo 01/03/22 - normal LV size, Ef 60-65%, mild aortic valve stenosis - responded well to lasix - continue to monitor Palpitations - secondary to Afib. She is currently palpitation free. HTN - continue at home BP medications COPD - continue on 4L while in hospital. She has oxygen at home that she is instructed to use as needed HLD - monitor lipids Mild Bilateral coronary artery stenosis - followed by cardiology IBS - PPI and anti-diarrheals as needed Clinical Quality Measures AMI/AHF: ASA po Prior to arrival: CAITLYN Delgado DO 02/15/22 0517: History of Present Illness HPI/Chief Complaint Chief complaint: Shortness of breath HPI: This is a 81-year-old female clinic patient of Dr. Tellez who has a past medical history of atrial fibrillation and congestive heart failure who presents to the ER with shortness of breath found to have volume overload and Lasix was given. Currently she is doing a lot better but appears to be very debilitated and short of breath. Source: patient Exam Limitations: no limitations Past Boaaakv-Dehpsn-Iibpju Hx Patient Social History Marrital Status: single Employed/Student: retired Tobacco Use?: No (former) Past Medical History COPD Atrial Fibrillation, Chronic Edema/Swelling, Coronary Artery Disease, High Cholesterol, Hypertension Review of Systems Constitutional: see HPI Respiratory: dyspnea on exertion Physical Exam Physical Exam General Appearance: No Apparent Distress, Chronically ill, Thin Eyes: Right Eye Normal Inspection, Right Eye PERRL HEENT: PERRL/EOMI, Normal ENT Inspection, Pharynx Normal, Moist Mucous Membranes Neck: Full Range of Motion, Normal Inspection, Non Tender Respiratory: Chest Non Tender, Lungs Clear, No Accessory Muscle Use, No Respiratory Distress, Decreased Breath Sounds Cardiovascular: No Edema, No Gallop, No JVD, No Murmur, Normal Peripheral Pulses, Irregularly Irregular Gastrointestinal: Normal Bowel Sounds, No Organomegaly, No Pulsatile Mass, Non Tender, Soft Back: Normal Inspection, No CVA Tenderness, No Vertebral Tenderness Extremity: Normal Capillary Refill, Normal Inspection, Normal Range of Motion, Non Tender, No Calf Tenderness, No Pedal Edema Neurologic/Psychiatric: Alert, Oriented x3, No Motor/Sensory Deficits, Normal Mood/Affect Skin: Normal Color, Warm/Dry Lymphatic: No Adenopathy Assessment/Plan Admission Diagnosis Assessment: Acute respiratory failure requiring supplemental oxygen and admission to hospital Volume overload consistent with congestive heart failure Atrial fibrillation Chronic debility Advanced age Plan: Supportive care Monitor closely Home meds Admission Status: Inpatient Order (span 2 midnights) Reason for Inpatient Admission: CHF with debility and hypoxia with respiratory failure Supervisory-Addendum Brief Verification & Attestation Participated in pt care: history, MDM, physical Personally performed: exam, history, MDM, supervision of care Care discussed with: Medical Student Procedures: n/a Results interpretation: Verified all documentation Verification and Attestation of Medical Student E/M Service A medical student performed and documented this service in my presence. I reviewed and verified all information documented by the medical student and made modifications to such information, when appropriate. I personally performed the physical exam and medical decision making. Caitlyn Perea, Feb 15, 2022,05:13 JULIO C CLARKE Feb 14, 2022 11:17 CAITLYN PEREA DO Feb 15, 2022 05:17
[2022-02-14 16:09] VITALS: BP 111/77
[2022-02-14] MEDS: RIVAROXABAN 15 MG TABLET (XARELTO) PO SCH (16:16)
[2022-02-14 20:17] VITALS: BP 94/63
[2022-02-14 23:54] VITALS: BP 123/66
[2022-02-15] VITALS (9 sets, daily range): BP systolic 82–139; BP diastolic 48–94
[2022-02-15] MEDS ORDERED: TIMOLOL MALEATE 0.5% 5 ML (TIMOPTIC) BTL OU SCH ×2 (05:15→09:00)
[2022-02-15 05:21] LABS: HEMATOCRIT 30 % (35-52); HEMOGLOBIN 9.2 g/dL (11.5-16.0); MEAN CORPUSCULAR HEMOGLOBIN 26 pg (25-34); MEAN CORPUSCULAR HGB CONC 31 g/dL (32-36); MEAN CORPUSCULAR VOLUME 84 fL (80-99); MEAN PLATELET VOLUME 11.1 fL (9.0-12.2); PLATELET COUNT 188 10^3/uL (130-400); WHITE BLOOD COUNT 8.9 10^3/uL (4.3-11.0)
[2022-02-15] MEDS ORDERED: SIMETHICONE 80 MG (MYLICON) CHEW PO PRN (05:45)
[2022-02-15] MEDS ORDERED: LOPERAMIDE 2 MG (IMODIUM) TABLET PO PRN (05:45)
[2022-02-15 05:46] LABS: BILIRUBIN,TOTAL 0.4 MG/DL (0.1-1.0); CALCIUM 8.3 MG/DL (8.5-10.1); CREATININE SERUM 0.64 MG/DL (0.60-1.30); POTASSIUM 3.8 MMOL/L (3.6-5.0); TOTAL PROTEIN 5.4 GM/DL (6.4-8.2)
[2022-02-15] MEDS: PANTOPRAZOLE 20 MG TABLET (PROTONIX) PO SCH ×2 (06:26→07:45)
[2022-02-15] MEDS: FUROSEMIDE 40 MG/4 ML INJ (LASIX) IVP SCH ×2 (07:43→16:16)
[2022-02-15] MEDS: RT-ALBUTEROL/IPRATROPIUM 3 ML (DUONEB) VIAL INH SCH ×4 (08:06→18:36)
[2022-02-15] MEDS: dilTIAZem120 MG (CARDIZEM CD) CAP PO SCH (08:17)
[2022-02-15] MEDS: lisINopril 10 MG (PRINIVIL) TABLET PO SCH (08:17)
[2022-02-15] MEDS: LORATADINE (CLARITIN) 10 MG TAB PO SCH (08:17)
[2022-02-15] MEDS: FLECAINIDE 100 MG (TAMBOCOR) TAB PO SCH ×2 (08:17→20:28)
[2022-02-15] MEDS: DOCUSATE SODIUM 100 MG (COLACE) CAP PO SCH ×2 (08:18→20:29)
--- NOTE | 2022-02-15 08:38 | Cardiology Progress Note ---
Subjective Date Seen by Provider: Feb 15, 2022 Time Seen by Provider: 08:36 Subjective/Events-last exam Patient was seen at bedside, laying down comfortably, feeling better Not using her oxygen. Review of Systems General: No Chills, No Night Sweats; Fatigue; No Malaise, No Appetite, No Other HEENT: No Head Aches, No Visual Changes, No Eye Pain, No Ear Pain, No Dyspha veronica, No Sinus Congestion, No Post Nasal Drip, No Sore Throat, No Other Pulmonary: No Dyspnea, No Cough, No Pleuritic Chest Pain, No Other Cardiovascular: No: Chest Pain, Palpitations, Orthopnea, Paroxysmal Noc. Dyspnea, Edema, Lt Headedness, Other Objective-Cardiology Exam Last Set of Vital Signs Vital Signs 02/15/22 02/15/22 02/15/22 04:00 08:00 08:07 Temp 36.5 Pulse 74 Resp 15 B/P (MAP) 139/81 (100) Pulse Ox 91 O2 Delivery Nasal Cannula O2 Flow Rate 1.00 FiO2 96 I&O Intake and Output 02/15/22 00:00 Intake Total 1440 ml Output Total 1450 ml Balance -10 ml Intake Oral 1440 ml Output Urine Total 1450 ml # Voids 3 # Bowel Movements 1 General: Alert, Oriented X3, Cooperative HEENT: Atraumatic, PERRLA Neck: Supple, No JVD, No Thyromegaly Lungs: Clear to Auscultation, Normal Air Movement Heart: Regular Rate, Normal S1, Normal S2, Other (Systolic murmur) Abdomen: Normal Bowel Sounds, Soft, No Tenderness, No Hepatosplenomegaly, No Masses Extremities: No Clubbing, No Cyanosis, No Edema, Normal Pulses, No Tenderness/Swelling Skin: No Rashes, No Breakdown, No Significant Lesion Neuro: Normal Gait, Normal Speech, Normal Tone, Sensation Intact Psych/Mental Status: Mental Status NL, Mood NL Results Lab Laboratory Tests 02/15/22 05:10 A/P-Cardiology Admission Diagnosis Paroxysmal atrial fibrillation Congestive heart failure Sinus node dysfunction Palpitation Assessment/Plan Paroxysmal atrial fibrillation, maintained on flecainide, diltiazem and Xarelto. On returning to the hospital patient was back in atrial fibrillation. Patient was restarted on flecainide 100 mg twice daily and Cardizem CD 120 mg daily Converted to sinus rhythm this morning Feeling better. I will arrange for EP evaluation as an outpatient Congestive heart failure, shortness of breath with elevated BNP. Acute on chronic left ventricular diastolic dysfunction secondary to atrial fibr illation. Responded well to Lasix. Continue with diuresis, okay for discharge from cardiology standpoint and follow-up as an outpatient Palpitation, shortness of breath, probably secondary to paroxysmal atrial fibrillation. Feeling better today. 2D echo was done on January 03, 2022 showing normal left ventricular size and systolic function, diastolic dysfunction, biatrial enlargement, estimated p ulmonary artery pressure of 40 mmHg Echocardiogram done in September 2020 showing normal LV size and function, ejection fraction 60 to 65%, mild aortic valve stenosis, PA pressure 40 to 45 mmHg. 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 Stress test was done in May 2021 showing extracardiac attenuation with no significant ischemia or infarction, stress score 5, SDS 3. Ejection fraction 69% Sinus node dysfunction, history of [facility] [employer] pacemaker implanted in June 2020. Continue to monitor Hypertension, restart home medication monitor blood pressure Hyperlipidemia, monitor lipids Mild bilateral carotid stenosis, continue to monitor JOVITA CHARLES MD Feb 15, 2022 08:38
[2022-02-15] MEDS: TIMOLOL MALEATE 0.5% 5 ML (TIMOPTIC) BTL OU SCH ×2 (09:30→20:29)
[2022-02-15] MEDS ORDERED: ONDANSETRON 4 MG/2 ML (SDV) Z0FRAN IV PRN (10:00)
[2022-02-15] MEDS ORDERED: ONDANSETRON 4 MG (ZOFRAN) ORAL DISSOLVE TAB PO PRN ×2 (10:00)
[2022-02-15] MEDS ORDERED: BISACODYL 10 MG SUPP (DULCOLAX) PR PRN (10:00)
[2022-02-15] MEDS ORDERED: diphenhydrAMINE 50 MG/ML INJ (BENADRYL) IVP PRN ×2 (10:00)
[2022-02-15] MEDS ORDERED: diphenhydrAMINE 25 MG TAB (BENADRYL) PO PRN ×2 (10:00)
[2022-02-15] MEDS ORDERED: ACETAMINOPHEN 325 MG TABLET PO PRN (10:00)
[2022-02-15] MEDS ORDERED: ONDANSETRON 4 MG/2 ML (SDV) Z0FRAN IVP PRN ×2 (10:00)
--- NOTE | 2022-02-15 11:10 | Progress Note - Hospitalist ---
JULIO C CLARKE 02/15/22 1110: Subjective HPI/CC On Admission Date Seen by Provider: Feb 15, 2022 Time Seen by Provider: 09:30 Chief complaint: Shortness of breath HPI: This is a 81-year-old female clinic patient of Dr. Tellez who has a past medical history of atrial fibrillation and congestive heart failure who presents to the ER with shortness of breath found to have volume overload and Lasix was given. Currently she is doing a lot better but appears to be very debilitated and short of breath. Subjective/Events-last exam Pt resting comfortably after just receiving duoneb treatment, admits breathing better. She was told she had x 2 episodes of paroxysmal Afib last night, picked up on the monitor. States she woke slightly diaphoretic, but denied any chest pain. She was in sinus rhythm upon evaluation. Pt states with her IBS, she has had some mild constipation while in hospital and appreciates the stool softeners. She reports mild sinus congestion and cough. Denies fever, chills, N/V, abdominal pain, or any other acute sx. Pt reports Dr. Vargas, called and is requesting a liver US to complete his outpatient workup, we will order that test in house. Review of Systems General: No Chills, No Malaise HEENT: No Visual Changes, No Ear Pain; Sinus Congestion Pulmonary: No Dyspnea; Cough Cardiovascular: No: Chest Pain, Palpitations Gastrointestinal: Constipation; No: Nausea, Vomiting, Abdominal Pain Genitourinary: No Dysuria Musculoskeletal: back pain (chronic, positional ) Neurological: No: Weakness, Confusion Objective Exam Vital Signs Vital Signs Date Time Temp Pulse Resp B/P (MAP) Pulse Ox O2 Delivery O2 Flow Rate FiO2 02/15/22 10:42 97 Nasal Cannula 1.00 02/15/22 08:00 36.5 74 15 139/81 (100) 02/15/22 04:00 96 Capillary Refill : Less Than 3 Seconds General Appearance: No Apparent Distress, WD/WN, Anxious (mildly anxious ) HEENT: PERRL/EOMI, Moist Mucous Membranes Neck: Non Tender, Supple Respiratory: Chest Non Tender, Lungs Clear, No Accessory Muscle Use, No Respiratory Distress, Decreased Breath Sounds (mildly ) Cardiovascular: Regular Rate, Rhythm, No Gallop, Normal Peripheral Pulses, Systolic Murmur Gastrointestinal: Normal Bowel Sounds, Non Tender, Soft Back: No CVA Tenderness, No Vertebral Tenderness Extremity: Normal Capillary Refill, Non Tender, No Calf Tenderness, Pedal Edema (minimal ) Neurologic/Psychiatric: Alert, Oriented x3, Normal Mood/Affect Skin: Normal Color, Warm/Dry Lymphatic: No Adenopathy Results/Procedures Lab Laboratory Tests 02/15/22 05:10 Patient resulted labs reviewed. Assessment/Plan Assessment and Plan Assess & Plan/Chief Complaint Paroxysmal Afib - controlled with flecainide (100 mg BID), diltiazem (120 mg daily), xarelto. - converted to sinus rhythm this morning - cardiology plans to set up outpatient electrophysiology consult CHF - acute on chronic left ventricular diastolic dysfunction secondary to Afib. Last echo 01/03/22 - normal LV size, Ef 60-65%, mild aortic valve stenosis - responded well to lasix - continue to monitor Palpitations - secondary to Afib. She is currently palpitation free. HTN - continue at home BP medications COPD - continue on 4L while in hospital. She has oxygen at home that she is instructed to use as needed HLD - monitor lipids Mild Bilateral coronary artery stenosis - followed by cardiology IBS - PPI and anti-diarrheals as needed Will get liver US per Dr. Krishna request for his outpatient work up. Pt is otherwise stable and ready to go home. Clinical Quality Measures AMI/AHF: ASA po Prior to arrival: CAITLYN Delgado DO 02/16/22 0523: Subjective Subjective/Events-last exam Pt is doing a little better Less SOB Two episodes of afib through the night Feels like she is breathing better Objective Exam General Appearance: No Apparent Distress, WD/WN, Anxious (mildly anxious ), Chronically ill Respiratory: Decreased Breath Sounds (mildly ) Cardiovascular: Systolic Murmur Assessment/Plan Assessment and Plan Assess & Plan/Chief Complaint Supportive care Supervisory-Addendum Brief Verification & Attestation Participated in pt care: history, MDM, physical Personally performed: exam, history, MDM, supervision of care Care discussed with: Medical Student Procedures: n/a Results interpretation: Verified all documentation Verification and Attestation of Medical Student E/M Service A medical student performed and documented this service in my presence. I rev iewed and verified all information documented by the medical student and made modifications to such information, when appropriate. I personally performed the physical exam and medical decision making. Caitlyn Perea, Feb 16, 2022,05:22 JULIO C CLARKE Feb 15, 2022 11:10 CAITLYN PEREA DO Feb 16, 2022 05:23
[2022-02-15] MEDS ORDERED: ANTACID SUSP 30 ML UDC (MYLANTA) PO PRN (13:00)
--- NOTE | 2022-02-15 15:08 | Diagnostic Imaging Report ---
INDICATION: Elevated liver function tests. PROCEDURE: Ultrasound abdomen complete. TECHNIQUE: Multiple real-time grayscale images were obtained of the abdomen in various projections. FINDINGS: Liver is upper limits of normal in size at 18 cm. The portal vein is patent and shows normal direction of flow. No discrete liver mass is identified. There are stones in the gallbladder. No wall thickening is seen. Extrahepatic bile duct is minimally dilated at 7 mm. No definite common duct stone is detected. The visualized pancreas is unremarkable. Spleen measures 8.3 cm in length. Aorta is nonaneurysmal. IVC is patent. Kidneys are without calculi or hydronephrosis. There is no ascites. IMPRESSION: 1. Cholelithiasis without evidence of acute cholecystitis. Extrahepatic bile duct is slightly prominent at 7 mm, but no definite common bile duct stone is detected. Dictated by: Dictated on workstation # [id number]
[2022-02-15] MEDS: RIVAROXABAN 15 MG TABLET (XARELTO) PO SCH (17:14)
[2022-02-15] MEDS ORDERED: polyethylene glycoL POWDER 17 GM (MIRALAX) PACK PO PRN (21:00)
[2022-02-15] MEDS ORDERED: MELATONIN 3 MG TABLET PO PRN (21:00)
[2022-02-15] MEDS ORDERED: raLOXifene 60 MG (EVISTA) TAB PO SCH (21:00)
[2022-02-16 04:33] VITALS: BP 116/56
[2022-02-16 05:18] LABS: HEMATOCRIT 31 % (35-52); HEMOGLOBIN 9.6 g/dL (11.5-16.0); MEAN CORPUSCULAR HEMOGLOBIN 26 pg (25-34); MEAN CORPUSCULAR HGB CONC 31 g/dL (32-36); MEAN CORPUSCULAR VOLUME 86 fL (80-99); MEAN PLATELET VOLUME 11.7 fL (9.0-12.2); PLATELET COUNT 221 10^3/uL (130-400); WHITE BLOOD COUNT 10.6 10^3/uL (4.3-11.0)
[2022-02-16 05:37] LABS: ALBUMIN 3.3 GM/DL (3.2-4.5); BILIRUBIN,TOTAL 0.3 MG/DL (0.1-1.0); CALCIUM 8.6 MG/DL (8.5-10.1); CREATININE SERUM 0.67 MG/DL (0.60-1.30); POTASSIUM 3.8 MMOL/L (3.6-5.0); TOTAL PROTEIN 5.9 GM/DL (6.4-8.2)
[2022-02-16] MEDS: FUROSEMIDE 40 MG/4 ML INJ (LASIX) IVP SCH (06:28)
[2022-02-16] MEDS: PANTOPRAZOLE 20 MG TABLET (PROTONIX) PO SCH (06:28)
[2022-02-16] MEDS: RT-ALBUTEROL/IPRATROPIUM 3 ML (DUONEB) VIAL INH SCH ×2 (07:56→11:19)
[2022-02-16 08:00] VITALS: BP 131/64
[2022-02-16 08:08] VITALS: BP 116/56
[2022-02-16 08:18] VITALS: BP 116/56
[2022-02-16] MEDS: dilTIAZem120 MG (CARDIZEM CD) CAP PO SCH (08:35)
[2022-02-16] MEDS: TIMOLOL MALEATE 0.5% 5 ML (TIMOPTIC) BTL OU SCH (08:35)
[2022-02-16] MEDS: lisINopril 10 MG (PRINIVIL) TABLET PO SCH (08:36)
[2022-02-16] MEDS: LORATADINE (CLARITIN) 10 MG TAB PO SCH (08:36)
[2022-02-16] MEDS: DOCUSATE SODIUM 100 MG (COLACE) CAP PO SCH (08:36)
[2022-02-16] MEDS: FLECAINIDE 100 MG (TAMBOCOR) TAB PO SCH (08:36)
--- NOTE | 2022-02-16 11:21 | Progress Note - Hospitalist ---
LINDSEYJULIO C BAUER 02/16/22 1121: Subjective HPI/CC On Admission Date Seen by Provider: Feb 16, 2022 Time Seen by Provider: 09:45 Chief complaint: Shortness of breath HPI: This is a 81-year-old female clinic patient of Dr. Tellez who has a past medical history of atrial fibrillation and congestive heart failure who presents to the ER with shortness of breath found to have volume overload and Lasix was given. Currently she is doing a lot better but appears to be very debilitated and short of breath. Subjective/Events-last exam Pt feeling good today. She has not had any episodes of Afib picked up on the monitor yesterday or last night. She is in sinus rhythm at this time. She slept with oxygen last night, however has not been requiring it during the day, currently 96% on RA. She denies fever, chills, N/V/D, chest pain, or any other acute sx. Hospital Course: 81 YO female with hx of paroxysmal Afib, CHF, COPD, and HTN presented to [place] ED on 02/13/22 with shortness of breath. She was found to have volume overload and Lasix was given, pt tolerated well. Cardiology consulted and restarted her Afib medications cardizem (100 mg BID), flecainide (120 mg daily), and xarelto which converted her to sinus rhythm. She has an outpatient appointment with an field training manager to follow Afib. She has been instructed by cardiology to continue taking her BP medication and lasix as rx. During hospital stay, Dr. Vargas requested an US of liver which showed cholelithiasis without acute choleycysitis, no liver mass and no common bile duct stone. She has stayed in sinus rhythm since 02/14/22 and is asymptomatic at this time. Review of Systems General: No Chills, No Night Sweats HEENT: No Head Aches, No Visual Changes Pulmonary: No Dyspnea, No Cough Cardiovascular: No: Chest Pain, Palpitations, Edema Gastrointestinal: No: Nausea, Vomiting, Abdominal Pain, Diarrhea Genitourinary: No Dysuria Musculoskeletal: leg pain (chronic left leg pain, unchanged) Neurological: No: Weakness, Numbness Objective Exam Vital Signs Vital Signs Date Time Temp Pulse Resp B/P (MAP) Pulse Ox O2 Delivery O2 Flow Rate FiO2 02/16/22 11:20 92 Room Air 0.00 10/5/22 08:18 36.6 67 21 02/16/22 08:00 14 131/64 (86) Capillary Refill : Less Than 3 Seconds General Appearance: No Apparent Distress, WD/WN HEENT: PERRL/EOMI, Pharynx Normal, Moist Mucous Membranes Neck: Non Tender, Supple Respiratory: Chest Non Tender, Lungs Clear, No Accessory Muscle Use, No Respiratory Distress, Decreased Breath Sounds Cardiovascular: Regular Rate, Rhythm, No Edema, No Gallop, No JVD, No Murmur, Normal Peripheral Pulses Gastrointestinal: Normal Bowel Sounds, Non Tender, Soft Back: No CVA Tenderness Extremity: Normal Capillary Refill, Non Tender, No Calf Tenderness, No Pedal Edema Neurologic/Psychiatric: Alert, Oriented x3, Normal Mood/Affect Results/Procedures Lab Laboratory Tests 02/16/22 04:55 Patient resulted labs reviewed. Radiology NAME: FELA OTERO [facility] REC#: [id number] PT STATUS: ADM IN : 1940 PHYSICIAN: CAITLYN PEREA DO ADMIT DATE: 02/14/22/[facility] Signed Date of Exam:02/15/22 US ABDOMEN COMPLETE [id number] INDICATION: Elevated liver function tests. PROCEDURE: Ultrasound abdomen complete. TECHNIQUE: Multiple real-time grayscale images were obtained of the abdomen in various projections. FINDINGS: Liver is upper limits of normal in size at 18 cm. The portal vein is patent and shows normal direction of flow. No discrete liver mass is identified. There are stones in the gallbladder. No wall thickening is seen. Extrahepatic bile duct is minimally dilated at 7 mm. No definite common duct stone is detected. The visualized pancreas is unremarkable. Spleen measures 8.3 cm in length. Aorta is nonaneurysmal. IVC is patent. Kidneys are without calculi or hydronephrosis. There is no ascites. IMPRESSION: 1. Cholelithiasis without evidence of acute cholecystitis. Extrahepatic bile duct is slightly prominent at 7 mm, but no definite common bile duct stone is detected. Dictated by: Dictated on workstation # [id number] Dict: 02/15/22 1457 Trans: 02/15/22 1708 [id number] Interpreted by: LINA PECK MD Electronically signed by: LINA PCEK MD 02/15/22 [id number] Assessment/Plan Assessment and Plan Assess & Plan/Chief Complaint Paroxysmal Afib - controlled with flecainide (100 mg BID), diltiazem (120 mg daily), xarelto. - outpatient electrophysiology consult has been made CHF - acute on chronic left ventricular diastolic dysfunction secondary to Afib. Last echo 01/03/22 - normal LV size, Ef 60-65%, mild aortic valve stenosis - stable - continue lasix at home HTN - continue at home BP medications COPD - She has oxygen at home that she is instructed to use as needed Mild Bilateral coronary artery stenosis - followed by cardiology IBS - PPI and anti-diarrheals as needed Pt is otherwise stable and ready to go home. Clinical Quality Measures AMI/AHF: ASA po Prior to arrival: No CAITLYN PEREA DO 02/17/22 0523: Supervisory-Addendum Brief Verification & Attestation Participated in pt care: history, MDM, physical Personally performed: exam, history, MDM, supervision of care Care discussed with: Medical Student Procedures: n/a Results interpretation: Verified all documentation Verification and Attestation of Medical Student E/M Service A medical student performed and documented this service in my presence. I reviewed and verified all information documented by the medical student and made modifications to such information, when appropriate. I personally performed the physical exam and medical decision making. Caitlyn Perea, Feb 17, 2022,05:22 JULIO C CLARKE Feb 16, 2022 11:21 CAITLYN PEREA DO Feb 17, 2022 05:23
[2022-02-16 12:00] VITALS: BP 112/61
--- NOTE | 2022-02-16 12:22 | Cardiology Progress Note ---
Subjective Date Seen by Provider: Feb 16, 2022 Time Seen by Provider: 12:22 Subjective/Events-last exam Patient was seen at bedside, laying down comfortably, feeling better. No new complaint. Review of Systems General: No Chills, No Night Sweats; Fatigue; No Malaise, No Appetite, No Other HEENT: No Head Aches, No Visual Changes, No Eye Pain, No Ear Pain, No Dysphasi a, No Sinus Congestion, No Post Nasal Drip, No Sore Throat, No Other Pulmonary: No Dyspnea, No Cough, No Pleuritic Chest Pain, No Other Cardiovascular: No: Chest Pain, Palpitations, Orthopnea, Paroxysmal Noc. Dyspnea, Edema, Lt Headedness, Other Objective-Cardiology Exam Last Set of Vital Signs Vital Signs 02/16/22 02/16/22 08:18 12:00 Temp 36.8 Pulse 65 Resp 13 B/P (MAP) 112/61 (78) Pulse Ox 93 O2 Delivery Nasal Cannula O2 Flow Rate 2.00 FiO2 21 I&O Intake and Output 02/16/22 00:00 Intake Total 790 ml Output Total 1400 ml Balance -610 ml Intake Oral 790 ml Output Urine Total 1400 ml # Voids 4 # Bowel Movements 1 General: Alert, Oriented X3, Cooperative HEENT: Atraumatic, PERRLA Neck: Supple, No JVD, No Thyromegaly Lungs: Clear to Auscultation, Normal Air Movement Heart: Regular Rate, Normal S1, Normal S2, Other Abdomen: Normal Bowel Sounds, Soft, No Tenderness, No Hepatosplenomegaly, No Masses Extremities: No Clubbing, No Cyanosis, No Edema, Normal Pulses, No Tenderness/Swelling Skin: No Rashes, No Breakdown, No Significant Lesion Neuro: Normal Gait, Normal Speech, Normal Tone, Sensation Intact Psych/Mental Status: Mental Status NL, Mood NL Results Lab Laboratory Tests 02/16/22 04:55 A/P-Cardiology Admission Diagnosis Paroxysmal atrial fibrillation Congestive heart failure Sinus node dysfunction Palpitation Assessment/Plan Paroxysmal atrial fibrillation, maintained on flecainide, diltiazem and Xarelto. On returning to the hospital patient was back in atrial fibrillation. Patient was restarted on flecainide 100 mg twice daily and Cardizem CD 120 mg daily Converted to sinus rhythm this morning Feeling better. I will arrange for EP evaluation as an outpatient Congestive heart failure, shortness of breath with elevated BNP. Acute on chronic left ventricular diastolic dysfunction secondary to atrial fibrillation. Responded well to Lasix. Continue with diuresis, okay for discharge from cardiology standpoint and follow-up as an outpatient Palpitation, shortness of breath, probably secondary to paroxysmal atrial fibrillation. Feeling better today. 2D echo was done on January 03, 2022 showing normal left ventricular size and systolic function, diastolic dysfunction, biatrial enlargement, estimated pulmonary artery pressure of 40 mmHg Echocardiogram done in September 2020 showing normal LV size and function, ejection fraction 60 to 65%, mild aortic valve stenosis, PA pressure 40 to 45 mmHg. 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 Stress test was done in May 2021 showing extracardiac attenuation with no significant ischemia or infarction, stress score 5, SDS 3. Ejection fraction 69% Sinus node dysfunction, history of [employer] pacemaker implanted in June 2020. Continue to monitor Hypertension, restart home medication monitor blood pressure Hyperlipidemia, monitor lipids Mild bilateral carotid stenosis, continue to monitor JOVITA CHARLES MD Feb 16, 2022 12:22
--- NOTE | 2022-02-16 12:23 | Discharge Inst-Post CATH ---
Discharge Inst-CATH/EP Problems Reviewed?: Yes Post Cardiac Cath/EP D/C Inst Follow Up/Plan Appointment with Dr. Tellez's office next week <b>CARDIAC CATH/EP PROCEDURE DISCHARGE INSTRUCTIONS</b> ACTIVITY * Go Home directly and rest. * Limit activity of the leg (or wrist if it was used) for 7 days including aerobics, swimming, jogging, bicycling, etc. * Restrict stair-climbing for 7 days if possible, if not, climb up with your non-cath leg, then bring together on the same step. * Avoid lifting, pushing, pulling or excessive movement of the affected extremity for 7 days. * Customary sexual activity may be resumed after 2 days-use caution not to use a position that strains or causes pain to the affected extremity. * No driving for 24 hours. * NO SMOKING. * Avoid straining for bowel movements for 7 days. * Gentle walking on level ground is allowed. * Returning to work will depend on the type of procedure and the results. Your doctor will discuss this with you. CALL YOUR DOCTOR FOR ANY OF THE FOLLOWING: *If bleeding from the puncture site occurs- Apply gentle pressure to site with clean cloth and call your doctor or EMS. * If a knot or lump forms under the skin, increases in size, or causes pain. * If bruising appears to be worsening or moving further down your leg instead of disappearing. * Temperature above 101 F. CARE OF YOUR GROIN INCISION; * Bruising or purple discoloration of the skin near the puncture site is common. * You may shower only, no bathtub bathing for 5 days. Be careful to avoid slipping as your leg may feel stiff. * If a closure device was used on your femoral artery, please see the attached guide regarding care of the device and your leg. * Leave dressing on FOR 24 hours. CARE OF YOUR WRIST INCISION; * Bruising or purple discoloration of the skin near the puncture site is common. * You may shower. * DO NOT submerge wrist. * Leave dressing on FOR 24 hours. JOVITA TELLEZ MD Feb 16, 2022 12:23
--- NOTE | 2022-02-16 12:25 | Discharge Summary ---
Discharge Summary Hospital Course Was the Problem List Reviewed?: Yes Problems/Dx: (1) Atrial fibrillation Status: Acute (2) Acute congestive heart failure Status: Acute (3) Accelerated hypertension Status: Acute (4) Pacemaker (5) COPD (chronic obstructive pulmonary disease) Status: Acute Hospital Course Date of Admission: Feb 14, 2022 at 10:55 Admission Diagnosis : Family Physician/Provider: Date of Discharge: 02/16/22 Discharge Diagnosis: [ ] Hospital Course: Hospital Course: 81 YO female with hx of paroxysmal Afib, CHF, COPD, and HTN presented to [place] ED on 02/13/22 with shortness of breath. She was found to have volume overload and Lasix was given, pt tolerated well. Cardiology consulted and restarted her Afib medications cardizem (100 mg BID), flecainide (120 mg daily), and xarelto which converted her to sinus rhythm. She has an outpatient appoin tment with an cmo to follow Afib. She has been instructed by cardiology to continue taking her BP medication and lasix as rx. During hospital stay, Dr. Vargas requested an US of liver which showed cholelithiasis without acute choleycysitis, no liver mass and no common bile duct stone. She has stayed in sinus rhythm since 02/14/22 and is asymptomatic at this time. Labs and Pending Lab Test: Laboratory Tests 02/16/22 04:55: White Blood Count 10.6, Red Blood Count 3.66L, Hemoglobin 9.6L, Hematocrit 31L, Mean Corpuscular Volume 86, Mean Corpuscular Hemoglobin 26, Mean Corpuscular Hemoglobin Concent 31L, Red Cell Distribution Width 17.2H, Platelet Count 221, Mean Platelet Volume 11.7, Sodium Level 138, Potassium Level 3.8, Chloride Level 102, Carbon Dioxide Level 24, Anion Gap 12, Blood Urea Nitrogen 25H, Creatinine 0.67, Estimat Glomerular Filtration Rate 89, BUN/Creatinine Ratio 37, Glucose Level 108H, Calcium Level 8.6, Corrected Calcium 9.2, Total Bilirubin 0.3, Aspartate Amino Transf (AST/SGOT) 16, Alanine Aminotransferase (ALT/SGPT) 34, Alkaline Phosphatase 60, Total Protein 5.9L, Albumin 3.3 Microbiology 02/13/22 Throat Culture - Final, Complete No Beta Strep isolated Home Meds Active Reported Furosemide 20 Mg Tablet 20 Mg PO DAILY PRN Xarelto (Rivaroxaban) 20 Mg Tablet 20 Mg PO 1200 Flecainide Acetate 100 Mg Tablet 100 Mg PO BID Anti-Diarrheal (Loperamide HCl) 2 Mg Tablet 2-4 Mg PO UD PRN Super B Maxi Complex Caplet (Vitamin B Complex/Folic Acid) 0.4 Mg Tablet 0.4 Mg PO HS K-Tab ER (Potassium Chloride) 10 Meq Tablet.er 10 Meq PO DAILY Vitamin C (Ascorbic Acid) 1,000 Mg Tablet 500 Mg PO BID TAKES OF A 1000MG TAB Lisinopril 10 Mg Tablet 5 Mg PO DAILY TAKES OF A 5MG Esomeprazole Magnesium 20 Mg Capsule.dr 20 Mg PO DAILY Calcium 600 + Vit D 400 Softgl (Calcium Carbonate/Vitamin D3) 600 Mg Calcium-10 Mcg (400 Unit) Capsule 1 Each PO DAILY Zyrtec (Cetirizine HCl) 10 Mg Capsule 10 Mg PO DAILY Gas Relief (Simethicone) 125 Mg Capsule 125 Mg PO 1900 AFTER DINNER PRN Flax Seed Oil 1,300 mg Softgel (Flaxseed/Omega3,6,9/Fatty Acid) 1 Each Capsule 1 Each PO HS Raloxifene HCl 60 Mg Tablet 60 Mg PO HS Diltiazem 24Hr ER (Diltiazem HCl) 120 Mg Cap.er.24h 120 Mg PO DAILY Ocuvite with Lutein Tablet (Vit A,C & E/Lutein/Minerals) 300MCG-200 Tablet 1 Each PO DAILY Timolol Maleate 0.5% (Timolol Maleate) 0.5 % Drops 1 Drop OU Q12H Assessment/Pt Instructions PCP 1 week Discharge Planning: <30 minutes discharge planning Discharge Instructions Discharge Diet: No Restrictions Discharge Physical Examination Vital Signs Vital Signs Date Time Temp Pulse Resp B/P (MAP) Pulse Ox O2 Delivery O2 Flow Rate FiO2 02/16/22 12:00 36.8 65 13 112/61 (78) 93 Nasal Cannula 2.00 02/16/22 08:18 21 General Appearance: No Apparent Distress, WD/WN, Chronically ill Respiratory: Lungs Clear Cardiovascular: Regular Rate, Rhythm Allergies: Coded Allergies: iodine (Verified Allergy, Unknown, 10/16/20) shellfish derived (Verified Allergy, Unknown, 04/24/20) Discharge Summary Date of Admission Feb 14, 2022 at 10:55 Date of Discharge Discharge Date: Feb 16, 2022 Admission Diagnosis Assessment: Acute respiratory failure requiring supplemental oxygen and admission to hospital Volume overload consistent with congestive heart failure Atrial fibrillation Chronic debility Advanced age Plan: Supportive care Monitor closely Home meds Discharge Diagnosis Supportive care Clinical Quality Measures AMI/AHF: ASA po Prior to arrival: ALLIE Delgado DO Feb 16, 2022 12:25
== END 2022-02-16 13:30 | disposition home or self-care (01) | DRG 291 ==
LOC: EDUNIT# 11:45 → ER FS 11:46 → CSD 14:35 → UNDOADMOB 14:35 → CSD 14:45 → OBSVTOIN 02-14 10:54 → INTOOBSV 02-14 10:55 → UNDODISIN 02-16 13:30
PROVIDERS: ADMIT Internal Medicine; ATTEND Internal Medicine
DX: I11.0 Hypertensive heart disease with heart failure (principal); I50.33 Acute on chronic diastolic (congestive) heart failure; J96.01 Acute respiratory failure with hypoxia; I48.0 Paroxysmal atrial fibrillation; R53.81 Other malaise; E78.00 Pure hypercholesterolemia, unspecified; I25.10 Atherosclerotic heart disease of native coronary artery without angina pectoris; J44.9 Chronic obstructive pulmonary disease, unspecified; I65.23 Occlusion and stenosis of bilateral carotid arteries; K58.9 Irritable bowel syndrome, unspecified; Z95.0 Presence of cardiac pacemaker; Z87.891 Personal history of nicotine dependence; Z91.041 Radiographic dye allergy status; Z79.01 Long term (current) use of anticoagulants; Z79.899 Other long term (current) drug therapy; Z20.822 Contact with and (suspected) exposure to COVID-19
CPT/HCPCS: 36415; 71045; 76700; 80053; 83880; 84484; 85025; 85027; 87430; 87636; 93005; 94640; 94760; 96374; 96375

== ENCOUNTER → 2022-04-21 | Outpatient (CLI) | payer MEDICARE, OTHER | LOC: CARDFS 14:55 | PROVIDERS: ATTEND Physician Assistant | DX: I34.0 Nonrheumatic mitral (valve) insufficiency (principal); I10 Essential (primary) hypertension; I25.10 Atherosclerotic heart disease of native coronary artery without angina pectoris | CPT/HCPCS: 93306 ==

== ENCOUNTER 2022-09-08 06:05 | Inpatient (IN) | payer MEDICARE, OTHER ==
[~2022-09-08] VITALS: Ht 152.4 cm; Wt 65.7 kg
[2022-09-08] MEDS ORDERED: RT-ALBUTEROL/IPRATROPIUM 3 ML (DUONEB) VIAL ONE (06:14)
[2022-09-08] MEDS ORDERED: fentaNYL INJ 100 MCG/2 ML AMP IVP ONE (06:30)
[2022-09-08] MEDS ORDERED: methylPREDNISolone 125 MG (Solu-MEDROL) VIAL IVP ONE (06:30)
[2022-09-08] MEDS ORDERED: RT-ALBUTEROL/IPRATROPIUM 3 ML (DUONEB) VIAL INH ONE (06:30)
[2022-09-08] MEDS ORDERED: ONDANSETRON 4 MG/2 ML (SDV) Z0FRAN IVP ONE (06:30)
[2022-09-08 06:42] LABS: BASOPHILS # (AUTO) 0.1 10^3/uL (0.0-0.1); BASOPHILS % (AUTO) 0 % (0-10); EOSINOPHILS # (AUTO) 0.1 10^3/uL (0.0-0.3); EOSINOPHILS % (AUTO) 1 % (0-10); HEMATOCRIT 39 % (35-52); HEMOGLOBIN 11.8 g/dL (11.5-16.0); LYMPHOCYTES # (AUTO) 2.3 10^3/uL (1.0-4.0); LYMPHOCYTES % (AUTO) 17 % (12-44); MEAN CORPUSCULAR HEMOGLOBIN 28 pg (25-34); MEAN CORPUSCULAR HGB CONC 31 g/dL (32-36); MEAN CORPUSCULAR VOLUME 90 fL (80-99); MEAN PLATELET VOLUME 12.2 fL (9.0-12.2); MONOCYTES # (AUTO) 1.1 10^3/uL (0.0-1.0); MONOCYTES % (AUTO) 8 % (0-12); NEUTROPHILS # (AUTO) 9.9 10^3/uL (1.8-7.8); NEUTROPHILS % (AUTO) 73 % (42-75); PLATELET COUNT 181 10^3/uL (130-400); WHITE BLOOD COUNT 13.5 10^3/uL (4.3-11.0)
--- NOTE | 2022-09-08 07:01 | ED General ---
General Chief Complaint: Respiratory Problems Stated Complaint: FLU LIKE SYMPTOMS Nursing Triage Note: PT TO FS [facility] FROM HOME. UPON ARRIVAL PT SOA - SPO2 72% ON 3LNC, PT C/O MID UPPER ABD PAIN AND NAUSEA SX [id number] YESTERDAY AFTER EATING DINNER. PT WEARS HOME O2 AT ALL TIMES 3-4L. EMS INITIATED 20G LAC SL PATENT UPON ARRIVAL TO ED. Source of Information: Patient, EMS, Family, Old Records (WHIT DAN MD) History of Present Illness Date Seen by Provider: Sep 08, 2022 Time Seen by Provider: 06:09 Initial Comments Meredith Chirinos is an 82-year-old woman who presents to the emergency room via EMS from her home. She started feeling ill last night with upper abdominal pain, chest pain, shortness of breath, hot and cold flashes, diarrhea, and nausea. She has not been vomiting. EMS notes her oxygen was removed in transfer to the ambulance. Oxygen saturation was in the low 80s but increased to 90% with nasal cannula. On arrival oxygen saturation was 72% on 3 L nasal cannula and she was in respiratory distress with accessory muscle use and tight wheezing. She is afebrile. She reports having out-of-town guests from [place], [place] visiting over the weekend. She has history of paroxysmal atrial fibrillation and is on multiple antiarrhythmics as well as Xarelto. She has a pacemaker but is in sinus rhythm at this time. She took her medications last night but has not taken them yet this morning. Dr. Tellez is her child's nurse and Dr. Vargas is her primary care provider. She had admissions to the hospital last February and December with pneumonia, respiratory failure, atrial fibrillation, and congestive heart failure. She is a full CODE STATUS by her request. (WHIT DAN MD) Allergies and Home Medications Allergies Coded Allergies: iodine (Verified Allergy, Unknown, 10/16/20) shellfish derived (Verified Allergy, Unknown, 04/24/20) Patient Home Medication List Home Medication List Reviewed: Yes (WHIT DAN MD) Ascorbic Acid (Vitamin C) 1,000 Mg Tablet, 500 MG PO BID, (Reported) Entered as Reported by: PASCALE WILBURN on 01/03/22 0292 Calcium Carbonate/Vitamin D3 (Calcium 600 + Vit D 400 Softgl) 600 Mg Calcium-10 Mcg (400 Unit) Capsule, 1 EACH PO DAILY, (Reported) Entered as Reported by: PASCALE WILBURN on 10/16/20 142 Cetirizine HCl (Zyrtec) 10 Mg Capsule, 10 MG PO DAILY, (Reported) Entered as Reported by: MERCEDES RIDER on 06/21/20911 Diltiazem HCl (Diltiazem 24Hr ER) 120 Mg Cap.er.24h, 120 MG PO DAILY, (Reported) Entered as Reported by: MERCEDES RIDER on 06/21/20911 Esomeprazole Magnesium (Esomeprazole Magnesium) 20 Mg Capsule.dr, 20 MG PO DAILY, (Reported) Entered as Reported by: PASCALE WILBURN on 10/16/20 142 Flaxseed/Omega3,6,9/Fatty Acid (Flax Seed Oil 1,300 mg Softgel) 1 Each Capsule, 1 EACH PO HS, (Reported) Entered as Reported by: MERCEDES RIDER on 06/21/20911 Flecainide Acetate (Flecainide Acetate) 100 Mg Tablet, 100 MG PO BID, (Reported) Entered as Reported by: JOURDAN GRIJALVA on 02/14/22 1013 Furosemide (Furosemide) 20 Mg Tablet, 20 MG PO DAILY PRN for WATER RETENTION, (Reported) Entered as Reported by: JOURDAN GRIJALVA on 02/14/22 1013 Lisinopril (Lisinopril) 10 Mg Tablet, 5 MG PO DAILY, (Reported) Entered as Reported by: PASCALE WILBURN on 10/16/20 142 Loperamide HCl (Anti-Diarrheal) 2 Mg Tablet, 2-4 MG PO UD PRN for DIARRHEA, (Reported) Entered as Reported by: PASCALE WILBURN on 01/03/22 145 Potassium Chloride (K-Tab ER) 10 Meq Tablet.er, 10 MEQ PO DAILY, (Reported) Entered as Reported by: PASCALE WILBURN on 01/03/22 145 Raloxifene HCl (Raloxifene HCl) 60 Mg Tablet, 60 MG PO HS, (Reported) Entered as Reported by: MERCEDES RIDER on 06/21/20911 Rivaroxaban (Xarelto) 20 Mg Tablet, 20 MG PO 1200, (Reported) Entered as Reported by: JOURDAN GRIJALVA on 02/14/22 1013 Simethicone (Gas Relief) 125 Mg Capsule, 125 MG PO 1900 AFTER DINNER PRN for GAS, (Reported) Entered as Reported by: MERCEDES RIDER on 06/21/20 0912 Timolol Maleate (Timolol Maleate 0.5%) 0.5 % Drops, 1 DROP OU Q12H, (Reported) Entered as Reported by: LESLIE GARCIA on 05/08/20 2252 Vit A,C & E/Lutein/Minerals (Ocuvite with Lutein Tablet) 300MCG-200 Tablet, 1 EACH PO DAILY, (Reported) Entered as Reported by: PASCALE WILBURN on 05/11/20 1008 Vitamin B Complex/Folic Acid (Super B Maxi Complex Caplet) 0.4 Mg Tablet, 0.4 MG PO HS, (Reported) Entered as Reported by: PASCALE WILBURN on 01/03/22 1452 Review of Systems Review of Systems Constitutional: see HPI EENTM: no symptoms reported Respiratory: see HPI Cardiovascular: see HPI Gastrointestinal: no symptoms reported Genitourinary: no symptoms reported : No Musculoskeletal: no symptoms reported Skin: no symptoms reported Psychiatric/Neurological: No Symptoms Reported Hematologic/Lymphatic: No Symptoms Reported Immunological/Allergic: no symptoms reported (WHIT DAN MD) Past Svujwdg-Znqzoh-Tieuiv Hx Patient Social History Tobacco Use?: Yes Tobacco type used: Cigarettes Smoking Status: Current Everyday Smoker Use of E-Cig and/or Vaping dev: No Substance use?: No Alcohol Use?: No (WHIT DAN MD) Immunizations Up To Date Tetanus Booster (TDap): Unknown PED Vaccines UTD: Yes First/Initial COVID19 Vaccinat: 2020 Second COVID19 Vaccination Ariel: 2020 Third COVID19 Vaccination Date: NONE COVID19 Vaccine Dye House Hand: MODERNA X2 (WHIT DAN MD) Seasonal Allergies Seasonal Allergies: No (WHIT DAN MD) Past Medical History Surgery/Hospitalization HX: Paroxysmal Atrial Fibrillation, COPD, Hypertension, IBS, COPD, 3-4L HOME O2 24/7, CHF Surgeries: Yes Oophorectomy, Pacemaker Respiratory: Yes COPD Currently Using CPAP: No Currently Using BIPAP: No Cardiac: Yes (Grade 2 diastolic dysfunction heart failure) Atrial Fibrillation, Chronic Edema/Swelling, Coronary Artery Disease, High Cholesterol, Hypertension Neurological: No : No Genitourinary: Yes (History of urinary retention requiring Rock catheter) Gastrointestinal: Yes Irritable Bowel Musculoskeletal: No Endocrine: No HEENT: No Cancer: No Psychosocial: No Integumentary: No Blood Disorders: No (WHIT DAN MD) Physical Exam-Suspected Sepsis Physical Exam Vital Signs Vital Signs - First Documented (CHIP PEREA MD) Vital Signs Capillary Refill : Less Than 3 Seconds (WHIT DAN MD) Blood Pressure Mean: 102 Height, Weight, BMI Height: '" Weight: lbs. oz. kg; 25.00 BMI Method: General Appearance: WD/WN, Moderate Distress HEENT: PERRL/EOMI, Normal ENT Inspection, Other (Oropharynx pasty dry) Neck: Normal Inspection; No JVD Respiratory: Accessory Muscle Use, Crackles, Decreased Breath Sounds, Respiratory Distress, Wheezing Cardiovascular: Regular Rate, Rhythm, No Edema, No Murmur Gastrointestinal: Normal Bowel Sounds, Soft, Distended (Mildly), Tenderness (Epigastric region) Extremity: Normal Inspection, No Pedal Edema Neurologic/Psychiatric: Alert, Oriented x3, No Motor/Sensory Deficits, Normal Mood/Affect, kinesiology internship II-XII Norm as Tested Skin: normal color, warm/dry (WHIT DAN MD) Focused Exam Lactate Level 09/08/22 06:20: Lactic Acid Level 1.05 (CHIP PEREA MD) Lactic Acid Level Laboratory Tests Test 09/08/22 06:20 Lactic Acid Level 1.05 MMOL/L (0.50-2.00) (CHIP PEREA MD) Progress/Results/Core Measures Suspected Sepsis SIRS Temperature: Pulse: 64 Respiratory Rate: 28 Laboratory Tests 09/08/22 06:20: Blood Pressure 186 /61 Mean: 102 09/08/22 06:20: Laboratory Tests 09/08/22 06:20: (WHIT DAN MD) Results/Orders Lab Results Laboratory Tests Test 09/08/22 06:20 Range/Units White Blood Count 13.5 H 4.3-11.0 10^3/uL Red Blood Count 4.28 3.80-5.11 10^6/uL Hemoglobin 11.8 11.5-16.0 g/dL Hematocrit 39 35-52 % Mean Corpuscular Volume 90 80-99 fL Mean Corpuscular Hemoglobin 28 25-34 pg Mean Corpuscular Hemoglobin Concent 31 L 32-36 g/dL Red Cell Distribution Width 16.1 H 10.0-14.5 % Platelet Count 181 130-400 10^3/uL Mean Platelet Volume 12.2 9.0-12.2 fL Immature Granulocyte % (Auto) 0 % Neutrophils (%) (Auto) 73 42-75 % Lymphocytes (%) (Auto) 17 12-44 % Monocytes (%) (Auto) 8 0-12 % Eosinophils (%) (Auto) 1 0-10 % Basophils (%) (Auto) 0 0-10 % Neutrophils # (Auto) 9.9 H 1.8-7.8 10^3/uL Lymphocytes # (Auto) 2.3 1.0-4.0 10^3/uL Monocytes # (Auto) 1.1 H 0.0-1.0 10^3/uL Eosinophils # (Auto) 0.1 0.0-0.3 10^3/uL Basophils # (Auto) 0.1 0.0-0.1 10^3/uL Immature Granulocyte # (Auto) 0.1 0.0-0.1 10^3/uL Prothrombin Time 14.4 12.2-14.7 SEC INR Comment 1.1 0.8-1.4 Activated Partial Thromboplast Time 28 24-35 SEC D-Dimer 2.19 H 0.00-0.49 UG/ML Sodium Level 141 135-145 MMOL/L Potassium Level 4.5 3.6-5.0 MMOL/L Chloride Level 108 H 98-107 MMOL/L Carbon Dioxide Level 25 21-32 MMOL/L Anion Gap 8 5-14 MMOL/L Blood Urea Nitrogen 16 7-18 MG/DL Creatinine 0.55 L 0.60-1.30 MG/DL Estimat Glomerular Filtration Rate 93 BUN/Creatinine Ratio 29 Glucose Level 166 H 70-105 MG/DL Lactic Acid Level 1.05 0.50-2.00 MMOL/L Calcium Level 8.9 8.5-10.1 MG/DL Corrected Calcium 8.9 8.5-10.1 MG/DL Magnesium Level 2.1 1.6-2.4 MG/DL Total Bilirubin 0.4 0.1-1.0 MG/DL Aspartate Amino Transf (AST/SGOT) 35 H 5-34 U/L Alanine Aminotransferase (ALT/SGPT) 39 0-55 U/L Alkaline Phosphatase 82 40-136 U/L Myoglobin < 21.0 <58.0 NG/ML Troponin I < 0.30 <0.30 NG/ML C-Reactive Protein 4.25 H <0.50 MG/DL Pro-B-Type Natriuretic Peptide 592.9 H <450.0 PG/ML Total Protein 7.1 6.4-8.2 GM/DL Albumin 4.0 3.2-4.5 GM/DL Lipase 31 8-78 U/L Influenza Type A (RT-PCR) Not Detected Not Detecte Influenza Type B (RT-PCR) Not Detected Not Detecte SARS-CoV-2 RNA (RT-PCR) Not Detected Not Detecte (CHIP PEREA MD) My Orders Orders - CHIP PEREA MD Ed Admission (Communication) (09/08/22 08:00) (CHIP PEREA MD) Medications Given in ED Current Medications Medications Dose Ordered Sig/Trang Route Start Time Stop Time Status Last Admin Dose Admin Albuterol/ Ipratropium 3 ml ONCE ONCE INH 09/08/22 06:30 09/08/22 06:31 DC 09/08/22 06:15 3 ML Fentanyl Citrate 25 mcg ONCE ONCE IVP 09/08/22 06:30 09/08/22 06:31 DC 09/08/22 06:42 25 MCG Methylprednisolone Sodium Succinate 125 mg ONCE ONCE IVP 09/08/22 06:30 09/08/22 06:31 DC 09/08/22 06:32 125 MG Ondansetron HCl 8 mg ONCE ONCE IVP 09/08/22 06:30 09/08/22 06:31 DC 09/08/22 06:42 8 MG (CHIP PEREA MD) Vital Signs/I&O 09/08/22 09/08/22 09/08/22 09/08/22 06:08 06:08 06:45 08:35 Temp 36.5 36.4 Pulse 64 74 Resp 28 16 B/P (MAP) 186/61 (102) 121/64 Pulse Ox 93 93 92 O2 Delivery OxyMask Nasal Cannula OxyMask OxyMask O2 Flow Rate 10.00 3.00 10.00 10.00 (CHIP PEREA MD) Vital Signs/I&O Capillary Refill : Less Than 3 Seconds (WHIT DAN MD) Blood Pressure Mean: 102 Progress Note : Time: 07:05 Progress Note Patient was seen and evaluated upon arrival. She was interviewed along with her hkvnkawj-ly-eyo and jwbuvn-he-fsq. Comprehensive work-up is underway for infectious and cardiac etiologies. Both the septic and chest pain panels are being utilized. Patient was treated with DuoNeb, oxygen with an oxy mask at 10 L, Solu-Medrol 125 mg, Zofran 8 mg, and fentanyl 25 mcg. We were prepared to initiate BiPAP, but patient had marked improvement with the DuoNeb and is not requiring BiPAP at this moment. We discussed CODE STATUS, and she wishes to remain full code at this time. EKG was interpreted by me and demonstrated normal sinus rhythm with no evidence of ischemia. Care of this patient is being transitioned to Dr. Perea at this time. Verbal report has been given with labs and chest x-ray interpretation pending. (WHIT DAN MD) Progress Note #1: Time: 07:21 Progress Note I assumed care of the patient from Dr. Dan at shift change. Patient has elevated WBC count of 13.5 for possible infectious source. Hemoglobin is low normal at 11.8. Lactic acid is not elevated at 1.05. Troponin I is <0.3. Comprehensive metabolic profile does not show acute significant abnormality to account for her symptoms. Her CRP is elevated to 4.25. proBNP is not elevated at 592.9. Lipase is not elevated to indicate pancreatitis. Protime, INR and PTT all are in normal range and not elevated. D Dimer is elevated to 2.19. She has an allergy to Iodine so will defer CT angiogram of chest to evaluate for possible blood clot and check with Dr. Vann, seed corn manager production doctor for [facility] inpatient service, about admit and possible VQ scan. Influenza and Covid are all negative. In my personal interpretation and review of 1 view chest xray she has some pulmonary vascular congestion and possible infiltrate right lower lobe. Progress Note #2: Time: 07:50 Progress Note d/w Dr. Vann for [facility] inpatient service and reviewed presentation of patient and labs and CXR showing signs of some mild edema. No infiltrate seen and negative for Covid and Flu. Improved breathing with duoneb and solumedrol from Dr. Dan. Currently still on O2 at 10 Lpm by OxiMask. Cardiac enzymes are negative. Seems to be COPD exacerbation with some mild edema for CHF as well. Ddimer is elevated but patient takes Xarelto already and is not having continued chest pain as she was treated here in the ED. Will defer imaging studies for this since she would be treated with the Xarelto if there was a clot somewhere in her body. (CHIP PEREA MD) ECG Initial ECG Impression Date: Sep 08, 2022 Initial ECG Impression Time: 06:41 Initial ECG Rate: 87 Initial ECG Rhythm: Normal Sinus Comment Sinus rhythm with no ST elevation or depression. First-degree AV block with NM interval of 227 ms. No other abnormal intervals or axis deviation. (WHIT DAN MD) Diagnostic Imaging Diagonstic Imaging: Xray Plain Films/CT/US/NM/MRI: chest Comments NAME: MEREDITH CHIRINOS [facility] REC#: [id number] PT STATUS: REG ER : 1940 PHYSICIAN: WHIT DAN MD ADMIT DATE: 09/08/22/ER FS Draft Date of Exam:09/08/22 CHEST 1 VIEW AP/PA ONLY INDICATION: Shortness of breath. TECHNIQUE: Single view chest 6:52 AM. CORRELATION STUDY: 02/13/2022 FINDINGS: Left-sided AICD and electronic Loop recorder over the left chest. Heart size enlarged. Vasculature overall slightly increased from prior. Additionally, there is mildly prominent interstitial markings appear more prominent suggesting edema. Suspect small effusions. IMPRESSION: 1. Mild edema. Dictated on workstation # [id number] Dict: 09/08/22707 Trans: 09/08/22719 CV [id number] Interpreted by: JUSTYNA MORSE DO Electronically signed by: Reviewed: Reviewed by Me (I reviewed the radiologist report at 0729 and they read 1 view CXR as mild edema for CHF without infiltrate) (CHIP PEREA MD) Departure Communication (Admissions) Time/Spoke to Admitting Phy: 07:50 d/w Dr. Vann for [facility] inpatient service and reviewed presentation of patient and labs and CXR showing signs of some mild edema. No infiltrate seen and negative for Covid and Flu. Improved breathing with duoneb and solumedrol from Dr. Dan. Currently still on O2 at 10 Lpm by OxiMask. Cardiac enzymes are negative. Seems to be COPD exacerbation with some mild edema for CHF as well. Ddimer is elevated but patient takes Xarelto already and is not having continued chest pain as she was treated here in the ED. Will defer imaging studies for this since she would be treated with the Xarelto if there was a clot somewhere in her body. (CHIP PEREA MD) Impression Primary Impression: COPD with exacerbation Additional Impressions: Atypical chest pain Shortness of breath Elevated d-dimer Disposition: 30 STILL A PATIENT Condition: Stable Admissions Decision to Admit Reason: Admit from ER (General) Decision to Admit/Date: Sep 08, 2022 Time/Decision to Admit Time: 07:50 (CHIP PEREA MD) Departure-Patient Inst. Referrals: MARCELLO VARGAS MD (PCP) Primary Care Physician WHIT DAN MD Sep 08, 2022 07:01 CHIP PEREA MD Sep 08, 2022 07:28
[2022-09-08 07:07] LABS: BUN/CREATININE RATIO 29; CALCIUM 8.9 MG/DL (8.5-10.1); CARBON DIOXIDE 25 MMOL/L (21-32); CHLORIDE 108 MMOL/L (98-107); CREATININE SERUM 0.55 MG/DL (0.60-1.30); GFR ESTIMATED 93; GLUCOSE 166 MG/DL (70-105); POTASSIUM 4.5 MMOL/L (3.6-5.0); SODIUM 141 MMOL/L (135-145)
[2022-09-08 07:08] LABS: ALANINE AMINOTRANSFERASE 39 U/L (0-55); ALKALINE PHOSPHATASE 82 U/L (40-136); BILIRUBIN,TOTAL 0.4 MG/DL (0.1-1.0); TOTAL PROTEIN 7.1 GM/DL (6.4-8.2)
[2022-09-08 07:11] LABS: LIPASE 31 U/L (8-78); MAGNESIUM 2.1 MG/DL (1.6-2.4)
[2022-09-08 07:15] LABS: INR 1.1 (0.8-1.4); PROTHROMBIN TIME PATIENT 14.4 SEC (12.2-14.7)
[2022-09-08 07:16] LABS: FIBRIN DEGRADATION PRODUCTS 2.19 UG/ML (0.00-0.49)
--- NOTE | 2022-09-08 07:21 | Diagnostic Imaging Report ---
INDICATION: Shortness of breath. TECHNIQUE: Single view chest 6:52 AM. CORRELATION STUDY: 02/13/2022 FINDINGS: Left-sided AICD and electronic Loop recorder over the left chest. Heart size enlarged. Vasculature overall slightly increased from prior. Additionally, there is mildly prominent interstitial markings appear more prominent suggesting edema. Suspect small effusions. IMPRESSION: 1. Mild edema. Dictated by: Dictated on workstation # [id number]
[2022-09-08 09:25] VITALS: BP 117/60
[2022-09-08] MEDS ORDERED: CATHETER FLUSH 10 ML SYR IV PRN (10:00)
[2022-09-08 10:36] VITALS: BP 117/60
[2022-09-08] MEDS ORDERED: RT-ALBUTEROL/IPRATROPIUM 3 ML (DUONEB) VIAL INH PRN (11:00)
[2022-09-08 11:45] VITALS: BP 120/59
[2022-09-08 12:00] VITALS: BP 120/59
--- NOTE | 2022-09-08 12:41 | History & Physical ---
HPI History of Present Illness: Pt states she has had difficulty breathing since midnight last night, hit her suddenly. Got up to go to the bathroom, went back to bed and suddenly couldn't breathe. Admits cough for about a week, dry, related it to allergies with spring blooming. Has had sinus headache and drainage in throat, sometimes dripping nose, clear sputum. Denies fever. She denies history of heart failure, but has been on lasix, and weighs herself and doses based on that. Has not been taking lasix recently but states weight has been okay. Regular Market Maker is Dr. Tellez. Source: patient Date seen by provider: Sep 08, 2022 Time Seen by Provider: 12:53 Attending Physician Ponce Vargas MD PCP Admitting Physician: Trell Vann MD Attending Physician: Trell Vann MD Consult Date of Admission Sep 08, 2022 at 09:23 Home Medications Home Medications Reviewed patient Home Medication Reconciliation performed by pharmacy medication reconciliations downstream biomanufacturing technician and/or nursing. Patients Allergies have been reviewed. Allergies Coded Allergies: iodine (Verified Allergy, Unknown, 10/16/20) shellfish derived (Verified Allergy, Unknown, 04/24/20) KFZ-Dyzaso-Teccrs Hx Patient Social History Smoking Status: Current Everyday Smoker (1/2 ppd) 2nd Hand Smoke Exposure: Yes Recent Hopitalizations: No Alcohol Use?: No Tobacco type used: Cigarettes Have you traveled recently?: No Immunizations Up To Date Tetanus Booster (TDap): Unknown Influenza Vaccine Up-to-Date: Yes; Up-to-Date First/Initial COVID19 Vaccinat: 2020 Second COVID19 Vaccination Ariel: 2020 Third COVID19 Vaccination Date: NONE COVID19 Vaccine Supervisor Feed House: MODERNA X2 Past Medical History PMHx: COPD Paroxysmal Atrial fibrillation Arthritis Chronic back pain Supplemental oxygen use at night HTN IBS SurgHx: Ovary removal, doesn't recall which Breast biopsy Tonsillectomy Family Medical History Significant Family History: Heart Disease Review of Systems ([facility]) Constitutional: No fever EENTM: nose congestion Respiratory: cough, short of breath Cardiovascular: chest pain (states she has had chronic issues with pain in connective tissue in ribs, chest pain is alway reproducible) Gastrointestinal: abdominal pain, constipation, diarrhea, nausea; No vomiting Genitourinary: No dysuria Musculoskeletal: back pain Skin: No rash Reviewed Test Results Reviewed Test Results Lab Laboratory Tests Test 09/08/22 06:20 Range/Units White Blood Count 13.5 H 4.3-11.0 10^3/uL Red Blood Count 4.28 3.80-5.11 10^6/uL Hemoglobin 11.8 11.5-16.0 g/dL Hematocrit 39 35-52 % Mean Corpuscular Volume 90 80-99 fL Mean Corpuscular Hemoglobin 28 25-34 pg Mean Corpuscular Hemoglobin Concent 31 L 32-36 g/dL Red Cell Distribution Width 16.1 H 10.0-14.5 % Platelet Count 181 130-400 10^3/uL Mean Platelet Volume 12.2 9.0-12.2 fL Immature Granulocyte % (Auto) 0 % Neutrophils (%) (Auto) 73 42-75 % Lymphocytes (%) (Auto) 17 12-44 % Monocytes (%) (Auto) 8 0-12 % Eosinophils (%) (Auto) 1 0-10 % Basophils (%) (Auto) 0 0-10 % Neutrophils # (Auto) 9.9 H 1.8-7.8 10^3/uL Lymphocytes # (Auto) 2.3 1.0-4.0 10^3/uL Monocytes # (Auto) 1.1 H 0.0-1.0 10^3/uL Eosinophils # (Auto) 0.1 0.0-0.3 10^3/uL Basophils # (Auto) 0.1 0.0-0.1 10^3/uL Immature Granulocyte # (Auto) 0.1 0.0-0.1 10^3/uL Prothrombin Time 14.4 12.2-14.7 SEC INR Comment 1.1 0.8-1.4 Activated Partial Thromboplast Time 28 24-35 SEC D-Dimer 2.19 H 0.00-0.49 UG/ML Sodium Level 141 135-145 MMOL/L Potassium Level 4.5 3.6-5.0 MMOL/L Chloride Level 108 H 98-107 MMOL/L Carbon Dioxide Level 25 21-32 MMOL/L Anion Gap 8 5-14 MMOL/L Blood Urea Nitrogen 16 7-18 MG/DL Creatinine 0.55 L 0.60-1.30 MG/DL Estimat Glomerular Filtration Rate 93 BUN/Creatinine Ratio 29 Glucose Level 166 H 70-105 MG/DL Lactic Acid Level 1.05 0.50-2.00 MMOL/L Calcium Level 8.9 8.5-10.1 MG/DL Corrected Calcium 8.9 8.5-10.1 MG/DL Magnesium Level 2.1 1.6-2.4 MG/DL Total Bilirubin 0.4 0.1-1.0 MG/DL Aspartate Amino Transf (AST/SGOT) 35 H 5-34 U/L Alanine Aminotransferase (ALT/SGPT) 39 0-55 U/L Alkaline Phosphatase 82 40-136 U/L Myoglobin < 21.0 <58.0 NG/ML Troponin I < 0.30 <0.30 NG/ML C-Reactive Protein 4.25 H <0.50 MG/DL Pro-B-Type Natriuretic Peptide 592.9 H <450.0 PG/ML Total Protein 7.1 6.4-8.2 GM/DL Albumin 4.0 3.2-4.5 GM/DL Lipase 31 8-78 U/L Influenza Type A (RT-PCR) Not Detected Not Detecte Influenza Type B (RT-PCR) Not Detected Not Detecte SARS-CoV-2 RNA (RT-PCR) Not Detected Not Detecte Physical Exam-([facility]) Physical Exam Vital Signs VS - Last 72 Hours, by Label 09/08/22 09/08/22 09/08/22 09/08/22 06:08 06:08 06:45 08:35 Temp 36.5 36.4 Pulse 64 74 Resp 28 16 B/P (MAP) 186/61 (102) 121/64 Pulse Ox 93 93 92 O2 Delivery OxyMask Nasal Cannula OxyMask OxyMask O2 Flow Rate 10.00 3.00 10.00 10.00 09/08/22 09/08/22 09/08/22 09/08/22 09:25 09:30 09:45 10:00 Temp 36.1 Pulse 76 76 B/P (MAP) 117/60 (79) Pulse Ox 97 100 O2 Delivery OxyMask OxyMask O2 Flow Rate 10.00 10.00 09/08/22 09/08/22 10:11 10:36 Temp 36.1 Pulse 75 Pulse Ox 97 97 O2 Delivery OxyMask O2 Flow Rate 8.00 Capillary Refill : Less Than 3 Seconds General Appearance: no apparent distress Respiratory: rales Cardiovascular: regular rate, rhythm, no murmur Gastrointestinal: normal bowel sounds, non tender, soft Extremities: No pedal edema Neurologic/Psychiatric: alert, normal mood/affect, oriented x 3 Skin: normal color, warm/dry Assessment/Plan Assessment/Plan Admission Status: Inpatient Order (span 2 midnights) Reason for Inpatient Admission: Acute respiratory failure (1) Acute respiratory failure with hypoxia Status: Acute Assessment & Plan: Requiring high flow oxygen, not on chronic supplemental oxygen in the day at home. Suspect secondary to CHF and COPD exacerbation. (2) Acute congestive heart failure Status: Acute Assessment & Plan: Echo ordered, Cardiology consulted. 20 mg IV lasix given, monitor for response. (3) COPD with exacerbation Status: Acute Assessment & Plan: Received solumedrol in ER. Start prednisone, Duonebs. (4) Elevated d-dimer Status: Acute Assessment & Plan: Already on anticoagulation, will not pursue CTA at this time. (5) Atrial fibrillation Status: Chronic Assessment & Plan: Resume home meds, heart rate normal, Cardiology consulted. Qualifiers: Qualified Codes: I48.0 - Paroxysmal atrial fibrillation (6) COPD (chronic obstructive pulmonary disease) Status: Acute TRELL VANN MD Sep 08, 2022 12:41
[2022-09-08] MEDS ORDERED: FUROSEMIDE 40 MG/4 ML INJ (LASIX) IVP NR (12:45)
[2022-09-08] MEDS: CATHETER FLUSH 10 ML SYR IV SCH ×2 (14:16→22:10)
[2022-09-08] MEDS ORDERED: AMIO200T65 PO (15:08)
[2022-09-08] MEDS ORDERED: SIME125C95 PO (15:08)
[2022-09-08 16:00] VITALS: BP 114/66
--- NOTE | 2022-09-08 16:41 | Consultation-Cardiology ---
HPI-Cardiology Cardiology Consultation Date of Consultation 09/08/22 Date of Admission Time Seen by Provider: 16:37 Indication: Shortness of breath HPI 82 years old lady with history of hypertension, hyperlipidemia. Patient reported that she started to have increasing shortness of breath last night became significant and came to the emergency room. She was noted to have elevat ion in BNP. Responding to Lasix On my evaluation patient was sitting in bed, using oxygen mask. Denied any shortness of breath or chest pain. No palpitation. No syncope. Home Medications & Allergies Allergies: Coded Allergies: iodine (Verified Allergy, Unknown, 10/16/20) shellfish derived (Verified Allergy, Unknown, 04/24/20) Home Medication List Reviewed: Yes HQM-[id number]-Hyevyc Hx Patient Social History Marital Status: single Employed/Student: retired Smoking Status: Current Everyday Smoker (1/2 ppd) Type Used: Cigarettes 2nd Hand Smoke Exposure: Yes Recent Hopitalizations: No Have you traveled recently?: No Alcohol Use?: No Immunizations Up To Date Tetanus Booster (TDap): Unknown Date of Influenza Vaccine: Feb 10, 2021 Past Medical History Discussed below Family Medical History Significant Family History: Heart Disease Review of Systems-General Review of Systems Constitutional: No fever; malaise EENTM: nose congestion Respiratory: see HPI, cough, orthopnea, short of breath Cardiovascular: see HPI, chest pain; No edema, No Hx of Intervention, No palpitations, No syncope, No vascular heart diseas, No other Gastrointestinal: abdominal pain, constipation, diarrhea, nausea; No vomiting Genitourinary: see HPI; No dysuria : No Musculoskeletal: see HPI, back pain Skin: see HPI; No rash Psychiatric/Neurological: No Symptoms Reported Reviewed Test Results Reviewed Test Results Lab Laboratory Tests Test 09/08/22 06:20 Range/Units White Blood Count 13.5 H 4.3-11.0 10^3/uL Red Blood Count 4.28 3.80-5.11 10^6/uL Hemoglobin 11.8 11.5-16.0 g/dL Hematocrit 39 35-52 % Mean Corpuscular Volume 90 80-99 fL Mean Corpuscular Hemoglobin 28 25-34 pg Mean Corpuscular Hemoglobin Concent 31 L 32-36 g/dL Red Cell Distribution Width 16.1 H 10.0-14.5 % Platelet Count 181 130-400 10^3/uL Mean Platelet Volume 12.2 9.0-12.2 fL Immature Granulocyte % (Auto) 0 % Neutrophils (%) (Auto) 73 42-75 % Lymphocytes (%) (Auto) 17 12-44 % Monocytes (%) (Auto) 8 0-12 % Eosinophils (%) (Auto) 1 0-10 % Basophils (%) (Auto) 0 0-10 % Neutrophils # (Auto) 9.9 H 1.8-7.8 10^3/uL Lymphocytes # (Auto) 2.3 1.0-4.0 10^3/uL Monocytes # (Auto) 1.1 H 0.0-1.0 10^3/uL Eosinophils # (Auto) 0.1 0.0-0.3 10^3/uL Basophils # (Auto) 0.1 0.0-0.1 10^3/uL Immature Granulocyte # (Auto) 0.1 0.0-0.1 10^3/uL Prothrombin Time 14.4 12.2-14.7 SEC INR Comment 1.1 0.8-1.4 Activated Partial Thromboplast Time 28 24-35 SEC D-Dimer 2.19 H 0.00-0.49 UG/ML Sodium Level 141 135-145 MMOL/L Potassium Level 4.5 3.6-5.0 MMOL/L Chloride Level 108 H 98-107 MMOL/L Carbon Dioxide Level 25 21-32 MMOL/L Anion Gap 8 5-14 MMOL/L Blood Urea Nitrogen 16 7-18 MG/DL Creatinine 0.55 L 0.60-1.30 MG/DL Estimat Glomerular Filtration Rate 93 BUN/Creatinine Ratio 29 Glucose Level 166 H 70-105 MG/DL Lactic Acid Level 1.05 0.50-2.00 MMOL/L Calcium Level 8.9 8.5-10.1 MG/DL Corrected Calcium 8.9 8.5-10.1 MG/DL Magnesium Level 2.1 1.6-2.4 MG/DL Total Bilirubin 0.4 0.1-1.0 MG/DL Aspartate Amino Transf (AST/SGOT) 35 H 5-34 U/L Alanine Aminotransferase (ALT/SGPT) 39 0-55 U/L Alkaline Phosphatase 82 40-136 U/L Myoglobin < 21.0 <58.0 NG/ML Troponin I < 0.30 <0.30 NG/ML C-Reactive Protein 4.25 H <0.50 MG/DL Pro-B-Type Natriuretic Peptide 592.9 H <450.0 PG/ML Total Protein 7.1 6.4-8.2 GM/DL Albumin 4.0 3.2-4.5 GM/DL Lipase 31 8-78 U/L Influenza Type A (RT-PCR) Not Detected Not Detecte Influenza Type B (RT-PCR) Not Detected Not Detecte SARS-CoV-2 RNA (RT-PCR) Not Detected Not Detecte Physical Exam Physical Exam Vital Signs Vital Signs - First Documented Capillary Refill : Less Than 3 Seconds Height, Weight, BMI Height: '" Weight: lbs. oz. kg; 29.06 BMI Method: General Appearance: WD/WN, Moderate Distress HEENT: PERRL/EOMI, Normal ENT Inspection, Other (Oropharynx pasty dry) Neck: Normal Inspection; No JVD Respiratory: Accessory Muscle Use, Crackles, Decreased Breath Sounds, Respiratory Distress, Wheezing Cardiovascular: Regular Rate, Rhythm, No Edema, No Murmur Gastrointestinal: Normal Bowel Sounds, Soft, Distended (Mildly), Tenderness (Epigastric region) Extremity: Normal Inspection, No Pedal Edema Neurologic/Psychiatric: Alert, Oriented x3, No Motor/Sensory Deficits, Normal Mood/Affect, operations tech II-XII Norm as Tested A/P-Cardiology Admission Diagnosis Shortness of breath Congestive heart failure, acute left ventricular diastolic dysfunction, nonischemic cardiomyopathy Hypertension Hyperlipidemia Assessment/Plan Shortness of breath, elevated BNP Congestive heart failure, acute left ventricular diastolic dysfunction Last echocardiogram was done in April 2022 with normal EF, mild mitral regurgitation and PA pressure 45 to 50 mmHg Patient was started on Lasix 20 mg IV twice daily and responding well I will reevaluate 2D echo. Paroxysmal atrial fibrillation, maintained on Felcainide, diltiazem and Xarelto. 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 s/p PPM on 06/24/2020. Site is healing well. Patient was seen by Dr. Chicas. After visiting with Dr. Chicas we agreed on stopping flecainide Patient was started on amiodarone, had mild GI upset. But able to tolerate it so far. Patient has been on amiodarone 200 mg daily [id number] score 4, maintained on Xarelto Sick sinus syndrome, status post [employer] Yaw pacemaker implanted on June 24, 2020. Continue to monitor Stress test done on June 07, 2021 showing extracardiac attenuation with no significant ischemia or infarction on SPECT images stress score 5, SDS 3, EF 69%. Continue to monitor Hypertension, controlled, continue to monitor. Hyperlipidemia, lipid profile was done on July 05, 2022 with total yessy sterol 200, HDL 61, triglyceride 58, LDL 125. Continue to monitor Mild bilateral carotid stenosis, ultrasound was done in September 2021, continue to monitor. Hyponatremia, improved, continue to monitor. JOVITA CHARLES MD Sep 08, 2022 16:41
[2022-09-08] MEDS: FUROSEMIDE 40 MG/4 ML INJ (LASIX) IVP SCH (17:17)
[2022-09-08] MEDS: ENOXAPARIN 80 MG/0.8 ML (LOVENOX) SYR SC SCH (17:17)
[2022-09-08 20:00] VITALS: BP 123/68
[2022-09-08] MEDS: RT-ALBUTEROL/IPRATROPIUM 3 ML (DUONEB) VIAL INH SCH (20:38)
[2022-09-09] VITALS (7 sets, daily range): BP systolic 97–144; BP diastolic 54–76
[2022-09-09] MEDS: ENOXAPARIN 80 MG/0.8 ML (LOVENOX) SYR SC SCH (03:32)
[2022-09-09] MEDS: CATHETER FLUSH 10 ML SYR IV SCH ×3 (05:07→20:59)
[2022-09-09 05:43] LABS: HEMATOCRIT 33 % (35-52); MEAN CORPUSCULAR HEMOGLOBIN 27 pg (25-34); MEAN CORPUSCULAR HGB CONC 31 g/dL (32-36); MEAN CORPUSCULAR VOLUME 89 fL (80-99); MEAN PLATELET VOLUME 12.8 fL (9.0-12.2); PLATELET COUNT 172 10^3/uL (130-400); WHITE BLOOD COUNT 13.4 10^3/uL (4.3-11.0)
[2022-09-09 06:09] LABS: ALANINE AMINOTRANSFERASE 50 U/L (0-55); ALBUMIN 3.5 GM/DL (3.2-4.5); ALKALINE PHOSPHATASE 61 U/L (40-136); BILIRUBIN,TOTAL 0.4 MG/DL (0.1-1.0); BUN/CREATININE RATIO 27; CALCIUM 8.7 MG/DL (8.5-10.1); CARBON DIOXIDE 26 MMOL/L (21-32); CHLORIDE 106 MMOL/L (98-107); CHOLESTEROL 172 MG/DL (< 200); CREATININE SERUM 0.73 MG/DL (0.60-1.30); GFR ESTIMATED 83; GLUCOSE 116 MG/DL (70-105); HDL CHOLESTEROL 63 MG/DL (40-60); POTASSIUM 3.9 MMOL/L (3.6-5.0); SODIUM 140 MMOL/L (135-145); TOTAL PROTEIN 6.3 GM/DL (6.4-8.2); TRIGLYCERIDES 37 MG/DL (<150); VLDL CHOLESTEROL 7 MG/DL (5-40)
[2022-09-09] MEDS ORDERED: ACETAMINOPHEN 325 MG TABLET ONE (06:39)
[2022-09-09] MEDS ORDERED: ACETAMINOPHEN 500 MG TAB (TYLENOL) PO PRN (06:40)
[2022-09-09] MEDS: FUROSEMIDE 40 MG/4 ML INJ (LASIX) IVP SCH ×2 (06:42→17:26)
[2022-09-09] MEDS: predniSONE 20 MG TAB PO SCH (06:43)
[2022-09-09] MEDS: RT-ALBUTEROL/IPRATROPIUM 3 ML (DUONEB) VIAL INH SCH ×2 (07:11→21:31)
[2022-09-09] MEDS ORDERED: FOLIC ACID PO SCH (07:15)
[2022-09-09] MEDS ORDERED: VITAMIN B COMPLEX PO SCH (07:15)
[2022-09-09] MEDS ORDERED: [UNRECOGNIZED DRUG - OTHER] PO SCH (07:15)
[2022-09-09] MEDS: CALCIUM CARB + VIT D 600 MG (CALCARB + D) TAB PO SCH ×2 (07:58→20:17)
[2022-09-09] MEDS: PANTOPRAZOLE 20 MG TABLET (PROTONIX) PO SCH (07:58)
[2022-09-09] MEDS: ASCORBIC ACID (VIT C) 500 MG TABLET PO SCH ×2 (07:58→20:17)
[2022-09-09] MEDS: lisINopril 10 MG (PRINIVIL) TABLET PO SCH (08:07)
[2022-09-09] MEDS ORDERED: dilTIAZem120 MG (CARDIZEM CD) CAP PO SCH (09:00)
[2022-09-09] MEDS ORDERED: NON-FORMULARY MEDICATION 1 EA EA (Esomeprazole Magnesium 20 MG) PO SCH (09:00)
--- NOTE | 2022-09-09 09:21 | Cardiology Progress Note ---
Subjective Date Seen by Provider: Sep 09, 2022 Time Seen by Provider: 09:20 Subjective/Events-last exam Patient was seen at bedside complaining of some back pain and left-sided chest pain Review of Systems General: No Chills, No Night Sweats, No Fatigue, No Malaise, No Appetite, No Other HEENT: No Head Aches, No Visual Changes, No Eye Pain, No Ear Pain, No Dysphasia , No Sinus Congestion, No Post Nasal Drip, No Sore Throat, No Other Pulmonary: No Dyspnea, No Cough, No Pleuritic Chest Pain, No Other Cardiovascular: Chest Pain; No: Palpitations, Orthopnea, Paroxysmal Noc. Dyspnea, Edema, Lt Headedness, Other Focused Exam Lactate Level 09/08/22 06:20: Lactic Acid Level 1.05 Objective-Cardiology Exam Last Set of Vital Signs Vital Signs 09/09/22 08:14 Temp 36.3 Pulse 105 Resp 14 B/P (MAP) 97/63 (74) Pulse Ox 99 O2 Delivery Nasal Cannula O2 Flow Rate 6.00 I&O Intake and Output 09/09/22 00:00 Intake Total 1200 ml Output Total 400 ml Balance 800 ml Intake Oral 1200 ml Output Urine Total 400 ml # Voids 2 Daily Weight Change No General: Alert, Oriented X3, Cooperative HEENT: Atraumatic, PERRLA Neck: Supple, No JVD, No Thyromegaly Lungs: Clear to Auscultation, Normal Air Movement Heart: Normal S1, Normal S2, No Murmurs, Other (Atrial fibrillation) Abdomen: Normal Bowel Sounds, Soft, No Tenderness, No Hepatosplenomegaly, No Masses Extremities: No Clubbing, No Cyanosis, No Edema, Normal Pulses, No Tenderness/Swelling Skin: No Rashes, No Breakdown, No Significant Lesion Neuro: Normal Gait, Normal Speech, Strength at 5/5 X4 Ext, Normal Tone, Sensation Intact Psych/Mental Status: Mental Status NL, Mood NL Results Lab Laboratory Tests 09/09/22 04:44 A/P-Cardiology Admission Diagnosis Shortness of breath Congestive heart failure, acute left ventricular diastolic dysfunction, nonischemic cardiomyopathy Hypertension Hyperlipidemia Assessment/Plan Shortness of breath, elevated BNP Congestive heart failure, acute left ventricular diastolic dysfunction Last echocardiogram was done in April 2022 with normal EF, mild mitral regurgitation and PA pressure 45 to 50 mmHg Patient was started on Lasix 20 mg IV twice daily and responding well I will reevaluate 2D echo. Paroxysmal atrial fibrillation, maintained on Felcainide, diltiazem and Xarelto. 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 s/p PPM on 06/24/2020. Site is healing well. Patient was seen by Dr. Chicas. After visiting with Dr. Chicas we agreed on stopping flecainide Patient was started on amiodarone, had mild GI upset. But able to tolerate it so far. Patient has been on amiodarone 200 mg daily Back in atrial fibrillation with borderline tachycardia. Continue on amiodarone and Cardizem N.p.o. after midnight, will consider cardioversion if she does not convert on her own Increase amiodarone dose to 200 twice daily [id number] score 4, maintained on Xarelto Sick sinus syndrome, status post St Yaw pacemaker implanted on June 24, 2020. Continue to monitor Stress test done on June 07, 2021 showing extracardiac attenuation with no significant ischemia or infarction on SPECT images stress score 5, SDS 3, EF 69%. Continue to monitor Hypertension, controlled, continue to monitor. Hyperlipidemia, lipid profile was done on July 05, 2022 with total cholesterol 200, HDL 61, triglyceride 58, LDL 125. Continue to monitor Mild bilateral carotid stenosis, ultrasound was done in September 2021, continue to monitor. Hyponatremia, improved, continue to monitor. JOVITA CHARLES MD Sep 09, 2022 09:21
--- NOTE | 2022-09-09 09:38 | Progress Note ---
Subjective Subjective/Events-last exam Pt states she is feeling okay, a little better. Still on 6 lpm supplemental oxygen. Went into atrial flutter with RVR. Focused Exam Lactate Level 09/08/22 06:20: Lactic Acid Level 1.05 Objective Exam Last Set of Vital Signs Vital Signs Date Time Temp Pulse Resp B/P (MAP) Pulse Ox O2 Delivery O2 Flow Rate FiO2 09/09/22 08:14 36.3 105 14 97/63 (74) 99 Nasal Cannula 6.00 Capillary Refill : Less Than 3 Seconds I&O Intake and Output0 09/09/22 00:00 Intake Total 1200 ml Output Total 400 ml Balance 800 ml Intake Oral 1200 ml Output Urine Total 400 ml # Voids 2 Daily Weight Change No General: Alert, No Acute Distress Lungs: Clear to Auscultation, Normal Air Movement Heart: Other (tachycardic) Abdomen: Normal Bowel Sounds, Soft Extremities: No Edema Neuro: Normal Speech Psych/Mental Status: Mood NL Results/Procedures Lab Laboratory Tests 09/09/22 04:44: White Blood Count 13.4H, Red Blood Count 3.65L, Hemoglobin 10.0L, Hematocrit 33L , Mean Corpuscular Volume 89, Mean Corpuscular Hemoglobin 27, Mean Corpuscular Hemoglobin Concent 31L, Red Cell Distribution Width 15.9H, Platelet Count 172, Mean Platelet Volume 12.8H, Sodium Level 140, Potassium Level 3.9, Chloride Level 106, Carbon Dioxide Level 26, Anion Gap 8, Blood Urea Nitrogen 20H, Creatinine 0.73, Estimat Glomerular Filtration Rate 83, BUN/Creatinine Ratio 27, Glucose Level 116H, Calcium Level 8.7, Corrected Calcium 9.1, Magnesium Level 2.0, Total Bilirubin 0.4, Aspartate Amino Transf (AST/SGOT) 36H, Alanine Aminotransferase (ALT/SGPT) 50, Alkaline Phosphatase 61, Troponin I < 0.028, Total Protein 6.3L, Albumin 3.5, Triglycerides Level 37, Cholesterol Level 172, LDL Cholesterol Direct 88, VLDL Cholesterol 7, HDL Cholesterol 63H Assessment/Plan Assessment/Plan (1) Acute respiratory failure with hypoxia Status: Acute Assessment & Plan: Requiring high flow oxygen, not on chronic supplemental oxygen in the day at home. Suspect secondary to CHF and COPD exacerbation. (2) Acute congestive heart failure Status: Acute Assessment & Plan: Cardiology consulted. 20 mg IV lasix given, improved, 20 mg IV BID continued for now. Echo with normal EF, grade 2 diastolic dysfunction. (3) COPD with exacerbation Status: Acute Assessment & Plan: Received solumedrol in ER. Start prednisone, Duonebs. (4) Elevated d-dimer Status: Acute Assessment & Plan: Already on anticoagulation, will not pursue CTA at this time. (5) Atrial fibrillation Status: Chronic Assessment & Plan: Resume home meds, Cardiology consulted. 09/09 RVR this am, home meds given, may need cardioversion tomorrow per Cardiology if not converted with meds. Qualifiers: Qualified Codes: I48.0 - Paroxysmal atrial fibrillation (6) COPD (chronic obstructive pulmonary disease) Status: Acute (7) DVT prophylaxis Status: Acute Assessment & Plan: Home rivaroxaban. TRELL COPELAND MD Sep 09, 2022 09:38
[2022-09-09] MEDS: AMIODARONE 200 MG (CORDARONE) TAB PO SCH ×2 (10:41→20:17)
[2022-09-09] MEDS ORDERED: AMIODARONE 200 MG (CORDARONE) TAB PO SCH (13:00)
[2022-09-09] MEDS: RIVAROXABAN 20 MG TABLET (XARELTO) PO SCH (13:20)
[2022-09-09] MEDS: KCL 10 MEQ TAB (MICRO K) PO SCH (13:20)
[2022-09-09] MEDS ORDERED: raLOXifene 60 MG (EVISTA) TAB PO SCH (18:00)
[2022-09-09] MEDS ORDERED: FATTY ACID PO SCH (21:00)
[2022-09-09] MEDS ORDERED: SIMETHICONE 80 MG (MYLICON) CHEW PO SCH (21:00)
[2022-09-09] MEDS ORDERED: FLAXSEED PO SCH (21:00)
[2022-09-09] MEDS ORDERED: OMEGA3 PO SCH (21:00)
[2022-09-09] MEDS ORDERED: [UNRECOGNIZED DRUG - OTHER] PO SCH (21:00)
[2022-09-10 00:27] VITALS: BP 100/56
[2022-09-10 03:56] VITALS: BP 106/42
[2022-09-10 05:21] LABS: HEMATOCRIT 29 % (35-52); MEAN CORPUSCULAR HEMOGLOBIN 28 pg (25-34); MEAN CORPUSCULAR HGB CONC 31 g/dL (32-36); MEAN CORPUSCULAR VOLUME 89 fL (80-99); MEAN PLATELET VOLUME 12.1 fL (9.0-12.2); PLATELET COUNT 161 10^3/uL (130-400); WHITE BLOOD COUNT 12.5 10^3/uL (4.3-11.0)
[2022-09-10 05:39] LABS: CALCIUM 8.5 MG/DL (8.5-10.1); CREATININE SERUM 0.69 MG/DL (0.60-1.30); MAGNESIUM 1.8 MG/DL (1.6-2.4); POTASSIUM 3.9 MMOL/L (3.6-5.0)
[2022-09-10] MEDS: CATHETER FLUSH 10 ML SYR IV SCH (05:41)
[2022-09-10] MEDS ORDERED: MULTIVIT W/MINERALS TAB (THERAGRAN M) PO SCH (07:00)
--- NOTE | 2022-09-10 07:24 | Progress Note - Hospitalist ---
Subjective HPI/CC On Admission Date Seen by Provider: Sep 10, 2022 Time Seen by Provider: 11:00 Focused Exam Lactate Level 09/08/22 06:20: Lactic Acid Level 1.05 Objective Exam Vital Signs Vital Signs Date Time Temp Pulse Resp B/P (MAP) Pulse Ox O2 Delivery O2 Flow Rate FiO2 09/10/22 09:35 94 Room Air 09/10/22 08:19 4.00 09/10/22 07:56 36.0 68 18 107/54 (71) Capillary Refill : Less Than 3 Seconds Results/Procedures Lab Laboratory Tests 09/10/22 05:07 Patient resulted labs reviewed. ALLIE PEREA DO Sep 10, 2022 07:24
[2022-09-10 07:56] VITALS: BP 107/54
[2022-09-10] MEDS: ASCORBIC ACID (VIT C) 500 MG TABLET PO SCH (08:08)
[2022-09-10] MEDS: CALCIUM CARB + VIT D 600 MG (CALCARB + D) TAB PO SCH (08:08)
[2022-09-10] MEDS: AMIODARONE 200 MG (CORDARONE) TAB PO SCH (08:08)
[2022-09-10] MEDS: predniSONE 20 MG TAB PO SCH (08:08)
[2022-09-10] MEDS: FUROSEMIDE 40 MG/4 ML INJ (LASIX) IVP SCH (08:08)
[2022-09-10] MEDS: lisINopril 10 MG (PRINIVIL) TABLET PO SCH (08:09)
[2022-09-10] MEDS: RT-ALBUTEROL/IPRATROPIUM 3 ML (DUONEB) VIAL INH SCH (08:19)
[2022-09-10] MEDS: PANTOPRAZOLE 20 MG TABLET (PROTONIX) PO SCH (08:31)
[2022-09-10] MEDS ORDERED: PRD20T PO (11:55)
[2022-09-10] MEDS ORDERED: AMIO200T65 PO (11:55)
--- NOTE | 2022-09-10 11:56 | Discharge Summary ---
Discharge Summary Hospital Course Was the Problem List Reviewed?: Yes Problems/Dx: (1) Acute respiratory failure with hypoxia Status: Acute (2) Atrial fibrillation Status: Chronic Qualifiers: Qualified Codes: I48.0 - Paroxysmal atrial fibrillation (3) COPD with exacerbation Status: Acute (4) CHF (congestive heart failure) Status: Acute Hospital Course Date of Admission: Sep 08, 2022 at 09:23 Admission Diagnosis : Family Physician/Provider: Ponce Vargas MD Date of Discharge: 09/10/22 Discharge Diagnosis: [ ] Hospital Course: Uneventful course after she was admitted for AECOPD and AF RVR. Cardiology modified meds and patient was placed on steroids for AECOPD. Home meds restarted. Attempted to DC after she was stable but required additional cardiac med changes and was delayed DC. Labs and Pending Lab Test: Laboratory Tests 09/10/22 05:07: White Blood Count 12.5H, Red Blood Count 3.24L, Hemoglobin 9.0L, Hematocrit 29L, Mean Corpuscular Volume 89, Mean Corpuscular Hemoglobin 28, Mean Corpuscular Hemoglobin Concent 31L, Red Cell Distribution Width 15.9H, Platelet Count 161, Mean Platelet Volume 12.1, Sodium Level 138, Potassium Level 3.9, Chloride Level 103, Carbon Dioxide Level 28, Anion Gap 7, Blood Urea Nitrogen 26H, Creatinine 0.69, Estimat Glomerular Filtration Rate 88, BUN/Creatinine Ratio 38, Glucose Level 87, Calcium Level 8.5, Magnesium Level 1.8 Microbiology 09/08/22 Blood Culture - Preliminary, Resulted Staph, Coag Neg (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) Home Meds Active Prednisone 20 Mg Tab 40 Mg PO DAILY@0700 take 2 pills once daily for 2 days then 1 daily for 3 days then stop Amiodarone HCl 200 Mg Tablet 200 Mg PO BID Reported Gas Relief (Simethicone) 125 Mg Capsule 125 Mg PO HS Amiodarone HCl 200 Mg Tablet 200 Mg PO 1300 Furosemide 20 Mg Tablet 20 Mg PO DAILY PRN Xarelto (Rivaroxaban) 20 Mg Tablet 20 Mg PO 1300 Super B Maxi Complex Caplet (Vitamin B Complex/Folic Acid) 0.4 Mg Tablet 1 Ea PO Q48H @HS K-Tab ER (Potassium Chloride) 10 Meq Tablet.er 10 Meq PO 1300 Vitamin C (Ascorbic Acid) 1,000 Mg Tablet 500 Mg PO BID TAKES OF A 1000MG TAB Lisinopril 10 Mg Tablet 5 Mg PO DAILY TAKES OF A 5MG Esomeprazole Magnesium 20 Mg Capsule.dr 20 Mg PO DAILY Calcium 600 + Vit D 400 Softgl (Calcium Carbonate/Vitamin D3) 600 Mg Calcium-10 Mcg (400 Unit) Capsule 1 Each PO BID Flax Seed Oil 1,300 mg Softgel (Flaxseed/Omega3,6,9/Fatty Acid) 1 Each Capsule 1 Each PO HS Raloxifene HCl 60 Mg Tablet 60 Mg PO 1800 Diltiazem 24Hr ER (Diltiazem HCl) 120 Mg Cap.er.24h 120 Mg PO DAILY Ocuvite with Lutein Tablet (Vit A,C & E/Lutein/Minerals) 300MCG-200 Tablet 1 Each PO DAILY Assessment/Pt Instructions PCP 1 week Discharge Planning: <30 minutes discharge planning Discharge Instructions Discharge Diet: No Restrictions Activity as Tolerated: Yes Discharge Physical Examination Vital Signs Vital Signs Date Time Temp Pulse Resp B/P (MAP) Pulse Ox O2 Delivery O2 Flow Rate FiO2 09/10/22 09:35 94 Room Air 09/10/22 08:19 4.00 09/10/22 07:56 36.0 68 18 107/54 (71) General Appearance: No Apparent Distress, WD/WN, Chronically ill Respiratory: Lungs Clear, Normal Breath Sounds Cardiovascular: Regular Rate, Rhythm Neurologic/Psychiatric: Alert, Oriented x3, No Motor/Sensory Deficits, Normal Mood/Affect Allergies: Coded Allergies: iodine (Verified Allergy, Unknown, 10/16/20) shellfish derived (Verified Allergy, Unknown, 04/24/20) Discharge Summary Date of Admission Sep 08, 2022 at 09:23 Date of Discharge Discharge Date: Sep 10, 2022 ALLIE PEREA DO Sep 10, 2022 11:56
[2022-09-10 12:00] VITALS: BP 101/91
--- NOTE | 2022-09-10 12:06 | Progress Note - Cardiology ---
Cardiology SOAP Progress Note Subjective: No cp or palp or syncope No shortness of breath No n/v/d No focal weakness Wishes to go home Objective: I&O/Vital Signs 09/10/22 09/10/22 09/10/22 09/10/22 00:27 01:00 03:56 04:10 Temp 37.1 36.7 Pulse 94 101 77 Resp 24 21 B/P (MAP) 100/56 (71) 106/42 (63) Pulse Ox 98 91 O2 Delivery Nasal Cannula Nasal Cannula Nasal Cannula O2 Flow Rate 6.00 6.00 4.00 09/10/22 09/10/22 09/10/22 09/10/22 07:00 07:56 08:00 08:19 Temp 36.0 Pulse 80 68 Resp 18 B/P (MAP) 107/54 (71) Pulse Ox 99 86 94 O2 Delivery Nasal Cannula High Flow N/C Nasal Cannula O2 Flow Rate 4.00 4.00 09/10/22 09:35 Pulse Ox 94 O2 Delivery Room Air 09/10/22 00:00 Intake Total 1090 ml Output Total 600 ml Balance 490 ml Constitutional: AAO x 3, well-developed, well-nourished Respiratory: No accessory muscle use; chest expansion is symmetric, other (good, bilateral air entry) Cardiovascular: regular rate-rhythm, S1 and S2, systolic murmur (soft JOSIE at card base) Gastrointestional: No tender; soft; No guarding, No rebound; audible bowel s ounds Extremities: No clubbing, No cyanosis, No significant edema Neurologic/Psychiatric: oriented x 3, other (moves ll limb equally) Skin: normal color, warm/dry Results/Procedures: Labs Laboratory Tests 09/10/22 05:07: White Blood Count 12.5H, Red Blood Count 3.24L, Hemoglobin 9.0L, Hematocrit 29L, Mean Corpuscular Volume 89, Mean Corpuscular Hemoglobin 28, Mean Corpuscular Hemoglobin Concent 31L, Red Cell Distribution Width 15.9H, Platelet Count 161, Mean Platelet Volume 12.1, Sodium Level 138, Potassium Level 3.9, Chloride Level 103, Carbon Dioxide Level 28, Anion Gap 7, Blood Urea Nitrogen 26H, Creatinine 0.69, Estimat Glomerular Filtration Rate 88, BUN/Creatinine Ratio 38, Glucose Level 87, Calcium Level 8.5, Magnesium Level 1.8 Microbiology 09/08/22 Blood Culture - Preliminary, Resulted Staph, Coag Neg ([employer]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) Laboratory Tests 09/09/22 04:44 09/10/22 05:07 A/P: Assessment: PAF - currently NSR on current amiodarone regimen (200 bid) - chronic stroke prophylaxis with rivaroxaban - 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 Continue to monitor Mild bilateral carotid stenosis - monitored by Dr Tellez; last ultrasound was done in September 2021 Mild leucocytosis - managed by Dr Subramanian (Hospitalist) Plan: * In NSR this am, feels well, and wishes to go home * I interviewed and examined the patient and reviewed her records and answered her questions * Continue current regimen * Advised outpt cardiac f/u with GONZALES Carrillo MD FACP FAC CCDS Sep 10, 2022 12:06
[2022-09-10] MEDS: RIVAROXABAN 20 MG TABLET (XARELTO) PO SCH (13:05)
[2022-09-10] MEDS: KCL 10 MEQ TAB (MICRO K) PO SCH (13:06)
--- NOTE | 2022-09-11 06:11 | Progress Note - Hospitalist ---
Subjective HPI/CC On Admission Date Seen by Provider: Sep 11, 2022 Time Seen by Provider: 11:00 Focused Exam Lactate Level Objective Exam Vital Signs Vital Signs Date Time Temp Pulse Resp B/P (MAP) Pulse Ox O2 Delivery O2 Flow Rate FiO2 09/10/22 12:00 36.4 71 18 101/91 (94) 99 Nasal Cannula 2.50 Capillary Refill : Less Than 3 Seconds Results/Procedures Lab Patient resulted labs reviewed. ALLIE PEREA DO Sep 11, 2022 06:11
--- NOTE | 2022-09-11 11:36 | Discharge Summary ---
Diagnosis/Chief Complaint Date of Admission Sep 08, 2022 at 09:23 Date of Discharge Sep 10, 2022 at 16:30 Discharge Date: Sep 10, 2022 Discharge Summary Discharge Physical Examination Allergies: Coded Allergies: iodine (Verified Allergy, Unknown, 10/16/20) shellfish derived (Verified Allergy, Unknown, 04/24/20) Vitals & I&Os Vital Signs Date Time Temp Pulse Resp B/P (MAP) Pulse Ox O2 Delivery O2 Flow Rate FiO2 09/10/22 12:00 36.4 71 18 101/91 (94) 99 Nasal Cannula 2.50 Hospital Course Was the Problem List Reviewed?: Yes Labs (last 24 hrs) Laboratory Tests 09/08/22 06:20: White Blood Count 13.5H, Red Blood Count 4.28, Hemoglobin 11.8, Hematocrit 39, Mean Corpuscular Volume 90, Mean Corpuscular Hemoglobin 28, Mean Corpuscular Hemoglobin Concent 31L, Red Cell Distribution Width 16.1H, Platelet Count 181, Mean Platelet Volume 12.2, Immature Granulocyte % (Auto) 0, Neutrophils (%) (Auto) 73, Lymphocytes (%) (Auto) 17, Monocytes (%) (Auto) 8, Eosinophils (%) (Auto) 1, Basophils (%) (Auto) 0, Neutrophils # (Auto) 9.9H, Lymphocytes # (Auto) 2.3, Monocytes # (Auto) 1.1H, Eosinophils # (Auto) 0.1, Basophils # (Auto) 0.1, Immature Granulocyte # (Auto) 0.1, Prothrombin Time 14.4, INR Comment 1.1, Activated Partial Thromboplast Time 28, D-Dimer 2.19H, Sodium Level 141, Potassium Level 4.5, Chloride Level 108H, Carbon Dioxide Level 25, Anion Gap 8, Blood Urea Nitrogen 16, Creatinine 0.55L, Estimat Glomerular Filtration Rate 93, BUN/Creatinine Ratio 29, Glucose Level 166H, Lactic Acid Level 1.05, Calcium Level 8.9, Corrected Calcium 8.9, Magnesium Level 2.1, Total Bilirubin 0.4, Aspartate Amino Transf (AST/SGOT) 35H, Alanine Aminotransferase (ALT/SGPT) 39, Alkaline Phosphatase 82, Myoglobin < 21.0, Troponin I < 0.30, C-Reactive Protein 4.25H, Pro-B-Type Natriuretic Peptide 592.9H, Total Protein 7.1, Albumin 4.0, Lipase 31, Influenza Type A (RT-PCR) Not Detected, Influenza Type B (RT- PCR) Not Detected, SARS-CoV-2 RNA (RT-PCR) Not Detected 09/09/22 04:44: White Blood Count 13.4H, Red Blood Count 3.65L, Hemoglobin 10.0L, Hematocrit 33L , Mean Corpuscular Volume 89, Mean Corpuscular Hemoglobin 27, Mean Corpuscular Hemoglobin Concent 31L, Red Cell Distribution Width 15.9H, Platelet Count 172, Mean Platelet Volume 12.8H, Sodium Level 140, Potassium Level 3.9, Chloride Level 106, Carbon Dioxide Level 26, Anion Gap 8, Blood Urea Nitrogen 20H, Creatinine 0.73, Estimat Glomerular Filtration Rate 83, BUN/Creatinine Ratio 27, Glucose Level 116H, Calcium Level 8.7, Corrected Calcium 9.1, Magnesium Level 2.0, Total Bilirubin 0.4, Aspartate Amino Transf (AST/SGOT) 36H, Alanine Aminotransferase (ALT/SGPT) 50, Alkaline Phosphatase 61, Troponin I < 0.028, Total Protein 6.3L, Albumin 3.5, Triglycerides Level 37, Cholesterol Level 172, LDL Cholesterol Direct 88, VLDL Cholesterol 7, HDL Cholesterol 63H 09/10/22 05:07: White Blood Count 12.5H, Red Blood Count 3.24L, Hemoglobin 9.0L, Hematocrit 29L, Mean Corpuscular Volume 89, Mean Corpuscular Hemoglobin 28, Mean Corpuscular Hemoglobin Concent 31L, Red Cell Distribution Width 15.9H, Platelet Count 161, Mean Platelet Volume 12.1, Sodium Level 138, Potassium Level 3.9, Chloride Level 103, Carbon Dioxide Level 28, Anion Gap 7, Blood Urea Nitrogen 26H, Creatinine 0.69, Estimat Glomerular Filtration Rate 88, BUN/Creatinine Ratio 38, Glucose Level 87, Calcium Level 8.5, Magnesium Level 1.8 Microbiology 09/08/22 Blood Culture - Preliminary, Resulted Staph, Coag Neg (BRILLIANDEER LOOPER) Pending Labs Microbiology Date/Time Source Procedure Growth Status 09/08/22 06:20 Peripheral Lt Ac Blood Culture - Preliminary Staph, Coag Neg (BRILLIANDEER LOOPER) Resulted Laboratory Tests 09/08/22 06:20: White Blood Count 13.5, Red Blood Count 4.28, Hemoglobin 11.8, Hematocrit 39, Mean Corpuscular Volume 90, Mean Corpuscular Hemoglobin 28, Mean Corpuscular Hemoglobin Concent 31, Red Cell Distribution Width 16.1, Platelet Count 181, Mean Platelet Volume 12.2, Immature Granulocyte % (Auto) 0, Neutrophils (%) (Auto) 73, Lymphocytes (%) (Auto) 17, Monocytes (%) (Auto) 8, Eosinophils (%) (Auto) 1, Basophils (%) (Auto) 0, Neutrophils # (Auto) 9.9, Lymphocytes # (Auto) 2.3, Monocytes # (Auto) 1.1, Eosinophils # (Auto) 0.1, Basophils # (Auto) 0.1, Immature Granulocyte # (Auto) 0.1, Prothrombin Time 14.4, INR Comment 1.1, Activated Partial Thromboplast Time 28, D-Dimer 2.19, Sodium Level 141, Potassium Level 4.5, Chloride Level 108, Carbon Dioxide Level 25, Anion Gap 8, Blood Urea Nitrogen 16, Creatinine 0.55, Estimat Glomerular Filtration Rate 93, BUN/Creatinine Ratio 29, Glucose Level 166, Lactic Acid Level 1.05, Calcium Level 8.9, Corrected Calcium 8.9, Magnesium Level 2.1, Total Bilirubin 0.4, Aspartate Amino Transf (AST/SGOT) 35, Alanine Aminotransferase (ALT/SGPT) 39, Alkaline Phosphatase 82, Myoglobin < 21.0, Troponin I < 0.30, C-Reactive Protein 4.25, Pro-B-Type Natriuretic Peptide 592.9, Total Protein 7.1, Albumin 4.0, Lipase 31, Influenza Type A (RT-PCR) Not Detected, Influenza Type B (RT-PCR) Not Detected, SARS-CoV-2 RNA (RT-PCR) Not Detected 09/09/22 04:44: White Blood Count 13.4, Red Blood Count 3.65, Hemoglobin 10.0, Hematocrit 33, Mean Corpuscular Volume 89, Mean Corpuscular Hemoglobin 27, Mean Corpuscular Hemoglobin Concent 31, Red Cell Distribution Width 15.9, Platelet Count 172, Mean Platelet Volume 12.8, Sodium Level 140, Potassium Level 3.9, Chloride Level 106, Carbon Dioxide Level 26, Anion Gap 8, Blood Urea Nitrogen 20, Creatinine 0.73, Estimat Glomerular Filtration Rate 83, BUN/Creatinine Ratio 27, Glucose Level 116, Calcium Level 8.7, Corrected Calcium 9.1, Magnesium Level 2.0, Total Bilirubin 0.4, Aspartate Amino Transf (AST/SGOT) 36, Alanine Aminotransferase (ALT/SGPT) 50, Alkaline Phosphatase 61, Troponin I < 0.028, Total Protein 6.3, Albumin 3.5, Triglycerides Level 37, Cholesterol Level 172, LDL Cholesterol Direct 88, VLDL Cholesterol 7, HDL Cholesterol 63 09/10/22 05:07: White Blood Count 12.5, Red Blood Count 3.24, Hemoglobin 9.0, Hematocrit 29, Mean Corpuscular Volume 89, Mean Corpuscular Hemoglobin 28, Mean Corpuscular Hemoglobin Concent 31, Red Cell Distribution Width 15.9, Platelet Count 161, Mean Platelet Volume 12.1, Sodium Level 138, Potassium Level 3.9, Chloride Level 103, Carbon Dioxide Level 28, Anion Gap 7, Blood Urea Nitrogen 26, Creatinine 0.69, Estimat Glomerular Filtration Rate 88, BUN/Creatinine Ratio 38, Glucose Level 87, Calcium Level 8.5, Magnesium Level 1.8 Discharge Home Medications: Active Scripts Active Prednisone 20 Mg Tab 40 Mg PO DAILY@0700 take 2 pills once daily for 2 days then 1 daily for 3 days then stop Amiodarone HCl 200 Mg Tablet 200 Mg PO BID Reported Gas Relief (Simethicone) 125 Mg Capsule 125 Mg PO HS Furosemide 20 Mg Tablet 20 Mg PO DAILY PRN Xarelto (Rivaroxaban) 20 Mg Tablet 20 Mg PO 1300 Super B Maxi Complex Caplet (Vitamin B Complex/Folic Acid) 0.4 Mg Tablet 1 Ea PO Q48H @HS K-Tab ER (Potassium Chloride) 10 Meq Tablet.er 10 Meq PO 1300 Vitamin C (Ascorbic Acid) 1,000 Mg Tablet 500 Mg PO BID TAKES OF A 1000MG TAB Lisinopril 10 Mg Tablet 5 Mg PO DAILY TAKES OF A 5MG Esomeprazole Magnesium 20 Mg Capsule.dr 20 Mg PO DAILY Calcium 600 + Vit D 400 Softgl (Calcium Carbonate/Vitamin D3) 600 Mg Calcium-10 Mcg (400 Unit) Capsule 1 Each PO BID Flax Seed Oil 1,300 mg Softgel (Flaxseed/Omega3,6,9/Fatty Acid) 1 Each Capsule 1 Each PO HS Raloxifene HCl 60 Mg Tablet 60 Mg PO 1800 Diltiazem 24Hr ER (Diltiazem HCl) 120 Mg Cap.er.24h 120 Mg PO DAILY Ocuvite with Lutein Tablet (Vit A,C & E/Lutein/Minerals) 300MCG-200 Tablet 1 Each PO DAILY Instructions to patient/family Please see electronic discharge instructions given to patient. Diagnosis/Problems Diagnosis/Problems (1) Acute respiratory failure with hypoxia Status: Acute (2) Atrial fibrillation Status: Chronic Qualifiers: Qualified Codes: I48.0 - Paroxysmal atrial fibrillation (3) COPD with exacerbation Status: Acute (4) CHF (congestive heart failure) Status: Acute ALLIE PEREA DO Sep 11, 2022 11:36
== END 2022-09-10 16:30 | disposition home or self-care (01) | DRG 291 ==
LOC: EDUNIT# 06:05 → ER FS 06:09 → CSD 09:23
PROVIDERS: ADMIT Family Medicine; ATTEND Internal Medicine
PROC: 5A0935A Assistance with Respiratory Ventilation, Less than 24 Consecutive Hours, High Flow/Velocity Cannula (ICD-10-PCS; principal; 2022-09-09)
DX: I11.0 Hypertensive heart disease with heart failure (principal); I50.33 Acute on chronic diastolic (congestive) heart failure; J96.01 Acute respiratory failure with hypoxia; J44.1 Chronic obstructive pulmonary disease with (acute) exacerbation; E87.1 Hypo-osmolality and hyponatremia; I48.20 Chronic atrial fibrillation, unspecified; I48.0 Paroxysmal atrial fibrillation; Z79.01 Long term (current) use of anticoagulants; Z79.899 Other long term (current) drug therapy; F17.210 Nicotine dependence, cigarettes, uncomplicated; Z95.0 Presence of cardiac pacemaker; Z99.81 Dependence on supplemental oxygen; I25.10 Atherosclerotic heart disease of native coronary artery without angina pectoris; E78.00 Pure hypercholesterolemia, unspecified; K58.9 Irritable bowel syndrome, unspecified; Z20.822 Contact with and (suspected) exposure to COVID-19; M19.90 Unspecified osteoarthritis, unspecified site; G89.29 Other chronic pain; M54.9 Dorsalgia, unspecified; I65.23 Occlusion and stenosis of bilateral carotid arteries; D72.829 Elevated white blood cell count, unspecified; I42.8 Other cardiomyopathies; I49.5 Sick sinus syndrome
CPT/HCPCS: 36415; 71045; 80048; 80053; 80061; 83605; 83690; 83735; 83874; 83880; 84484; 85025; 85027; 85379; 85610; 85730; 86141; 87040; 87636; 93005; 93041; 93306; 94640; 94760; 94761; 96374; 96375

== ENCOUNTER 2022-10-10 00:34 | Emergency (ER) | payer MEDICARE, OTHER ==
[~2022-10-10 00:34] MED LIST changes: +AMIO200T65 PO; +TIMO5DRO16 OU; -TIMO5DRO5 OU
--- NOTE | 2022-10-10 00:44 | ED Dyspnea ---
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 Shortness of breath started this evening and has been progressive. She denies any fevers or chills. No nausea or vomiting. Epigastric pain has been present since she got out of the hospital on 09/08. She states they started on a new medication. Record review shows this was amiodarone. She was admitted that time for COPD, CHF and A-fib with RVR. Her epigastric pain is described as sharp stabbing with radiation up into her chest. No aggravating or alleviating factors and it has been constant. No changes in bowels. No urinary symptoms. All other systems reviewed and negative except documented per HPI. Voice recognition software was used to help create this chart Allergies and Home Medications Allergies Coded Allergies: iodine (Verified Allergy, Unknown, 10/16/20) shellfish derived (Verified Allergy, Unknown, 04/24/20) Patient Home Medication List Home Medication List Reviewed: Yes Amiodarone HCl (Amiodarone HCl) 200 Mg Tablet, 200 MG PO BID Prescribed by: ALLIE PEREA on 09/10/22 1155 Ascorbic Acid (Vitamin C) 1,000 Mg Tablet, 500 MG PO BID, (Reported) Entered as Reported by: PASCALE WILBURN on 01/03/22 1452 Calcium Carbonate/Vitamin D3 (Calcium 600 + Vit D 400 Softgl) 600 Mg Calcium-10 Mcg (400 Unit) Capsule, 1 EACH PO BID, (Reported) Entered as Reported by: PASCALE WILBURN on 10/16/20 1424 Diltiazem HCl (Diltiazem 24Hr ER) 120 Mg Cap.er.24h, 120 MG PO DAILY, (Reported) Entered as Reported by: MERCEDES RIDER on 06/21/20 0912 Esomeprazole Magnesium (Esomeprazole Magnesium) 20 Mg Capsule.dr, 20 MG PO DAILY, (Reported) Entered as Reported by: PASCALE WILBURN on 10/16/20 1424 Flaxseed/Omega3,6,9/Fatty Acid (Flax Seed Oil 1,300 mg Softgel) 1 Each Capsule, 1 EACH PO HS, (Reported) Entered as Reported by: MERCEDES RIDER on 06/21/20 0912 Furosemide (Furosemide) 20 Mg Tablet, 20 MG PO DAILY PRN for FLUID RETENTION, (Reported) Entered as Reported by: JOURDAN GRIJALVA on 02/14/22 1013 Lisinopril (Lisinopril) 10 Mg Tablet, 5 MG PO DAILY, (Reported) Entered as Reported by: PASCALE WILBURN on 10/16/20 1424 Potassium Chloride (K-Tab ER) 10 Meq Tablet.er, 10 MEQ PO 1300, (Reported) Entered as Reported by: PASCALE WILBURN on 01/03/22 1452 Prednisone (Prednisone) 20 Mg Tab, 40 MG PO DAILY@0700 Prescribed by: ALLIE PEREA on 09/10/22 1155 Raloxifene HCl (Raloxifene HCl) 60 Mg Tablet, 60 MG PO 1800, (Reported) Entered as Reported by: MERCEDES RIDER on 06/21/20 0912 Rivaroxaban (Xarelto) 20 Mg Tablet, 20 MG PO 1300, (Reported) Entered as Reported by: JOURDAN GRIJALVA on 02/14/22 1013 Simethicone (Gas Relief) 125 Mg Capsule, 125 MG PO HS, (Reported) Entered as Reported by: PASCALE WILBURN on 09/08/22 1508 Vit A,C & E/Lutein/Minerals (Ocuvite with Lutein Tablet) 300MCG-200 Tablet, 1 EACH PO DAILY, (Reported) Entered as Reported by: PASCALE WILBURN on 05/11/20 1008 Vitamin B Complex/Folic Acid (Super B Maxi Complex Caplet) 0.4 Mg Tablet, 1 EA PO Q48H @HS, (Reported) Entered as Reported by: PASCALE WILBURN on 01/03/22 1452 Review of Systems Review of Systems Constitutional: see HPI Past Ehadcis-Befhiw-Usqlae Hx Patient Social History Tobacco Use?: No Use of E-Cig and/or Vaping dev: No Substance use?: No Alcohol Use?: No Immunizations Up To Date Tetanus Booster (TDap): Unknown PED Vaccines UTD: Yes First/Initial COVID19 Vaccinat: 2020 Second COVID19 Vaccination Ariel: 2020 Third COVID19 Vaccination Date: NONE Seasonal Allergies Seasonal Allergies: No Past Medical History Surgery/Hospitalization HX: Paroxysmal Atrial Fibrillation, COPD, Hypertension, IBS, COPD, 3-4L HOME O2 24/, CHF Surgeries: Yes Oophorectomy, Pacemaker Respiratory: Yes COPD Currently Using CPAP: No Currently Using BIPAP: No Cardiac: Yes (Grade 2 diastolic dysfunction heart failure) Atrial Fibrillation, Chronic Edema/Swelling, Coronary Artery Disease, High Cholesterol, Hypertension Neurological: No Genitourinary: Yes (History of urinary retention requiring Rock catheter) Gastrointestinal: Yes Irritable Bowel Musculoskeletal: No Endocrine: No HEENT: No Cancer: No Psychosocial: No Integumentary: No Blood Disorders: No Family Medical History Heart Disease Physical Exam Vital Signs Vital Signs - First Documented 10/10/22 00:35 Temp 36.2 Pulse 62 Resp 24 B/P (MAP) 197/71 (113) Pulse Ox 90 O2 Delivery Nasal Cannula O2 Flow Rate 4.00 Capillary Refill : Height, Weight, BMI Height: '" Weight: lbs. oz. kg; 28.80 BMI Method: General Appearance: No Apparent Distress HEENT: Normal ENT Inspection, Pharynx Normal Neck: Normal Inspection, Non Tender, Supple Respiratory: Other (Mild to moderate increased work of breathing. Coarse breath sounds bilaterally scant inspiratory and expiratory wheezes bilaterally) Cardiovascular: Regular Rate, Rhythm, No Murmur, Normal Peripheral Pulses Gastrointestinal: Normal Bowel Sounds, No Organomegaly, No Pulsatile Mass, Soft, Tenderness (Epigastric tenderness palpation. Voluntary guarding without any rebound tenderness.) Extremity: Normal Inspection, Non Tender, No Calf Tenderness, No Pedal Edema Neurologic/Psychiatric: Alert, Oriented x3, Normal Mood/Affect Skin: Normal Color, Warm/Dry Progress/Results/Core Measures Results/Orders Lab Results Laboratory Tests Test 10/10/22 00:42 10/10/22 00:45 Range/Units White Blood Count 12.8 H 4.3-11.0 10^3/uL Red Blood Count 4.27 3.80-5.11 10^6/uL Hemoglobin 11.7 11.5-16.0 g/dL Hematocrit 39 35-52 % Mean Corpuscular Volume 91 80-99 fL Mean Corpuscular Hemoglobin 27 25-34 pg Mean Corpuscular Hemoglobin Concent 30 L 32-36 g/dL Red Cell Distribution Width 16.2 H 10.0-14.5 % Platelet Count 190 130-400 10^3/uL Mean Platelet Volume 11.7 9.0-12.2 fL Immature Granulocyte % (Auto) 1 % Neutrophils (%) (Auto) 67 42-75 % Lymphocytes (%) (Auto) 22 12-44 % Monocytes (%) (Auto) 10 0-12 % Eosinophils (%) (Auto) 1 0-10 % Basophils (%) (Auto) 0 0-10 % Neutrophils # (Auto) 8.6 H 1.8-7.8 10^3/uL Lymphocytes # (Auto) 2.8 1.0-4.0 10^3/uL Monocytes # (Auto) 1.2 H 0.0-1.0 10^3/uL Eosinophils # (Auto) 0.1 0.0-0.3 10^3/uL Basophils # (Auto) 0.1 0.0-0.1 10^3/uL Immature Granulocyte # (Auto) 0.1 0.0-0.1 10^3/uL Sodium Level 137 135-145 MMOL/L Potassium Level 4.8 3.6-5.0 MMOL/L Chloride Level 102 98-107 MMOL/L Carbon Dioxide Level 25 21-32 MMOL/L Anion Gap 10 5-14 MMOL/L Blood Urea Nitrogen 16 7-18 MG/DL Creatinine 0.70 0.60-1.30 MG/DL Estimat Glomerular Filtration Rate 87 BUN/Creatinine Ratio 23 Glucose Level 172 H 70-105 MG/DL Calcium Level 9.0 8.5-10.1 MG/DL Corrected Calcium 9.2 8.5-10.1 MG/DL Total Bilirubin 0.2 0.1-1.0 MG/DL Aspartate Amino Transf (AST/SGOT) 31 5-34 U/L Alanine Aminotransferase (ALT/SGPT) 25 0-55 U/L Alkaline Phosphatase 75 40-136 U/L Troponin I < 0.30 <0.30 NG/ML Total Protein 6.9 6.4-8.2 GM/DL Albumin 3.8 3.2-4.5 GM/DL Lipase 34 8-78 U/L SARS-CoV-2 RNA (RT-PCR) Not Detected Not Detecte My Orders Orders - ERLINDA CRUZ DO Cbc With Automated Diff (10/10/22 00:40) Comprehensive Metabolic Panel (10/10/22 00:40) Lipase (10/10/22 00:40) Troponin I Fs (10/10/22 00:40) Chest 1 View Ap/Pa Only (10/10/22 00:40) Ekg Tracing (10/10/22 00:40) Iv/Invasive Line Insertion .IV INSERT (10/10/22 00:40) Albuterol/Ipra Inhalation Soln (Duoneb I (10/10/22 00:45) Svn Small Volume Nebulizer (10/10/22 00:40) Covid 19 Inhouse Test (10/10/22 00:40) Medications Given in ED Current Medications Medications Dose Ordered Sig/Trang Route Start Time Stop Time Status Last Admin Dose Admin Albuterol/ Ipratropium 3 ml ONCE ONCE INH 10/10/22 00:45 10/10/22 00:46 DC 10/10/22 00:48 3 ML Vital Signs/I&O 10/10/22 10/10/22 10/10/22 00:35 00:35 00:48 Temp 36.2 Pulse 62 Resp 24 B/P (MAP) 197/71 (113) Pulse Ox 90 95 O2 Delivery Nasal Cannula Nasal Cannula Nasal Cannula O2 Flow Rate 4.00 4.00 4.00 EKG : Comment Atrial paced rhythm with a rate of 60 bpm. Normal intervals. Normal axis. No ST or T wave abnormalities. No ectopy. Wandering baseline makes interpretation difficult but there is no obvious STEMI. Diagnostic Imaging Comments My independent review of the AP chest x-ray shows chronic increased interstitial markings. No acute findings. Departure Communication (Admissions) Per EMS report the patient was on 2 L of oxygen via nasal cannula. When talking to her she went to the restroom and did not have any oxygen on. She got really short of breath and went back to her room to try to get back on her oxygen and apparently did increase to high enough. Once on 4 L of oxygen via nasal cannula here her oxygen saturation stabilized 94% and she had no respiratory distress, actually fell asleep comfortably in the bed. Her chest x-ray is negative for any acute findings. She is afebrile and otherwise stable. She does have epigastric pain that she has had since discharge from the hospital. Her lipase is negative, LFTs negative as well. I think this is likely some gastritis versus shallow ulcers. She has no black tarry stools. No lower abdominal pain. No hematemesis. Advise she increase her Nexium from 20 to 40 mg for the next week to see if this helps. She has a nonsurgical abdomen overall. She is discharged home in stable condition with close follow-up. Did advise that she needs to wear oxygen [id number], even to the restroom. She does have a portable concentrator at home for this. Impression Primary Impression: Dyspnea Qualified Codes: R06.00 - Dyspnea, unspecified Disposition: HOME, SELF-CARE Condition: Stable Departure-Patient Inst. Referrals: SELF,MARCELLO LUNA (PCP/Family) Primary Care Physician Patient Instructions: Shortness of Breath, Adult ED Add. Discharge Instructions: Use oxygen [id number], even when you go to the restroom or take short walks. There is no evidence for pneumonia or other emergency condition at this time. Regarding your abdominal pain, increase your Nexium from 20 to 40 mg for the next week to see if this helps. If not please follow-up with your primary doctor for further evaluation and treatment recommendations. Return to the emergency department for any severe concerns. Follow-up with your primary doctor for any nonemergent needs. ERLINDA CRUZ DO October 10, 2022 00:44
[2022-10-10] MEDS ORDERED: RT-ALBUTEROL/IPRATROPIUM 3 ML (DUONEB) VIAL INH ONE (00:45)
[2022-10-10 00:50] LABS: BASOPHILS # (AUTO) 0.1 10^3/uL (0.0-0.1); BASOPHILS % (AUTO) 0 % (0-10); EOSINOPHILS # (AUTO) 0.1 10^3/uL (0.0-0.3); EOSINOPHILS % (AUTO) 1 % (0-10); HEMATOCRIT 39 % (35-52); HEMOGLOBIN 11.7 g/dL (11.5-16.0); LYMPHOCYTES # (AUTO) 2.8 10^3/uL (1.0-4.0); LYMPHOCYTES % (AUTO) 22 % (12-44); MEAN CORPUSCULAR HEMOGLOBIN 27 pg (25-34); MEAN CORPUSCULAR HGB CONC 30 g/dL (32-36); MEAN CORPUSCULAR VOLUME 91 fL (80-99); MEAN PLATELET VOLUME 11.7 fL (9.0-12.2); MONOCYTES # (AUTO) 1.2 10^3/uL (0.0-1.0); MONOCYTES % (AUTO) 10 % (0-12); NEUTROPHILS # (AUTO) 8.6 10^3/uL (1.8-7.8); NEUTROPHILS % (AUTO) 67 % (42-75); PLATELET COUNT 190 10^3/uL (130-400); WHITE BLOOD COUNT 12.8 10^3/uL (4.3-11.0)
[2022-10-10 01:12] LABS: ALANINE AMINOTRANSFERASE 25 U/L (0-55); ALBUMIN 3.8 GM/DL (3.2-4.5); ALKALINE PHOSPHATASE 75 U/L (40-136); BILIRUBIN,TOTAL 0.2 MG/DL (0.1-1.0); BUN/CREATININE RATIO 23; CARBON DIOXIDE 25 MMOL/L (21-32); CHLORIDE 102 MMOL/L (98-107); GFR ESTIMATED 87; GLUCOSE 172 MG/DL (70-105); LIPASE 34 U/L (8-78); POTASSIUM 4.8 MMOL/L (3.6-5.0); SODIUM 137 MMOL/L (135-145); TOTAL PROTEIN 6.9 GM/DL (6.4-8.2)
[2022-10-10 02:10] VITALS: BP 142/65
--- NOTE | 2022-10-10 07:06 | Diagnostic Imaging Report ---
INDICATION: dyspnea. TECHNIQUE: Single view chest 12:51 AM. CORRELATION STUDY: 09/08/2022 FINDINGS: Left-sided pacemaker electronic device remain in place. Heart size and mediastinum are stable with calcification of the aortic arch. Vasculature is improved and near normal at followup. Improvement in aeration to the lung vela. Mildly prominent interstitial changes do remain and may reflect mild edema. Suggestion of trace pleural effusions. IMPRESSION: 1. Improvement with overall less severity edema from prior. May be some residual interstitial edema trace pleural effusions remaining. Dictated by: Dictated on workstation # [id number]
== END 2022-10-10 02:10 | disposition home or self-care (01) ==
LOC: EDUNIT# 00:34 → ER FS 00:35
DX: R06.02 Shortness of breath (principal); J44.9 Chronic obstructive pulmonary disease, unspecified; I48.91 Unspecified atrial fibrillation; Z79.01 Long term (current) use of anticoagulants; Z99.81 Dependence on supplemental oxygen; Z20.822 Contact with and (suspected) exposure to COVID-19
CPT/HCPCS: 36415; 71045; 80053; 83690; 84484; 85025; 87636; 94640

== ENCOUNTER 2023-01-04 13:17 | Emergency (ER) | payer MEDICARE, OTHER ==
[~2023-01-04] VITALS: Ht 154.9 cm; Wt 58.9 kg
[~2023-01-04 13:17] MED LIST changes: +POTA-185 PO; -POTA10TA PO
--- NOTE | 2023-01-04 13:33 | ED Respiratory ---
General Chief Complaint: Respiratory Problems Stated Complaint: SOB; SORE THROAT Source: patient, family (daughter) Exam Limitations: no limitations History of Present Illness Date Seen by Provider: Jan 04, 2023 Time Seen by Provider: 13:20 Initial Comments 82-year-old female with history of COPD, atrial fibrillation [facility]. She states symptoms started yesterday and have been persistent. Someone in her home have been sick with a sore throat and yesterday she started to have a sore throat as well. She describes worsening shortness of breath is mostly with exertion but is somewhat at rest as well. She does have oxygen that she uses mostly at night at home but she used it during the day yesterday feeling as though she could not catch her breath. She does have an increasingly productive cough over the time of this illness as well. She denies any fevers or chills. No chest pain, abdominal pain or changes in bowel or bladder habits. Notably Dr. Tellez did recently increase her amiodarone to twice daily which she previously took it 1 time a day. She is on Xarelto. All other systems reviewed and negative except documented per HPI. Voice recognition software was used to help create this chart Allergies and Home Medications Allergies Coded Allergies: iodine (Verified Allergy, Unknown, 10/16/20) shellfish derived (Verified Allergy, Unknown, 04/24/20) Patient Home Medication List Home Medication List Reviewed: Yes Amiodarone HCl (Amiodarone HCl) 200 Mg Tablet, 200 MG PO BID Prescribed by: ALLIE PEREA on 09/10/22 1155 Ascorbic Acid (Vitamin C) 1,000 Mg Tablet, 500 MG PO BID, (Reported) Entered as Reported by: PASCALE WILBURN on 01/03/22 1452 Calcium Carbonate/Vitamin D3 (Calcium 600 + Vit D 400 Softgl) 600 Mg Calcium-10 Mcg (400 Unit) Capsule, 1 EACH PO BID, (Reported) Entered as Reported by: PASCALE WILBURN on 10/16/20 1424 Diltiazem HCl (Diltiazem 24Hr ER) 120 Mg Cap.er.24h, 120 MG PO DAILY, (Reported) Entered as Reported by: MERCEDES RIDER on 06/21/20 0912 Esomeprazole Magnesium (Esomeprazole Magnesium) 20 Mg Capsule.dr, 20 MG PO DAILY, (Reported) Entered as Reported by: PASCALE WILBURN on 10/16/20 1424 Flaxseed/Omega3,6,9/Fatty Acid (Flax Seed Oil 1,300 mg Softgel) 1 Each Capsule, 1 EACH PO HS, (Reported) Entered as Reported by: MERCEDES RIDER on 06/21/20 0912 Furosemide (Furosemide) 20 Mg Tablet, 20 MG PO DAILY PRN for FLUID RETENTION, (Reported) Entered as Reported by: JOURDAN GRIJALVA on 02/14/22 1013 Lisinopril (Lisinopril) 10 Mg Tablet, 5 MG PO DAILY, (Reported) Entered as Reported by: PASCALE WILBURN on 10/16/20 1424 Potassium Chloride (K-Tab ER) 10 Meq Tablet.er, 10 MEQ PO 1300, (Reported) Entered as Reported by: PASCALE WILBURN on 01/03/22 1452 Prednisone (Prednisone) 20 Mg Tab, 40 MG PO DAILY@0700 Prescribed by: ALLIE PEREA on 09/10/22 1155 Raloxifene HCl (Raloxifene HCl) 60 Mg Tablet, 60 MG PO 1800, (Reported) Entered as Reported by: MERCEDES RIDER on 06/21/20 0912 Rivaroxaban (Xarelto) 20 Mg Tablet, 20 MG PO 1300, (Reported) Entered as Reported by: JOURDAN GRIJALVA on 02/14/22 1013 Simethicone (Gas Relief) 125 Mg Capsule, 125 MG PO HS, (Reported) Entered as Reported by: PASCALE WILBURN on 09/08/22 1508 Vit A,C & E/Lutein/Minerals (Ocuvite with Lutein Tablet) 300MCG-200 Tablet, 1 EACH PO DAILY, (Reported) Entered as Reported by: PASCALE WILBURN on 05/11/20 1008 Vitamin B Complex/Folic Acid (Super B Maxi Complex Caplet) 0.4 Mg Tablet, 1 EA PO Q48H @HS, (Reported) Entered as Reported by: PASCALE WILBURN on 01/03/22 1452 Review of Systems Review of Systems Constitutional: see HPI Past Hmjhtwk-Hcgdpy-Gmwzin Hx Patient Social History Tobacco Use?: No Use of E-Cig and/or Vaping dev: No Substance use?: No Alcohol Use?: No Immunizations Up To Date Tetanus Booster (TDap): Unknown PED Vaccines UTD: Yes First/Initial COVID19 Vaccinat: 2020 Second COVID19 Vaccination Ariel: 2020 Third COVID19 Vaccination Date: NONE Seasonal Allergies Seasonal Allergies: No Past Medical History Surgery/Hospitalization HX: Paroxysmal Atrial Fibrillation, COPD, Hypertension, IBS, COPD, 3-4L HOME O2 24/7, Acute on chronic diastolic CHF, chronic respiratory failure, L sided AICD electronic loop recorder, Pacemaker, Hypercholesterolemia Surgeries: Yes Oophorectomy, Pacemaker Respiratory: Yes COPD Currently Using CPAP: No Currently Using BIPAP: No Cardiac: Yes (Grade 2 diastolic dysfunction heart failure) Atrial Fibrillation, Chronic Edema/Swelling, Coronary Artery Disease, High Cholesterol, Hypertension Neurological: No Genitourinary: Yes (History of urinary retention requiring Rock catheter) Gastrointestinal: Yes Irritable Bowel Musculoskeletal: No Endocrine: No HEENT: No Cancer: No Psychosocial: No Integumentary: No Blood Disorders: No Family Medical History Heart Disease Physical Exam Vital Signs - First Documented Capillary Refill : Height: '" Weight: lbs. oz. kg; BMI Method: General Appearance: WD/WN, mild distress (Increased work of breathing) Eyes: Bilateral Eye Normal Inspection, Bilateral Eye PERRL, Bilateral Eye EOMI HEENT: pharynx normal Neck: non-tender, supple Respiratory: chest non-tender, lungs clear, other (Slight increased work of breathing. No retractions.) Cardiovascular: no murmur, tachycardia, irregularly irregular Gastrointestinal: normal bowel sounds, non tender, soft, no organomegaly Extremities: normal range of motion, non-tender, normal inspection, no pedal edema Neurologic/Psychiatric: alert, normal mood/affect, oriented x 3 Skin: normal color, warm/dry Focused Exam Lactate Level 01/04/23 13:36: Lactic Acid Level 1.85 Lactic Acid Level Laboratory Tests Test 01/04/23 13:36 Lactic Acid Level 1.85 MMOL/L (0.50-2.00) Progress/Results/Core Measures Suspected Sepsis SIRS Temperature: Pulse: Respiratory Rate: Laboratory Tests 01/04/23 13:36: White Blood Count 9.1 Blood Pressure / Mean: 01/04/23 13:36: Lactic Acid Level 1.85 Laboratory Tests 01/04/23 13:36: Creatinine 0.74, INR Comment 2.0H, Platelet Count 169, Total Bilirubin 0.4 Results/Orders Lab Results Laboratory Tests Test 01/04/23 13:34 01/04/23 13:36 01/04/23 14:00 Range/Units SARS-CoV-2 RNA (RT-PCR) Detected H Not Detecte White Blood Count 9.1 4.3-11.0 10^3/uL Red Blood Count 3.88 3.80-5.11 10^6/uL Hemoglobin 10.7 L 11.5-16.0 g/dL Hematocrit 36 35-52 % Mean Corpuscular Volume 92 80-99 fL Mean Corpuscular Hemoglobin 28 25-34 pg Mean Corpuscular Hemoglobin Concent 30 L 32-36 g/dL Red Cell Distribution Width 16.3 H 10.0-14.5 % Platelet Count 169 130-400 10^3/uL Mean Platelet Volume 11.5 9.0-12.2 fL Immature Granulocyte % (Auto) 0 % Neutrophils (%) (Auto) 77 H 42-75 % Lymphocytes (%) (Auto) 16 12-44 % Monocytes (%) (Auto) 7 0-12 % Eosinophils (%) (Auto) 0 0-10 % Basophils (%) (Auto) 0 0-10 % Neutrophils # (Auto) 7.0 1.8-7.8 10^3/uL Lymphocytes # (Auto) 1.4 1.0-4.0 10^3/uL Monocytes # (Auto) 0.6 0.0-1.0 10^3/uL Eosinophils # (Auto) 0.0 0.0-0.3 10^3/uL Basophils # (Auto) 0.0 0.0-0.1 10^3/uL Immature Granulocyte # (Auto) 0.0 0.0-0.1 10^3/uL Prothrombin Time 22.9 H 12.2-14.7 SEC INR Comment 2.0 H 0.8-1.4 Activated Partial Thromboplast Time 49 H 24-35 SEC Sodium Level 138 135-145 MMOL/L Potassium Level 3.9 3.6-5.0 MMOL/L Chloride Level 103 98-107 MMOL/L Carbon Dioxide Level 25 21-32 MMOL/L Anion Gap 10 5-14 MMOL/L Blood Urea Nitrogen 12 7-18 MG/DL Creatinine 0.74 0.60-1.30 MG/DL Estimat Glomerular Filtration Rate 82 BUN/Creatinine Ratio 16 Glucose Level 130 H 70-105 MG/DL Lactic Acid Level 1.85 0.50-2.00 MMOL/L Calcium Level 8.6 8.5-10.1 MG/DL Corrected Calcium 8.8 8.5-10.1 MG/DL Total Bilirubin 0.4 0.1-1.0 MG/DL Aspartate Amino Transf (AST/SGOT) 520 H 5-34 U/L Alanine Aminotransferase (ALT/SGPT) 502 H 0-55 U/L Alkaline Phosphatase 80 40-136 U/L Total Protein 6.3 L 6.4-8.2 GM/DL Albumin 3.7 3.2-4.5 GM/DL Blood Gas Puncture Site L WRIST Blood Gas Patient Temperature Arterial Blood pH 7.44 H 7.37-7.43 Arterial Blood Partial Pressure CO2 42 35-45 MMHG Arterial Blood Partial Pressure O2 72 L 79-93 MMHG Arterial Blood HCO3 29 H 23-27 MMOL/L Arterial Blood Total CO2 29.8 21.0-31.0 MMOL/L Arterial Blood Oxygen Saturation 95 94-100 % Arterial Blood Base Excess 3.9 H -2.5-2.5 MMOL/L Brennen Test Blood Gas Ventilator Setting Blood Gas Inspired Oxygen My Orders Orders - ANTHONYERLINDA DO Cbc With Automated Diff (01/04/23 13:29) Comprehensive Metabolic Panel (01/04/23 13:29) Blood Culture (01/04/23 13:29) Urinalysis (01/04/23 13:29) Urine Culture (01/04/23 13:29) Protime With Inr (01/04/23 13:29) Partial Thromboplastin Time (01/04/23 13:29) Chest 1 View Ap/Pa Only (01/04/23 13:29) Ed Iv/Invasive Line Start (01/04/23 13:29) Ekg Tracing (01/04/23 13:29) Vital Signs Adult Sepsis Patie Q15M (01/04/23 13:29) O2 (01/04/23 13:29) Remove Rings In Anticipation O (01/04/23 13:29) Lactic Acid Analyzer (01/04/23 13:29) Covid 19 Inhouse Test (01/04/23 13:29) Arterial Blood Gas (01/04/23 13:34) Vital Signs/I&O 01/04/23 01/04/23 01/04/23 13:28 13:28 13:30 Temp 37.0 Pulse 105 Resp 21 B/P (MAP) 129/40 (69) Pulse Ox 94 94 O2 Delivery Nasal Cannula Nasal Cannula Nasal Cannula O2 Flow Rate 2.00 2.00 2.00 Capillary Refill : ECG Comment Atrial fibrillation with a rate 88 bpm. Normal intervals outside of GA interval. Normal axis. No ST or T wave abnormalities. No ectopy. No STEMI. Departure Communication (Admissions) The patient is hemodynamically stable. Record review shows that at some point at least she was supposed to be on oxygen 24/7 at home. She is only using it as needed at present. She has been stable on 2 L oxygen via nasal cannula with oxygen saturations 96 to 98% with this alone. This improved her shortness of breath as she arrived without any oxygen. Her COVID test is positive here. Chest x-ray is negative for any acute findings or focal pneumonias. Her symptoms could certainly be explained by COVID. There is no evidence for significant anemia and her chemistries remarkable for moderate elevation in her liver function tests but is otherwise unremarkable. She will be discharged home with recommendation to use her home oxygen [id number] for now. She is advised to return to the emergency department immediately if she needs more than 5 to 6 L of oxygen or if her symptoms change in any way concerning to her. She is advised on quarantine precautions Impression Primary Impression: COVID-19 Disposition: 01 HOME, SELF-CARE Condition: Stable Departure-Patient Inst. Referrals: SELF,MARCELLO LUNA (PCP/Family) Primary Care Physician Patient Instructions: COVID-19 ED Add. Discharge Instructions: You were seen in the emergency department today for shortness of breath. As discussed your COVID test is positive. Recommend you increase your fluids at home, rest. Use ibuprofen and Tylenol for any fevers body aches and for your sore throat. Gargle salt water to help with your sore throat. I prescribed you Paxlovid which she can take twice a day until it is gone. This is meant to reduce the risk of hospitalization and will likely not help with many of your symptoms. Return to the emergency department for any severe shortness of breath is not responding to your home oxygen, specifically if you need more than 6 L of oxygen via nasal cannula you need to return to the emergency department immediately. Follow-up with your primary doctor for any nonemergent needs. All discharge instructions reviewed with patient and/or family. Voiced understanding. Scripts Nirmatrelvir/Ritonavir (Paxlovid 300-100 mg Pack (Eua)) 300 Mg (150 Mg X 2)-100 Mg Tab.ds.pk 1 EACH PO BID for 5 Days, #1 PKG Prov: ERLINDA CRUZ DO 01/04/23 ERLINDA CRUZ DO Jan 04, 2023 13:33
[2023-01-04 13:47] LABS: BASOPHILS % (AUTO) 0 % (0-10); EOSINOPHILS % (AUTO) 0 % (0-10); HEMATOCRIT 36 % (35-52); HEMOGLOBIN 10.7 g/dL (11.5-16.0); LYMPHOCYTES # (AUTO) 1.4 10^3/uL (1.0-4.0); LYMPHOCYTES % (AUTO) 16 % (12-44); MEAN CORPUSCULAR HEMOGLOBIN 28 pg (25-34); MEAN CORPUSCULAR HGB CONC 30 g/dL (32-36); MEAN CORPUSCULAR VOLUME 92 fL (80-99); MEAN PLATELET VOLUME 11.5 fL (9.0-12.2); MONOCYTES # (AUTO) 0.6 10^3/uL (0.0-1.0); MONOCYTES % (AUTO) 7 % (0-12); NEUTROPHILS % (AUTO) 77 % (42-75); PLATELET COUNT 169 10^3/uL (130-400); WHITE BLOOD COUNT 9.1 10^3/uL (4.3-11.0)
[2023-01-04 14:09] LABS: ABG BASE EXCESS 3.9 MMOL/L (-2.5-2.5); ABG OXYGEN SATURATION 95 % (94-100); ABG PCO2 42 MMHG (35-45); ABG PH 7.44 (7.37-7.43); ABG PO2 72 MMHG (79-93); ABG TCO2 29.8 MMOL/L (21.0-31.0)
--- NOTE | 2023-01-04 14:13 | Diagnostic Imaging Report ---
CLINICAL INDICATION: Patient with sore throat and shortness of breath. EXAM: Portable chest x-ray, upright view. COMPARISON: Chest x-ray dated 10/10/2022. FINDINGS: Lungs/pleura: Subtle patchy airspace opacity in the periphery of the right lung base. Otherwise, lungs are stable with no interval lung infiltrate. There are increased lung markings involving both lungs. Lungs are clear. There is no pneumothorax. There is no pleural effusion. Mediastinum: Unremarkable. Pulmonary vasculature: Unremarkable. Heart: Heart size is within normal limits. Cardiac loop recorder is seen overlying the left chest. Cardiac pacemaker is again seen overlying the left chest with two leads projecting over the heart which are intact. Bones/extrathoracic soft tissue: Unremarkable. IMPRESSION: 1: There is interval development of minimal airspace opacity in the periphery of the right lung base, which may represent atelectasis versus infiltrate. 2: Otherwise, stable chest x-ray exam with no other acute abnormality. Dictated by: Dictated on workstation # [id number]
[2023-01-04 14:14] LABS: PROTHROMBIN TIME PATIENT 22.9 SEC (12.2-14.7)
[2023-01-04 14:16] LABS: POTASSIUM 3.9 MMOL/L (3.6-5.0)
[2023-01-04 14:17] LABS: ALBUMIN 3.7 GM/DL (3.2-4.5); BILIRUBIN,TOTAL 0.4 MG/DL (0.1-1.0); CALCIUM 8.6 MG/DL (8.5-10.1); CREATININE SERUM 0.74 MG/DL (0.60-1.30); TOTAL PROTEIN 6.3 GM/DL (6.4-8.2)
[2023-01-04] MEDS ORDERED: NIRM1TAB PO (14:29)
[2023-01-04 14:56] VITALS: BP 113/68
== END 2023-01-04 14:57 | disposition home or self-care (01) ==
LOC: EDUNIT# 13:17 → ER FS 13:18
DX: U07.1 COVID-19 (principal); J44.9 Chronic obstructive pulmonary disease, unspecified; Z99.81 Dependence on supplemental oxygen
CPT/HCPCS: 36415; 71045; 80053; 82805; 83605; 85025; 85610; 85730; 87040; 87077; 87186; 87636; 93005

== ENCOUNTER 2023-04-14 09:19 | Emergency (ER) | payer MEDICARE, OTHER ==
[~2023-04-14] VITALS: Ht 152.4 cm; Wt 59.0 kg
[~2023-04-14 09:19] MED LIST changes: +NIRM1TAB PO
[2023-04-14] MEDS ORDERED: FUROSEMIDE INJECTION 40 MG/4 ML VIAL IVP ONE (09:30)
[2023-04-14] MEDS ORDERED: dexAMETHasone INJ 10 MG/ML 1 ML VIAL IV ONE (09:30)
[2023-04-14] MEDS ORDERED: cefTRIAXone IV/IM 1,000 MG in NS (IVPB) 50 ML 50 ML IV ONE (09:30)
[2023-04-14] MEDS ORDERED: RT-Ipratropium/Albuterol NEB 3 ML VIAL IH ONE (09:30)
--- NOTE | 2023-04-14 09:32 | ED Respiratory ---
General Stated Complaint: SOB Source: patient, EMS, old records Exam Limitations: no limitations History of Present Illness Date Seen by Provider: Apr 14, 2023 Time Seen by Provider: 09:20 Initial Comments 82-year-old female with past medical history of chronic hypoxic respiratory failure between 2 to 5 L oxygen, COPD, chronic A-fib on Xarelto and amiodarone, and HFpEF coming in via EMS from home due to shortness of breath. She started feeling short of breath in the early hours of this morning. She does have a productive cough, she is unsure what color is coming up. She states she has chronic chest pain, this really feels unchanged. She has been on more likely 5 L lately in the past 24 hours for oxygen on her concentrator. EMS reports her oxygen saturation was around 90% on their arrival. When they hooked her up to their oxygen at 5 L, it went up to 94%. They report her A-fib rate was controlled. She denies any new lower extremity swelling or pain, no new cough, diarrhea, vomiting, fever, chills, body aches, abdominal pain, or any other concerns. Allergies and Home Medications Allergies Coded Allergies: iodine (Verified Allergy, Unknown, 10/16/20) shellfish derived (Verified Allergy, Unknown, 04/24/20) Patient Home Medication List Home Medication List Reviewed: Yes Amiodarone HCl (Amiodarone HCl) 200 Mg Tablet, 200 MG PO BID Prescribed by: ALLIE PEREA on 09/10/22 1155 Ascorbic Acid (Vitamin C) 1,000 Mg Tablet, 500 MG PO BID, (Reported) Entered as Reported by: PASCALE WILBURN on 01/03/22 1452 Calcium Carbonate/Vitamin D3 (Calcium 600 + Vit D 400 Softgl) 600 Mg Calcium-10 Mcg (400 Unit) Capsule, 1 EACH PO BID, (Reported) Entered as Reported by: PASCALE WILBURN on 10/16/20 1424 Cefuroxime Axetil (Cefuroxime) 500 Mg Tablet, 500 MG PO BID Prescribed by: LINA MELÉNDEZ on 04/14/23 1027 Diltiazem HCl (Diltiazem 24Hr ER) 120 Mg Cap.er.24h, 120 MG PO DAILY, (Reported) Entered as Reported by: MERCEDES RIDER on 06/21/20 0912 Doxycycline Hyclate (Doxycycline Hyclate) 100 Mg Tablet, 100 MG PO BID Prescribed by: LINA MELÉNDEZ on 04/14/23 1027 Esomeprazole Magnesium (Esomeprazole Magnesium) 20 Mg Capsule.dr, 20 MG PO DAILY, (Reported) Entered as Reported by: PASCALE WILBURN on 10/16/20 1424 Flaxseed/Omega3,6,9/Fatty Acid (Flax Seed Oil 1,300 mg Softgel) 1 Each Capsule, 1 EACH PO HS, (Reported) Entered as Reported by: MERCEDES RIDER on 06/21/20 0912 Furosemide (Furosemide) 20 Mg Tablet, 20 MG PO DAILY PRN for FLUID RETENTION, (Reported) Entered as Reported by: JOURDAN GRIJALVA on 02/14/22 1013 Lisinopril (Lisinopril) 10 Mg Tablet, 5 MG PO DAILY, (Reported) Entered as Reported by: PASCALE WILBURN on 10/16/20 1424 Methylprednisolone (Methylprednisolone Dose Pack) 4 Mg Tab.ds.pk, 4 MG PO UD Prescribed by: LINA MELÉNDEZ on 04/14/23 1027 Nirmatrelvir/Ritonavir (Paxlovid 300-100 mg Pack (Eua)) 300 Mg (150 Mg X 2)-100 Mg Tab.ds.pk, 1 EACH PO BID Prescribed by: ERLINDA CRUZ MD on 01/04/23 1429 Potassium Chloride (K-Tab ER) 10 Meq Tablet.er, 10 MEQ PO 1300, (Reported) Entered as Reported by: PASCALE WILBURN on 01/03/22 1452 Prednisone (Prednisone) 20 Mg Tab, 40 MG PO DAILY@0700 Prescribed by: ALLIE PEREA on 09/10/22 1155 Raloxifene HCl (Raloxifene HCl) 60 Mg Tablet, 60 MG PO 1800, (Reported) Entered as Reported by: MERCEDES RIDER on 06/21/20 0912 Rivaroxaban (Xarelto) 20 Mg Tablet, 20 MG PO 1300, (Reported) Entered as Reported by: JOURDAN GRIJALVA on 02/14/22 1013 Simethicone (Gas Relief) 125 Mg Capsule, 125 MG PO HS, (Reported) Entered as Reported by: PASCALE WILBURN on 09/08/22 1508 Vit A,C & E/Lutein/Minerals (Ocuvite with Lutein Tablet) 300MCG-200 Tablet, 1 EACH PO DAILY, (Reported) Entered as Reported by: PASCALE WILBURN on 05/11/20 1008 Vitamin B Complex/Folic Acid (Super B Maxi Complex Caplet) 0.4 Mg Tablet, 1 EA PO Q48H @HS, (Reported) Entered as Reported by: PASCALE WILBURN on 01/03/22 1452 Review of Systems Review of Systems Constitutional: No fever EENTM: no symptoms reported Respiratory: see HPI Cardiovascular: see HPI Gastrointestinal: no symptoms reported Genitourinary: no symptoms reported Musculoskeletal: no symptoms reported Skin: no symptoms reported Psychiatric/Neurological: No Symptoms Reported Hematologic/Lymphatic: No Symptoms Reported Past Lhtrzfe-Xsauhf-Javzih Hx Patient Social History Tobacco Use?: No Smoking Status: Former Smoker Immunizations Up To Date Tetanus Booster (TDap): Unknown PED Vaccines UTD: Yes First/Initial COVID19 Vaccinat: 2020 Second COVID19 Vaccination Ariel: 2020 Third COVID19 Vaccination Date: NONE Seasonal Allergies Seasonal Allergies: No Past Medical History Surgery/Hospitalization HX: Paroxysmal Atrial Fibrillation, COPD, Hypertension, IBS, COPD, 3-4L HOME O2 24/7, Acute on chronic diastolic CHF, chronic respiratory failure, L sided AICD electronic loop recorder, Pacemaker, Hypercholesterolemia Surgeries: Yes Oophorectomy, Pacemaker Respiratory: Yes COPD Currently Using CPAP: No Currently Using BIPAP: No Cardiac: Yes (Grade 2 diastolic dysfunction heart failure) Atrial Fibrillation, Chronic Edema/Swelling, Coronary Artery Disease, High Cholesterol, Hypertension Neurological: No Genitourinary: Yes (History of urinary retention requiring Rock catheter) Gastrointestinal: Yes Irritable Bowel Musculoskeletal: No Endocrine: No HEENT: No Cancer: No Psychosocial: No Integumentary: No Blood Disorders: No Family Medical History Heart Disease Physical Exam Vital Signs - First Documented 04/14/23 09:19 Temp 36.8 Pulse 84 Resp 19 B/P (MAP) 125/55 (78) Capillary Refill : Height: '" Weight: lbs. oz. kg; 24.00 BMI Method: General Appearance: WD/WN, mild distress Eyes: Bilateral Eye Normal Inspection HEENT: PERRL/EOMI, normal ENT inspection, pharynx normal Neck: non-tender, full range of motion, supple, normal inspection Respiratory: chest non-tender, accessory muscle use, crackles, wheezing Cardiovascular: irregularly irregular Gastrointestinal: normal bowel sounds, non tender, soft; No distended, No guarding, No rebound Extremities: normal range of motion, non-tender, normal inspection, no calf tenderness, normal capillary refill Neurologic/Psychiatric: no motor/sensory deficits, alert, normal mood/affect, oriented x 3 Skin: normal color, warm/dry Progress/Results/Core Measures Suspected Sepsis SIRS Temperature: Pulse: Respiratory Rate: Laboratory Tests 04/14/23 09:35: White Blood Count 13.4H Blood Pressure / Mean: Laboratory Tests 04/14/23 09:35: Creatinine 0.71, INR Comment 1.3, Platelet Count 346, Total Bilirubin 0.3 Results/Orders Lab Results Laboratory Tests Test 04/14/23 09:35 04/14/23 10:18 Range/Units White Blood Count 13.4 H 4.3-11.0 10^3/uL Red Blood Count 2.79 L 3.80-5.11 10^6/uL Hemoglobin 7.4 L 11.5-16.0 g/dL Hematocrit 25 L 35-52 % Mean Corpuscular Volume 91 80-99 fL Mean Corpuscular Hemoglobin 27 25-34 pg Mean Corpuscular Hemoglobin Concent 29 L 32-36 g/dL Red Cell Distribution Width 18.6 H 10.0-14.5 % Platelet Count 346 130-400 10^3/uL Mean Platelet Volume 10.8 9.0-12.2 fL Immature Granulocyte % (Auto) 1 % Neutrophils (%) (Auto) 81 H 42-75 % Lymphocytes (%) (Auto) 9 L 12-44 % Monocytes (%) (Auto) 7 0-12 % Eosinophils (%) (Auto) 2 0-10 % Basophils (%) (Auto) 0 0-10 % Neutrophils # (Auto) 10.8 H 1.8-7.8 10^3/uL Lymphocytes # (Auto) 1.1 1.0-4.0 10^3/uL Monocytes # (Auto) 1.0 0.0-1.0 10^3/uL Eosinophils # (Auto) 0.3 0.0-0.3 10^3/uL Basophils # (Auto) 0.0 0.0-0.1 10^3/uL Immature Granulocyte # (Auto) 0.2 H 0.0-0.1 10^3/uL Prothrombin Time 16.3 H 12.2-14.7 SEC INR Comment 1.3 0.8-1.4 Activated Partial Thromboplast Time 41 H 24-35 SEC Venous Blood pH 7.40 7.31-7.41 Venous Blood Partial Pressure CO2 49 40-52 MMHG Venous Blood HCO3 30 H 22-28 MMOL/L Sodium Level 143 135-145 MMOL/L Potassium Level 3.9 3.6-5.0 MMOL/L Chloride Level 107 98-107 MMOL/L Carbon Dioxide Level 27 21-32 MMOL/L Anion Gap 9 5-14 MMOL/L Blood Urea Nitrogen 21 H 7-18 MG/DL Creatinine 0.71 0.60-1.30 MG/DL Estimat Glomerular Filtration Rate 86 BUN/Creatinine Ratio 30 Glucose Level 136 H 70-105 MG/DL Calcium Level 8.5 8.5-10.1 MG/DL Corrected Calcium 9.7 8.5-10.1 MG/DL Magnesium Level 2.1 1.6-2.4 MG/DL Total Bilirubin 0.3 0.1-1.0 MG/DL Aspartate Amino Transf (AST/SGOT) 17 5-34 U/L Alanine Aminotransferase (ALT/SGPT) 12 0-55 U/L Alkaline Phosphatase 71 40-136 U/L Troponin I < 0.30 <0.30 NG/ML Pro-B-Type Natriuretic Peptide 2472.0 H <450.0 PG/ML Total Protein 6.4 6.4-8.2 GM/DL Albumin 2.5 L 3.2-4.5 GM/DL Lipase 18 8-78 U/L Influenza Type A (RT-PCR) Not Detected Not Detecte Influenza Type B (RT-PCR) Not Detected Not Detecte SARS-CoV-2 RNA (RT-PCR) Not Detected Not Detecte My Orders Orders - LINA MELÉNDEZ MD Influenza A And B By Pcr (04/14/23 09:27) Probnp Fs (04/14/23 09:27) Cbc And Automated Diff (04/14/23 09:) Magnesium (04/14/23 09:) Chest 1 View Ap/Pa Only (04/14/23:) Ekg Tracing (04/14/23:) Comprehensive Metabolic Panel (04/14/23 09:27) Protime With Inr (04/14/23 09:27) Partial Thromboplastin Time (04/14/23 09:27) O2 (04/14/23 09:27) Monitor-Rhythm Ecg Trace Only (04/14/23 09:27) Ed Iv/Invasive Line Start (04/14/23 09:27) Lipase (04/14/23 09:27) Troponin I Fs (04/14/23 09:27) Covid 19 Inhouse Test (04/14/23 09:27) Ipratropium/Albuterol Inh Soln (Ipratrop (04/14/23 09:30) Ceftriaxone Iv/Im (Ceftriaxone Iv/Im) (04/14/23 09:30) Doxycycline Hyclate Tablet (Doxycycline (04/14/23 09:30) Venous Blood Gas (04/14/23 09:27) Furosemide Injection (Furosemide Injec (04/14/23 09:30) Dexamethasone Injection (Dexamethasone (04/14/23 09:30) Ua Culture If Indicated (04/14/23 10:24) Medications Given in ED Current Medications Medications Dose Ordered Sig/Trang Route Start Time Stop Time Status Last Admin Dose Admin Albuterol/ Ipratropium 3 ml ONCE ONCE IH 04/14/23 09:30 12 09:31 DC 04/14/23 09:50 3 ML Ceftriaxone Sodium 1000 mg/ Sodium Chloride 50 ml @ 100 mls/hr ONCE ONCE IV 04/14/23 09:30 12 09:59 DC 04/14/23 09:51 100 MLS/HR Dexamethasone Sodium Phosphate 8 mg ONCE ONCE IV 04/14/23 09:30 04/14/23 09:31 DC 04/14/23 09:51 8 MG Doxycycline Hyclate 100 mg ONCE ONCE PO 04/14/23 09:30 12 09:31 DC 04/14/23 09:51 100 MG Furosemide 40 mg ONCE ONCE IVP 04/14/23 09:30 12 09:31 DC 04/14/23 09:51 40 MG Vital Signs/I&O 04/14/23 12 12 09:19 09:19 09:19 Temp 36.8 Pulse 84 Resp 19 B/P (MAP) 125/55 (78) Pulse Ox 95 O2 Delivery Nasal Cannula Nasal Cannula Room Air O2 Flow Rate 5.00 5.00 5.00 Capillary Refill : Progress Note : Progress Note 82-year-old female with above history coming in due to shortness of breath. ABCs were intact and vitals were stable on presentation on her baseline oxygen. She had crackles and wheezing on exam. She was given a DuoNeb, IV Decadron, ceftriaxone, doxycycline for suspected COPD exacerbation. An IV was placed and basic labs were obtained and were significant for mild leukocytosis, normal c reatinine, negative troponin, negative flu and COVID testing. She has a normal pH as well on VBG. Chest x-ray on my interpretation with multifocal pneumonia. I offered the patient admission at this point, she states that she prefers to go home on antibiotics. Since she is on her baseline oxygen and her A-fib is controlled at this time, I think this is a reasonable request. I discussed that she could come back at any time for repeat evaluation if things worsen. ECG Initial ECG Impression Date: Apr 14, 2023 Initial ECG Impression Time: 10:14 Initial ECG Rate: 85 Initial ECG Rhythm: A Fib/Flutter Comment Narrow QRS, normal axis, no STEMI Diagnostic Imaging Diagonstic Imaging: Xray (chest) Comments [facility], [place] NAME: FELA OTERO [facility] REC#: [id number] PT STATUS: REG ER : 1940 PHYSICIAN: LINA MELÉNDEZ MD ADMIT DATE: 04/14/23/ER FS Draft Date of Exam:04/14/23 CHEST 1 VIEW AP/PA ONLY CLINICAL INDICATION: Patient with chest pain, shortness of breath and COPD. EXAM: Portable chest x-ray upright view. COMPARISON: Chest x-ray dated 01/04/2023. FINDINGS: Lungs/pleura: There is interval development of diffuse patchy infiltrates throughout both lungs with the right lung worse than the left. There is spurring of the left lung apex. There is no pneumothorax. There is no pleural effusion. Mediastinum: Unremarkable. Pulmonary vasculature: Unremarkable. Heart: Cardiac silhouette is within normal limits. Cardiac pacemaker loop recorder is again seen overlying the chest which appears intact. Bones/extrathoracic soft tissue: There is right curvature of the thoracolumbar spine. There are hypertrophic spurs throughout the thoracic lumbar spine. IMPRESSION: There is interval development of diffuse bilateral lung infiltrates concerning for pneumonia. Dictated on workstation # [id number] Dict: 04/14/23 1006 Trans: 04/14/23 1008 CVB [id number] Interpreted by: CAITLIN SINGER MD Electronically signed by: Departure Impression Primary Impression: Pneumonia Qualified Codes: J18.9 - Pneumonia, unspecified organism Additional Impression: Anemia Qualified Codes: D50.8 - Other iron deficiency anemias Disposition: HOME, SELF-CARE Condition: Stable Departure-Patient Inst. Decision time for Depature: 10:35 Referrals: MARCELLO REYES MD (PCP/Family) Primary Care Physician Patient Instructions: Pneumonia, Adult (DC) Add. Discharge Instructions: You already received the antibiotics and steroids for today. Start your prescriptions tomorrow morning. Be sure to use your breathing treatment every 4 hours today, get help with it if you need. Try to have someone help you keep your oxygen on when to go to the bathroom as well for the next couple of days while your antibiotics are working. If things are worsening, you can always come back to the ER for repeat evaluation. You are also anemic. We recommend taking an iron supplement as well as potentially a vitamin B12 supplement. Please follow back up with your regular doctor in regards to this for repeat blood work. Scripts Methylprednisolone (Methylprednisolone Dose Pack) 4 Mg Tab.ds.pk 4 MG PO UD for 6 Days, #21 PKG PER DOSE PACK INSTRUCTIONS Prov: LINA MELÉNDEZ MD 04/14/23 Doxycycline Hyclate (Doxycycline Hyclate) 100 Mg Tablet 100 MG PO BID for 7 Days, #14 TAB 0 Refills Prov: LINA MELÉNDEZ MD 04/14/23 Cefuroxime Axetil (Cefuroxime) 500 Mg Tablet 500 MG PO BID for 7 Days, #14 TAB Prov: LINA MELÉNDEZ MD 04/14/23 LINA MELÉNDEZ MD Apr 14, 2023 09:32
[2023-04-14 09:43] LABS: BASOPHILS % (AUTO) 0 % (0-10); EOSINOPHILS # (AUTO) 0.3 10^3/uL (0.0-0.3); EOSINOPHILS % (AUTO) 2 % (0-10); HEMATOCRIT 25 % (35-52); HEMOGLOBIN 7.4 g/dL (11.5-16.0); LYMPHOCYTES # (AUTO) 1.1 10^3/uL (1.0-4.0); LYMPHOCYTES % (AUTO) 9 % (12-44); MEAN CORPUSCULAR HEMOGLOBIN 27 pg (25-34); MEAN CORPUSCULAR HGB CONC 29 g/dL (32-36); MEAN CORPUSCULAR VOLUME 91 fL (80-99); MEAN PLATELET VOLUME 10.8 fL (9.0-12.2); MONOCYTES % (AUTO) 7 % (0-12); NEUTROPHILS # (AUTO) 10.8 10^3/uL (1.8-7.8); NEUTROPHILS % (AUTO) 81 % (42-75); PLATELET COUNT 346 10^3/uL (130-400); WHITE BLOOD COUNT 13.4 10^3/uL (4.3-11.0)
[2023-04-14 10:00] LABS: INR 1.3 (0.8-1.4); PROTHROMBIN TIME PATIENT 16.3 SEC (12.2-14.7)
[2023-04-14 10:07] LABS: CARBON DIOXIDE 27 MMOL/L (21-32); CHLORIDE 107 MMOL/L (98-107); POTASSIUM 3.9 MMOL/L (3.6-5.0); SODIUM 143 MMOL/L (135-145)
[2023-04-14 10:08] LABS: BILIRUBIN,TOTAL 0.3 MG/DL (0.1-1.0); CALCIUM 8.5 MG/DL (8.5-10.1); GLUCOSE 136 MG/DL (70-105); LIPASE 18 U/L (8-78); MAGNESIUM 2.1 MG/DL (1.6-2.4); TOTAL PROTEIN 6.4 GM/DL (6.4-8.2)
--- NOTE | 2023-04-14 10:08 | Diagnostic Imaging Report ---
CLINICAL INDICATION: Patient with chest pain, shortness of breath and COPD. EXAM: Portable chest x-ray upright view. COMPARISON: Chest x-ray dated 01/04/2023. FINDINGS: Lungs/pleura: There is interval development of diffuse patchy infiltrates throughout both lungs with the right lung worse than the left. There is spurring of the left lung apex. There is no pneumothorax. There is no pleural effusion. Mediastinum: Unremarkable. Pulmonary vasculature: Unremarkable. Heart: Cardiac silhouette is within normal limits. Cardiac pacemaker loop recorder is again seen overlying the chest which appears intact. Bones/extrathoracic soft tissue: There is right curvature of the thoracolumbar spine. There are hypertrophic spurs throughout the thoracic lumbar spine. IMPRESSION: There is interval development of diffuse bilateral lung infiltrates concerning for pneumonia. Dictated by: Dictated on workstation # [id number]
[2023-04-14 10:14] LABS: ALANINE AMINOTRANSFERASE 12 U/L (0-55); ALBUMIN 2.5 GM/DL (3.2-4.5); ALKALINE PHOSPHATASE 71 U/L (40-136); BUN/CREATININE RATIO 30; CREATININE SERUM 0.71 MG/DL (0.60-1.30); GFR ESTIMATED 86
[2023-04-14] MEDS ORDERED: DOXY100T2 PO (10:27)
[2023-04-14] MEDS ORDERED: CEFU500T63 PO (10:27)
[2023-04-14] MEDS ORDERED: METH4TAB10 PO (10:27)
[2023-04-14 10:31] LABS: BILIRUBIN,URINE NEGATIVE (NEGATIVE); CLARITY,URINE CLEAR; COLOR,URINE YELLOW; GLUCOSE, URINE (UA) NEGATIVE (NEGATIVE); KETONES,URINE NEGATIVE (NEGATIVE); LEUKOCYTE ESTERASE ,URINE NEGATIVE (NEGATIVE); NITRITE,URINE NEGATIVE (NEGATIVE); PROTEIN,URINE NEGATIVE (NEGATIVE)
[2023-04-14 10:34] LABS: BACTERIA,URINE NEGATIVE /HPF; WBC,URINE RARE /HPF
[2023-04-14 10:58] VITALS: BP 131/78
== END 2023-04-14 10:58 | disposition home or self-care (01) ==
LOC: EDUNIT# 09:19 → ER FS 09:20
DX: J18.9 Pneumonia, unspecified organism (principal); D64.9 Anemia, unspecified; J96.11 Chronic respiratory failure with hypoxia; J44.9 Chronic obstructive pulmonary disease, unspecified; Z99.81 Dependence on supplemental oxygen; Z87.891 Personal history of nicotine dependence
CPT/HCPCS: 36415; 71045; 80053; 81000; 82805; 83690; 83735; 83880; 84484; 85025; 85610; 85730; 87636; 93005; 93041